=== PATIENT | female | born 1945 | race Caucasian/White ===

== ENCOUNTER 2017-03-07 16:41 | Outpatient (CLI) | payer MEDICARE, BC | END 2017-03-07 16:42 | disposition critical access hospital (66) | LOC: EMS 16:41 | PROVIDERS: ATTEND Surgery | DX: R11.2 Nausea with vomiting, unspecified (principal); R19.7 Diarrhea, unspecified | CPT/HCPCS: A0425; A0427 ==

== ENCOUNTER 2017-03-07 17:25 | Emergency (ER) | payer MEDICARE, BC ==
[~2017-03-07 17:25] MED LIST: SODIUM CHLORIDE 0.9% 1,000 ML IV ONE
[2017-03-07 17:39] LABS: BASOPHILS % (AUTO) 0.3 %; EOSINOPHILS % (AUTO) 0.9 %; HCT - HEMATOCRIT 41.9 % (37.0-47.0); HGB - HEMOGLOBIN 14.5 g/dL (12.0-16.0); LYMPHOCYTES # (AUTO) 0.7 10^3/uL (1.5-3.5); LYMPHOCYTES % (AUTO) 14.7 %; MEAN CORPUSCULAR HEMOGLOBIN 29.7 pg (27.0-31.0); MEAN CORPUSCULAR HGB CONC 34.6 g/dL (32.0-36.0); MEAN PLATELET VOLUME 6.9 fL (7.9-10.8); MONOCYTES # (AUTO) 0.4 10^3/uL (0.0-1.0); MONOCYTES % (AUTO) 7.5 %; NEUTROPHILS # (AUTO) 3.7 10^3/uL (1.5-6.6); NEUTROPHILS % (AUTO) 76.6 %; NUCLEATED RED BLOOD CELLS AUTO 0.1 /100WBC; RED BLOOD COUNT 4.87 10^6/uL (4.20-5.40); RED CELL DISTRIBUTION WIDTH 14.2 % (12.0-15.0); UNCORRECTED WHITE BLOOD COUNT 4.8 x10^3/uL; WHITE BLOOD COUNT 4.8 x10^3/uL (4.8-10.8)
[2017-03-07 17:52] LABS: ALBUMIN/GLOBULIN RATIO 1.2 (1.0-2.2); BILIRUBIN,TOTAL 0.5 mg/dL (0.2-1.0); CALCIUM 7.8 mg/dL (8.5-10.3); CREATININE 0.7 mg/dL (0.4-1.0); TOTAL PROTEIN 6.5 g/dL (6.7-8.2)
--- NOTE | 2017-03-07 17:56 | ED Physician Documentation ---
History of Present Illness - Stated complaint Stated Complaint: N/V/D - Chief complaint Chief Complaint: Abd Pain - History obtained from History obtained from: Patient, Family, EMS - History of Present Illness Timing: Yesterday Pain level max: 3 Pain level now: 3 Improved by: nothing Worsened by: nothing - Additonal information Additional information: Patient is a 71-year-old female presents to the emergency department with nausea , vomiting, diarrhea for the past day. States that she had reconstructive breast surgery several months ago, since that time has been on multiple antibiotics. Concerned that she may have C. difficile. States that she has felt achy, but no fevers. No blood in the diarrhea. 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 HEENT: Tonsil/Adenoidectomy - Present Medications Home Medications: Ambulatory Orders Medication Instructions Recorded Confirmed Atenolol [Tenormin] 1 tab ORAL DAILY 02/11/16 02/11/16 Levothyroxine [Synthroid] 1 tab ORAL DAILY 02/11/16 02/11/16 Lisinopril [Zestril] 1 tab ORAL BID 02/11/16 02/11/16 Montelukast [Singulair] 1 tab ORAL DAILY 02/11/16 02/11/16 Umeclidinium Brm/Vilanterol Tr 1 puffs INH DAILY 02/11/16 02/11/16 [Anoro Ellipta 62.5-25 Mcg INH] Ondansetron Odt [Zofran] 4 mg TL Q6H PRN #10 tablet 03/07/17 - Allergies Allergies/Adverse Reactions: Allergies Allergy/AdvReac Type Severity Reaction Status Date / Time Penicillins Allergy Unknown Verified 02/11/16 15:22 - Social History Does the pt smoke?: No Smoking Status: Never smoker Does the pt drink ETOH?: No Does the pt have substance abuse?: No - Immunizations Immunizations are current?: Yes PD ED PE NORMAL - Vitals Vital signs reviewed: Yes - General General: Alert and oriented X 3, No acute distress, Well developed/nourished - HEENT HEENT: Moist mucous membranes - Neck Neck: Supple, no meningeal sign - Cardiac Cardiac: RRR - Respiratory Respiratory: No respiratory distress, Clear bilaterally - Abdomen Abdomen: Soft, Non distended, Other (mild diffusely TTP without peritoneal signs. ) - Back Back: No spinal TTP - Derm Derm: Warm and dry, No rash - Neuro Neuro: Alert and oriented X 3 - Psych Psych: Normal mood, Normal affect Results - Vitals Vitals: Oxygen O2 Source Room air - EKG (time done) 2013 Rate: Rate (enter#) (89) Rhythm: NSR [place]: Normal Intervals: Normal [place] QRS: Normal Ischemia: Normal ST segments - Labs Labs: Microbiology 03/07/17 20:20 Campylobacter Antigen Assay - Final Stool Stool Culture - Preliminary NO SHIGA TOXIN 1 OR 2 DETECTED 03/07/17 20:20 Clostridium difficile (PCR) - Final Stool Laboratory Tests 03/07/17 03/07/17 03/07/17 17:31 17:31 18:06 WBC 4.8 RBC 4.87 Hgb 14.5 Hct 41.9 MCV 86.0 MCH 29.7 MCHC 34.6 RDW 14.2 Plt Count 210 MPV 6.9 L Neut # 3.7 Lymph # 0.7 L [place] # 0.4 Eos # 0.0 Baso # 0.0 Absolute Nucleated RBC 0.00 Nucleated RBCs 0.1 Sodium 135 Potassium 4.0 Chloride 101 Carbon Dioxide 23 Anion Gap 11.0 BUN 22 H Creatinine 0.7 Estimated GFR (MDRD) 82 L Glucose 145 H Lactic Acid 1.2 Calcium 7.8 L Total Bilirubin 0.5 AST 20 ALT 19 Alkaline Phosphatase 64 Total Protein 6.5 L Albumin 3.6 Globulin 2.9 Albumin/Globulin Ratio 1.2 Lipase 19 L Urine Color Urine Clarity Urine pH Ur Specific [place] Urine Protein Urine Glucose (UA) Urine Ketones Urine Occult Blood Urine Nitrite Urine Bilirubin Urine Urobilinogen Ur Leukocyte Esterase Urine RBC Urine WBC Ur Squamous Epith Cells Urine Bacteria Urine Casts Urine Mucus Ur Microscopic Review Urine Culture Comments 03/07/17 19:11 WBC RBC Hgb Hct MCV MCH MCHC RDW Plt Count MPV Neut # Lymph # [place] # Eos # Baso # Absolute Nucleated RBC Nucleated RBCs Sodium Potassium Chloride Carbon Dioxide Anion Gap BUN Creatinine Estimated GFR (MDRD) Glucose Lactic Acid Calcium Total Bilirubin AST ALT Alkaline Phosphatase Total Protein Albumin Globulin Albumin/Globulin Ratio Lipase Urine Color YELLOW Urine Clarity CLEAR Urine pH 6.0 Ur Specific [place] 1.020 Urine Protein NEGATIVE Urine Glucose (UA) NEGATIVE Urine Ketones 40 H Urine Occult Blood LARGE H Urine Nitrite NEGATIVE Urine Bilirubin NEGATIVE Urine Urobilinogen 0.2 (NORMAL) Ur Leukocyte Esterase NEGATIVE Urine RBC 11-25 H Urine WBC 4-5 Ur Squamous Epith Cells FEW Squamous Urine Bacteria Few Urine Casts 0-2 Hyaline Casts Urine Mucus Few Strands Ur Microscopic Review INDICATED Urine Culture Comments NOT INDICATED PD MEDICAL DECISION MAKING - ED course Complexity details: reviewed results, re-evaluated patient, considered differential, d/w patient, d/w family ED course: Patient is a 71-year-old female who presents to the emergency department with nausea vomiting and diarrhea. C. difficile test is negative. Campylobacter is negative. She feels much better after IV fluids. Abdomen is soft, nontender nondistended on serial examination. Tolerating p.o. without difficulty. Likely viral illness. Will continue supportive care and follow-up with her doctor. Patient and family counseled regarding signs and symptoms for which I believe and urgent re-evaluation would be necessary. Patient with good understanding of and agreement to plan and is comfortable going home at this time This document was made in part using voice recognition software. While efforts are made to proofread this document, sound alike and grammatical errors may occur. Departure - Departure Disposition: 01 Home, Self Care Clinical Impression: Gastroenteritis Condition: Good Instructions: ED Gastroenteritis Viral Follow-Up: Francisca Yun MD [Primary Care Provider] - Within 1 week Prescriptions: Ondansetron Odt [Zofran] 4 mg TL Q6H PRN #10 tablet PRN Reason: Nausea / Vomiting Comments: Drink plenty of fluids and rest. This should improve over the next 2 -3 days. Return if you worsen. Discharge Date/Time: 03/07/17 22:57
[2017-03-07] MEDS ORDERED: SODIUM CHLORIDE 0.9% 1,000 ML IV ONE (17:57)
[2017-03-07 19:31] LABS: BILIRUBIN,URINE NEGATIVE (NEGATIVE)
[2017-03-07 19:34] LABS: UA w/ MICROSCOPIC CHARGE YES
[2017-03-07 19:46] LABS: UR CULTURE IF IND NOT INDICATED
[2017-03-07 22:32] VITALS: BP 130/48
[2017-03-07] MEDS ORDERED: ONDANSETRON ODT 4 MG Prepack 2 TL PRN (22:53)
[2017-03-07] MEDS ORDERED: ONDANSETRON ODT 4 MG Prepack 2 TL ONE (22:59)
== END 2017-03-07 22:57 | disposition home or self-care (01) ==
LOC: ED 17:25
DX: K52.9 Noninfective gastroenteritis and colitis, unspecified (principal); I10 Essential (primary) hypertension; E03.9 Hypothyroidism, unspecified
CPT/HCPCS: 36415; 80053; 81001; 81003; 83605; 83690; 85025; 87045; 87046; 87077; 87086; 87493; 93005; 96360; 99283; 99284

== ENCOUNTER 2017-04-05 14:40 | Outpatient (CLI) | payer MEDICARE, BC | END 2017-04-05 14:41 | disposition critical access hospital (66) | LOC: EMS 14:40 | PROVIDERS: ATTEND Surgery | DX: R11.2 Nausea with vomiting, unspecified (principal); R19.7 Diarrhea, unspecified; R53.1 Weakness; R46.4 Slowness and poor responsiveness | CPT/HCPCS: A0425; A0427 ==

== ENCOUNTER 2017-04-05 15:14 | Inpatient (IN) | payer MEDICARE, BC ==
[2017-04-05] MEDS ORDERED: SODIUM CHLORIDE 0.9% 1,000 ML IV ONE ×3 (15:25→17:52)
[2017-04-05] MEDS ORDERED: SODIUM CHLORIDE FLUSH 0.9% 10 ML SYRINGE IVP ONE (15:31)
--- NOTE | 2017-04-05 15:48 | ED Physician Documentation ---
PD HPI NVD - Stated complaint Stated Complaint: N/V/D - Chief complaint Chief Complaint: Abd Pain - History obtained from History obtained from: Patient, EMS - History of Present Illness Timing - onset: How many hours ago (3), Today Timing - duration: Hours (3) Timing - details: Abrupt onset, Still present Associated symptoms: Abdominal pain (mild cramping intermittent), Near syncope / syncope (general weakness with feeling almost faint. No LOC.), Loss of appetite. No: Fever, Chest pain, Hematemesis, Melena, Hematochezia Contributing factors: No: Sick contact, Bad food, Travel, Recent antibiotics Improved by: No: Vomiting, BM Worsened by: Eating Similar symptoms before: No diagnosis (had similar not as severe episode a month ago or so, which lasted couple days, and was improved with IV fluids and meds in ED and did not need admission. Stool studies then were negative.) Recently seen: Not recently seen Review of Systems Constitutional: reports: Myalgias. denies: Fever, Chills Nose: denies: Rhinorrhea / runny nose, Congestion Throat: denies: Sore throat Respiratory: denies: Cough GI: reports: Nausea, Vomiting, Diarrhea. denies: Hematemesis, Bloody / black stool : denies: Dysuria, Frequency Neurologic: reports: Generalized weakness. 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 HEENT: Tonsil/Adenoidectomy - Present Medications Home Medications: Ambulatory Orders Medication Instructions Recorded Confirmed Atenolol [Tenormin] 1 tab ORAL DAILY 02/11/16 02/11/16 Levothyroxine [Synthroid] 1 tab ORAL DAILY 02/11/16 02/11/16 Lisinopril [Zestril] 1 tab ORAL BID 02/11/16 02/11/16 Montelukast [Singulair] 1 tab ORAL DAILY 02/11/16 02/11/16 Umeclidinium Brm/Vilanterol Tr 1 puffs INH DAILY 02/11/16 02/11/16 [Anoro Ellipta 62.5-25 Mcg INH] Ondansetron Odt [Zofran] 4 mg TL Q6H PRN #10 tablet 03/07/17 - Allergies Allergies/Adverse Reactions: Allergies Allergy/AdvReac Type Severity Reaction Status Date / Time Penicillins Allergy Unknown Verified 04/05/17 15:24 - Social History Does the pt smoke?: No Smoking Status: Never smoker Does the pt drink ETOH?: No Does the pt have substance abuse?: No - Immunizations Immunizations are current?: Yes PD ED PE NORMAL - Vitals Vital signs reviewed: Yes - General General: Alert and oriented X 3, Well developed/nourished, Other (nauseated and holding emesis bag. Pale color. ) - HEENT HEENT: PERRL (nonicteric), Ears normal, Pharynx benign - Neck Neck: Supple, no meningeal sign, No adenopathy - Cardiac Cardiac: RRR, No murmur - Respiratory Respiratory: Clear bilaterally - Abdomen Abdomen: Soft, Non distended, No organomegaly, Other (mild central tenderness without guarding. ). No: Normal bowel sounds (increased general sounds) - Female Female : Deferred - Rectal Rectal: Deferred, Other (she has diarrheal movement into commode which is watery yellow with mealy character and guiac negative. ) - Back Back: No CVA TTP - Derm Derm: Normal color, Warm and dry - Extremities Extremities: No tenderness to palpate, Normal ROM s pain, No edema, No calf tenderness / cord - Neuro Neuro: Alert and oriented X 3, No motor deficit, Normal speech - Psych Psych: Normal mood Results - Vitals Vitals: Vital Signs - 24 hr 04/05/17 15:19 Temperature 36.4 C L Heart Rate 76 Respiratory 16 Rate Blood Pressure 129/44 L O2 Saturation 100 Oxygen O2 Source Room air - Labs Labs: Microbiology 04/05/17 15:45 Campylobacter Antigen Assay - Final Stool Laboratory Tests 04/05/17 04/05/17 16:10 16:10 WBC 17.0 H RBC 5.31 Hgb 14.9 Hct 46.0 MCV 86.7 MCH 28.1 MCHC 32.4 RDW 14.4 Plt Count 331 MPV 7.6 L Neut # 14.0 H Lymph # 2.0 [place] # 0.8 Eos # 0.1 Baso # 0.1 Absolute Nucleated RBC 0.00 Nucleated RBC % 0.0 Manual Slide Review Indicated WBC Morphology 1+ VACUOLATION Platelet Estimate NORMAL (130-450,000) Platelet Morphology NORMAL APPEARANCE RBC Morph Micro Appear NORMAL APPEARANCE Sodium 140 Potassium 3.8 Chloride 104 Carbon Dioxide 23 Anion Gap 13.0 BUN 21 H Creatinine 0.9 Estimated GFR (MDRD) 61 L Glucose 127 H Calcium 9.7 Total Bilirubin 0.4 AST 17 ALT 12 Alkaline Phosphatase 75 Total Protein 7.4 Albumin 4.7 Globulin 2.7 Albumin/Globulin Ratio 1.7 Lipase 29 PD MEDICAL DECISION MAKING - ED course Complexity details: re-evaluated patient, considered differential (consider viral GE vs. food related. Not having abd pain/tenderness focally and abrupt onset, so does not sound like diverticulitis. Not significant pain, so doubt ischemic bowel, and no blood in stool. She is having less nausea and no vomiting after meds. However despite anti-diarrheals she is still having voluminous stools with general weakness. They are watery yellow with some mealy character. ), d/w patient Departure - Departure Disposition: ED Place in Observation Clinical Impression: Nausea vomiting and diarrhea, General weakness, Volume depletion, gastrointestinal loss Condition: Stable Record reviewed to determine appropriate education?: Yes
[2017-04-05] MEDS ORDERED: ONDANSETRON 4 MG/2 ML VIAL IVP STA (16:03)
[2017-04-05] MEDS ORDERED: MORPHINE 10 MG/ML VIAL IVP STA (16:04)
[2017-04-05 16:14] LABS: BASOPHILS # (AUTO) 0.1 10^3/uL (0.0-0.1); BASOPHILS % (AUTO) 0.5 %; EOSINOPHILS # (AUTO) 0.1 10^3/uL (0.0-0.7); EOSINOPHILS % (AUTO) 0.5 %; HGB - HEMOGLOBIN 14.9 g/dL (12.0-16.0); LYMPHOCYTES % (AUTO) 11.9 %; MEAN CORPUSCULAR HEMOGLOBIN 28.1 pg (27.0-31.0); MEAN CORPUSCULAR HGB CONC 32.4 g/dL (32.0-36.0); MEAN CORPUSCULAR VOLUME 86.7 fL (81.0-99.0); MEAN PLATELET VOLUME 7.6 fL (7.9-10.8); MONOCYTES # (AUTO) 0.8 10^3/uL (0.0-1.0); NEUTROPHILS % (AUTO) 82.1 %; RED BLOOD COUNT 5.31 10^6/uL (4.20-5.40); RED CELL DISTRIBUTION WIDTH 14.4 % (12.0-15.0)
[2017-04-05] MEDS ORDERED: ONDANSETRON 4 MG/2 ML VIAL ONE (16:24)
[2017-04-05] MEDS ORDERED: MORPHINE 10 MG/ML VIAL ONE (16:24)
[2017-04-05 16:26] LABS: ALBUMIN/GLOBULIN RATIO 1.7 (1.0-2.2); BILIRUBIN,TOTAL 0.4 mg/dL (0.2-1.0); CALCIUM 9.7 mg/dL (8.5-10.3); CREATININE 0.9 mg/dL (0.4-1.0); POTASSIUM 3.8 mmol/L (3.5-5.0); TOTAL PROTEIN 7.4 g/dL (6.7-8.2)
[2017-04-05 16:43] LABS: PLATELET ESTIMATE, MANUAL NORMAL (130-450,000) (NORMAL); PLATELET MORPHOLOGY NORMAL APPEARANCE (NORMAL); WBC MORPHOLOGY (MULTIPLE) 1+ VACUOLATION (NORMAL)
[2017-04-05] MEDS ORDERED: DIPHENOX/ATROPINE 2.5/0.025 MG TABLET PO STA ×2 (17:00→17:50)
[2017-04-05] MEDS ORDERED: DIPHENOX/ATROPINE 2.5/0.025 MG TABLET PO ONE ×2 (17:09→17:55)
[2017-04-05] MEDS ORDERED: PROMETHAZINE 25 MG/1 ML VIAL IM PRN (18:33)
[2017-04-05] MEDS ORDERED: SODIUM CHLORIDE FLUSH 0.9% 10 ML SYRINGE IVP PRN (18:33)
[2017-04-05] MEDS ORDERED: PROCHLORPERAZINE 10 MG/2 ML VIAL IVP PRN (18:33)
[2017-04-05] MEDS ORDERED: ONDANSETRON ODT 4 MG TABLET TL PRN (18:33)
[2017-04-05] MEDS ORDERED: ACETAMINOPHEN 325 MG TABLET PO PRN (18:33)
[2017-04-05] MEDS ORDERED: MORPHINE 2 MG/ML SYRINGE IVP PRN (18:33)
[2017-04-05] MEDS ORDERED: ALPRAZolam 0.25 MG TABLET PO PRN (19:03)
[2017-04-05 19:16] LABS: THYROID STIMULATING HORMONE 0.7 uIU/mL (0.34-5.60)
[2017-04-05 20:34] LABS: BILIRUBIN,URINE NEGATIVE (NEGATIVE)
[2017-04-05 20:38] LABS: UA w/ MICROSCOPIC CHARGE YES
[2017-04-05 21:06] LABS: UR CULTURE IF IND INDICATED
[2017-04-05] MEDS: SODIUM CHLORIDE FLUSH 0.9% 10 ML SYRINGE IVP SCH (21:48)
[2017-04-05] MEDS: NS W/20 MEQ KCL 1,000 ML IV SCH (21:48)
[2017-04-05] MEDS ORDERED: DIPHENOX/ATROPINE 2.5/0.025 MG TABLET PO PRN (23:59)
--- NOTE | 2017-04-06 02:04 | HISTORY & PHYSICAL EXAMINATION ---
DATE OF ADMISSION: 04/05/2017 CHIEF COMPLAINT: Intractable nausea, vomiting, diarrhea x1 day. HISTORY OF PRESENT ILLNESS: The patient is very pleasant 71-year-old female who presented to the ER today with a complaint of continuous intractable diarrhea. The patient states that she was in her usual state of health yesterday , stopped and picked up dinner, which was [place] that she had eaten at many times before and then proceeded home. When she woke up this morning, she felt nauseous, stomach did not feel normal so she ate some Citizen [place] yogurt, which she has taken in the past several times. She usually eats this yogurt after she had taking antibiotics and when she felt nauseous. Approximately an hour to 1-1/ 2 hour after eating the yogurt, she started having abdominal cramping in the right and left lower quadrant and started having what she calls explosive watery bowel movements. She attempted to go to work today and after being at work for approximately an hour to 1-1/2, she had to lay down on the floor. She broke out in diffuse sweating and started having worsening nausea and abdominal pain and ended up back in the bathroom again up with additional loose watery stool again. At that point in time she decided to come to the ER for further evaluation. She states she has had these similar symptoms before in the past. Specifically, after taking antibiotics for a recent sinusitis and when she has had to take antibiotics in the past for infection or skin problems. Her only underlying significant history was breast cancer diagnosed 30 years prior. While in the ER, she got several doses of , morphine for abdominal pain and Zofran for nausea. Essentially, her blood work was positive for leukocytosis. Otherwise, all electrolytes were within normal limits. The patient was admitted into observation overnight to monitor her electrolytes and for dehydration. ALLERGIES: PENICILLIN. HOME MEDICATIONS: 1. Atenolol 25 mg tablets daily. 2. Synthroid 100 mcg daily. 3. Lisinopril 20 mg daily. 4. Singulair 1 tablet oral p.r.n. 5. Zofran 4 mg tablet sublingual. 6. Inhaler 1 puff for intermittent asthma. PAST MEDICAL HISTORY: 1. History of breast cancer. 2. Sinusitis history. 3. Hypertension. 4. Chronic obstructive pulmonary disease. 5. Hypothyroidism. PAST SURGICAL HISTORY: Includes nephrectomy, tonsil and adenoidectomy, hysterectomy and section. FAMILY HISTORY: Reviewed with the patient, is not pertinent at this time; however, she did state that both parents are . SOCIAL HISTORY: The patient does not smoke. She does not use alcohol nor does she use any illicit substances. She is a [place]. She is . REVIEW OF SYSTEMS A 10 systems have been reviewed and is negative, with exception as discussed in the HPI prior. PHYSICAL EXAMINATION: CONSTITUTIONAL: The patient is alert, in no acute distress. She is sitting on a toilet at the time of assessment. EYES: Pupils are equal, round and reactive to light and accommodation. NECK: Supple. No thyromegaly. CARDIOVASCULAR: S1, S2. Sinus rate and rhythm. RESPIRATORY: Breath sounds are clear and equal bilaterally to auscultation and percussion, no retractions or nasal flaring. GASTROINTESTINAL: Abdomen was soft, bowel sounds are noted. The patient was actively stooling at the time of assessment. GENITOURINARY: No CVA tenderness. Unable to assess bladder at that time. EXTREMITIES: No cyanosis. Pulses are palpable. The patient was able to move upper and lower extremities without difficulty. PSYCHIATRIC: Behavior is appropriate. Pleasant mood. Normal affect. SKIN: Warm, dry and intact. Normal turgor. No evidence of any rashes, lesions, or cellulitis. No edema was noted to bilateral lower extremities. VITAL SIGNS: Temperature 36.4, heart rate 76, respirations 16, blood pressure is 129/44, oxygen saturation 100%. NEUROLOGIC: She was alert, GCS 15. Unable to assess cranial nerves completely at this time, however cranial nerves 2 through 7 were intact. LABORATORY AND DIAGNOSTICS: I personally reviewed laboratory and diagnostic data and the medical record results for the abnormals are as follows: WBC is 1700, BUN is 21, glucose 127, neutrophil percent 14. Diagnostics, none at this time. ASSESSMENT AND PLAN: 1. Intractable nausea with diarrhea secondary to volume depletion with gastrointestinal loss. Plan: Admit the patient into observation. Will give IV fluids, normal saline with aggressive hydration. Continue to monitor electrolytes via daily lab draws. Imodium has been given x2. While in the ER. Will continue to monitor for additional abdominal pain, morphine IV, Zofran IV for nausea and Phenergan for vomiting. Will hold off at this time for CT of abdomen to check for diverticulitis only because the patient has had similar symptoms in the past and it has generally resolve within 1-2 days. She also states that she may have a problem with acidophilous since she states that she cannot take probiotics with that in it and she also has a problem with lactulose. This may be strictly related to the yogurt that she had eaten earlier today. Will give Tylenol as well for fever. 2. Leukocytosis, unspecified. Plan: Will continue to monitor CBC daily labs drawn. I suspect that this is probably related to the gastroenteritis and a spike in the white blood cell count due to possibly viral gastroenteritis since the patient does not have a shift. The patient also does not have any significant history for ischemic bowel, or blood in the stool. Pain seems to have resolved since receiving the IV morphine. 3. Hypothyroidism, unspecified. Plan: We will get a TSH panel since the patient' s thyroid might be off and she might be in a more hyperthyroid state. We will continue on levothyroxine. 4. Essential hypertension. Plan: Will continue atenolol. Will hold lisinopril at this time due to the patient's hydration status. 5. Chronic obstructive pulmonary disease without exacerbation. Plan: We will continue on Singulair and a Anoro Ellipta inhaler as home prescribed. Continue to monitor for changes in respiratory status and respiratory therapy for support. Supplemental oxygen 2 liters nasal cannula to keep sats greater than 90 % has been ordered. 6. Deep venous thromboembolism prophylaxis with foot pumps and Lovenox. 7. STATUS: THE PATIENT IS a FULL CODE. RISK ASSESSMENT/DISPOSITION: The patient is high risk for worsening comorbidities. She will require at least one overnight stay for further evaluation, diagnostics and blood work. Time spent on assessment, panning and evaluation was 45 minutes. JOB #: [id number] EXT JOB #:[id number] FANTASMA
[2017-04-06] MEDS: ZOLPIDEM 5 MG TABLET PO PRN ×2 (03:03→23:54)
[2017-04-06] MEDS: CIPROFLOXACIN 400 MG/200 ML 200 ML IV SCH ×3 (03:03→23:54)
[2017-04-06 05:57] LABS: BASOPHILS % (AUTO) 0.4 %; EOSINOPHILS # (AUTO) 0.2 10^3/uL (0.0-0.7); EOSINOPHILS % (AUTO) 2.9 %; HCT - HEMATOCRIT 36.7 % (37.0-47.0); HGB - HEMOGLOBIN 12.2 g/dL (12.0-16.0); LYMPHOCYTES # (AUTO) 2.2 10^3/uL (1.5-3.5); LYMPHOCYTES % (AUTO) 37.7 %; MEAN CORPUSCULAR HEMOGLOBIN 28.9 pg (27.0-31.0); MEAN CORPUSCULAR HGB CONC 33.1 g/dL (32.0-36.0); MEAN CORPUSCULAR VOLUME 87.2 fL (81.0-99.0); MEAN PLATELET VOLUME 7.6 fL (7.9-10.8); MONOCYTES # (AUTO) 0.4 10^3/uL (0.0-1.0); MONOCYTES % (AUTO) 6.5 %; NEUTROPHILS # (AUTO) 3.1 10^3/uL (1.5-6.6); NEUTROPHILS % (AUTO) 52.5 %; NUCLEATED RED BLOOD CELLS AUTO 0.1 /100WBC; RED BLOOD COUNT 4.21 10^6/uL (4.20-5.40); RED CELL DISTRIBUTION WIDTH 14.1 % (12.0-15.0); UNCORRECTED WHITE BLOOD COUNT 5.8 x10^3/uL; WHITE BLOOD COUNT 5.8 x10^3/uL (4.8-10.8)
[2017-04-06 06:05] LABS: ALBUMIN/GLOBULIN RATIO 1.6 (1.0-2.2); BILIRUBIN,TOTAL 0.3 mg/dL (0.2-1.0); CALCIUM 7.7 mg/dL (8.5-10.3); CREATININE 0.6 mg/dL (0.4-1.0); POTASSIUM 3.8 mmol/L (3.5-5.0); TOTAL PROTEIN 5.5 g/dL (6.7-8.2)
[2017-04-06] MEDS: SODIUM CHLORIDE FLUSH 0.9% 10 ML SYRINGE IVP SCH ×3 (08:13→21:11)
[2017-04-06] MEDS: NS W/20 MEQ KCL 1,000 ML IV SCH ×2 (08:22→18:01)
[2017-04-06] MEDS: ENOXAPARIN 40 MG/0.4 ML SYRINGE SUBQ SCH (08:23)
[2017-04-06] MEDS: LEVOTHYROXINE 100 MCG TABLET PO SCH (08:25)
--- NOTE | 2017-04-06 09:28 | PROVIDER PROGRESS NOTE ---
Assessment/Plan - Problem List (1) Campylobacter gastrointestinal tract infection Assessment/Plan: acute. patient changed to inpatient status. started on Cipro IV and will continue to give IVF NS hydration and monitor electrolytes with daily lab draws. she wants to start eating today. will advance diet as tolerated. WBC has decreased today. will monitor CBC with daily lab draws. zofran IV for nausea and morphine for pain IV. stool cultures are pending for additional bacteria (2) Volume depletion, gastrointestinal loss Assessment/Plan: improving. continue with IVF and monitor for changes in electrolytes. advancing diet today and monitor for additional diarrhea and nausea (3) Hypothyroidism Qualifiers: Hypothyroidism type: unspecified Qualified Code(s): E03.9 - Hypothyroidism , unspecified Assessment/Plan: chronic. continue with synthroid 100mg daily and thyroid panel is normal. 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 patient has hypothyroidism and also takes beta sanjeev for blood pressure control, thyroid normal and will continue on blood pressure medications and hold is systolic <100 - Current Meds Current Meds: Current Medications Generic Name Dose Route Start Last Admin Trade Name Freq PRN Reason Stop Dose Admin Alprazolam 0.5 mg 04/05/17 19:03 04/05/17 22:02 Xanax PO 0.5 mg BID PRN Administration Anxiety Enoxaparin Sodium 40 mg 04/06/17 09:00 04/06/17 08:23 Lovenox SUBQ 40 mg DAILY ENMANUEL Administration Potassium Chloride/Sodium Chloride 1,000 mls @ 100 mls/hr 04/05/17 19:00 08:22 Normal Saline 0.9% W/20 Meq Kcl IV 100 mls/hr .Q10H ENMANUEL Administration Ciprofloxacin 200 mls @ 200 mls/hr 04/06/17 00:00 04/06/17 04:03 Cipro 400 Mg/200 Ml IV Infused Q12H ENMANUEL Infusion Levothyroxine Sodium 100 mcg 04/06/17 09:00 04/06/17 08:25 Synthroid PO 100 mcg DAILY ENMANUEL Administration Sodium Chloride 10 ml 04/05/17 22:00 04/06/17 08:13 Normal Saline Flush 0.9% IVP Not Given Q8HR ENMANUEL Zolpidem Tartrate 5 mg 04/06/17 02:34 04/06/17 03:03 Ambien PO 5 mg QPM PRN Administration Insomnia - Lab Result Lab results reviewed: Yes Fish Bone Diagrams: 04/06/17 05:36 04/06/17 05:36 Other Lab Results: Abnormal Lab Results 04/05/17 04/05/17 04/05/17 16:10 16:10 20:00 WBC 17.0 x10^3/uL H x10^3/uL (4.8-10.8) Hct MPV 7.6 fL L fL (7.9-10.8) Neut # 14.0 10^3/uL H 10^3/uL (1.5-6.6) BUN 21 mg/dL H mg/dL (6-20) Estimated GFR (MDRD) 61 L (>89) Glucose 127 mg/dL H mg/dL (70-100) Calcium Total Protein Urine Occult Blood MODERATE H (NEGATIVE) Ur Leukocyte Esterase SMALL H (NEGATIVE) Urine WBC 11-25 /HPF H /HPF (0-5) 04/06/17 04/06/17 05:36 05:36 WBC Hct 36.7 % L % (37.0-47.0) MPV 7.6 fL L fL (7.9-10.8) Neut # BUN Estimated GFR (MDRD) Glucose Calcium 7.7 mg/dL L mg/dL (8.5-10.3) Total Protein 5.5 g/dL L g/dL (6.7-8.2) Urine Occult Blood Ur Leukocyte Esterase Urine WBC - EKG Results EKG Interpreted Independently: No - Diagnostic Imaging Results Diagnostic Imaging Results: Final report reviewed - Additional Planning Condition/Complexity: Improved My Orders: My Active Orders 04/05/17 15:45 CALPROTECTIN,STOOL [REFLAB] Stat 04/05/17 18:33 Activity Orders [RC] Routine IO [RC] IOSHIFT Initiate Line Care Protocol [RC] .protocol Initiate Personal Care Protoco [RC] .protocol Oxygen Therapy [RC] .PRN Vital Signs [RC] Q4HR Acetaminophen [Tylenol] 650 mg PO Q4HR PRN Morphine Inj [Morphine] 2 mg IVP Q2H PRN Ondansetron Odt [Zofran Odt] 4 mg TL Q6HR PRN Prochlorperazine Inj [Compazine Inj] 10 mg IVP Q6HR PRN Promethazine Inj [Phenergan Inj] 25 mg IM Q6HR PRN Sodium Chloride Flush 0.9% [Normal Saline Flush 0.9%] 10 ml IVP PRN PRN Code Status [OTHERS] Routine Condition of Patient [OTHERS] Routine DVT Prophylaxis [OTHERS] Routine 04/05/17 18:34 NPO except Meds [DIET] 04/05/17 18:35 Foot Pumps [RC] QSHIFT 04/05/17 19:00 Ns W/20 Meq KCl [Normal Saline 0.9% W/20 Meq KCl] 1,000 ml IV 100 mls/hr 04/05/17 19:03 ALPRAZolam [Xanax] 0.5 mg PO BID PRN 04/05/17 20:00 CUL, STOOL [CULTURE, STOOL] [] Stat 04/05/17 22:00 Sodium Chloride Flush 0.9% [Normal Saline Flush 0.9%] 10 ml IVP Q8HR 04/06/17 09:00 Enoxaparin [Lovenox] 40 mg SUBQ DAILY Levothyroxine [Synthroid] 100 mcg PO DAILY Umeclidinium Brm/Vilanterol Tr [Anoro Ellipta 62.5-25 Mcg INH] 1 puffs INH DAILY 04/07/17 05:00 CBC - COMP BLD CT W/AUTO DIFF [HEME] DAILYLAB Plan Discussed with:: Patient Time Spent: 31-60 minutes Subjective - Subjective Patient Reports: Feeling Better, Resting Comfortably, Other (wants to try to eat. states she is hungry) Nursing Reports: No Complaints, Other (hungry and no diarrhea this morning) Objective Vital Signs: Vital Signs - 24 hr 04/05/17 04/06/17 04/06/17 20:20 01:00 05:00 Temperature 37.4 C 36.8 C 36.9 C Heart Rate [ 79 66 68 Brachial] Respiratory 18 18 16 Rate Blood Pressure 143/60 H 115/44 L 134/49 H [Left Brachial artery] O2 Saturation 98 96 95 04/06/17 08:43 Temperature 36.9 C Heart Rate [ 74 Brachial] Respiratory 18 Rate Blood Pressure 122/43 L [Left Brachial artery] O2 Saturation 95 Oxygen O2 Source Room air I&O (Last 24 Hrs): Intake and Output Totals x24h 04/04/17 04/05/17 04/06/17 23:59 23:59 23:59 Intake Total 1120 1200 Balance 1120 1200 General: Alert, Oriented x3, Cooperative, No acute distress HEENT: Atraumatic, PERRLA, EOMI Neck: Supple, No JVD, No thyromegaly, +2 carotid pulse wo bruit Lymphatic: no adenopathy Neuro: Alert, CN 2-12 Grossly Intact, Oriented Times 3 Cardiovascular: Regular rate, Normal S1, Normal S2 Respiratory: Chest non-tender, No respiratory distress, Breath sounds nml Abdomen: Normal bowel sounds, Soft, No tenderness, No hepatospenomegaly, No masses Extremities: No clubbing, No cyanosis, No edema, Normal pulses, No tenderness/ swelling Skin: No rashes, No breakdown, No significant lesion - Results Results: Laboratory Results WBC 5.8 x10^3/uL (4.8-10.8) 04/06/17 05:36 RBC 4.21 10^6/uL (4.20-5.40) 04/06/17 05:36 Hgb 12.2 g/dL (12.0-16.0) 04/06/17 05:36 Hct 36.7 % (37.0-47.0) L 04/06/17 05:36 MCV 87.2 fL (81.0-99.0) 04/06/17 05:36 MCH 28.9 pg (27.0-31.0) 04/06/17 05:36 MCHC 33.1 g/dL (32.0-36.0) 04/06/17 05:36 RDW 14.1 % (12.0-15.0) 04/06/17 05:36 Plt Count 233 10^3/uL (130-450) 04/06/17 05:36 MPV 7.6 fL (7.9-10.8) L 04/06/17 05:36 Neut # 3.1 10^3/uL (1.5-6.6) 04/06/17 05:36 Lymph # 2.2 10^3/uL (1.5-3.5) 04/06/17 05:36 [place] # 0.4 10^3/uL (0.0-1.0) 04/06/17 05:36 Eos # 0.2 10^3/uL (0.0-0.7) 04/06/17 05:36 Baso # 0.0 10^3/uL (0.0-0.1) 04/06/17 05:36 Absolute Nucleated RBC 0.00 x10^3/uL 04/06/17 05:36 Nucleated RBC % 0.1 /100WBC 04/06/17 05:36 Manual Slide Review Indicated 04/05/17 16:10 WBC Morphology 1+ VACUOLATION (NORMAL) 04/05/17 16:10 Platelet Estimate NORMAL (130-450,000) (NORMAL) 04/05/17 16:10 Platelet Morphology NORMAL APPEARANCE (NORMAL) 04/05/17 16:10 RBC Morph Micro Appear NORMAL APPEARANCE (NORMAL) 04/05/17 16:10 Sodium 138 mmol/L (135-145) 04/06/17 05:36 Potassium 3.8 mmol/L (3.5-5.0) 04/06/17 05:36 Chloride 111 mmol/L (101-111) 04/06/17 05:36 Carbon Dioxide 21 mmol/L (21-32) 04/06/17 05:36 Anion Gap 6.0 (6-13) 04/06/17 05:36 BUN 14 mg/dL (6-20) 04/06/17 05:36 Creatinine 0.6 mg/dL (0.4-1.0) 04/06/17 05:36 Estimated GFR (MDRD) 98 (>89) 04/06/17 05:36 Glucose 95 mg/dL (70-100) 04/06/17 05:36 Calcium 7.7 mg/dL (8.5-10.3) L 04/06/17 05:36 Magnesium 2.1 mg/dL (1.7-2.8) 04/05/17 16:10 Total Bilirubin 0.3 mg/dL (0.2-1.0) 04/06/17 05:36 AST 12 IU/L (10-42) 04/06/17 05:36 ALT 10 IU/L (10-60) 04/06/17 05:36 Alkaline Phosphatase 50 IU/L (42-121) 04/06/17 05:36 Total Protein 5.5 g/dL (6.7-8.2) L 04/06/17 05:36 Albumin 3.4 g/dL (3.2-5.5) 04/06/17 05:36 Globulin 2.1 g/dL (2.1-4.2) 04/06/17 05:36 Albumin/Globulin Ratio 1.6 (1.0-2.2) 04/06/17 05:36 Lipase 29 U/L (22-51) 04/05/17 16:10 TSH 0.70 uIU/mL (0.34-5.60) 04/05/17 16:10 Thyroxine (T4) 9.26 ug/dL (6.09-12.23) 04/05/17 16:10 Urine Color YELLOW 04/05/17 20:00 Urine Clarity CLEAR (CLEAR) 04/05/17 20:00 Urine pH 6.0 PH (5.0-7.5) 04/05/17 20:00 Ur Specific [place] 1.025 (1.002-1.030) 04/05/17 20:00 Urine Protein NEGATIVE mg/dL (NEGATIVE) 04/05/17 20:00 Urine Glucose (UA) NEGATIVE mg/dL (NEGATIVE) 04/05/17 20:00 Urine Ketones NEGATIVE mg/dL (NEGATIVE) 04/05/17 20:00 Urine Occult Blood MODERATE (NEGATIVE) H 04/05/17 20:00 Urine Nitrite NEGATIVE (NEGATIVE) 04/05/17 20:00 Urine Bilirubin NEGATIVE (NEGATIVE) 04/05/17 20:00 Urine Urobilinogen 0.2 (NORMAL) E.U./dL (NORMAL) 04/05/17 20:00 Ur Leukocyte Esterase SMALL (NEGATIVE) H 04/05/17 20:00 Urine RBC 0-5 /HPF (0-5) 04/05/17 20:00 Urine WBC 11-25 /HPF (0-5) H 04/05/17 20:00 Urine WBC Clumps PRESENT 04/05/17 20:00 Ur Squamous Epith Cells FEW Squamous (<= Few) 04/05/17 20:00 Urine Bacteria Few /HPF (None Seen) 04/05/17 20:00 Urine Mucus Moderate Strands 04/05/17 20:00 Ur Microscopic Review INDICATED 04/05/17 20:00 Urine Culture Comments INDICATED 04/05/17 20:00 - Procedures Procedures: none
[2017-04-06] MEDS ORDERED: ALBUTEROL NEB 2.5 MG/3 ML INH PRN (17:39)
[2017-04-06] MEDS: SACCHAROMYCES BOULARDII 250 MG CAPSULE PO SCH (17:59)
[2017-04-06] MEDS: LISINOPRIL 20 MG TABLET PO SCH ×2 (17:59→18:06)
[2017-04-06] MEDS ORDERED: LISINOPRIL 20 MG TABLET PO SCH (21:00)
[2017-04-07] MEDS: NS W/20 MEQ KCL 1,000 ML IV SCH (05:24)
[2017-04-07 05:43] LABS: BASOPHILS % (AUTO) 0.7 %; EOSINOPHILS # (AUTO) 0.2 10^3/uL (0.0-0.7); EOSINOPHILS % (AUTO) 4.4 %; HCT - HEMATOCRIT 37.8 % (37.0-47.0); HGB - HEMOGLOBIN 12.5 g/dL (12.0-16.0); LYMPHOCYTES % (AUTO) 53.8 %; MEAN CORPUSCULAR HEMOGLOBIN 28.7 pg (27.0-31.0); MEAN CORPUSCULAR VOLUME 87.1 fL (81.0-99.0); MEAN PLATELET VOLUME 7.6 fL (7.9-10.8); MONOCYTES # (AUTO) 0.3 10^3/uL (0.0-1.0); MONOCYTES % (AUTO) 6.1 %; NEUTROPHILS # (AUTO) 1.9 10^3/uL (1.5-6.6); RED BLOOD COUNT 4.34 10^6/uL (4.20-5.40); RED CELL DISTRIBUTION WIDTH 14.5 % (12.0-15.0); UNCORRECTED WHITE BLOOD COUNT 5.5 x10^3/uL; WHITE BLOOD COUNT 5.5 x10^3/uL (4.8-10.8)
[2017-04-07 05:52] LABS: ALBUMIN/GLOBULIN RATIO 1.5 (1.0-2.2); BILIRUBIN,TOTAL 0.4 mg/dL (0.2-1.0); CALCIUM 8.5 mg/dL (8.5-10.3); CREATININE 0.7 mg/dL (0.4-1.0); POTASSIUM 3.9 mmol/L (3.5-5.0); TOTAL PROTEIN 6.1 g/dL (6.7-8.2)
[2017-04-07] MEDS: SODIUM CHLORIDE FLUSH 0.9% 10 ML SYRINGE IVP SCH (06:17)
--- NOTE | 2017-04-07 07:59 | Discharge Plan ---
Discharge Plan Disposition: Home, Self Care Condition: Stable Prescriptions: Ciprofloxacin HCl [Cipro] 500 mg PO BID #14 tablet Saccharomyces Boulardii [Florastor] 250 mg PO TID #30 capsule Diet: Regular (GLUTEN AND DAIRY FREE) Activity Restrictions: No Restrictions Shower Restrictions: No Driving Restrictions: No Weight Bearing: Full Weight Additional Instructions or Follow Up instructions: PLEASE CONTINUE TO TAKE HOME MEDICATIONS PRESCRIBED. YOU HAVE BEEN GIVEN AN ANTIBIOTIC FOR CAMPYLOBACTER BACTERIA FOUND IN YOUR STOOL. YOU NEED TO TAKE THE CIPRO ANTIBIOTIC PRESCRIBED. YOU ALSO NEED TO CONTINUE TO TAKE THE PROBIOTIC DAILY. AVOID GLUTEN YOU ALREADY HAVE BEEN. ADD NO DAIRY FOR AT LEAST 3 WEEKS AND THEN YOU CAN DO A TRIAL WITH DAIRY TO SEE IF YOU CAN TOLERATE IT. CONTINUE TO SEE YOUR PRIMARY CARE PROVIDER WITHIN 1-2 DAYS OF DISCHARGE CONTINUE TO GET EXERCISE DAILY AND INCREASE YOUR INTAKE OF WATER THIS WEEK TO AVOID DEHYDRATION. No Smoking: If you smoke, Please STOP! Call for help. Follow-up with: Francisca Yun MD [Primary Care Provider] -
[2017-04-07 08:05] VITALS: BP 150/54
[2017-04-07] MEDS: SACCHAROMYCES BOULARDII 250 MG CAPSULE PO SCH (08:06)
[2017-04-07] MEDS: LISINOPRIL 20 MG TABLET PO SCH (08:06)
[2017-04-07] MEDS: ENOXAPARIN 40 MG/0.4 ML SYRINGE SUBQ SCH (08:06)
[2017-04-07] MEDS: LEVOTHYROXINE 100 MCG TABLET PO SCH (08:06)
--- NOTE | 2017-04-07 08:07 | DISCHARGE SUMMARY ---
"Discharge Summary Admit Date: 04/06/17 Discharge Date: 04/07/17 Discharging Provider: RHEA PARIHK APRN Primary Care Provider: FRANCES HACKETT MD Condition at Discharge: Good Discharge Disposition: 01 Home, Self Care Discharge Facility Name: HOME - DIAGNOSES Admission Diagnoses: 1. INTRACTABLE DIARRHEA WITH ELECTROLYTE LOSSES 2. LEUKOCYTOSIS, UNSPECIFIED 3. HYPOTHYROIDISM UNSPECIFIED 4. OBESITY WITH BMI>30 5. ESSENTIAL PRIMARY HYPERTENSION Discharge Diagnoses with Status of Each Condition: 1. INTRACTABLE DIARRHEA WITH ELECTROLYTE LOSSES SECONDARY TO CAMPYLOBACTER INFECTION IN GI TRACT 2. ACUTE LEUKOCYTOSIS WITH GASTROINTESTINAL CAMPYLOBACTER INFECTION OF INTESTINAL TRACT 3. HYPOTHYROIDISM, UNSPECIFIED 4. OBESITY WITH BMI>30 WITH ENDOCRINE DISORDER 5. ESSENTIAL PRIMARY HYPERTENSION - HPI History of Present Illness: History of Present Illness Timing - onset: How many hours ago (3), Today Timing - duration: Hours (3) Timing - details: Abrupt onset, Still present Associated symptoms: Abdominal pain (mild cramping intermittent), Near syncope / syncope (general weakness with feeling almost faint. No LOC.), Loss of appetite. No: Fever, Chest pain, Hematemesis, Melena, Hematochezia Contributing factors: No: Sick contact, Bad food, Travel, Recent antibiotics Improved by: No: Vomiting, BM Worsened by: Eating Similar symptoms before: No diagnosis (had similar not as severe episode a month ago or so, which lasted couple days, and was improved with IV fluids and meds in ED and did not need admission. Stool studies then were negative.) Recently seen: Not recently seen - CONSULTS | PROCEDURES Consultations: NONE Procedures: NONE - HOSPITAL COURSE Hospital Course: Patient was admitted inpatient for intractable diarrhea and campylobacter infection. Her hospital course and treatment is as follows: - Problem List (1) Campylobacter gastrointestinal tract infection Assessment/Plan: acute. Patient was started on Cipro IV and continued to give IVF NS for hydration and monitored electrolytes with daily lab draws. Her diet was advanced as tolerated.She eats a gluten free diet. [place] [id number] [place] improved [place] less than [address]27 at discharge. Monitored CBC and CMP with daily lab draws. zofran IV for nausea and morphine for pain IV was given. stool cultures grew out campylobacter bacteria and were negative for CDiff. she was diarrhea free at discharge. all electrolytes were within normal range (2) Volume depletion, gastrointestinal loss Assessment/Plan: Patient was given IVF NS for hydration and we continued to monitor changes in electrolytes and white cound. stool cultures done. vital signs monitored for dehydration. 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 She was instructed to follow her normal diet pattern and increase fluid intake. She was given prescription for Cipro for the intestinal infection to continue for another 7 days. She verbally understood and discharged to home - ALLERGIES Allergies/Adverse Reactions: Allergies Allergy/AdvReac Type Severity Reaction Status Date / Time Penicillins Allergy Unknown Verified 04/05/17 15:24 - MEDICATIONS Home Medications: Ambulatory Orders Medication Instructions Recorded Confirmed Atenolol [Tenormin] 12.5 mg ORAL DAILY 02/11/16 04/06/17 Levothyroxine [Synthroid] 100 mcg ORAL DAILY 02/11/16 04/06/17 Lisinopril [Zestril] 20 mg ORAL BID 02/11/16 04/06/17 Montelukast [Singulair] 10 mg ORAL DAILY 02/11/16 04/06/17 Umeclidinium Brm/Vilanterol Tr 1 puffs INH DAILY 02/11/16 04/06/17 [Anoro Ellipta 62.5-25 Mcg INH] Ondansetron Odt [Zofran Odt] 4 mg TL Q6H PRN #10 tablet 03/07/17 04/06/17 Albuterol Sulf [Ventolin Hfa 1 puffs INH Q6H PRN 04/06/17 04/06/17 Inhaler] Ciprofloxacin HCl [Cipro] 500 mg PO BID #14 tablet 04/07/17 Saccharomyces Boulardii [Florastor] 250 mg PO TID #30 capsule 04/07/17 - PHYSICAL EXAM AT DISCHARGE General Appearance: positive: No acute distress, Alert Eyes Bilateral: positive: Normal inspection, PERRL, EOMI ENT: positive: ENT inspection nml, Pharynx nml, No signs of dehydration Neck: positive: Nml inspection, Thyroid nml, No JVD, Trachea midline Respiratory: positive: Chest non-tender, No respiratory distress, Breath sounds nml Cardiovascular: positive: Regular rate & rhythm, No murmur, No gallop Peripheral Pulses: positive: 2+ Abdomen: positive: Non-tender, No organomegaly, Nml bowel sounds, No distention. negative: Guarding, Rebound Back: positive: Nml inspection. negative: CVA tenderness (R), CVA tenderness (L ) Skin: positive: Color nml, No rash, Warm, Dry Extremities: positive: Non-tender, Full ROM, Nml appearance, No pedal edema Neurologic/Psychiatric: positive: Oriented x3, CN's nml (2-12), Motor nml, Sensation nml, Mood/affect nml - LABS Result Diagrams: 04/07/17 05:05 04/07/17 05:05 Other Lab Results: Abnormal Lab Results 04/05/17 04/05/17 04/05/17 16:10 16:10 20:00 WBC 17.0 x10^3/uL H x10^3/uL (4.8-10.8) Hct MPV 7.6 fL L fL (7.9-10.8) Neut # 14.0 10^3/uL H 10^3/uL (1.5-6.6) BUN 21 mg/dL H mg/dL (6-20) Estimated GFR (MDRD) 61 L (>89) Glucose 127 mg/dL H mg/dL (70-100) Calcium Total Protein Urine Occult Blood MODERATE H (NEGATIVE) Ur Leukocyte Esterase SMALL H (NEGATIVE) Urine WBC 11-25 /HPF H /HPF (0-5) 04/06/17 04/06/17 04/07/17 05:36 05:36 05:05 WBC Hct 36.7 % L % (37.0-47.0) MPV 7.6 fL L fL 7.6 fL L fL (7.9-10.8) (7.9-10.8) Neut # BUN Estimated GFR (MDRD) Glucose Calcium 7.7 mg/dL L mg/dL (8.5-10.3) Total Protein 5.5 g/dL L g/dL (6.7-8.2) Urine Occult Blood Ur Leukocyte Esterase Urine WBC 04/07/17 05:05 WBC Hct MPV Neut # BUN Estimated GFR (MDRD) 82 L (>89) Glucose 107 mg/dL H mg/dL (70-100) Calcium Total Protein 6.1 g/dL L g/dL (6.7-8.2) Urine Occult Blood Ur Leukocyte Esterase Urine WBC - DIAGNOSTIC IMAGING Diagnostic Imaging Results: Final report reviewed - FOLLOW UP Follow Up: PATIENT TOLD TO SEE PRIMARY CARE PROVIDER IN 1-2 DAYS OF DISCHARGE SHE WAS GIVEN A PRESCRIPTION FOR CIPRO AND PROBIOTIC FOR CAMPYLOBACTER INFECTION - TIME SPENT Time Spent in Discharge (Minutes): 45 (FOR DISCHARGE PLANNING AND ASSESSMENT)"
[2017-04-07] MEDS ORDERED: ATENOLOL 25 MG TABLET PO SCH (09:00)
[2017-04-07] MEDS ORDERED: UMECLIDINIUM BRM PO SCH (09:00)
[2017-04-07] MEDS ORDERED: VILANTEROL TR PO SCH (09:00)
== END 2017-04-07 09:50 | disposition home or self-care (01) | DRG 373 ==
LOC: EDUNIT# → ED 15:14 → OBS 17:57 → OBSVTOIN 04-06 10:54 → MS2 04-06 12:03
PROVIDERS: ADMIT Nurse Practitioner; ATTEND Nurse Practitioner
DX: R11.2 Nausea with vomiting, unspecified (principal); R19.7 Diarrhea, unspecified; R53.1 Weakness; A04.5 Campylobacter enteritis; E86.9 Volume depletion, unspecified; I49.9 Cardiac arrhythmia, unspecified; E03.9 Hypothyroidism, unspecified; E66.9 Obesity, unspecified; Z68.32 Body mass index [BMI] 32.0-32.9, adult; I15.8 Other secondary hypertension; J44.9 Chronic obstructive pulmonary disease, unspecified; Z79.51 Long term (current) use of inhaled steroids; Z79.899 Other long term (current) drug therapy; Z85.3 Personal history of malignant neoplasm of breast
CPT/HCPCS: 36415; 80053; 81001; 81003; 83690; 83735; 83993; 84436; 84443; 85025; 87045; 87046; 87086; 87493; 93005; 96361; 96365; 96372; 96374; 96375; 99284

== ENCOUNTER 2019-03-10 08:43 | Outpatient (CLI) | payer MEDICARE, BC ==
--- NOTE | 2019-03-10 13:07 | Ultrasound Report ---
Reason: RT ARM MASS Procedure Date: 03/10/2019 Accession Number: [id number] / [id number] Procedure: US - Ext Limited Non Vascular CPT Code: FULL RESULT: EXAM: RIGHT UPPER EXTREMITY ULTRASOUND - LIMITED EXAM DATE: 03/10/2019 08:55 AM. CLINICAL HISTORY: Right arm mass. COMPARISON: None. TECHNIQUE: Real-time scanning was performed with static images obtained. FINDINGS: Grayscale and limited color Doppler ultrasound of the right forearm reveals a 1.3 x 0.5 x 0.7 cm subcutaneous homogeneously hyperechoic mass with somewhat irregular borders approximately 0.5 cm deep to the skin surface. Limited color Doppler demonstrates vascularity within the solid-appearing mass. IMPRESSION: Nonspecific vascular mass measuring up to 1.3 cm as described. RADIA
== END 2019-03-10 08:44 | disposition home or self-care (01) ==
LOC: DI 08:43
PROVIDERS: ATTEND Surgery
DX: L98.8 Other specified disorders of the skin and subcutaneous tissue (principal); R22.31 Localized swelling, mass and lump, right upper limb
CPT/HCPCS: 76882

== ENCOUNTER 2019-04-09 17:33 | Emergency (ER) | payer MEDICARE, BC ==
[2019-04-09] MEDS ORDERED: cloNIDine 0.1 MG TABLET PO STA (18:43)
--- NOTE | 2019-04-09 18:46 | ED Physician Documentation ---
History of Present Illness - Stated complaint Stated Complaint: HBP/DIZZY - Chief complaint Chief Complaint: General - History obtained from History obtained from: Patient (73-year-old woman with history of hypertension. Because of a mixup she did not take her lisinopril for the last couple of days and then took her blood pressure today and it was quite high. 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, 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 HEENT: Tonsil/Adenoidectomy - Present Medications Home Medications: Ambulatory Orders Medication Instructions Recorded Confirmed Atenolol [Tenormin] 12.5 mg ORAL DAILY 02/11/16 04/06/17 Levothyroxine [Synthroid] 100 mcg ORAL DAILY 02/11/16 04/06/17 Lisinopril [Zestril] 20 mg ORAL BID 02/11/16 04/06/17 Montelukast [Singulair] 10 mg ORAL DAILY 02/11/16 04/06/17 Umeclidinium Brm/Vilanterol Tr 1 puffs INH DAILY 02/11/16 04/06/17 [Anoro Ellipta 62.5-25 Mcg INH] Ondansetron Odt [Zofran Odt] 4 mg TL Q6H PRN #10 tablet 03/07/17 04/06/17 Albuterol Sulf [Ventolin Hfa 1 puffs INH Q6H PRN 04/06/17 04/06/17 Inhaler] Ciprofloxacin HCl [Cipro] 500 mg PO BID #14 tablet 04/07/17 Saccharomyces Boulardii [Florastor] 250 mg PO TID #30 capsule 04/07/17 Lisinopril 40 mg PO DAILY #30 tablet 04/09/19 - Allergies Allergies/Adverse Reactions: Allergies Allergy/AdvReac Type Severity Reaction Status Date / Time Penicillins Allergy Unknown Verified 04/09/19 17:38 - Social History Does the pt smoke?: No Smoking Status: Never smoker Does the pt drink ETOH?: No Does the pt have substance abuse?: No - Immunizations Immunizations are current?: Yes PD ED PE NORMAL - Vitals Vital signs reviewed: Yes - General General: Alert and oriented X 3, No acute distress - Neck Neck: Supple, no meningeal sign, No bony TTP - Cardiac Cardiac: RRR, No murmur - Respiratory Respiratory: No respiratory distress, Clear bilaterally - Abdomen Abdomen: Non tender - Extremities Extremities: No edema, No calf tenderness / cord - Neuro Neuro: Alert and oriented X 3, Normal speech Results - Vitals Vitals: Vital Signs - 24 hr 04/09/19 17:38 Temperature 37.0 C Heart Rate 63 Respiratory 18 Rate Blood Pressure 217/61 H O2 Saturation 98 Oxygen O2 Source Room air PD MEDICAL DECISION MAKING - ED course ED course: This is a 73-year-old woman who presents with asymptomatic or relatively asymptomatic hypertension because she did not take her meds for several days. She did take it today but needs a refill. She is administered 0.2 mill grams of clonidine Departure - Departure Disposition: 01 Home, Self Care Clinical Impression: Hypertension due to endocrine disorder Condition: Good Record reviewed to determine appropriate education?: Yes Prescriptions: Lisinopril 40 mg PO DAILY #30 tablet Comments: Call your doctor to arrange a follow-up appointment, make the next available appointment. In the interim, return anytime if worse or if new symptoms develop.
[2019-04-09 19:01] VITALS: BP 220/62
== END 2019-04-09 19:01 | disposition home or self-care (01) ==
LOC: ED 17:33
DX: I10 Essential (primary) hypertension (principal); T46.4X6A Underdosing of angiotensin-converting-enzyme inhibitors, initial encounter; Z91.138 Patient's unintentional underdosing of medication regimen for other reason
CPT/HCPCS: 99282; 99283; A9270

== ENCOUNTER 2019-12-24 15:17 | Emergency (ER) | payer MEDICARE, BC ==
[2019-12-24] MEDS ORDERED: IPRATROPIUM/ALBUTEROL 3 ML NEB INH STA (15:37)
--- NOTE | 2019-12-24 15:39 | ED Physician Documentation ---
PD HPI DYSPNEA - Stated complaint Stated Complaint: SOA/ASTHMA - Chief complaint Chief Complaint: Resp - History obtained from History obtained from: Patient - History of Present Illness Timing - onset: Other (74-year-old woman with history of asthma with environmental triggers presents with an exacerbation of same with shortness of breath and nonproductive cough for the last few days. She denies pedal edema or chest pain. 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 HEENT: Tonsil/Adenoidectomy - Present Medications Home Medications: Ambulatory Orders Medication Instructions Recorded Confirmed Levothyroxine [Synthroid] 100 mcg ORAL DAILY 02/11/16 04/06/17 Montelukast [Singulair] 10 mg ORAL DAILY 02/11/16 04/06/17 Umeclidinium Brm/Vilanterol Tr 1 puffs INH DAILY 02/11/16 04/06/17 [Anoro Ellipta 62.5-25 Mcg INH] atenoloL [Tenormin] 12.5 mg ORAL DAILY 02/11/16 04/06/17 lisinopriL [Zestril] 20 mg ORAL BID 02/11/16 04/06/17 Ondansetron Odt [Zofran Odt] 4 mg TL Q6H PRN #10 tablet 03/07/17 04/06/17 Albuterol Sulf [Ventolin Hfa 1 puffs INH Q6H PRN 04/06/17 04/06/17 Inhaler] Ciprofloxacin HCl [Cipro] 500 mg PO BID #14 tablet 04/07/17 Saccharomyces Boulardii [Florastor] 250 mg PO TID #30 capsule 04/07/17 lisinopriL [Lisinopril] 40 mg PO DAILY #30 tablet 04/09/19 Ipratropium/Albuterol [Duoneb] 3 ml INH Q6H PRN #1 % 12/24/19 Nebulizer [Aeroneb Go Nebulizer] 1 each MC ONCE #1 each 12/24/19 predniSONE [Deltasone] 20 mg PO [id number] #21 tab 12/24/19 - Allergies Allergies/Adverse Reactions: Allergies Allergy/AdvReac Type Severity Reaction Status Date / Time Penicillins Allergy Unknown Verified 12/24/19 15:30 - Social History Does the pt smoke?: No Smoking Status: Never smoker Does the pt drink ETOH?: No Does the pt have substance abuse?: No - Immunizations Immunizations are current?: Yes PD ED PE NORMAL - Vitals Vital signs reviewed: Yes - General General: Alert and oriented X 3, No acute distress - HEENT HEENT: PERRL, EOMI - Neck Neck: Supple, no meningeal sign, No bony TTP - Cardiac Cardiac: RRR, No murmur - Respiratory Respiratory: Other (Nonlabored, diminished breath sounds throughout especially the bases with mild expiratory wheezes and increased I:E ratio.) - Abdomen Abdomen: Non tender - Extremities Extremities: No edema, No calf tenderness / cord - Neuro Neuro: Alert and oriented X 3, Normal speech Results - Vitals Vitals: Vital Signs - 24 hr 12/24/19 12/24/19 12/24/19 15:30 15:32 15:50 Temperature 36.5 C Heart Rate 95 125 H 101 H Respiratory 24 16 Rate Blood Pressure 177/123 H 168/110 H O2 Saturation 96 98 Oxygen O2 Source Room air PD MEDICAL DECISION MAKING - ED course Complexity details: re-evaluated patient ED course: 74-year-old woman with apparent asthma exacerbation. Much better after a DuoNeb, clear lungs. No infiltrate on chest x-ray. Requested prescription for nebulizer. Departure - Departure Disposition: 01 Home, Self Care Clinical Impression: Bronchitis Asthma Qualifiers: Asthma severity: moderate Asthma persistence: persistent Asthma complication type: with status asthmaticus Qualified Code(s): J45.42 - Moderate persistent asthma with status asthmaticus Condition: Good Record reviewed to determine appropriate education?: Yes Instructions: Asthma Dc Prescriptions: Nebulizer [Aeroneb Go Nebulizer] 1 each MC ONCE #1 each predniSONE [Deltasone] 20 mg PO [id number] #21 tab Ipratropium/Albuterol [Duoneb] 3 ml INH Q6H PRN #1 % PRN Reason: Wheezing Comments: Call your doctor to arrange a follow-up appointment, make the next available appointment. In the interim, return anytime if worse or if new symptoms develop.
--- NOTE | 2019-12-24 16:06 | XRAY Report ---
PROCEDURE: Chest 1 View X-Ray INDICATIONS: dyspnea TECHNIQUE: One view of the chest was acquired. COMPARISON: None FINDINGS: Surgical changes and devices: None. Lungs and pleura: No pleural effusions or pneumothorax. Mildly increased bronchovascular markings in bilateral hilar region are seen with mild bronchial wall thickening. No focal infiltrate. Mediastinum: Mediastinal contours appear normal. Heart size is enlarged. Bones and chest wall: No suspicious bony lesions. Overlying soft tissues appear unremarkable. IMPRESSION: Suggestion of mild reactive airway disease such as bronchitis or viral pneumonia.. No focal infiltrat e or gross pneumothorax. Reviewed by: Juan A Murphy MD on 12/24/2019 4:04 PM PDT Approved by: Juan A Murphy MD on 12/24/2019 4:04 PM PDT Station ID: [id number]
[2019-12-24] MEDS ORDERED: predniSONE 20 MG TABLET PO STA (16:35)
[2019-12-24 16:53] VITALS: BP 169/92
== END 2019-12-24 17:01 | disposition home or self-care (01) ==
LOC: ED 15:17
DX: J45.42 Moderate persistent asthma with status asthmaticus (principal); J40 Bronchitis, not specified as acute or chronic
CPT/HCPCS: 71045; 94640; 99283; J7512

== ENCOUNTER 2020-11-19 16:11 | Outpatient (CLI) | payer MEDICARE, BC ==
[2020-11-19 20:19] LABS: POTASSIUM 3.9 mmol/L (3.5-5.0)
== END 2020-11-19 16:12 | disposition home or self-care (01) ==
LOC: LAB.S 16:11
PROVIDERS: ATTEND Internal Medicine
DX: I10 Essential (primary) hypertension (principal)
CPT/HCPCS: 36415; 80048

== ENCOUNTER 2021-12-14 09:51 | Emergency (ER) | payer MEDICARE, BC ==
--- NOTE | 2021-12-14 10:03 | ED Physician Documentation ---
PD HPI GI BLEED - Stated complaint Stated Complaint: DARK STOOLS - Chief complaint Chief Complaint: General - History obtained from History obtained from: Patient - History of Present Illness Timing - onset: How many days ago (3) Timing - duration: Days (3) Timing - details: Gradual onset, Still present Associated symptoms: Black/tarry stool. No: Diarrhea, Constipation, Abdominal pain, Fever Contributing factors: Anticoagulated (for couple of months for atrial fib.). No: Sick contact Improved by: No: Eating Worsened by: No: Eating Similar symptoms before: Has not had sx before Recently seen: Not recently seen Review of Systems Constitutional: denies: Fever, Chills Nose: denies: Rhinorrhea / runny nose, Congestion Throat: denies: Sore throat Respiratory: denies: Cough GI: reports: Abdominal Pain (not abd pain per se, but feeling of reflux periodically. No pain with eating.), Bloody / black stool (melena for 3 days). denies: Nausea, Vomiting, Constipation, Diarrhea PD PAST MEDICAL HISTORY - Past Medical History Cardiovascular: Hypertension, Arrhythmia (atrial fib, with Rx of DOAC initially Feb 2021, but off it for few months, and then resumed it 2 months ago. 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 HEENT: Tonsil/Adenoidectomy - Present Medications Home Medications: Ambulatory Orders Medication Instructions Recorded Confirmed Levothyroxine [Synthroid] 100 mcg ORAL DAILY 02/11/16 04/06/17 Montelukast [Singulair] 10 mg ORAL DAILY 02/11/16 04/06/17 Umeclidinium Brm/Vilanterol Tr 1 puffs INH DAILY 02/11/16 04/06/17 [Anoro Ellipta 62.5-25 Mcg INH] atenoloL [Tenormin] 12.5 mg ORAL DAILY 02/11/16 04/06/17 lisinopriL [Zestril] 20 mg ORAL BID 02/11/16 04/06/17 Ondansetron Odt [Zofran Odt] 4 mg TL Q6H PRN #10 tablet 03/07/17 04/06/17 Albuterol Sulf [Ventolin Hfa 1 puffs INH Q6H PRN 04/06/17 04/06/17 Inhaler] Ciprofloxacin HCl [Cipro] 500 mg PO BID #14 tablet 04/07/17 Saccharomyces Boulardii [Florastor] 250 mg PO TID #30 capsule 04/07/17 lisinopriL [Lisinopril] 40 mg PO DAILY #30 tablet 04/09/19 Ipratropium/Albuterol [Duoneb] 3 ml INH Q6H PRN #1 % 12/24/19 Nebulizer [Aeroneb Go Nebulizer] 1 each MC ONCE #1 each 12/24/19 predniSONE [Deltasone] 20 mg PO [id number] #21 tab 12/24/19 Pantoprazole [Protonix] 40 mg PO DAILY 30 Days #30 tablet 12/14/21 Sucralfate [Carafate] 1 gm PO ACHS #20 tablet 12/14/21 - Allergies Allergies/Adverse Reactions: Allergies Allergy/AdvReac Type Severity Reaction Status Date / Time Penicillins Allergy Unknown Verified 12/14/21 09:58 - Social History Does the pt smoke?: No Smoking Status: Never smoker Does the pt drink ETOH?: No Does the pt have substance abuse?: No - Immunizations Immunizations are current?: Yes - POLST Patient has POLST: No PD ED PE NORMAL - Vitals Vital signs reviewed: Yes - General General: Alert and oriented X 3, No acute distress, Well developed/nourished - Neck Neck: Supple, no meningeal sign, No adenopathy - Cardiac Cardiac: RRR, No murmur - Respiratory Respiratory: Clear bilaterally - Abdomen Abdomen: Normal bowel sounds, Soft, Non tender, Non distended, No organomegaly - Female Female : Deferred - Rectal Rectal: Other (normal rectum. melena soft in vault. No masses, no tenderness. ) - Back Back: No CVA TTP - Derm Derm: Normal color, Warm and dry - Extremities Extremities: No tenderness to palpate, Normal ROM s pain, No edema, No calf tenderness / cord - Neuro Neuro: Alert and oriented X 3, No motor deficit, Normal speech Results - Vitals Vitals: Vital Signs - 24 hr 12/14/21 12/14/21 09:56 14:27 Temperature 36.4 C L Heart Rate 88 88 Respiratory 16 18 Rate Blood Pressure 160/64 H 157/78 H O2 Saturation 98 99 Oxygen O2 Source Room air - Labs Labs: Microbiology 12/14/21 10:44 Occult Blood - Final Stool Laboratory Tests 12/14/21 12/14/21 12/14/21 11:03 11:03 11:03 WBC 7.6 RBC 4.80 Hgb 13.6 Hct 40.5 MCV 84.4 MCH 28.3 MCHC 33.6 RDW 13.3 Plt Count 356 MPV 8.7 Neut # (Auto) 4.8 Lymph # (Auto) 2.0 Brantley # (Auto) 0.5 Eos # (Auto) 0.1 Baso # (Auto) 0.1 Absolute Nucleated RBC 0.00 Nucleated RBC % 0.0 PT 33.0 H INR 3.0 H Sodium 133 L Potassium 4.1 Chloride 92 L Carbon Dioxide 30 Anion Gap 11.0 BUN 26 H Creatinine 1.0 Estimated GFR (MDRD) 54 L Glucose 119 H Calcium 9.6 Total Bilirubin 0.4 AST 17 ALT 13 Alkaline Phosphatase 57 Total Protein 7.3 Albumin 4.6 Globulin 2.7 Albumin/Globulin Ratio 1.7 Lipase 30 Blood Type Blood Type Recheck Antibody Screen 12/14/21 12/14/21 11:03 12:25 WBC RBC Hgb Hct MCV MCH MCHC RDW Plt Count MPV Neut # (Auto) Lymph # (Auto) Brantley # (Auto) Eos # (Auto) Baso # (Auto) Absolute Nucleated RBC Nucleated RBC % PT INR Sodium Potassium Chloride Carbon Dioxide Anion Gap BUN Creatinine Estimated GFR (MDRD) Glucose Calcium Total Bilirubin AST ALT Alkaline Phosphatase Total Protein Albumin Globulin Albumin/Globulin Ratio Lipase Blood Type O POSITIVE Blood Type Recheck O POSITIVE Antibody Screen NEGATIVE - Rads (name of study) abd/pelvic CT Radiology: Prelim report reviewed, See rad report (No abnormal CT findings in the abdomen or pelvis. Sigmoid diverticuli without diverticulitis.) PD MEDICAL DECISION MAKING - ED course Complexity details: reviewed results, re-evaluated patient, considered differential (likely upper GI bleeding with melena. No abd pain. history of GERD. Not on PPI. ), d/w foreign law consultant (managed care liaison PA for [facility], agrees with plan and will put in referral for GI, but not likely until next week. They do not have appts for f/u this week. Suggests to get repeat H/H at WalkIn or ER. ) Departure - Departure Disposition: 01 Home, Self Care Clinical Impression: Gastrointestinal hemorrhage with melena Condition: Stable Record reviewed to determine appropriate education?: Yes Instructions: ED Bleed UGI Stable Prescriptions: Sucralfate [Carafate] 1 gm PO ACHS #20 tablet Pantoprazole [Protonix] 40 mg PO DAILY 30 Days #30 tablet Comments: Your provider, Angelica Khan, was not in the office today but I talked with the on-call provider who agreed with starting a acid reducing medicine along with the coating of the stomach. We do want to recheck your blood count in the next 1 to 2 days to ensure its not dropping significantly. Return to the ER sooner if you notice significant increase in the amount of bloody stool out. Also if you are feeling lightheaded dizzy etc. You can follow-up with your primary care office or if its easier to return to the ER or the [facility] walk-in clinic for repeat blood count in 2 days. Parallel to that, your primary care office will initiate a GI consult to get further evaluation and likely upper/lower endoscopies to better evaluate. Stop your anticoagulant. No aspirin or ibuprofen either. Commonly this type of bleeding may stop with the above treatments and likely will. Concern would be for ongoing bleeding if it needs procedure/scoping more acutely if there is a brisk or blood loss. I transmitted your prescriptions to [facility] [place] in [place]. Discharge Date/Time: 12/14/21 14:27
[2021-12-14 11:11] LABS: BASOPHILS # (AUTO) 0.1 10^3/uL (0.0-0.1); BASOPHILS % (AUTO) 0.9 %; EOSINOPHILS # (AUTO) 0.1 10^3/uL (0.0-0.7); EOSINOPHILS % (AUTO) 1.5 %; HCT - HEMATOCRIT 40.5 % (37.0-47.0); HGB - HEMOGLOBIN 13.6 g/dL (12.0-16.0); LYMPHOCYTES % (AUTO) 26.5 %; MEAN CORPUSCULAR HEMOGLOBIN 28.3 pg (27.0-31.0); MEAN CORPUSCULAR HGB CONC 33.6 g/dL (32.0-36.0); MEAN CORPUSCULAR VOLUME 84.4 fL (81.0-99.0); MEAN PLATELET VOLUME 8.7 fL (7.9-10.8); MONOCYTES # (AUTO) 0.5 10^3/uL (0.0-1.0); NEUTROPHILS # (AUTO) 4.8 10^3/uL (1.5-6.6); NEUTROPHILS % (AUTO) 63.8 %; PLT - PLATELET COUNT 356 10^3/uL (130-450); RED CELL DISTRIBUTION WIDTH 13.3 % (12.0-15.0); WHITE BLOOD COUNT 7.6 x10^3/uL (4.8-10.8)
[2021-12-14 11:24] LABS: ALBUMIN 4.6 g/dL (3.2-5.5); ALBUMIN/GLOBULIN RATIO 1.7 (1.0-2.2); BILIRUBIN,TOTAL 0.4 mg/dL (0.2-1.0); CALCIUM 9.6 mg/dL (8.5-10.3); POTASSIUM 4.1 mmol/L (3.5-5.0); TOTAL PROTEIN 7.3 g/dL (6.7-8.2)
--- NOTE | 2021-12-14 12:33 | CT Report ---
PROCEDURE: CT abdomen and pelvis without contrast INDICATIONS: GI bleeding/melena; no abd pain TECHNIQUE: Noncontrast 5 mm thick sections acquired from the diaphragms to the symphysis. 5 mm coronal and sagi ttal reformats were then performed. For radiation dose reduction, the following was used: automated exposure control, adjustment of mA and/or kV according to patient size. COMPARISON: None. FINDINGS: Lower thorax: The lung bases are clear. Heart size normal. No hiatal hernia. Liver: Normal in size and attenuation. No contour deformity present. Biliary system: No calcified cholelithiasis or pericholecystic inflammation. No evidence of bile du ct dilatation. Pancreas: Unremarkable without mass or inflammation evident. Small calcification noted in the head o f the pancreas Spleen: Normal in size and density. Adrenals: Low-density 7 mm nodule in the left adrenal gland measures 3.9 Hounsfield units, consistent with adenoma Reproductive system: Unremarkable as visualized. Urinary system: Normal renal size and attenuation. No renal calculi, hydronephrosis, or solid mass p resent. Urinary bladder unremarkable. Gastrointestinal system: The bowel appears unremarkable with no evidence of bowel obstruction or inf lammation. The stomach appears unremarkable. Small diverticula arise from the sigmoid colon without d iverticulitis Appendix: No findings to suggest acute appendicitis. Peritoneal spaces: No mesenteric or retroperitoneal adenopathy. No free air. No free fluid. Vasculature: Atherosclerotic calcification of the abdominal aorta without evidence of aneurysm. Musculoskeletal: Normal bone mineralization. No acute fractures. Abdominal wall intact without antolin dence of ventral or inguinal hernias. Degenerative disc disease and arthropathy noted in the lower rosie mbar spine IMPRESSION: 1. No acute CT findings in the abdomen and pelvis. 2. Sigmoid diverticulosis without evidence of diverticulitis. 3. Small incidental left adrenal adenoma. Reviewed by: Julio Hopkins MD on 12/14/2021 11:32 AM DIALLO Approved by: Julio Hopkins MD on 12/14/2021 11:32 AM DIALLO Station ID: [id number]
[2021-12-14] MEDS ORDERED: SUCRALFATE 1 GM/10 ML UDC PO STA (13:44)
[2021-12-14] MEDS ORDERED: PANTOPRAZOLE 40 MG VIAL IVP STA (13:44)
[2021-12-14] MEDS ORDERED: FAMOTIDINE 20 MG/2 ML VIAL IVP STA (13:44)
[2021-12-14 14:28] VITALS: BP 157/78
== END 2021-12-14 14:27 | disposition home or self-care (01) ==
LOC: ED 09:51
DX: K92.1 Melena (principal)
CPT/HCPCS: 36415; 74176; 80053; 82272; 83690; 85025; 85610; 86850; 86900; 86901; 96374; 99283; 99284; A9270

== ENCOUNTER 2022-01-15 19:39 | Emergency (ER) | payer MEDICARE, BC ==
[2022-01-15 20:11] LABS: BASOPHILS # (AUTO) 0.1 10^3/uL (0.0-0.1); EOSINOPHILS # (AUTO) 0.2 10^3/uL (0.0-0.7); EOSINOPHILS % (AUTO) 2.1 %; HCT - HEMATOCRIT 40.2 % (37.0-47.0); HGB - HEMOGLOBIN 13.4 g/dL (12.0-16.0); LYMPHOCYTES # (AUTO) 2.4 10^3/uL (1.5-3.5); LYMPHOCYTES % (AUTO) 29.9 %; MEAN CORPUSCULAR HEMOGLOBIN 27.4 pg (27.0-31.0); MEAN CORPUSCULAR HGB CONC 33.3 g/dL (32.0-36.0); MEAN CORPUSCULAR VOLUME 82.2 fL (81.0-99.0); MEAN PLATELET VOLUME 8.3 fL (7.9-10.8); MONOCYTES # (AUTO) 0.6 10^3/uL (0.0-1.0); MONOCYTES % (AUTO) 7.2 %; NEUTROPHILS # (AUTO) 4.7 10^3/uL (1.5-6.6); NEUTROPHILS % (AUTO) 59.5 %; PLT - PLATELET COUNT 380 10^3/uL (130-450); RED BLOOD COUNT 4.89 10^6/uL (4.20-5.40); RED CELL DISTRIBUTION WIDTH 12.6 % (12.0-15.0); WHITE BLOOD COUNT 7.9 x10^3/uL (4.8-10.8)
[2022-01-15 20:24] LABS: ALBUMIN 4.6 g/dL (3.2-5.5); ALBUMIN/GLOBULIN RATIO 1.6 (1.0-2.2); BILIRUBIN,TOTAL 0.6 mg/dL (0.2-1.0); CALCIUM 9.8 mg/dL (8.5-10.3); CREATININE 1.2 mg/dL (0.4-1.0); MAGNESIUM 1.9 mg/dL (1.7-2.8); POTASSIUM 3.4 mmol/L (3.5-5.0); TOTAL PROTEIN 7.5 g/dL (6.7-8.2)
--- NOTE | 2022-01-15 20:27 | XRAY Report ---
PROCEDURE: Chest 1 View X-Ray INDICATIONS: Chest pain TECHNIQUE: One view of the chest was acquired. COMPARISON: FINDINGS: Surgical changes and devices: None. Lungs and pleura: No pleural effusions or pneumothorax. There is hyperinflation of the lungs with fl attening of the hemidiaphragms compatible with COPD. No definite acute consolidation, with evaluation slightly limited by overlying breast implants. Mediastinum: Mediastinal contours appear normal. Heart size is normal. Bones and chest wall: No suspicious bony lesions. There are bilateral breast implants are redemonstr ated. IMPRESSION: 1. No definite acute cardiopulmonary disease. 2. Findings compatible with COPD . Reviewed by: Parker Ribeiro MD on 01/15/2022 8:26 PM PDT Approved by: Parker Ribeiro MD on 01/15/2022 8:26 PM PDT Station ID: [id number]
[2022-01-15] MEDS ORDERED: METOPROLOL 5 MG/5 ML VIAL IVP STA (20:35)
--- NOTE | 2022-01-15 20:37 | ED Physician Documentation ---
History of Present Illness - Stated complaint Stated Complaint: RAPID HR - Chief complaint Chief Complaint: Cardiac - History obtained from History obtained from: Patient - Additonal information Additional information: 76-year-old woman in chronic/persistent A. fib. Recently stopped her DOAC due to upper GI bleed with resolution of that. Presents today because over the last few days she has been unable to get her blood pressure monitor to read at home. She has chronic vertigo which really is not different than normal and otherwise is feeling okay. Review of Systems Constitutional: denies: Fever, Chills Cardiac: denies: Chest pain / pressure, Palpitations PD PAST MEDICAL HISTORY - Past Medical History Cardiovascular: Hypertension, Arrhythmia (atrial fib, with Rx of DOAC initially Feb 2021, but off it for few months, and then resumed it 2 months ago. 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 HEENT: Tonsil/Adenoidectomy - Present Medications Home Medications: Ambulatory Orders Medication Instructions Recorded Confirmed Levothyroxine [Synthroid] 100 mcg ORAL DAILY 02/11/16 01/15/22 Montelukast [Singulair] 10 mg ORAL DAILY 02/11/16 01/15/22 Umeclidinium Brm/Vilanterol Tr 1 puffs INH DAILY 02/11/16 04/06/17 [Anoro Ellipta 62.5-25 Mcg INH] atenoloL [Tenormin] 25 mg ORAL DAILY 02/11/16 04/06/17 lisinopriL [Zestril] 20 mg ORAL BID 02/11/16 04/06/17 Albuterol Sulf [Ventolin Hfa 1 puffs INH Q6H PRN 04/06/17 01/15/22 Inhaler] lisinopriL [Lisinopril] 40 mg PO DAILY #30 tablet 04/09/19 01/15/22 Pantoprazole [Protonix] 40 mg PO DAILY 30 Days #30 tablet 12/14/21 01/15/22 Atenolol [Tenormin] 50 mg PO QPM #30 tablet 01/15/22 Atenolol [Tenormin] 100 mg PO DAILY 01/15/22 01/15/22 Fluticasone/Umeclidin/Vilanter 01/15/22 [Trelegy Ellipta 100-62.5-25] Meclizine [Antivert] 12.5 mg ORAL Q6HR 01/15/22 01/15/22 Nebulizer [Aeroneb Go Nebulizer] 1 each MC ONCE PRN 01/15/22 01/15/22 Rivaroxaban [Xarelto] 20 mg PO 01/15/22 hydroCHLOROthiazide 50 mg PO 01/15/22 [Hydrochlorothiazide] - Allergies Allergies/Adverse Reactions: Allergies Allergy/AdvReac Type Severity Reaction Status Date / Time Penicillins Allergy Unknown Verified 01/15/22 19:56 - Social History Does the pt smoke?: No Smoking Status: Never smoker Does the pt drink ETOH?: No Does the pt have substance abuse?: No - Immunizations Immunizations are current?: Yes - POLST Patient has POLST: No PD ED PE NORMAL - Vitals Vital signs reviewed: Yes - General General: Alert and oriented X 3 - HEENT HEENT: PERRL, EOMI - Neck Neck: Supple, no meningeal sign, No bony TTP - Cardiac Cardiac: No murmur, Other (She is in rapid A. fib) - Respiratory Respiratory: No respiratory distress, Clear bilaterally - Abdomen Abdomen: Normal bowel sounds, Soft, Non tender - Back Back: No CVA TTP, No spinal TTP - Derm Derm: Normal color, Warm and dry - Extremities Extremities: No edema, No calf tenderness / cord - Neuro Neuro: Alert and oriented X 3, Normal speech Results - Vitals Vitals: Vital Signs - 24 hr 01/15/22 01/15/22 01/15/22 19:42 19:58 20:03 Temperature 36.4 C L Heart Rate 124 H 101 H 106 H Respiratory 20 18 97 H Rate Blood Pressure 123/99 H 153/100 H 153/100 H Blood Pressure [Left] O2 Saturation 96 97 17 L 01/15/22 01/15/22 01/15/22 20:24 20:35 21:18 Temperature Heart Rate 98 83 Respiratory 19 19 Rate Blood Pressure 194/96 H 164/95 H Blood Pressure 153/100 H [Left] O2 Saturation 98 98 Oxygen O2 Source Room air - EKG (time done) 1954 Rate: Rate (enter#) (108) Rhythm: Atrial fibrillation Gerber: Normal QRS: Normal Ischemia: Non specific changes. No: ST elevation c/w ischemia, ST depression - Labs Labs: Laboratory Tests 01/15/22 01/15/22 01/15/22 20:06 20:06 20:06 WBC 7.9 RBC 4.89 Hgb 13.4 Hct 40.2 MCV 82.2 MCH 27.4 MCHC 33.3 RDW 12.6 Plt Count 380 MPV 8.3 Neut # (Auto) 4.7 Lymph # (Auto) 2.4 Saunders # (Auto) 0.6 Eos # (Auto) 0.2 Baso # (Auto) 0.1 Absolute Nucleated RBC 0.00 Nucleated RBC % 0.0 Sodium 130 L Potassium 3.4 L Chloride 88 L Carbon Dioxide 29 Anion Gap 13.0 BUN 20 Creatinine 1.2 H Estimated GFR (MDRD) 43 L Glucose 119 H Calcium 9.8 Magnesium 1.9 Total Bilirubin 0.6 AST 15 ALT 12 Alkaline Phosphatase 66 Total Protein 7.5 Albumin 4.6 Globulin 2.9 Albumin/Globulin Ratio 1.6 Lipase 37 TSH 1.33 PD MEDICAL DECISION MAKING - ED course ED course: 76-year-old woman with chronic persistent atrial fibrillation not currently anticoagulated presents with a chief complaint of being unable to figure out what her blood pressure was at home which made her anxious. She presents with mild RVR. But no ischemic symptoms. She is on chronic beta-blockade and we will give her an extra dose here for rate control. After the administration of 5 mg of metoprolol IV she was no longer in rapid ventricular response. We will increase her atenolol at home and she has plans to follow-up with her management trainee. Departure - Departure Disposition: Home, Self Care Clinical Impression: Atrial fibrillation Qualifiers: Atrial fibrillation type: permanent Qualified Code(s): I48.21 - Permanent atrial fibrillation Condition: Good Record reviewed to determine appropriate education?: Yes Instructions: Atrial Fibrillation Dc Prescriptions: Atenolol [Tenormin] 50 mg PO QPM #30 tablet Comments: I am increasing her atenolol, currently you are on 100 mg a day, to this I am adding 50 mg at night. Follow-up with your primary care and management trainee, next available appointments. Return for new or worsening symptoms. Continue other medications.
[2022-01-15 22:03] VITALS: BP 172/75
== END 2022-01-15 21:55 | disposition home or self-care (01) ==
LOC: ED 19:39
DX: I48.21 Permanent atrial fibrillation (principal); I10 Essential (primary) hypertension; Z79.01 Long term (current) use of anticoagulants
CPT/HCPCS: 36415; 80053; 83690; 83735; 84443; 84484; 85025; 93005; 96374; 99283

== ENCOUNTER 2022-04-20 14:23 | Inpatient (IN) | payer MEDICARE, BC ==
[2022-04-20 15:44] LABS: BASOPHILS # (AUTO) 0.1 10^3/uL (0.0-0.1); BASOPHILS % (AUTO) 0.9 %; EOSINOPHILS # (AUTO) 0.1 10^3/uL (0.0-0.7); EOSINOPHILS % (AUTO) 1.4 %; HCT - HEMATOCRIT 28.3 % (37.0-47.0); LYMPHOCYTES # (AUTO) 2.3 10^3/uL (1.5-3.5); MEAN CORPUSCULAR HEMOGLOBIN 25.7 pg (27.0-31.0); MEAN CORPUSCULAR HGB CONC 31.8 g/dL (32.0-36.0); MEAN CORPUSCULAR VOLUME 80.9 fL (81.0-99.0); MEAN PLATELET VOLUME 8.6 fL (7.9-10.8); MONOCYTES # (AUTO) 0.6 10^3/uL (0.0-1.0); MONOCYTES % (AUTO) 7.3 %; NEUTROPHILS # (AUTO) 5.3 10^3/uL (1.5-6.6); NEUTROPHILS % (AUTO) 62.9 %; PLT - PLATELET COUNT 381 10^3/uL (130-450); WHITE BLOOD COUNT 8.5 x10^3/uL (4.8-10.8)
--- NOTE | 2022-04-20 15:50 | XRAY Report ---
PROCEDURE: Chest 1 View X-Ray INDICATIONS: Chest pain TECHNIQUE: One view of the chest was acquired. COMPARISON: CXR 01/15/2022, 12/24/2019. FINDINGS: Surgical changes and devices: None. Lungs and pleura: No pleural effusions or pneumothorax. Lungs are clear. Mediastinum: Mediastinal contours appear normal. Heart size is normal. Bones and chest wall: No suspicious bony lesions. Overlying soft tissues appear unremarkable. IMPRESSION: No acute cardiopulmonary abnormality. Reviewed by: Bonifacio Schuster MD on 04/20/2022 2:48 PM AKDT Approved by: Bonifacio Schuster MD on 04/20/2022 2:48 PM AKDT Station ID: [id number]
--- NOTE | 2022-04-20 15:54 | ED Physician Documentation ---
History of Present Illness - Stated complaint Stated Complaint: SEVERE LEG PX/SOA - Chief complaint Chief Complaint: Cardiac - Additonal information Additional information: 68-year-old female presents emergency department for evaluation of melena which she noted this morning after a bowel movement. She also reports that for about the last week when she walks she has a big heaviness in her legs and she feels very short of breath. She also will have some pain across her shoulders. Patient does have a history of atrial fibrillation. She did have an upper GI bleed in December when she was on Xarelto. The Xarelto was stopped for about a month and she ended up having an EGD and a colonoscopy on February 17 without an obvious source of bleeding therefore the decision was made to resume her Xarelto. She was to be taking Protonix but ran out of that medication a few days ago. She has had no fevers denies any abdominal pain. No vomiting. 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 Review of Systems Constitutional: reports: Reviewed and negative Throat: reports: Reviewed and negative Cardiac: reports: Reviewed and negative Respiratory: reports: Dyspnea. denies: Cough GI: reports: Bloody / black stool. denies: Abdominal Pain : reports: Reviewed and negative Skin: reports: Reviewed and negative Musculoskeletal: reports: Reviewed and negative PD PAST MEDICAL HISTORY - Past Medical History Cardiovascular: Hypertension, Arrhythmia (atrial fib, with Rx of DOAC initially Feb 2021, but off it for few months, and then resumed it 2 months ago. ) Respiratory: Asthma, COPD Neuro: Peripheral neuropathy Endocrine/Autoimmune: HyPOthyroidism GI: C.difficile REFRIGERATION SPECIALIST: None : None HEENT: None Psych: None Musculoskeletal: None - Past Surgical History Past Surgical History: Yes /REFRIGERATION SPECIALIST: section, Oophrectomy HEENT: Tonsil/Adenoidectomy - Present Medications Home Medications: Ambulatory Orders Medication Instructions Recorded Confirmed Levothyroxine [Synthroid] 100 mcg ORAL DAILY 02/11/16 01/15/22 Montelukast [Singulair] 10 mg ORAL DAILY 02/11/16 01/15/22 Umeclidinium Brm/Vilanterol Tr 1 puffs INH DAILY 02/11/16 04/06/17 [Anoro Ellipta 62.5-25 Mcg INH] atenoloL [Tenormin] 25 mg ORAL DAILY 02/11/16 04/06/17 lisinopriL [Zestril] 20 mg ORAL BID 02/11/16 04/06/17 Albuterol Sulf [Ventolin Hfa 1 puffs INH Q6H PRN 04/06/17 01/15/22 Inhaler] lisinopriL [Lisinopril] 40 mg PO DAILY #30 tablet 04/09/19 01/15/22 Pantoprazole [Protonix] 40 mg PO DAILY 30 Days #30 tablet 12/14/21 01/15/22 Atenolol [Tenormin] 50 mg PO QPM #30 tablet 01/15/22 Atenolol [Tenormin] 100 mg PO DAILY 01/15/22 01/15/22 Fluticasone/Umeclidin/Vilanter 01/15/22 [Trelegy Ellipta 100-62.5-25] Meclizine [Antivert] 12.5 mg ORAL Q6HR 01/15/22 01/15/22 Nebulizer [Aeroneb Go Nebulizer] 1 each MC ONCE PRN 01/15/22 01/15/22 Rivaroxaban [Xarelto] 20 mg PO 01/15/22 hydroCHLOROthiazide 50 mg PO 01/15/22 [Hydrochlorothiazide] - Allergies Allergies/Adverse Reactions: Allergies Allergy/AdvReac Type Severity Reaction Status Date / Time Penicillins Allergy Unknown Verified 04/20/22 14:40 - Social History Does the pt smoke?: No Smoking Status: Never smoker Does the pt drink ETOH?: No Does the pt have substance abuse?: No - Immunizations Immunizations are current?: Yes - POLST Patient has POLST: No PD ED PE NORMAL - General General: Alert and oriented X 3, No acute distress, Well developed/nourished - HEENT HEENT: Atraumatic, Moist mucous membranes - Neck Neck: Supple, no meningeal sign, No adenopathy - Cardiac Cardiac: No: RRR (Rate controlled atrial fibrillation irregularly irregular) - Respiratory Respiratory: No respiratory distress, Clear bilaterally - Abdomen Abdomen: Normal bowel sounds, Soft, Non tender - Rectal Rectal: Other (Chaperoned rectal exam reveals teresa melena in the rectal vault) - Derm Derm: Normal color, Warm and dry, No rash - Extremities Extremities: No deformity, No tenderness to palpate, Normal ROM s pain - Neuro Neuro: Alert and oriented X 3, 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 2-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 Eye Opening: Spontaneous Motor: Obeys Commands Verbal: Oriented GCS Score: 15 Results - Vitals Vitals: Vital Signs - 24 hr 04/20/22 04/20/22 04/20/22 14:36 16:40 18:00 Temperature 36.0 C L Heart Rate 88 77 78 Respiratory 16 15 21 Rate Blood Pressure 109/59 L 103/70 126/60 O2 Saturation 100 99 99 Oxygen O2 Source Room air - EKG (time done) 1447 Rate: Rate (enter#) (72) Rhythm: Atrial fibrillation Intervals: No: Prolonged QT QRS: Normal Ischemia: Q waves (V1-V2), Non specific changes Compare to prior EKG: Unchanged from prior EKG - Labs Labs: Laboratory Tests 04/20/22 04/20/22 04/20/22 15:37 15:37 15:37 WBC 8.5 RBC 3.50 L Hgb 9.0 L Hct 28.3 L MCV 80.9 L MCH 25.7 L MCHC 31.8 L RDW 16.0 H Plt Count 381 MPV 8.6 Neut # (Auto) 5.3 Lymph # (Auto) 2.3 Bremer # (Auto) 0.6 Eos # (Auto) 0.1 Baso # (Auto) 0.1 Absolute Nucleated RBC 0.00 Nucleated RBC % 0.0 Sodium 132 L Potassium 3.6 Chloride 92 L Carbon Dioxide 31 Anion Gap 9.0 BUN 30 H Creatinine 1.0 Estimated GFR (MDRD) 54 L Glucose 113 H Calcium 9.2 Total Bilirubin 0.3 AST 13 ALT 10 Alkaline Phosphatase 60 Troponin I High Sens 3.2 B-Natriuretic Peptide Total Protein 6.7 Albumin 4.1 Globulin 2.6 Albumin/Globulin Ratio 1.6 Lipase 27 SARS-CoV-2 (PCR) 04/20/22 04/20/22 04/20/22 15:37 17:38 18:15 WBC RBC Hgb 8.8 L Hct 27.4 L MCV MCH MCHC RDW Plt Count MPV Neut # (Auto) Lymph # (Auto) Bremer # (Auto) Eos # (Auto) Baso # (Auto) Absolute Nucleated RBC Nucleated RBC % Sodium Potassium Chloride Carbon Dioxide Anion Gap BUN Creatinine Estimated GFR (MDRD) Glucose Calcium Total Bilirubin AST ALT Alkaline Phosphatase Troponin I High Sens B-Natriuretic Peptide 193 H Total Protein Albumin Globulin Albumin/Globulin Ratio Lipase SARS-CoV-2 (PCR) NOT DETECTED - Rads (name of study) cxr Radiology: Final report received (No acute cardiopulmonary abnormality) PD MEDICAL DECISION MAKING - ED course Complexity details: reviewed results, re-evaluated patient, considered differential, d/w patient ED course: 76-year-old female presents to the emergency department for evaluation melena which she noted this morning as well as increasing lower extremity pain and fatigue especially with ambulation over the last week. She does have a history of atrial fibrillation as well as suspected upper GI bleed. She is on Xarelto and when she was diagnosed with the upper GI bleed in December the Xarelto was stopped. She subsequently underwent both an EGD and colo noscopy on February 17 where no bleeding source was found. It was then recommended that she could resume the Xarelto. She has done so until today. She was on Protonix but has run out of the prescription for about the last 3 to 4 days. She does not have any dyspnea or chest pain. On presentation she is alert well-appearing. ECG shows rate controlled atrial fibrillation in the 70s. She is normotensive though patient feels that her diastolic is lower than she would expect for herself. A CBC today shows marked anemia with a hemoglobin of 9. This is in brown contrast to her most recent i n December that was 13. I did do a rectal exam and found a large amount of teresa melena in the vault. Given this finding patient was administered Protonix. I have briefly discussed the case with on-call surgeon Dr. Bueno who agrees that the patient would benefit from an EGD. He would like the hospitalist to admit and he will do the EGD in the a.m. 1924: I have spoken with Dr. sandra [facility] hospitalist who graciously agrees to admit the patient to observation overnight. The plan is for a EGD tomorrow. If negative the patient may need a colon prep for a colonoscopy. Ultimately this is the patient's second GI bleed with previous EGD and colonoscopy not finding a source. Assuming no source found here at [facility] the patient will need to be followed closely by GI and cardiology. If she is not a good anticoagulant candidate they may need to consider watchman device versus ablation moving forward. Departure - Departure Disposition: ED Place in Observation Clinical Impression: Melena, Anticoagulated Anemia Qualifiers: Anemia type: other cause Other causes of anemia: other cause, not classified Qualified Code(s): D64.89 - Other specified anemias GI bleed Qualifiers: GI bleed type/associated pathology: melena Qualified Code(s): K92.1 - Melena Atrial fibrillation Qualifiers: Atrial fibrillation type: unspecified chronic Qualified Code(s): I48.20 - Chronic atrial fibrillation, unspecified Condition: Stable Record reviewed to determine appropriate education?: Yes
[2022-04-20 16:01] LABS: ALBUMIN 4.1 g/dL (3.2-5.5); ALBUMIN/GLOBULIN RATIO 1.6 (1.0-2.2); BILIRUBIN,TOTAL 0.3 mg/dL (0.2-1.0); CALCIUM 9.2 mg/dL (8.5-10.3); POTASSIUM 3.6 mmol/L (3.5-5.0); TOTAL PROTEIN 6.7 g/dL (6.7-8.2)
[2022-04-20] MEDS ORDERED: PANTOPRAZOLE 40 MG VIAL IVP STA (16:14)
[2022-04-20 18:20] LABS: HCT - HEMATOCRIT 27.4 % (37.0-47.0); HGB - HEMOGLOBIN 8.8 g/dL (12.0-16.0)
[2022-04-20] MEDS ORDERED: SODIUM CHLORIDE FLUSH 0.9% 10 ML SYRINGE IVP PRN (19:30)
[2022-04-20] MEDS ORDERED: ONDANSETRON 4 MG/2 ML VIAL IVP PRN (19:30)
--- NOTE | 2022-04-20 19:54 | HISTORY & PHYSICAL EXAMINATION ---
Chief Complaint - Chief Complaint Chief Complaint: Generalized weakness and black tarry stool History of Present Illness - Admitted From Admitted From:: Home - History Obtained From Records Reviewed: Yes History obtained from: Patient Exam Limitations: Telemedicine - History of Present Illness HPI Comment/Other: 68-year-old female presents emergency department for evaluation of melena which she noted this morning after a bowel movement. She also reports that for about the last week when she walks she has a big heaviness in her legs and she feels very short of breath. She also will have some pain across her shoulders. Patient does have a history of atrial fibrillation. She did have an upper GI bleed in December when she was on Xarelto. The Xarelto was stopped for about a month and she ended up having an EGD and a colonoscopy on February 17 without an obvious source of bleeding therefore the decision was made to resume her Xarelto. She was to be taking Protonix but ran out of that medication a few days ago. She has had no fevers denies any abdominal pain. No vomiting. She is followed by an outside environmental services project manager as well as a shopper. 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 She denies any chest pain, sob, no other active complaints History - Past Medical History Cardiovascular: reports: Hypertension, Arrhythmia (atrial fib, with Rx of DOAC initially Feb 2021, but off it for few months, and then resumed it 2 months ago. ) Respiratory: reports: Asthma, COPD Neuro: reports: Peripheral neuropathy Endocrine/Autoimmune: reports: HyPOthyroidism GI: reports: C.difficile FACTORY MACHINE COMPUTER OPERATOR: reports: None : reports: None HEENT: reports: None Psych: reports: None Musculoskeletal: reports: None MRSA Hx?: No - Past Surgical History /FACTORY MACHINE COMPUTER OPERATOR: reports: section, Oophrectomy HEENT: reports: Tonsil/Adenoidectomy - POLST Patient has POLST: No Meds/Allgy - Home Medications Home Medications: Ambulatory Orders Medication Instructions Recorded Confirmed Levothyroxine [Synthroid] 100 mcg ORAL DAILY 02/11/16 01/15/22 Montelukast [Singulair] 10 mg ORAL DAILY 02/11/16 01/15/22 Umeclidinium Brm/Vilanterol Tr 1 puffs INH DAILY 08/26/16 10/20/17 [Anoro Ellipta 62.5-25 Mcg INH] atenoloL [Tenormin] 25 mg ORAL DAILY 02/11/16 04/06/17 lisinopriL [Zestril] 20 mg ORAL BID 02/11/16 04/06/17 Albuterol Sulf [Ventolin Hfa 1 puffs INH Q6H PRN 04/06/17 01/15/22 Inhaler] lisinopriL [Lisinopril] 40 mg PO DAILY #30 tablet 04/09/19 01/15/22 Pantoprazole [Protonix] 40 mg PO DAILY 30 Days #30 tablet 12/14/21 01/15/22 Atenolol [Tenormin] 50 mg PO QPM #30 tablet 01/15/22 Atenolol [Tenormin] 100 mg PO DAILY 01/15/22 01/15/22 Fluticasone/Umeclidin/Vilanter 01/15/22 [Trelegy Ellipta 100-62.5-25] Meclizine [Antivert] 12.5 mg ORAL Q6HR 01/15/22 01/15/22 Nebulizer [Aeroneb Go Nebulizer] 1 each MC ONCE PRN 01/15/22 01/15/22 Rivaroxaban [Xarelto] 20 mg PO 01/15/22 hydroCHLOROthiazide 50 mg PO 01/15/22 [Hydrochlorothiazide] - Allergies Allergies/Adverse Reactions: Allergies Allergy/AdvReac Type Severity Reaction Status Date / Time Penicillins Allergy Unknown Verified 04/20/22 14:40 Review of Systems - Constitutional Constitutional: reports: Fatigue, Weakness - Cardiovascular Cariovascular: reports: Irregular heart rate, Exertional dyspnea, Decr. exercise tolerance - Gastrointestinal Gastrointestinal: reports: Black stools Prior Level of Functionality: Good ADL Exam - Vital Signs Vital Signs: Vital Signs x48h Temp Pulse Resp BP Pulse Ox 04/20/22 18:00 78 21 126/60 99 04/20/22 16:40 77 15 103/70 99 04/20/22 14:36 36.0 C L 88 16 109/59 L 100 - Physical Exam General Appearance: positive: No acute distress Eyes Bilateral: positive: Normal inspection, PERRL, Other (Wears Glasses) ENT: positive: No signs of dehydration Neck: positive: Nml inspection, No JVD Respiratory: positive: No respiratory distress, Breath sounds nml Cardiovascular: positive: Irregularly irregular, Systolic murmur Abdomen: positive: Non-tender, Nml bowel sounds Back: positive: Nml inspection Skin: positive: Color nml, No rash Extremities: positive: Non-tender, Full ROM Sepsis Event Note (H) - Evaluation Current Stage of Sepsis: Ruled out Conclusion/Plan - Problem List (1) Anemia Conclusion/Plan: Likely iron deficiency start on iv iron or feso4 check iron panel Qualifiers: Anemia type: other cause Other causes of anemia: other cause, not classified Qualified Code(s): D64.89 - Other specified anemias (2) Atrial fibrillation Conclusion/Plan: Rate controlled continue Tenormin, follow up with primary cardiology, may be a good candidate for Watchman device Rate is well controlled at this time Qualifiers: Atrial fibrillation type: unspecified chronic Qualified Code(s): I48.20 - Chronic atrial fibrillation, unspecified; I48.2 - Chronic atrial fibrillation (3) GI bleed Conclusion/Plan: NPO past midnight, EGD if negative will need bowel prep and colonoscopy, if both negative will need capsule endoscopy, RBC tagged scan may be of help as EGD and Colonoscopy both negative in 2021, r/o Dielufoys lesion Surgeon consulted and plan for EGD in a, Continue iv protonx, check Hb/hct, if Hb < 7 then would give PRBC Qualifiers: GI bleed type/associated pathology: melena Qualified Code(s): K92.1 - Melena (4) Asthma Conclusion/Plan: Currently no wheezine, duonebs prn Qualifiers: Asthma severity: moderate Asthma persistence: persistent Asthma complication type: with status asthmaticus Qualified Code(s): J45.42 - Moderate persistent asthma with status asthmaticus - Lab Results Fish Bones: 04/20/22 18:15 04/20/22 15:37
[2022-04-20] MEDS: SODIUM CHLORIDE 0.9% 1,000 ML IV SCH (20:39)
[2022-04-20] MEDS: lisinopriL 20 MG TABLET PO SCH ×2 (20:39→20:45)
[2022-04-20] MEDS: TEMAZEPAM 15 MG CAPSULE PO PRN (22:28)
[2022-04-21] MEDS: SODIUM CHLORIDE FLUSH 0.9% 10 ML SYRINGE IVP SCH ×3 (02:21→16:18)
[2022-04-21 05:28] LABS: BASOPHILS % (AUTO) 0.6 %; EOSINOPHILS # (AUTO) 0.2 10^3/uL (0.0-0.7); EOSINOPHILS % (AUTO) 2.4 %; HCT - HEMATOCRIT 25.4 % (37.0-47.0); HGB - HEMOGLOBIN 7.9 g/dL (12.0-16.0); LYMPHOCYTES # (AUTO) 2.2 10^3/uL (1.5-3.5); LYMPHOCYTES % (AUTO) 34.8 %; MEAN CORPUSCULAR HEMOGLOBIN 25.1 pg (27.0-31.0); MEAN CORPUSCULAR HGB CONC 31.1 g/dL (32.0-36.0); MEAN CORPUSCULAR VOLUME 80.6 fL (81.0-99.0); MEAN PLATELET VOLUME 9.2 fL (7.9-10.8); MONOCYTES # (AUTO) 0.5 10^3/uL (0.0-1.0); MONOCYTES % (AUTO) 7.6 %; NEUTROPHILS # (AUTO) 3.4 10^3/uL (1.5-6.6); NEUTROPHILS % (AUTO) 54.3 %; PLT - PLATELET COUNT 325 10^3/uL (130-450); RED BLOOD COUNT 3.15 10^6/uL (4.20-5.40); WHITE BLOOD COUNT 6.2 x10^3/uL (4.8-10.8)
[2022-04-21 05:39] LABS: CALCIUM 8.6 mg/dL (8.5-10.3); CREATININE 0.9 mg/dL (0.4-1.0); POTASSIUM 3.3 mmol/L (3.5-5.0)
[2022-04-21] MEDS: ACETAMINOPHEN 325 MG TABLET PO PRN ×3 (06:15→22:06)
[2022-04-21] MEDS: LEVOTHYROXINE 100 MCG TABLET PO SCH (06:15)
[2022-04-21] MEDS: SODIUM CHLORIDE 0.9% 1,000 ML IV SCH ×2 (07:10→16:01)
[2022-04-21] MEDS ORDERED: lisinopriL 20 MG TABLET PO SCH (07:27)
--- NOTE | 2022-04-21 08:25 | CONSULTATION NOTE ---
Surgery Consult - Admit Date Hospital Admission Date: 04/20/22 - Consult Date Consult Date: 04/21/22 Requesting Provider: Dr. Steele - Chief Complaint Chief Complaint: Fatigue, black stools - Home Meds/Allergies Home Medications: Patient History Medication Instructions Recorded Confirmed Levothyroxine [Synthroid] 100 mcg ORAL DAILY 02/11/16 01/15/22 Montelukast [Singulair] 10 mg ORAL DAILY 02/11/16 01/15/22 Umeclidinium Brm/Vilanterol Tr 1 puffs INH DAILY 02/11/16 04/06/17 [Anoro Ellipta 62.5-25 Mcg INH] atenoloL [Tenormin] 25 mg ORAL DAILY 02/11/16 04/06/17 lisinopriL [Zestril] 20 mg ORAL BID 02/11/16 04/06/17 Albuterol Sulf [Ventolin Hfa 1 puffs INH Q6H PRN 04/06/17 01/15/22 Inhaler] Atenolol [Tenormin] 100 mg PO DAILY 01/15/22 01/15/22 Fluticasone/Umeclidin/Vilanter 01/15/22 [Trelegy Ellipta 100-62.5-25] Meclizine [Antivert] 12.5 mg ORAL Q6HR 01/15/22 01/15/22 Nebulizer [Aeroneb Go Nebulizer] 1 each MC ONCE PRN 01/15/22 01/15/22 Rivaroxaban [Xarelto] 20 mg PO 01/15/22 hydroCHLOROthiazide 50 mg PO 01/15/22 [Hydrochlorothiazide] Allergies/Adverse Reactions: Allergies Allergy/AdvReac Type Severity Reaction Status Date / Time Penicillins Allergy Unknown Verified 04/20/22 14:40 - Vital Signs Vital Signs: Last Vital Signs Temp 98.2 F 04/21/22 07:41 Pulse 73 04/21/22 07:41 Resp 16 04/21/22 07:41 BP 104/41 L 04/21/22 07:41 Pulse Ox 97 04/21/22 07:41 O2 Flow Rate Intake & Output: Intake & Output 04/18/22 04/19/22 04/20/22 04/21/22 23:59 23:59 23:59 23:59 Intake Total 200 1000 Balance 200 1000 - Lab Results Result Diagrams: 04/21/22 04:50 04/21/22 04:50 - Consultation Note Consultation Note: S: Judy is a 76 year old female with several weeks of fatigue and loss of energy. She noticed black stools yesterday and came to the ED where she was found to be anemic. She was admitted to the Medical Hospitalist Service and I was asked to offer upper endoscopy to initiate the workup of her suspected UGI bleed. Judy has a history of a similar problem earlier this year and as I understand the history, an EGD and CS were performed at a different facility without finding the source of her bleed. Since then she has been on a DOAC for her atrial fibrillation and was supposed to be taking a PPI but has not. She denies abdominal pain, nausea, vomiting. She has had no loss of appetite. O: VSS, afeb; AAO; HEENT normal; Lungs clear; Heart Irreg ireg; Peripheral pulses palpable; Abdomen is soft , non distended, no tenderness; Extremities unremarkable. Admission H&H 15/03. Today 09/02 A: Melena, suspect UGI source. P: Will start with EGD this morning. If negative will start bowel prep and per form CS tomorrow. If both normal, she should be referred for capsule endoscopy. CONSENT: Judy has been counseled for the procedure (EGD), it's indications, risks, benefits and expected outcome as well as alternative therapies. We specifically discussed risks associated with anesthesia and the examination of the UGI tract organs. We also discussed the possible need for a blood transfusion with its risks and benefits. In my medical opinion, considering (1) the potential harm to the patient's health and well-being, including the risks associated with the patient undergoing a procedure and delaying the procedure during the COVID-19 pandemic, and (2) the health care resources available to the patient in the hospital and the broader community during and after the procedure, I recommend that the patient proceed with the procedure. Judy understands, agrees, and consents to the proposed operative strategy and requests that we proceed with the procedure as outlined in our discussion. David Bueno MD General Surgery Service
[2022-04-21] MEDS: POTASSIUM CHLOR 10 MEQ/100 ML 10 MEQ/100 ML BAG IV SCH ×2 (08:38→11:44)
[2022-04-21] MEDS: MONTELUKAST 10 MG TABLET PO SCH (08:38)
[2022-04-21] MEDS: PANTOPRAZOLE 40 MG VIAL IV SCH ×2 (08:39→20:11)
[2022-04-21] MEDS ORDERED: PANTOPRAZOLE 40 MG VIAL IV SCH (09:00)
[2022-04-21] MEDS ORDERED: atenoloL 25 MG TABLET PO SCH (09:00)
[2022-04-21] MEDS ORDERED: PROPOFOL 200 MG/20 ML VIAL IVP ONE ×2 (09:17)
--- NOTE | 2022-04-21 09:23 | ANESTHESIA ---
Pre-Anesthesia VS, & Labs - Diagnosis upper GI bleed, anemia - Procedure EGD Vital Signs: Temp Pulse Resp BP Pulse Ox O2 Flow Rate 36.8 C 73 16 104/41 L 97 04/21/22 07:41 04/21/22 07:41 04/21/22 07:41 04/21/22 07:41 04/21/22 07:41 Height: 5 ft 4 in Weight (kg): 79 kg Body Mass Index: 29.9 BMI Classification: Overweight - NPO >8 hours - Is Patient ?: No - Lab Results Current Lab Results: Laboratory Tests 04/21/22 04:50: Sodium 133 L, Potassium 3.3 L, Chloride 95 L, Carbon Dioxide 29, Anion Gap 9.0, BUN 24 H, Creatinine 0.9, Estimated GFR (MDRD) 61 L, Glucose 110 H, Calcium 8.6 04/21/22 04:50: WBC 6.2, RBC 3.15 L, Hgb 7.9 L, Hct 25.4 L, MCV 80.6 L, MCH 25.1 L, MCHC 31.1 L, RDW 16.0 H, Plt Count 325, MPV 9.2, Neut # (Auto) 3.4, Lymph # (Auto) 2.2, Daniels # (Auto) 0.5, Eos # (Auto) 0.2, Baso # (Auto) 0.0, Absolute Nucleated RBC 0.00, Nucleated RBC % 0.0 04/20/22 18:15: Hgb 8.8 L, Hct 27.4 L 04/20/22 15:37: B-Natriuretic Peptide 193 H 04/20/22 15:37: Troponin I High Sens 3.2 04/20/22 15:37: Sodium 132 L, Potassium 3.6, Chloride 92 L, Carbon Dioxide 31, Anion Gap 9.0, BUN 30 H, Creatinine 1.0, Estimated GFR (MDRD) 54 L, Glucose 113 H, Calcium 9.2, Total Bilirubin 0.3, AST 13, ALT 10, Alkaline Phosphatase 60, Total Protein 6.7, Albumin 4.1, Globulin 2.6, Albumin/Globulin Ratio 1.6, Lipase 27 04/20/22 15:37: WBC 8.5, RBC 3.50 L, Hgb 9.0 L, Hct 28.3 L, MCV 80.9 L, MCH 25.7 L, MCHC 31.8 L, RDW 16.0 H, Plt Count 381, MPV 8.6, Neut # (Auto) 5.3, Lymph # (Auto) 2.3, Daniels # (Auto) 0.6, Eos # (Auto) 0.1, Baso # (Auto) 0.1, Absolute Nucleated RBC 0.00, Nucleated RBC % 0.0 Lab results reviewed: Yes Fish Bones: 04/21/22 04:50 04/21/22 04:50 Home Medications and Allergies Active Medications Acetaminophen (Acetaminophen 325 Mg Tablet) 650 mg PO Q4HR PRN PRN Reason: Pain 1 to 4, or Fever Last Admin: 04/21/22 06:15 Dose: 650 mg Albuterol (Albuterol Neb 2.5 Mg/3 Ml) 2.5 mg INH Q6H PRN PRN Reason: Shortness of Air/Wheezing Atenolol (Atenolol 25 Mg Tablet) 25 mg PO DAILY [facility] Sodium Chloride (Normal Saline 0.9%) 1,000 mls @ 100 mls/hr IV .Q10H [facility] Last Admin: 04/21/22 07:10 Dose: 100 mls/hr Potassium Chloride (Potassium Chloride) 10 meq in 100 mls @ 100 mls/hr IV Q1H [facility] Stop: 04/21/22 09:59 Last Admin: 04/21/22 08:38 Dose: 100 mls/hr Levothyroxine Sodium (Levothyroxine 100 Mcg Tablet) 100 mcg PO QDAC [facility] Last Admin: 04/21/22 06:15 Dose: 100 mcg Montelukast Sodium (Montelukast 10 Mg Tablet) 10 mg PO DAILY [facility] Last Admin: 04/21/22 08:38 Dose: 10 mg Ondansetron HCl (Ondansetron 4 Mg/2 Ml Vial) 4 mg IVP Q6HR PRN PRN Reason: Nausea / Vomiting Pantoprazole Sodium (Pantoprazole 40 Mg Vial) 40 mg IV BID [facility] Last Admin: 04/21/22 08:39 Dose: 40 mg Sodium Chloride (Sodium Chloride Flush 0.9% 10 Ml Syringe) 10 ml IVP PRN PRN PRN Reason: NEEDED PER PROVIDER ORDERS Last Admin: 04/20/22 20:39 Dose: 10 ml Sodium Chloride (Sodium Chloride Flush 0.9% 10 Ml Syringe) 10 ml IVP 0100,0900,1700 ENMANUEL Last Admin: 04/21/22 02:21 Dose: Not Given Temazepam (Temazepam 15 Mg Capsule) 15 mg PO QPM PRN PRN Reason: Insomnia Last Admin: 04/20/22 22:28 Dose: 15 mg Levothyroxine [Synthroid] 100 mcg ORAL DAILY 02/11/16 Montelukast [Singulair] 10 mg ORAL DAILY 02/11/16 Umeclidinium Brm/Vilanterol Tr [Anoro Ellipta 62.5-25 Mcg INH] 1 puffs INH DAILY 02/11/16 atenoloL [Tenormin] 25 mg ORAL DAILY 02/11/16 lisinopriL [Zestril] 20 mg ORAL BID 02/11/16 Albuterol Sulf [Ventolin Hfa Inhaler] 1 puffs INH Q6H PRN 04/06/17 Atenolol [Tenormin] 100 mg PO DAILY 01/15/22 Fluticasone/Umeclidin/Vilanter [Trelegy Ellipta 100-62.5-25] 01/15/22 Meclizine [Antivert] 12.5 mg ORAL Q6HR 01/15/22 Nebulizer [Aeroneb Go Nebulizer] 1 each MC ONCE PRN 01/15/22 Rivaroxaban [Xarelto] 20 mg PO 01/15/22 hydroCHLOROthiazide [Hydrochlorothiazide] 50 mg PO 01/15/22 Allergies/Adverse Reactions: Allergies Allergy/AdvReac Type Severity Reaction Status Date / Time Penicillins Allergy Unknown Verified 04/20/22 14:40 Anes History & Medical History - Anesthetic History Anesthesia Complications: reports: No previous complications Family history of Anesthesia Complications: Denies Family history of Malignant Hyperthermia: Denies - Medical History Cardiovascular: reports: Hypertension, Arrhythmia Pulmonary: reports: Asthma, COPD Gastrointestinal: reports: C.difficile Urinary: reports: None Neuro: reports: Peripheral neuropathy Musculoskeletal: reports: None Endocrine/Autoimmune: reports: HyPOthyroidism Smoking Status: Former smoker - Surgical History General: reports: Colonoscopy, EGD Eyes Ears Nose Throat (EENT): reports: Tonsil/Adenoidectomy Gynecologic: reports: section, Oophrectomy Exam General: Alert, Oriented x3, Cooperative Respiratory: Normal breath sounds Cardiovascular: Other (irreg, AF) Neurological: Normal speech Mental/Cognitive Status: Alert/Oriented X3, Normal for patient Cognitive Status: Within normal limits Plan Anesthesia Type: Total IV Consent for Procedure(s) Verified and Reviewed: Yes Code Status: Attempt Resuscitation ASA classification: 3-Severe systemic disease Is this case an emergency?: Yes
[2022-04-21] MEDS ORDERED: MIDAZOLAM 2 MG/2 ML VIAL ONE (10:30)
--- NOTE | 2022-04-21 11:00 | OPERATIVE REPORT ---
Operative Report - General Admit Date: 04/20/22 - Other Other Information/Narrative: PROCEDURE DATE: 04/21/2022 SURGEON: Merlin Bueno MD, FACS PREOPERATIVE DIAGNOSIS: Suspect UGI source of bleed in this 76 year old female with melena and anemia POSTOPERATIVE DIAGNOSIS: Normal UGI examination NAME OF PROCEDURE: Esophagogastroduodenoscopy ANESTHESIA: IV sedation DESCRIPTION OF PROCEDURE FOLLOWS: After consent for the procedure was obtained, the patient was brought to the operating room where, in the supine position adequate IV sedation was administered. The patient was placed into the left lateral decubitus position with the head of the bed raised. A Pentax upper endoscope was gently inserted into the esophagus and the examination was begun. The esophageal mucosa was []normal. The Z line was at 38 cm. There was no evidence of esophagitis, neoplasms, tumors, ulcers, erosions, strictures, varices or Jacques's. The stomach was entered and insufflated. The antrum was normal. The pylorus was intubated and the first and second portion of the duodenum were normal. The scope was brought back into the stomach and retroflexed view of the gastroesophageal junction was unremarkable. The scope was reflexed into normal position. The stomach was deflated of air. The scope was removed. The patient tolerated the procedure well. ASSESSMENT: No evidence of an origin for her melena in the UGI tract RECOMMENDATION: Bowel prep followed by colonoscopy later today
--- NOTE | 2022-04-21 11:20 | PROVIDER PROGRESS NOTE ---
Progress Note Procedure Consent Documentation Judy's EGD examination was normal. She will receive a bowel prep today and colonoscopy later this afternoon. CONSENT: Judy has been counseled for the procedure (colonoscopy), it's indications, risks, benefits and expected outcome as well as alternative therapies. We specifically discussed risks associated with anesthesia, bleeding, infection, injury to surrounding structures which may require additional surgery. We also discussed the possible need for a blood transfusion with its risks and benefits. In my medical opinion, considering (1) the potential harm to the patient's health and well-being, including the risks associated with the patient undergoing a procedure and delaying the procedure during the COVID-19 pandemic, and (2) the health care resources available to the patient in the hospital and the broader community during and after the procedure, I recommend that the patient proceed with the procedure. Judy understands, agrees, and consents to the proposed operative strategy and requests that we proceed with the procedure as outlined in our discussion. David Bueno MD General Surgery Service
[2022-04-21] MEDS: atenoloL 25 MG TABLET PO SCH (11:45)
[2022-04-21 12:05] LABS: % IRON SATURATION 4 % (20-50); IRON 17 ug/dL (28-170); TOTAL IRON BINDING CAPACITY 448 ug/dL (250-450); TRANSFERRIN 320 mg/dL (192-382)
--- NOTE | 2022-04-21 12:25 | PHARMACY PROGRESS NOTE ---
- Best Possible Medication History Admit Date and Time: 04/20/221929 Processed by: Pharmacy Medication History completed: Yes Patient Interview: Completed Secondary Source(s): Insurance records (Pt is good historian, wants to switch to [place], has albuterol on hand ) As the person ultimately responsible for medication therapy, providers are able to order a medication from an existing home medication list in [facility] via the "Reconcile Routine" prior to Confirmation of that medication by clerical and office support workers. Such practice is discouraged except when the physician, in their clinical judgment, deems that a medical need exists for a medication without regard to previous use.
--- NOTE | 2022-04-21 12:28 | ANESTHESIA POST OP EVALUATION ---
Anesthesia Post Eval - Post Anesthesia Eval Vitals: Last Vital Signs Temp 36.8 C 04/21/22 07:41 Pulse 67 04/21/22 11:45 Resp 16 04/21/22 11:45 BP 110/47 L 04/21/22 11:45 Pulse Ox 99 04/21/22 11:45 O2 Flow Rate CV Function Including HR & BP: Stable Pain Control: Satisfactory Nausea & Vomiting: Negative Mental Status: Baseline Respiratory Status: Airway Patent Hydration Status: Satisfactory Anesthesia Complications: None
[2022-04-21] MEDS: SODIUM/POTASSIUM/MAG SULFATES 354 ML PREP KIT PO SCH (13:24)
--- NOTE | 2022-04-21 15:23 | PROVIDER PROGRESS NOTE ---
Progress Note The patient was not able to start the bowel prep until just a few hours ago and so she will not complete the prep in time for the procedure to be performed today. Instead, I will have her do a standard split-prep protocol with 1/2 of the prep today and the other 1/2 to start tomorrow morning at 0400. Her colonoscopy has been scheduled for 0900 tomorrow. She may have clear liquids after she finishes the first half of the prep today. David Bueno MD General Surgery Service
--- NOTE | 2022-04-21 17:41 | PROVIDER PROGRESS NOTE ---
Assessment/Plan - Problem List (1) GI bleed Qualifiers: GI bleed type/associated pathology: melena Qualified Code(s): K92.1 - Melena Assessment/Plan: This is her second episode this year with a significant GI bleed. EGD and Colonoscopy both negative in 2021 She had her EGD done this morning which showed no source of bleeding. General surgery, Dr. Bueno, plans to do colon prep and take her for colonoscopy in the morning Continue iv protonix bid empirically, clear liquid diet, follow Hb/hct, if Hb < 7 then would transfuse PRBC Qualifiers: GI bleed type/associated pathology: melena Qualified Code(s): K92.1 - Melena (2) Anemia Conclusion/Plan: Likely iron deficiency start on iv iron or feso4 check iron panel Qualifiers: Anemia type: other cause Other causes of anemia: other cause, not classified Qualified Code(s): D64.89 - Other specified anemias (3) Atrial fibrillation Conclusion/Plan: Rate controlled continue Tenormin, follow up with primary cardiology, may be a good candidate for Watchman device Her anticoagulant is not being ordered Qualifiers: Atrial fibrillation type: unspecified chronic Qualified Code(s): I48.20 - Chronic atrial fibrillation, unspecified; I48.2 - Chronic atrial fibrillation (4) Asthma Conclusion/Plan: Currently no wheezine, duonebs ordered prn Qualifiers: Asthma severity: moderate Asthma persistence: persistent Asthma complication type: with status asthmaticus Qualified Code(s): J45.42 - Moderate persistent asthma with status asthmaticus - Current Meds Current Meds: Current Medications Generic Name Dose Route Start Last Admin Trade Name Marsha PRN Reason Stop Dose Admin Acetaminophen 650 mg 04/20/22 19:30 04/21/22 11:58 Acetaminophen 325 Mg Tablet PO 650 mg Q4HR PRN Administration Pain 1 to 4, or Fever Atenolol 25 mg 04/21/22 09:00 04/21/22 11:45 Atenolol 25 Mg Tablet PO Not Given DAILY ENMANUEL Sodium Chloride 1,000 mls @ 100 mls/hr 04/20/22 20:00 04/21/22 16:01 Normal Saline 0.9% IV 100 mls/hr .Q10H ENMANUEL Administration Levothyroxine Sodium 100 mcg 04/21/22 07:00 04/21/22 06:15 Levothyroxine 100 Mcg Tablet PO 100 mcg QDAC ENMANUEL Administration Montelukast Sodium 10 mg 04/21/22 09:00 04/21/22 08:38 Montelukast 10 Mg Tablet PO 10 mg DAILY ENMANUEL Administration Pantoprazole Sodium 40 mg 04/21/22 09:00 04/21/22 08:39 Pantoprazole 40 Mg Vial IV 40 mg BID ENMANUEL Administration Sodium Chloride 10 ml 04/20/22 19:30 04/20/22 20:39 Sodium Chloride Flush 0.9% 10 Ml Syringe IVP 10 ml PRN PRN Administration NEEDED PER PROVIDER ORDERS Sodium Chloride 10 ml 04/21/22 01:00 04/21/22 16:18 Sodium Chloride Flush 0.9% 10 Ml Syringe IVP Not Given 0100,0900,1700 ENMANUEL Temazepam 15 mg 04/20/22 22:12 04/20/22 22:28 Temazepam 15 Mg Capsule PO 15 mg QPM PRN Administration Insomnia - Lab Result Fish Bone Diagrams: 04/21/22 04:50 04/21/22 04:50 - Additional Planning My Orders: My Active Orders 04/21/22 09:00 Pantoprazole [Protonix] 40 mg IV BID atenoloL [Tenormin] 25 mg PO DAILY Subjective - Subjective Patient Reports: Resting Comfortably, No Complaints Objective Vital Signs: Vital Signs - 24 hr 04/20/22 04/20/22 04/20/22 18:00 20:00 20:41 Temperature 36.7 C Heart Rate 78 77 Heart Rate [ 73 Brachial] Respiratory 21 15 18 Rate Blood Pressure 126/60 110/59 L Blood Pressure 125/71 [Right Brachial artery] O2 Saturation 99 100 97 04/21/22 04/21/22 04/21/22 00:46 05:00 07:41 Temperature 36.7 C 36.8 C 36.8 C Heart Rate Heart Rate [ 75 79 73 Brachial] Respiratory 16 16 16 Rate Blood Pressure Blood Pressure 106/49 L 104/44 L 104/41 L [Right Brachial artery] O2 Saturation 97 98 97 04/21/22 04/21/22 04/21/22 10:56 11:04 11:17 Temperature Heart Rate Heart Rate [ 98 99 87 Brachial] Respiratory 14 16 16 Rate Blood Pressure Blood Pressure 107/69 89/44 L 87/52 L [Right Brachial artery] O2 Saturation 100 98 100 04/21/22 04/21/22 04/21/22 11:30 11:45 12:37 Temperature Heart Rate Heart Rate [ 66 67 69 Brachial] Respiratory 16 16 16 Rate Blood Pressure Blood Pressure 103/54 L 110/47 L 112/55 L [Right Brachial artery] O2 Saturation 100 99 98 04/21/22 04/21/22 04/21/22 12:38 12:49 13:25 Temperature Heart Rate Heart Rate [ 76 78 86 Brachial] Respiratory 16 16 16 Rate Blood Pressure Blood Pressure 106/33 L 115/54 L 102/46 L [Right Brachial artery] O2 Saturation 97 98 99 04/21/22 04/21/22 14:14 15:26 Temperature 36.0 C L 36.9 C Heart Rate Heart Rate [ 78 81 Brachial] Respiratory 16 18 Rate Blood Pressure Blood Pressure 117/50 L 112/54 L [Right Brachial artery] O2 Saturation 100 98 Oxygen O2 Source Room air I&O (Last 24 Hrs): Intake and Output Totals x24h 04/19/22 04/20/22 04/21/22 23:59 23:59 23:59 Intake Total 200 2085 Output Total 0 Balance 200 2085 General: Other (Tired, awakens and communicates) HEENT: Mucous membr. moist/pink Neck: Supple, No JVD Neuro: Alert, Non Focal Cardiovascular: Regular rate Respiratory: No respiratory distress Abdomen: Normal bowel sounds, Soft, No tenderness Extremities: No edema, No tenderness/swelling - Results Results: Laboratory Results WBC 6.2 x10^3/uL (4.8-10.8) 04/21/22 04:50 RBC 3.15 10^6/uL (4.20-5.40) L 04/21/22 04:50 Hgb 7.9 g/dL (12.0-16.0) L 04/21/22 04:50 Hct 25.4 % (37.0-47.0) L 04/21/22 04:50 MCV 80.6 fL (81.0-99.0) L 04/21/22 04:50 MCH 25.1 pg (27.0-31.0) L 04/21/22 04:50 MCHC 31.1 g/dL (32.0-36.0) L 04/21/22 04:50 RDW 16.0 % (12.0-15.0) H 04/21/22 04:50 Plt Count 325 10^3/uL (130-450) 04/21/22 04:50 MPV 9.2 fL (7.9-10.8) 04/21/22 04:50 Neut # (Auto) 3.4 10^3/uL (1.5-6.6) 04/21/22 04:50 Lymph # (Auto) 2.2 10^3/uL (1.5-3.5) 04/21/22 04:50 Dillon # (Auto) 0.5 10^3/uL (0.0-1.0) 04/21/22 04:50 Eos # (Auto) 0.2 10^3/uL (0.0-0.7) 04/21/22 04:50 Baso # (Auto) 0.0 10^3/uL (0.0-0.1) 04/21/22 04:50 Absolute Nucleated RBC 0.00 x10^3/uL 04/21/22 04:50 Nucleated RBC % 0.0 /100WBC 04/21/22 04:50 Sodium 133 mmol/L (135-145) L 04/21/22 04:50 Potassium 3.3 mmol/L (3.5-5.0) L 04/21/22 04:50 Chloride 95 mmol/L (101-111) L 04/21/22 04:50 Carbon Dioxide 29 mmol/L (21-32) 04/21/22 04:50 Anion Gap 9.0 (6-13) 04/21/22 04:50 BUN 24 mg/dL (6-20) H 04/21/22 04:50 Creatinine 0.9 mg/dL (0.4-1.0) 04/21/22 04:50 Estimated GFR (MDRD) 61 (>89) L 04/21/22 04:50 Glucose 110 mg/dL (70-100) H 04/21/22 04:50 Calcium 8.6 mg/dL (8.5-10.3) 04/21/22 04:50 Iron 17 ug/dL (28-170) L 04/21/22 04:50 TIBC 448 ug/dL (250-450) 04/21/22 04:50 % Saturation 4 % (20-50) L 04/21/22 04:50 Transferrin 320 mg/dL (192-382) 04/21/22 04:50 Total Bilirubin 0.3 mg/dL (0.2-1.0) 04/20/22 15:37 AST 13 IU/L (10-42) 04/20/22 15:37 ALT 10 IU/L (10-60) 04/20/22 15:37 Alkaline Phosphatase 60 IU/L (42-121) 04/20/22 15:37 Troponin I High Sens 3.2 ng/L (2.3-14.8) 04/20/22 15:37 B-Natriuretic Peptide 193 pg/mL (5-100) H 04/20/22 15:37 Total Protein 6.7 g/dL (6.7-8.2) 04/20/22 15:37 Albumin 4.1 g/dL (3.2-5.5) 04/20/22 15:37 Globulin 2.6 g/dL (2.1-4.2) 04/20/22 15:37 Albumin/Globulin Ratio 1.6 (1.0-2.2) 04/20/22 15:37 Lipase 27 U/L (22-51) 04/20/22 15:37 SARS-CoV-2 (PCR) NOT DETECTED 04/20/22 17:38 Sepsis Event Note (H) - Evaluation Current Stage of Sepsis: Ruled out
[2022-04-21] MEDS: HYDROCORTISONE 1% CREAM 28 GM TUBE TOP SCH (20:11)
[2022-04-21] MEDS: TEMAZEPAM 15 MG CAPSULE PO PRN (20:11)
[2022-04-22] MEDS: SODIUM CHLORIDE FLUSH 0.9% 10 ML SYRINGE IVP SCH ×3 (01:00→18:09)
[2022-04-22] MEDS: SODIUM CHLORIDE 0.9% 1,000 ML IV SCH ×2 (02:09→21:09)
[2022-04-22] MEDS ORDERED: SODIUM/POTASSIUM/MAG SULFATES 354 ML PREP KIT PO SCH (04:00)
[2022-04-22] MEDS: SODIUM/POTASSIUM/MAG SULFATES 354 ML PREP KIT PO SCH (04:12)
[2022-04-22 05:38] LABS: BASOPHILS # (AUTO) 0.1 10^3/uL (0.0-0.1); BASOPHILS % (AUTO) 1.3 %; EOSINOPHILS # (AUTO) 0.2 10^3/uL (0.0-0.7); EOSINOPHILS % (AUTO) 4.9 %; HCT - HEMATOCRIT 26.8 % (37.0-47.0); HGB - HEMOGLOBIN 8.4 g/dL (12.0-16.0); LYMPHOCYTES % (AUTO) 41.3 %; MEAN CORPUSCULAR HEMOGLOBIN 25.8 pg (27.0-31.0); MEAN CORPUSCULAR HGB CONC 31.3 g/dL (32.0-36.0); MEAN CORPUSCULAR VOLUME 82.5 fL (81.0-99.0); MONOCYTES # (AUTO) 0.4 10^3/uL (0.0-1.0); MONOCYTES % (AUTO) 8.3 %; NEUTROPHILS # (AUTO) 2.1 10^3/uL (1.5-6.6); PLT - PLATELET COUNT 358 10^3/uL (130-450); RED BLOOD COUNT 3.25 10^6/uL (4.20-5.40); RED CELL DISTRIBUTION WIDTH 15.9 % (12.0-15.0); WHITE BLOOD COUNT 4.7 x10^3/uL (4.8-10.8)
[2022-04-22] MEDS: LEVOTHYROXINE 100 MCG TABLET PO SCH (06:45)
[2022-04-22] MEDS ORDERED: PROPOFOL 200 MG/20 ML VIAL IVP ONE (08:56)
[2022-04-22] MEDS ORDERED: PANTOPRAZOLE 40 MG VIAL IVP SCH (09:00)
[2022-04-22] MEDS: MONTELUKAST 10 MG TABLET PO SCH (09:02)
[2022-04-22] MEDS: atenoloL 25 MG TABLET PO SCH (09:02)
[2022-04-22] MEDS: HYDROCORTISONE 1% CREAM 28 GM TUBE TOP SCH ×2 (09:06→21:03)
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
--- NOTE | 2022-04-22 09:33 | ANESTHESIA ---
Pre-Anesthesia VS, & Labs - Diagnosis anemia - Procedure colonoscopy Vital Signs: Temp Pulse Resp BP Pulse Ox O2 Flow Rate 36.8 C 94 16 130/67 98 04/22/22 07:41 04/22/22 07:41 04/22/22 07:41 04/22/22 07:41 04/22/22 07:41 Height: 5 ft 4 in Weight (kg): 79 kg Body Mass Index: 29.9 BMI Classification: Overweight - NPO >8 hours (no solids >8hrs, bwel prep until 0430) - Is Patient ?: No - Lab Results Current Lab Results: Laboratory Tests 04/22/22 04:46: WBC 4.7 L, RBC 3.25 L, Hgb 8.4 L, Hct 26.8 L, MCV 82.5, MCH 25.8 L, MCHC 31.3 L, RDW 15.9 H, Plt Count 358, MPV 9.0, Neut # (Auto) 2.1, Lymph # (Auto) 2.0, Potter # (Auto) 0.4, Eos # (Auto) 0.2, Baso # (Auto) 0.1, Absolute Nucleated RBC 0.00, Nucleated RBC % 0.0 04/21/22 04:50: Iron 17 L, TIBC 448, % Saturation 4 L, Transferrin 320 04/21/22 04:50: Sodium 133 L, Potassium 3.3 L, Chloride 95 L, Carbon Dioxide 29, Anion Gap 9.0, BUN 24 H, Creatinine 0.9, Estimated GFR (MDRD) 61 L, Glucose 110 H, Calcium 8.6 04/21/22 04:50: WBC 6.2, RBC 3.15 L, Hgb 7.9 L, Hct 25.4 L, MCV 80.6 L, MCH 25.1 L, MCHC 31.1 L, RDW 16.0 H, Plt Count 325, MPV 9.2, Neut # (Auto) 3.4, Lymph # (Auto) 2.2, Potter # (Auto) 0.5, Eos # (Auto) 0.2, Baso # (Auto) 0.0, Absolute Nucleated RBC 0.00, Nucleated RBC % 0.0 04/20/22 18:15: Hgb 8.8 L, Hct 27.4 L 04/20/22 15:37: B-Natriuretic Peptide 193 H 04/20/22 15:37: Troponin I High Sens 3.2 04/20/22 15:37: Sodium 132 L, Potassium 3.6, Chloride 92 L, Carbon Dioxide 31, Anion Gap 9.0, BUN 30 H, Creatinine 1.0, Estimated GFR (MDRD) 54 L, Glucose 113 H, Calcium 9.2, Total Bilirubin 0.3, AST 13, ALT 10, Alkaline Phosphatase 60, Total Protein 6.7, Albumin 4.1, Globulin 2.6, Albumin/Globulin Ratio 1.6, Lipase 27 04/20/22 15:37: WBC 8.5, RBC 3.50 L, Hgb 9.0 L, Hct 28.3 L, MCV 80.9 L, MCH 25.7 L, MCHC 31.8 L, RDW 16.0 H, Plt Count 381, MPV 8.6, Neut # (Auto) 5.3, Lymph # (Auto) 2.3, Potter # (Auto) 0.6, Eos # (Auto) 0.1, Baso # (Auto) 0.1, Absolute Nucleated RBC 0.00, Nucleated RBC % 0.0 Fish Bones: 04/22/22 04:46 04/21/22 04:50 Home Medications and Allergies Home Medications: Ambulatory Orders Cholecalciferol [Vitamin D3] 5,000 unit PO DAILY 04/21/22 Magnesium Glycinate, Mag Oxide [Magnesium Glycinate] 3 cap PO DAILY 04/21/22 Semaglutide [Ozempic] 0.5 mg SQ Q7D 04/21/22 Active Medications Acetaminophen (Acetaminophen 325 Mg Tablet) 650 mg PO Q4HR PRN PRN Reason: Pain 1 to 4, or Fever Last Admin: 04/21/22 22:06 Dose: 650 mg Albuterol (Albuterol Neb 2.5 Mg/3 Ml) 2.5 mg INH Q6H PRN PRN Reason: Shortness of Air/Wheezing Atenolol (Atenolol 25 Mg Tablet) 25 mg PO DAILY COUNT INCLUDES THE [facility] Last Admin: 04/22/22 09:02 Dose: 25 mg Ferrous Gluconate (Ferrous Gluconate 324 Mg Tablet) 324 mg PO DAILYWM ENMANUEL Hydrocortisone (Hydrocortisone 1% Cream 28 Gm Tube) 1 applic TOP BID COUNT INCLUDES THE [facility] Last Admin: 04/22/22 09:06 Dose: 1 applic Sodium Chloride (Normal Saline 0.9%) 1,000 mls @ 100 mls/hr IV .Q10H COUNT INCLUDES THE [facility] Last Admin: 04/22/22 02:09 Dose: 100 mls/hr Levothyroxine Sodium (Levothyroxine 100 Mcg Tablet) 100 mcg PO QDAC COUNT INCLUDES THE [facility] Last Admin: 04/22/22 06:45 Dose: 100 mcg Montelukast Sodium (Montelukast 10 Mg Tablet) 10 mg PO DAILY COUNT INCLUDES THE [facility] Last Admin: 04/22/22 09:02 Dose: 10 mg Ondansetron HCl (Ondansetron 4 Mg/2 Ml Vial) 4 mg IVP Q6HR PRN PRN Reason: Nausea / Vomiting Pantoprazole Sodium (Pantoprazole 40 Mg Vial) 40 mg IVP BID COUNT INCLUDES THE [facility] Last Admin: 04/22/22 09:02 Dose: 40 mg Sodium Chloride (Sodium Chloride Flush 0.9% 10 Ml Syringe) 10 ml IVP PRN PRN PRN Reason: NEEDED PER PROVIDER ORDERS Last Admin: 04/20/22 20:39 Dose: 10 ml Sodium Chloride (Sodium Chloride Flush 0.9% 10 Ml Syringe) 10 ml IVP 0100,0900,1700 COUNT INCLUDES THE [facility] Last Admin: 04/22/22 09:03 Dose: 10 ml Temazepam (Temazepam 15 Mg Capsule) 15 mg PO QPM PRN PRN Reason: Insomnia Last Admin: 04/21/22 20:11 Dose: 15 mg Levothyroxine [Synthroid] 100 mcg ORAL DAILY 02/11/16 Montelukast [Singulair] 10 mg ORAL DAILY 02/11/16 Albuterol Sulf [Ventolin Hfa Inhaler] 1 puffs INH Q6H PRN 04/06/17 Atenolol [Tenormin] 100 mg PO DAILY 01/15/22 Fluticasone/Umeclidin/Vilanter [Trelegy Ellipta 100-62.5-25] 1 puffs PO BID 01/15/22 Nebulizer [Aeroneb Go Nebulizer] 1 each MC ONCE PRN 01/15/22 Rivaroxaban [Xarelto] 20 mg PO DAILY 01/15/22 hydroCHLOROthiazide [Hydrochlorothiazide] 50 mg PO DAILY 01/15/22 Cholecalciferol [Vitamin D3] 5,000 unit PO DAILY 04/21/22 Magnesium Glycinate, Mag Oxide [Magnesium Glycinate] 3 cap PO DAILY 04/21/22 Semaglutide [Ozempic] 0.5 mg SQ Q7D 04/21/22 Allergies/Adverse Reactions: Allergies Allergy/AdvReac Type Severity Reaction Status Date / Time Penicillins Allergy Unknown Verified 04/20/22 14:40 Anes History & Medical History - Anesthetic History Anesthesia Complications: reports: No previous complications Family history of Anesthesia Complications: Denies Family history of Malignant Hyperthermia: Denies - Medical History Cardiovascular: reports: Hypertension, Arrhythmia Pulmonary: reports: Asthma, COPD Gastrointestinal: reports: C.difficile Urinary: reports: None Neuro: reports: Peripheral neuropathy Musculoskeletal: reports: None Endocrine/Autoimmune: reports: HyPOthyroidism Smoking Status: Former smoker - Surgical History General: reports: Colonoscopy, EGD Eyes Ears Nose Throat (EENT): reports: Tonsil/Adenoidectomy Gynecologic: reports: section, Oophrectomy Exam General: Alert, Oriented x3, Cooperative Dental: WNL Mouth Openin Fingerbreadth Neck Mobility: Normal Mallampati classification: I Thyromental Distance: 4-6 cm Respiratory: Lungs clear Cardiovascular: Other (irreg/AF) Plan Anesthesia Type: Total IV Consent for Procedure(s) Verified and Reviewed: Yes Code Status: Attempt Resuscitation ASA classification: 3-Severe systemic disease Is this case an emergency?: Yes
--- NOTE | 2022-04-22 09:57 | OPERATIVE REPORT ---
Operative Report - General Admit Date: 04/20/22 - Other Other Information/Narrative: PROCEDURE DATE: 04/22/2022 SURGEON: Merlin Bueno MD, FACS PREOPERATIVE DIAGNOSIS: Judy is a 76 year old femal with chronic lower GI blood loss. Her EGD yesterday was normal. She underwent a split bowel prep and is to undergo diagnostic, possible therapeutic colonoscopy this morning POSTOPERATIVE DIAGNOSIS: Angiodysplasia cecum, otherwise normal colonoscopy examination NAME OF PROCEDURE: Colonoscopy with bi-polar cautery of the cecal angiodysplastic lesion} ANESTHESIA: Monitored sedation (see anesthesia record) DESCRIPTION OF PROCEDURE: After consent for the procedure was obtained, the patient was brought to the endoscopy suite where, in the supine position, monitored sedation was administered by the anesthesia team. The patient was placed into the left lateral decubitus position. Digital rectal examination was performed and was normal. A Pentax flexible colonoscope was gently inserted into the anus and advanced to the cecum. The bowel preparation was excellent. Withdrawal time from cecum to anus over 10 minutes. The cecum and ileocecal valve, the right colon and hepatic flexure, the transverse colon and splenic flexure, the descending and sigmoid colons and the proximal, middle and distal third of the rectum were inspected. Retroflex view of the anus was performed. The cecum was identified by visualization of the ileocecal valve, the appendiceal orifice, and the red reflex in the RLQ. Photos: Yes - see endopro program document Findings: Angiodysplastic lesion in cecum, not actively bleeding, treated with bi-polar cautery, otherwise normal colon exam ASSESSMENT: Single angiodysplastic lesion in the cecum which was ablated with cautery. No other colonic source of blood loss. It is possible that this is the reason for her chronic slow bleed but angiodysplastic lesions may also exist in the small bowel. RECOMMENDATION: Continue to use fiber in the diet. May start her DOAC tomorrow. Iron supplementation. She should arrange to see her machine set up technician to determine if she is a candidate for capsule endoscopy of the small bowel. David Bueno MD General Surgery Service
--- NOTE | 2022-04-22 10:51 | ANESTHESIA POST OP EVALUATION ---
Anesthesia Post Eval - Post Anesthesia Eval Vitals: Last Vital Signs Temp 36.8 C 04/22/22 07:41 Pulse 94 04/22/22 10:31 Resp 18 04/22/22 10:31 BP 133/80 H 04/22/22 10:31 Pulse Ox 100 04/22/22 10:31 O2 Flow Rate CV Function Including HR & BP: Stable Pain Control: Satisfactory Nausea & Vomiting: Negative Mental Status: Baseline Respiratory Status: Airway Patent Hydration Status: Satisfactory Anesthesia Complications: None
--- NOTE | 2022-04-22 12:43 | PROVIDER PROGRESS NOTE ---
Assessment/Plan - Problem List (1) GI bleed Qualifiers: Qualified Code(s): K92.1 - Melena Assessment/Plan: This is her second episode this year with a significant GI bleed. EGD and Colonoscopy were both negative in Feb 2022 She had an EGD done yesterday which showed no source of bleeding. General surgery, Dr. Bueno, took her for colonoscopy this morning, afterv a prep. The colonoscopy showed angiodysplasia in the cecum, which was not bleeding at the time, but he cauterized it. Will stop the empiric iv protonix bid Will advance her diet, since she has been on cklear liquids and NPO since admission Will follow Hb/hct q12h, if Hb < 7 then would transfuse PRBC . Will resume DOAC tomorrow am, per Gen Surg., since no active bleeding was seen on EGD or colonoscopy. If no rebleeding on a diet, plan discharge to home tomorrow. She needs to contact her Vacuum Tester Cans for further W/U; she likely needs a pill cam. She knows to contact him. Qualifiers: GI bleed type/associated pathology: melena Qualified Code(s): K92.1 - Melena (2) Anemia Conclusion/Plan: We checked her Iron stores and they are deficiency Will order oral Iron replacement. Will follow Hb/hct q12h, if Hb < 7 then would transfuse PRBC Qualifiers: Anemia type: other cause Other causes of anemia: other cause, not classified Qualified Code(s): D64.89 - Other specified anemias (3) DM type 2 Conclusion/Plan: She told me today: "Now that I can eat I will tell you I am a diabetic". I told her that the admitting doctor and I were not aware of her being a Diabetic. DM is not even listed as one of her diagnoses on her Problem List in this EMR. She said she is only on Ozempic for this and it helped her lose weight. She said with a diabetic diet and Ozempic, she has been able to keep A1c 6.9. We will change her diet order to carb controlled and order hypoglycemia prot ocol, fingerstick checks, sliding scale coverage and check A1c with morning labs. Hold Ozempic while an Inpt (4) Atrial fibrillation Conclusion/Plan: Rate controlled and continuing Tenormin. If she is followed by Cardiology, may be a good candidate for Watchman device Her anticoagulant has been on hold. Will resume DOAC tomorrow am, per Gen Surg., since no active bleeding was seen on EGD or colonoscopy. Qualifiers: Atrial fibrillation type: unspecified chronic Qualified Code(s): I48.20 - Chronic atrial fibrillation, unspecified; I48.2 - Chronic atrial fibrillation (5) Asthma Conclusion/Plan: Stable. Currently no wheezing, duonebs ordered prn Qualifiers: Qualified Code(s): J45.909 - Current Meds Current Meds: Current Medications Generic Name Dose Route Start Last Admin Trade Name Freq PRN Reason Stop Dose Admin Acetaminophen 650 mg 04/20/22 19:30 04/21/22 22:06 Acetaminophen 325 Mg Tablet PO 650 mg Q4HR PRN Administration Pain 1 to 4, or Fever Atenolol 25 mg 04/21/22 09:00 04/22/22 09:02 Atenolol 25 Mg Tablet PO 25 mg DAILY ENMANUEL Administration Hydrocortisone 1 applic 04/21/22 21:00 04/22/22 09:06 Hydrocortisone 1% Cream 28 Gm Tube TOP 1 applic BID ENMANUEL Administration Sodium Chloride 1,000 mls @ 100 mls/hr 04/20/22 20:00 04/22/22 02:09 Normal Saline 0.9% IV 100 mls/hr .Q10H ENMANUEL Administration Levothyroxine Sodium 100 mcg 04/21/22 07:00 04/22/22 06:45 Levothyroxine 100 Mcg Tablet PO 100 mcg QDAC ENMANUEL Administration Montelukast Sodium 10 mg 04/21/22 09:00 04/22/22 09:02 Montelukast 10 Mg Tablet PO 10 mg DAILY ENMANUEL Administration Sodium Chloride 10 ml 04/20/22 19:30 04/20/22 20:39 Sodium Chloride Flush 0.9% 10 Ml Syringe IVP 10 ml PRN PRN Administration NEEDED PER PROVIDER ORDERS Sodium Chloride 10 ml 04/21/22 01:00 04/22/22 09:03 Sodium Chloride Flush 0.9% 10 Ml Syringe IVP 10 ml 0100,0900,1700 ENMANUEL Administration Temazepam 15 mg 04/20/22 22:12 04/21/22 20:11 Temazepam 15 Mg Capsule PO 15 mg QPM PRN Administration Insomnia - Lab Result Fish Bone Diagrams: 04/22/22 04:46 04/21/22 04:50 - Additional Planning My Orders: My Active Orders 04/22/22 Lunch DIET [Soft Mechanical Diet] [DIET] 04/22/22 12:34 Blood Glucose Checks - Eating [RC] 0800,1200,1700,2100 Initiate Hypoglycemia Protocol [RC] .protocol 04/22/22 Dinner Carb-controlled Diet [DIET] 04/22/22 17:00 Insulin Lispro [Humalog Kwikpen U-100] 1 - 5 unit SUBQ 0800,1200,1700,2100 04/23/22 05:00 HEMOGLOBIN A1c% [CHEM] DAILYLAB 04/23/22 08:00 Ferrous Gluconate [Fergon] 324 mg PO DAILYWM Subjective - Subjective Patient Reports: Feeling Better, Resting Comfortably, No Complaints Objective Vital Signs: Vital Signs - 24 hr 04/21/22 04/21/22 04/21/22 12:37 12:38 12:49 Temperature Heart Rate [ 69 76 78 Brachial] Respiratory 16 16 16 Rate Blood Pressure 112/55 L 106/33 L 115/54 L [Right Brachial artery] O2 Saturation 98 97 98 04/21/22 04/21/22 04/21/22 13:25 14:14 15:26 Temperature 36.0 C L 36.9 C Heart Rate [ 86 78 81 Brachial] Respiratory 16 16 18 Rate Blood Pressure 102/46 L 117/50 L 112/54 L [Right Brachial artery] O2 Saturation 99 100 98 04/21/22 04/22/22 04/22/22 20:07 00:00 00:13 Temperature 36.5 C 36.5 C Heart Rate [ 116 H 88 Brachial] Respiratory 18 16 Rate Blood Pressure 130/82 H 111/35 L 108/43 L [Right Brachial artery] O2 Saturation 99 98 04/22/22 04/22/22 04/22/22 04:33 07:41 10:18 Temperature 36.7 C 36.8 C Heart Rate [ 91 94 89 Brachial] Respiratory 17 16 16 Rate Blood Pressure 133/66 H 130/67 115/71 [Right Brachial artery] O2 Saturation 96 98 100 04/22/22 04/22/22 04/22/22 10:31 10:45 11:15 Temperature Heart Rate [ 94 104 H 105 H Brachial] Respiratory 18 18 16 Rate Blood Pressure 133/80 H 151/96 H 131/63 H [Right Brachial artery] O2 Saturation 100 100 98 04/22/22 11:45 Temperature Heart Rate [ 98 Brachial] Respiratory 16 Rate Blood Pressure 129/65 [Right Brachial artery] O2 Saturation 96 Oxygen O2 Source Room air I&O (Last 24 Hrs): Intake and Output Totals x24h 04/20/22 04/21/22 04/22/22 23:59 23:59 23:59 Intake Total 200 2685 1550 Output Total 0 Balance 200 2685 1550 General: Alert, Oriented x3 HEENT: Mucous membr. moist/pink Neck: Supple Neuro: Alert, Non Focal, Other (Poor memory) Cardiovascular: Regular rate, No murmurs Respiratory: No respiratory distress Abdomen: Soft, No tenderness Extremities: No clubbing, No edema, No tenderness/swelling - Results Results: Laboratory Results WBC 4.7 x10^3/uL (4.8-10.8) L 04/22/22 04:46 RBC 3.25 10^6/uL (4.20-5.40) L 04/22/22 04:46 Hgb 8.4 g/dL (12.0-16.0) L 04/22/22 04:46 Hct 26.8 % (37.0-47.0) L 04/22/22 04:46 MCV 82.5 fL (81.0-99.0) 04/22/22 04:46 MCH 25.8 pg (27.0-31.0) L 04/22/22 04:46 MCHC 31.3 g/dL (32.0-36.0) L 04/22/22 04:46 RDW 15.9 % (12.0-15.0) H 04/22/22 04:46 Plt Count 358 10^3/uL (130-450) 04/22/22 04:46 MPV 9.0 fL (7.9-10.8) 04/22/22 04:46 Neut # (Auto) 2.1 10^3/uL (1.5-6.6) 04/22/22 04:46 Lymph # (Auto) 2.0 10^3/uL (1.5-3.5) 04/22/22 04:46 [place] # (Auto) 0.4 10^3/uL (0.0-1.0) 04/22/22 04:46 Eos # (Auto) 0.2 10^3/uL (0.0-0.7) 04/22/22 04:46 Baso # (Auto) 0.1 10^3/uL (0.0-0.1) 04/22/22 04:46 Absolute Nucleated RBC 0.00 x10^3/uL 04/22/22 04:46 Nucleated RBC % 0.0 /100WBC 04/22/22 04:46 Sodium 133 mmol/L (135-145) L 04/21/22 04:50 Potassium 3.3 mmol/L (3.5-5.0) L 04/21/22 04:50 Chloride 95 mmol/L (101-111) L 04/21/22 04:50 Carbon Dioxide 29 mmol/L (21-32) 04/21/22 04:50 Anion Gap 9.0 (6-13) 04/21/22 04:50 BUN 24 mg/dL (6-20) H 04/21/22 04:50 Creatinine 0.9 mg/dL (0.4-1.0) 04/21/22 04:50 Estimated GFR (MDRD) 61 (>89) L 04/21/22 04:50 Glucose 110 mg/dL (70-100) H 04/21/22 04:50 Calcium 8.6 mg/dL (8.5-10.3) 04/21/22 04:50 Iron 17 ug/dL (28-170) L 04/21/22 04:50 TIBC 448 ug/dL (250-450) 04/21/22 04:50 % Saturation 4 % (20-50) L 04/21/22 04:50 Transferrin 320 mg/dL (192-382) 04/21/22 04:50 Total Bilirubin 0.3 mg/dL (0.2-1.0) 04/20/22 15:37 AST 13 IU/L (10-42) 04/20/22 15:37 ALT 10 IU/L (10-60) 04/20/22 15:37 Alkaline Phosphatase 60 IU/L (42-121) 04/20/22 15:37 Troponin I High Sens 3.2 ng/L (2.3-14.8) 04/20/22 15:37 B-Natriuretic Peptide 193 pg/mL (5-100) H 04/20/22 15:37 Total Protein 6.7 g/dL (6.7-8.2) 04/20/22 15:37 Albumin 4.1 g/dL (3.2-5.5) 04/20/22 15:37 Globulin 2.6 g/dL (2.1-4.2) 04/20/22 15:37 Albumin/Globulin Ratio 1.6 (1.0-2.2) 04/20/22 15:37 Lipase 27 U/L (22-51) 04/20/22 15:37 SARS-CoV-2 (PCR) NOT DETECTED 04/20/22 17:38 Sepsis Event Note (H) - Evaluation Current Stage of Sepsis: Ruled out
[2022-04-22] MEDS: INSULIN LISPRO 300 UNIT/3 ML PEN SUBQ SCH ×2 (18:08→21:04)
[2022-04-22 18:43] LABS: HCT - HEMATOCRIT 25.7 % (37.0-47.0); HGB - HEMOGLOBIN 8.1 g/dL (12.0-16.0)
[2022-04-22] MEDS: ALBUTEROL NEB 2.5 MG/3 ML INH PRN (20:03)
[2022-04-22] MEDS: TEMAZEPAM 15 MG CAPSULE PO PRN (21:03)
[2022-04-23] MEDS: SODIUM CHLORIDE FLUSH 0.9% 10 ML SYRINGE IVP SCH ×3 (00:15→18:13)
[2022-04-23] MEDS: ALBUTEROL NEB 2.5 MG/3 ML INH PRN ×2 (02:41→07:21)
[2022-04-23] MEDS: LEVOTHYROXINE 100 MCG TABLET PO SCH (05:41)
[2022-04-23] MEDS: SODIUM CHLORIDE 0.9% 1,000 ML IV SCH ×2 (05:41→15:39)
[2022-04-23 06:21] LABS: HCT - HEMATOCRIT 26.3 % (37.0-47.0); HGB - HEMOGLOBIN 8.2 g/dL (12.0-16.0); MEAN CORPUSCULAR HEMOGLOBIN 25.9 pg (27.0-31.0); MEAN CORPUSCULAR HGB CONC 31.2 g/dL (32.0-36.0); RED BLOOD COUNT 3.17 10^6/uL (4.20-5.40); RED CELL DISTRIBUTION WIDTH 16.3 % (12.0-15.0); WHITE BLOOD COUNT 5.3 x10^3/uL (4.8-10.8)
--- NOTE | 2022-04-23 08:40 | PROVIDER PROGRESS NOTE ---
Progress Note Judy has had no recurrence of her melena. She is tolerating a diet. Her H&H is stable; She is concerned that her afib is worse and indeed she has mild tachycardia. Her pre-procedure medications to include her Lisinopril, Atenolol, and Xarelto will be started this morning. Upon discharge she will be on iron supplementation and will make arrangements to see her armored truck driver as an out-patient. I have discussed this case with Dr. Steele and the General Surgery Service will sign off her case today. David Bueno MD General Surgery Service
[2022-04-23] MEDS: MONTELUKAST 10 MG TABLET PO SCH (09:24)
[2022-04-23] MEDS: atenoloL 25 MG TABLET PO SCH (09:25)
[2022-04-23] MEDS: INSULIN LISPRO 300 UNIT/3 ML PEN SUBQ SCH ×4 (09:25→21:56)
[2022-04-23] MEDS: FERROUS GLUCONATE 324 MG TABLET PO SCH (09:25)
--- NOTE | 2022-04-23 09:27 | Discharge Plan ---
Discharge Plan Problem Reviewed?: Yes Disposition: Home, Self Care Condition: Fair Prescriptions: Ferrous Gluconate [Fergon] 324 mg PO DAILYWM #30 tab Diet: Diabetic Activity Restrictions: Activity as Tolerated Shower Restrictions: No Driving Restrictions: No Weight Bearing: Full Weight Instruction Topics: Diabetes Senior Care Complications Health Concerns: You were hospitalized because you had bleeding in your bowels and you were anemic. You underwent endoscopies of the stomach and the next day of your colon. The doctor found an area in the colon that he treated but there could be other places in your intestines that may have bled. You need to contact your Automobile Locator for further recommendations. An iron tablet, to take once a day, has been prescribed for you, and the prescription was electronically sent to your [facility] pharmacy in [place] You may restart your blood-thinner Xarelto. Usually Xarelto should be taken with dinner. Stay off your blood pressure medicine called Hydrochlorothiazide at least until you see your PCP, because it causes dehydration, and right now you actually needed iv fluids for hydration. You may resume your other usual medications and management that you were on before this hospitalization. When you were admitted, you did not tell us you had Diabetes. Please ALWAYS tell your medical care providers that you have Diabetes, because that affects the kind of medications and type of care we order for you. Your hospital stay was prolonged by 1 day, because of your asthma, with active wheezing and shortness of breath. If you need to use your nebulizer and have no electric power in yoyr home, go to a location that has power (which you said you have access to) for a nebulizer treatment. Plan of Treatment: As above. Care Goals: Improvement in symptoms and stabilization are the goals. Assessment: The patient understands and is agreeable with the plan. Additional Instructions or Follow Up instructions: If you have new or worsening symptoms, call your Primary Care Provider or Automobile Locator for advice, or come to the ER. No Smoking: If you smoke, Please STOP! Call for help. Follow-up with: DARSHAN NGUYEN MD [Primary Care Provider] -
[2022-04-23] MEDS ORDERED: atenoloL 25 MG TABLET PO STA (09:31)
[2022-04-23] MEDS: HYDROCORTISONE 1% CREAM 28 GM TUBE TOP SCH ×2 (10:33→21:55)
--- NOTE | 2022-04-23 12:31 | PROVIDER PROGRESS NOTE ---
Assessment/Plan - Problem List (1) GI bleed Qualifiers: Qualified Code(s): K92.1 - Melena Assessment/Plan: This is her second episode this year with a significant GI bleed. EGD and Colonoscopy were both negative in Feb 2022 She had an EGD done again here which showed no source of bleeding. General surgery, Dr. Bueno, took her for colonoscopy yesterday morning. The colon oscopy showed angiodysplasia in the cecum, which was not bleeding at the time, but he cauterized it. We have stopped the empiric iv protonix bid We have followed Hb/hct q12h, if Hb < 7 then would transfuse PRBC . Will resume DOAC today, per Gen Surg., since no active bleeding was seen on EGD or colonoscopy. Watch for bleeding going forward and she needs to contact her Application Coordinator for further W/U; she likely needs a pill cam. She knows to contact him. Qualifiers: GI bleed type/associated pathology: melena Qualified Code(s): K92.1 - Melena (2) Anemia Conclusion/Plan: Hgb dropped and plateaued at about 8, and she has not needed a transfusion this admission We checked her Iron stores and they are deficient. We have started her on oral Iron replacement and she will need this at discharg e. Will follow Hb/hct daily now, and if Hb < 7 then would transfuse PRBC Qualifiers: Anemia type: other cause Other causes of anemia: other cause, not classified Qualified Code(s): D64.89 - Other specified anemias (3) Asthma Conclusion/Plan: Today she is wheezing, has very poor air movement and is orthopneic. She has not been on her home meds of albuterol or Trelogy, since the med list was not reconciled. Duonebs were ordered prn only. This patient was to be discharged home today after GI bleed W/U, and she has a home nebulizer already. But SHE HAS NO ELECTRICAL POWER AT HER HOUSE to plug in her nebulizer machine (since [facility] has had power outages for the last 2 days and today). Therefore, it would be an unsafe discharge today. Will order Xopenex qid scheduled. Will order Trelogy, pt's own med. She is not yet ready to go home today. This was explained to the pt and son at bedside today. (4) Atrial fibrillation Conclusion/Plan: Her HR is not controlled today. She is tachycardic at 110-120. She was put on Atenolol 25 mg daily here, and her usual dose is 100 mg daily. Her anticoagulant has been on hold. Will resume DOAC today per Gen Surg., since no active bleeding was seen on EGD or colonoscopy. We need to substitute Eliquis for her Xarelto, since Xarelto is not on formulary here. This was explained to the pt. If she is followed by Cardiology, she would be a good candidate for getting a Watchman device. Will increase the Atenolol dose to 75 mg today and 100 mg can be resumed tomorrow. Qualifiers: Atrial fibrillation type: unspecified chronic Qualified Code(s): I48.20 - Chronic atrial fibrillation, unspecified; I48.2 - Chronic atrial fibrillation (5) DM type 2 Conclusion/Plan: She told me yesterday: "Now that I can eat I will tell you I am a diabetic". I told her that the admitting doctor and I were not aware of her being a Diabetic. DM is not even listed as one of her diagnoses on her Problem List in this EMR. She told me she was diet-controlled for the past 2 years and did not want to be on meds like Metformin and Glipizide. She is only on Ozempic for her DM and "it helped her lose weight". She has been able to keep A1c 6.4- 6.9. When she was OKd to advance diet from clears, we changed her solid food diet order from Reg to carb controlled yesterday, and ordered hypoglycemia protocol, fingerstick checks, sliding scale Reg Insulin coverage, and we are awaiting her A1c results. Hold Ozempic while an Inpt (6) HTN Conclusion/Plan: At home she was on atenolol, HCTZ and lisinopril for blood pressure treatment. The HCTZ has been on hold since she required IV fluids. Her atenolol dose was lower and the lisinopril was not given, because she had "soft" blood pressures caused by her GI bleed. This was explained to the pt and son at bedside today. Today her blood pressure has reached 170 systolic. Will resume her lisinopril and increase her atenolol to 75 mg today. (7) Hypothyroidism Conclusion/Plan: He is on levothyroxine which has been continued here. Because she is tachycardic today, will check TSH with a.m. labs to assure she is not getting excess dose of thyroid replacement. - Current Meds Current Meds: Current Medications Generic Name Dose Route Start Last Admin Trade Name Marsha PRN Reason Stop Dose Admin Acetaminophen 650 mg 04/20/22 19:30 04/21/22 22:06 Acetaminophen 325 Mg Tablet PO 650 mg Q4HR PRN Administration Pain 1 to 4, or Fever Albuterol 2.5 mg 04/20/22 20:13 04/23/22 07:21 Albuterol Neb 2.5 Mg/3 Ml INH 2.5 mg Q6H PRN Administration Shortness of Air/Wheezing Atenolol 25 mg 04/21/22 09:00 04/23/22 09:25 Atenolol 25 Mg Tablet PO 25 mg DAILY ENMANUEL Administration Ferrous Gluconate 324 mg 04/23/22 08:00 04/23/22 09:25 Ferrous Gluconate 324 Mg Tablet PO 324 mg DAILYWM ENMANUEL Administration Hydrocortisone 1 applic 04/21/22 21:00 04/23/22 10:33 Hydrocortisone 1% Cream 28 Gm Tube TOP Not Given BID ENMANUEL Insulin Human Lispro 1 - 5 unit 04/22/22 17:00 04/23/22 11:42 Insulin Lispro 300 Unit/3 Ml Pen SUBQ Not Given 0800,1200,1700,2100 [facility] Protocol Levothyroxine Sodium 100 mcg 04/21/22 07:00 04/23/22 05:41 Levothyroxine 100 Mcg Tablet PO 100 mcg QDAC ENMANUEL Administration Montelukast Sodium 10 mg 04/21/22 09:00 04/23/22 09:24 Montelukast 10 Mg Tablet PO 10 mg DAILY ENMANUEL Administration Sodium Chloride 10 ml 04/20/22 19:30 04/20/22 20:39 Sodium Chloride Flush 0.9% 10 Ml Syringe IVP 10 ml PRN PRN Administration NEEDED PER PROVIDER ORDERS Sodium Chloride 10 ml 04/21/22 01:00 04/23/22 09:25 Sodium Chloride Flush 0.9% 10 Ml Syringe IVP 10 ml 0100,0900,1700 ENMANUEL Administration Temazepam 15 mg 04/20/22 22:12 04/22/22 21:03 Temazepam 15 Mg Capsule PO 15 mg QPM PRN Administration Insomnia - Lab Result Fish Bone Diagrams: 04/23/22 05:33 04/21/22 04:50 - Additional Planning My Orders: My Active Orders 04/22/22 12:34 Blood Glucose Checks - Eating [RC] 0800,1200,1700,2100 Initiate Hypoglycemia Protocol [RC] .protocol 04/22/22 Dinner Carb-controlled Diet [DIET] 04/22/22 17:00 Insulin Lispro [Humalog Kwikpen U-100] 1 - 5 unit SUBQ 0800,1200,1700,2100 04/22/22 20:19 RT [Nebulizer/MDI Tx.] [RC] .PRN 04/23/22 05:33 HEMOGLOBIN A1c% [CHEM] DAILYLAB 04/23/22 08:00 Ferrous Gluconate [Fergon] 324 mg PO DAILYWM 04/23/22 12:29 Nebulizer/MDI Tx. [RC] QID Resp Teach Nebulizer/MDI [RC] .ONCE 04/23/22 12:30 Fluticasone/Umeclidin/Vilanter [Trelegy Ellipta 100-62.5-25] 1 puffs PO BID 04/23/22 13:00 Levalbuterol [Xopenex] 1.25 mg INH QID 04/24/22 05:00 BMP - BASIC METABOLIC PANEL [CHEM] DAILYLAB CBC W/O DIFF (HEMOGRAM) [HEME] DAILYLAB 04/24/22 09:00 Cholecalciferol [Vitamin D3] 5,000 unit PO DAILY Pantoprazole [Protonix] 40 mg PO DAILY lisinopriL [Lisinopril] 40 mg PO DAILY Subjective - Subjective Patient Reports: Shortness of Breath (Patient complains of air hunger and she is visibly orthopneic) Objective Vital Signs: Vital Signs - 24 hr 04/22/22 04/22/22 04/22/22 13:50 16:29 20:00 Temperature 36.7 C Heart Rate 95 Heart Rate [ 95 106 H Brachial] Respiratory 17 18 18 Rate Blood Pressure 114/43 L 126/53 L [Right Brachial artery] O2 Saturation 98 98 04/22/22 04/23/22 04/23/22 20:57 00:21 02:40 Temperature 37.2 C 36.8 C Heart Rate 85 Heart Rate [ 99 85 Brachial] Respiratory 18 18 18 Rate Blood Pressure 135/69 H 134/53 H [Right Brachial artery] O2 Saturation 97 94 04/23/22 04/23/22 04/23/22 05:39 07:43 11:25 Temperature 36.8 C 36.3 C L 36.9 C Heart Rate Heart Rate [ 115 H 109 H 94 Brachial] Respiratory 20 18 16 Rate Blood Pressure 145/83 H 152/86 H 132/72 H [Right Brachial artery] O2 Saturation 95 100 96 Oxygen O2 Source Room air I&O (Last 24 Hrs): Intake and Output Totals x24h 04/21/22 04/22/22 04/23/22 23:59 23:59 22:59 Intake Total 2685 2823.333 1050 Output Total 0 Balance 2685 2823.333 1050 General: Alert, Oriented x3 HEENT: Mucous membr. moist/pink Neck: Supple, No JVD Neuro: Alert, Non Focal Cardiovascular: No murmurs, Other (Irreg irreg and tachy) Respiratory: Wheezes (Poor air mvm in all lung [place]) Abdomen: Normal bowel sounds, Soft Extremities: No clubbing, No edema, No tenderness/swelling - Results Results: Laboratory Results WBC 5.3 x10^3/uL (4.8-10.8) 04/23/22 05:33 RBC 3.17 10^6/uL (4.20-5.40) L 04/23/22 05:33 Hgb 8.2 g/dL (12.0-16.0) L 04/23/22 05:33 Hct 26.3 % (37.0-47.0) L 04/23/22 05:33 MCV 83.0 fL (81.0-99.0) 04/23/22 05:33 MCH 25.9 pg (27.0-31.0) L 04/23/22 05:33 MCHC 31.2 g/dL (32.0-36.0) L 04/23/22 05:33 RDW 16.3 % (12.0-15.0) H 04/23/22 05:33 Plt Count 347 10^3/uL (130-450) 04/23/22 05:33 MPV 9.0 fL (7.9-10.8) 04/23/22 05:33 Neut # (Auto) 2.1 10^3/uL (1.5-6.6) 04/22/22 04:46 Lymph # (Auto) 2.0 10^3/uL (1.5-3.5) 04/22/22 04:46 [place] # (Auto) 0.4 10^3/uL (0.0-1.0) 04/22/22 04:46 Eos # (Auto) 0.2 10^3/uL (0.0-0.7) 04/22/22 04:46 Baso # (Auto) 0.1 10^3/uL (0.0-0.1) 04/22/22 04:46 Absolute Nucleated RBC 0.00 x10^3/uL 04/22/22 04:46 Nucleated RBC % 0.0 /100WBC 04/22/22 04:46 Sodium 133 mmol/L (135-145) L 04/21/22 04:50 Potassium 3.3 mmol/L (3.5-5.0) L 04/21/22 04:50 Chloride 95 mmol/L (101-111) L 04/21/22 04:50 Carbon Dioxide 29 mmol/L (21-32) 04/21/22 04:50 Anion Gap 9.0 (6-13) 04/21/22 04:50 BUN 24 mg/dL (6-20) H 04/21/22 04:50 Creatinine 0.9 mg/dL (0.4-1.0) 04/21/22 04:50 Estimated GFR (MDRD) 61 (>89) L 04/21/22 04:50 Glucose 110 mg/dL (70-100) H 04/21/22 04:50 POC Whole Bld Glucose 85 mg/dL (70 - 100) 04/23/22 11:24 Calcium 8.6 mg/dL (8.5-10.3) 04/21/22 04:50 Iron 17 ug/dL (28-170) L 04/21/22 04:50 TIBC 448 ug/dL (250-450) 04/21/22 04:50 % Saturation 4 % (20-50) L 04/21/22 04:50 Transferrin 320 mg/dL (192-382) 04/21/22 04:50 Total Bilirubin 0.3 mg/dL (0.2-1.0) 04/20/22 15:37 AST 13 IU/L (10-42) 04/20/22 15:37 ALT 10 IU/L (10-60) 04/20/22 15:37 Alkaline Phosphatase 60 IU/L (42-121) 04/20/22 15:37 Troponin I High Sens 3.2 ng/L (2.3-14.8) 04/20/22 15:37 B-Natriuretic Peptide 193 pg/mL (5-100) H 04/20/22 15:37 Total Protein 6.7 g/dL (6.7-8.2) 04/20/22 15:37 Albumin 4.1 g/dL (3.2-5.5) 04/20/22 15:37 Globulin 2.6 g/dL (2.1-4.2) 04/20/22 15:37 Albumin/Globulin Ratio 1.6 (1.0-2.2) 04/20/22 15:37 Lipase 27 U/L (22-51) 04/20/22 15:37 SARS-CoV-2 (PCR) NOT DETECTED 04/20/22 17:38 Sepsis Event Note (H) - Evaluation Current Stage of Sepsis: Ruled out
[2022-04-23] MEDS: IPRATROPIUM 0.2 MG/ML NEB INH SCH ×2 (13:15→20:21)
[2022-04-23] MEDS: LEVALBUTEROL 1.25 MG/3 ML NEB INH SCH ×3 (13:16→20:21)
[2022-04-23] MEDS ORDERED: lisinopriL 5 MG TABLET PO ONE (18:00)
[2022-04-23] MEDS: BUDESONIDE 0.5 MG/2 ML NEB INH SCH (20:21)
[2022-04-23] MEDS: FORMOTEROL FUMARATE NEB 20 MCG/2 ML INH SCH (20:22)
[2022-04-23] MEDS ORDERED: CHLORHEXIDINE GLUCONATE 15 ML UDC PO SCH (21:00)
[2022-04-23] MEDS: APIXABAN 5 MG TABLET PO SCH (21:54)
[2022-04-23] MEDS: TEMAZEPAM 15 MG CAPSULE PO PRN (22:23)
[2022-04-24] MEDS: SODIUM CHLORIDE FLUSH 0.9% 10 ML SYRINGE IVP SCH ×2 (00:20→08:28)
[2022-04-24] MEDS: LEVOTHYROXINE 100 MCG TABLET PO SCH (05:51)
[2022-04-24 06:33] LABS: HCT - HEMATOCRIT 24.6 % (37.0-47.0); HGB - HEMOGLOBIN 7.7 g/dL (12.0-16.0); MEAN CORPUSCULAR HEMOGLOBIN 25.5 pg (27.0-31.0); MEAN CORPUSCULAR HGB CONC 31.3 g/dL (32.0-36.0); MEAN CORPUSCULAR VOLUME 81.5 fL (81.0-99.0); RED BLOOD COUNT 3.02 10^6/uL (4.20-5.40); WHITE BLOOD COUNT 5.4 x10^3/uL (4.8-10.8)
[2022-04-24] MEDS: IPRATROPIUM 0.2 MG/ML NEB INH SCH ×4 (06:33→14:29)
[2022-04-24 06:43] LABS: CALCIUM 8.7 mg/dL (8.5-10.3); POTASSIUM 3.6 mmol/L (3.5-5.0)
[2022-04-24] MEDS: FORMOTEROL FUMARATE NEB 20 MCG/2 ML INH SCH (07:41)
[2022-04-24] MEDS: LEVALBUTEROL 1.25 MG/3 ML NEB INH SCH ×3 (07:41→14:28)
[2022-04-24] MEDS: BUDESONIDE 0.5 MG/2 ML NEB INH SCH (07:41)
[2022-04-24] MEDS: INSULIN LISPRO 300 UNIT/3 ML PEN SUBQ SCH ×2 (08:25→11:28)
[2022-04-24] MEDS: FERROUS GLUCONATE 324 MG TABLET PO SCH (08:26)
[2022-04-24] MEDS: APIXABAN 5 MG TABLET PO SCH (08:26)
[2022-04-24] MEDS: MONTELUKAST 10 MG TABLET PO SCH (08:27)
[2022-04-24] MEDS: HYDROCORTISONE 1% CREAM 28 GM TUBE TOP SCH (08:28)
[2022-04-24] MEDS ORDERED: atenoloL 25 MG TABLET PO SCH (09:00)
[2022-04-24] MEDS ORDERED: CHOLECALCIFEROL 5,000 UNIT CAPSULE PO SCH (09:00)
[2022-04-24] MEDS ORDERED: PANTOPRAZOLE 40 MG TABLET PO SCH (09:00)
[2022-04-24] MEDS ORDERED: lisinopriL 20 MG TABLET PO SCH (09:00)
[2022-04-24 11:13] LABS: ESTIMATED AVERAGE GLUCOSE 140 mg/dL (70-100); HEMOGLOBIN A1c% 6.5 % (4.27-6.07)
[2022-04-24 12:58] LABS: HGB - HEMOGLOBIN 8.2 g/dL (12.0-16.0)
--- NOTE | 2022-04-24 13:36 | DISCHARGE SUMMARY ---
Discharge Summary Admit Date: 04/20/22 Discharge Date: 04/24/22 Discharging Provider: Dr Zaira Long Primary Care Provider: Dr Angelica Khan, Dr Sanchez, Dr Hyde, Dr Francis Condition at Discharge: Fair Discharge Disposition: 01 Home, Self Care - HPI History of Present Illness: 68-year-old female presents emergency department for evaluation of black tarry stools which she noted this morning. She also reports that for about the last week when she walks she has a big heaviness in her legs and she feels very short of breath. She also will have some pain across her shoulders. Patient does have a history of atrial fibrillation. She did have an upper GI b leed in December when she was on Xarelto. The Xarelto was stopped for about a month and she ended up having an EGD and a colonoscopy on February 17, 2022 without an obvious source of bleeding, therefore the decision was made to resume her Xarelto. She was to be taking Protonix but ran out of that medication a few days ago. She has had no fevers denies any abdominal pain. No vomiting. She is followed by an outside tour driver, foam rubber mixer as well as a fly raiser lockstitch. 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 She denies any chest pain, sob, no other active complaints. She is being admitted to manage GI bleeding. - HOSPITAL COURSE Hospital Course: (1) GI bleed (K92.1 - Melena) This is her second episode this year with a significant GI bleed. EGD and colonoscopy were both negative in Feb 2022. She underwent an EGD here which showed no source of bleeding. We stopped empiric iv protonix b.i.d. Then she had colonoscopy which showed angiodysplasia in the cecum, which was not bleeding at the time, but was cauterized. She was advised she needs GI for further W/U; she likely needs a pill cam. She knows to contact her Supervisor Steffen House. (2) Anemia (D64.89 - Other specified anemias) Hgb dropped from 9 and plateaued around 8 (7.9-8.2), and she did not needed a transfusion this admission. Her Iron stores are deficient and we started her on oral Iron replacement. (3) Asthma On the day of anticipated discharge, she was tachypneic, orthopneic, had wheezing and very poor air movement. She had not been on her home meds of albuterol or Trelogy. Duonebs had been ordered prn only. Her discharge was cancelled, she had Xopenex scheduled qid ordered and her Trelogy (as pt's own med). She was stable for discharge the following day. She does have a home nebulizer but only uses it during exacerbations. And on the day of discharge there was no power in her house, in case she needed her nebulizer [place] but she said she can get access to power. (4) Atrial fibrillation (I48.2 - Chronic atrial fibrillation) Her HR was poorly controlled. She was tachycardic at 110-120. She was put on Atenolol 25 mg daily here, and her usual dose is 100 mg daily (noted when med list was reconciled). HR improved when meds were corrected. Her anticoagulant was put on hold, but the Gen Surgeon who did the endoscopies, OKd resumption of her DOAC, since no active bleeding was seen on EGD or colonoscopy. We needed to substitute Eliquis for her Xarelto, since Xarelto is not on formulary here. This was explained to the pt. If she is followed by Cardiology, she would be a good candidate for getting a Watchman device. (5) DM type 2 She told me after her colonoscopy: "Now that I can eat I will tell you I am a d iabetic". I told her that the admitting doctor and I were not aware of her being a Diabetic. DM was not even listed as one of her diagnoses on her Problem List in this EMR. She told me she was diet-controlled for the past 2 years and did not want to be on meds like Metformin and Glipizide. She is only on Ozempic for her DM and "it helped her lose weight". She has been able to keep A1c 6.4- 6.9, by her report. When she was OKd to advance diet from clear liquids, we changed her solid food diet order from Reg to carb controlled yesterday, and ordered hypoglycemia protocol, fingerstick checks, sliding scale Reg Insulin coverage. Her A1c result was 6.5 here. (6) HTN At home she was on atenolol, HCTZ and lisinopril for blood pressure treatment. The HCTZ was on hold since she required IV fluids. Her atenolol dose was lowered and the lisinopril was not given, because she initially had "soft" blood pressures caused by her GI bleed. This was explained to the pt and son at bedside. (7) Hypothyroidism She was kept on levothyroxine. Her TSH was good at 1.4. - ALLERGIES Allergies/Adverse Reactions: Allergies Allergy/AdvReac Type Severity Reaction Status Date / Time Penicillins Allergy Unknown Verified 04/20/22 14:40 - MEDICATIONS Home Medications: Ambulatory Orders Medication Instructions Recorded Confirmed Levothyroxine [Synthroid] 100 mcg ORAL DAILY 02/11/16 04/21/22 Montelukast [Singulair] 10 mg ORAL DAILY 02/11/16 04/21/22 Albuterol Sulf [Ventolin Hfa 1 puffs INH Q6H PRN 04/06/17 04/21/22 Inhaler] lisinopriL [Lisinopril] 40 mg PO DAILY #30 tablet 04/09/19 04/21/22 Pantoprazole [Protonix] 40 mg PO DAILY 30 Days #30 tablet 12/14/21 04/21/22 Atenolol [Tenormin] 100 mg PO DAILY 01/15/22 04/21/22 Fluticasone/Umeclidin/Vilanter 1 puffs PO BID 01/15/22 04/21/22 [Trelegy Ellipta 100-62.5-25] Nebulizer [Aeroneb Go Nebulizer] 1 each MC ONCE PRN 01/15/22 04/21/22 Cholecalciferol [Vitamin D3] 5,000 unit PO DAILY 04/21/22 04/21/22 Magnesium Glycinate, Mag Oxide 3 cap PO DAILY 04/21/22 04/21/22 [Magnesium Glycinate] Semaglutide [Ozempic] 0.5 mg SQ Q7D 04/21/22 04/21/22 Ferrous Gluconate [Fergon] 324 mg PO DAILYWM #30 tab 04/23/22 Rivaroxaban [Xarelto] 20 mg PO 1800 #0 04/23/22 04/21/22 - PHYSICAL EXAM AT DISCHARGE General Appearance: positive: No acute distress, Alert, Other (Voice is hoarse) Eyes Bilateral: positive: Normal inspection, EOMI ENT: positive: ENT inspection nml, No signs of dehydration Neck: positive: Nml inspection, No JVD Respiratory: positive: No respiratory distress, Other (No wheezing, but sounds "tight" with poor air mvm) Cardiovascular: positive: No murmur, Irregularly irregular Abdomen: positive: Non-tender, Nml bowel sounds, No distention Skin: positive: Warm, Dry Extremities: positive: Non-tender, Other (Trace pedal edema) Neurologic/Psychiatric: positive: Oriented x3, Motor nml - LABS Result Diagrams: 04/24/22 12:55 04/24/22 06:01 - DIAGNOSTIC IMAGING Diagnostic Imaging Results: Final report reviewed - SEPSIS Current Stage of Sepsis: Ruled out - FOLLOW UP Follow Up: See Supervisor Steffen House in next 1-2 weeks, and other providers as previously scheduled. - TIME SPENT Time Spent in Discharge (Minutes): 55
[2022-04-24 14:19] VITALS: BP 131/85
== END 2022-04-24 15:07 | disposition home or self-care (01) | DRG 378 ==
LOC: ED 14:23 → MS2 19:30
PROVIDERS: ADMIT Internal Medicine; ATTEND Internal Medicine
PROC: 0D5H8ZZ Destruction of Cecum, Via Natural or Artificial Opening Endoscopic (ICD-10-PCS; 2022-04-21)
PROC: 0DJ08ZZ Inspection of Upper Intestinal Tract, Via Natural or Artificial Opening Endoscopic (ICD-10-PCS; principal; 2022-04-21 09:15)
DX: K92.1 Melena (principal); K55.21 Angiodysplasia of colon with hemorrhage; I48.20 Chronic atrial fibrillation, unspecified; M79.606 Pain in leg, unspecified; D64.89 Other specified anemias; I10 Essential (primary) hypertension; Z20.822 Contact with and (suspected) exposure to COVID-19; E03.9 Hypothyroidism, unspecified; J44.9 Chronic obstructive pulmonary disease, unspecified; E11.42 Type 2 diabetes mellitus with diabetic polyneuropathy; Z79.01 Long term (current) use of anticoagulants; Z79.890 Hormone replacement therapy; Z79.899 Other long term (current) drug therapy; Z88.0 Allergy status to penicillin
CPT/HCPCS: 36415; 71045; 80048; 80053; 83036; 83540; 83690; 83735; 83880; 84443; 84466; 84484; 85014; 85018; 85025; 85027; 87635; 93005; 94640; 96374; 99284; 99285; A9270; J7626

== ENCOUNTER 2022-04-26 07:12 | Outpatient (CLI) | payer MEDICARE, BC | END 2022-04-26 23:59 | disposition critical access hospital (66) | LOC: EMS 07:12 | DX: R06.09 Other forms of dyspnea (principal) | CPT/HCPCS: A0425; A0429 ==

== ENCOUNTER 2022-04-26 07:50 | Emergency (ER) | payer MEDICARE, BC ==
[2022-04-26 08:30] LABS: BASOPHILS # (AUTO) 0.1 10^3/uL (0.0-0.1); BASOPHILS % (AUTO) 0.9 %; EOSINOPHILS # (AUTO) 0.1 10^3/uL (0.0-0.7); EOSINOPHILS % (AUTO) 1.3 %; HCT - HEMATOCRIT 26.4 % (37.0-47.0); HGB - HEMOGLOBIN 8.4 g/dL (12.0-16.0); LYMPHOCYTES # (AUTO) 1.4 10^3/uL (1.5-3.5); LYMPHOCYTES % (AUTO) 16.8 %; MEAN CORPUSCULAR HEMOGLOBIN 26.1 pg (27.0-31.0); MEAN CORPUSCULAR HGB CONC 31.8 g/dL (32.0-36.0); MEAN PLATELET VOLUME 8.6 fL (7.9-10.8); MONOCYTES # (AUTO) 0.5 10^3/uL (0.0-1.0); NEUTROPHILS # (AUTO) 6.4 10^3/uL (1.5-6.6); NEUTROPHILS % (AUTO) 74.5 %; PLT - PLATELET COUNT 399 10^3/uL (130-450); RED BLOOD COUNT 3.22 10^6/uL (4.20-5.40); RED CELL DISTRIBUTION WIDTH 16.4 % (12.0-15.0); WHITE BLOOD COUNT 8.6 x10^3/uL (4.8-10.8)
--- NOTE | 2022-04-26 08:49 | ED Physician Documentation ---
PD HPI DYSPNEA - Stated complaint Stated Complaint: SOA - Chief complaint Chief Complaint: Resp - History obtained from History obtained from: Patient - Additional information Additional information: Patient is a 76-year-old female with a history of GI bleed, A. fib on Xarelto presenting for Evaluation of worsening shortness of breath for 2 days.She was just discharged home on April 24 after a recent admission for a GI bleed. Patient was okayed to resume her Xarelto. She is noted having labored breathing with exertion since being at home. She has nebulizers at home with albuterol but is concerned about using the albuterol as it makes her heart rate jump up. She does again have a history of A. fib and has been compliant with her medications. She was taken off of her hydrochlorothiazide during this recent admission. She denies a productive cough, chest, Abdominal pain, back pain. She reports that her stools have been brown. Review of Systems Constitutional: denies: Fever Cardiac: denies: Chest pain / pressure Respiratory: reports: Dyspnea GI: denies: Abdominal Pain : denies: Dysuria Musculoskeletal: denies: Back pain Neurologic: denies: Headache PD PAST MEDICAL HISTORY - Past Medical History Cardiovascular: Hypertension, Arrhythmia Respiratory: Asthma, COPD Neuro: Peripheral neuropathy Endocrine/Autoimmune: HyPOthyroidism GI: C.difficile AEROSOL SUPERVISOR: None : None HEENT: None Psych: None Musculoskeletal: None - Past Surgical History Past Surgical History: Yes General: Colonoscopy, EGD /AEROSOL SUPERVISOR: section, Oophrectomy HEENT: Tonsil/Adenoidectomy - Present Medications Home Medications: Ambulatory Orders Medication Instructions Recorded Confirmed Levothyroxine [Synthroid] 100 mcg ORAL DAILY 02/11/16 04/26/22 Montelukast [Singulair] 10 mg ORAL DAILY 02/11/16 04/26/22 Albuterol Sulf [Ventolin Hfa 1 puffs INH Q6H PRN 04/06/17 04/26/22 Inhaler] lisinopriL [Lisinopril] 40 mg PO DAILY #30 tablet 04/09/19 04/26/22 Pantoprazole [Protonix] 40 mg PO DAILY 30 Days #30 tablet 12/14/21 04/26/22 Atenolol [Tenormin] 100 mg PO DAILY 01/15/22 04/26/22 Fluticasone/Umeclidin/Vilanter 1 puffs PO BID 01/15/22 04/26/22 [Trelegy Ellipta 100-62.5-25] Nebulizer [Aeroneb Go Nebulizer] 1 each MC ONCE PRN 01/15/22 04/26/22 Cholecalciferol [Vitamin D3] 5,000 unit PO DAILY 04/21/22 04/26/22 Magnesium Glycinate, Mag Oxide 3 cap PO DAILY 04/21/22 04/26/22 [Magnesium Glycinate] Semaglutide [Ozempic] 0.5 mg SQ Q7D 04/21/22 04/26/22 Ferrous Gluconate [Fergon] 324 mg PO DAILYWM #30 tab 04/23/22 04/26/22 Rivaroxaban [Xarelto] 20 mg PO 1800 #0 04/23/22 04/26/22 Levalbuterol [Xopenex] 1.25 mg INH Q6H PRN #30 ea 04/26/22 predniSONE [Deltasone] 40 mg PO DAILY 4 Days #8 tablet 04/26/22 - Allergies Allergies/Adverse Reactions: Allergies Allergy/AdvReac Type Severity Reaction Status Date / Time Penicillins Allergy Unknown Verified 04/20/22 14:40 - Social History Does the pt smoke?: No Smoking Status: Former smoker Does the pt drink ETOH?: No Does the pt have substance abuse?: No - Immunizations Immunizations are current?: Yes - POLST Patient has POLST: No PD ED PE NORMAL - General General: Alert and oriented X 3, No acute distress, Well developed/nourished - HEENT HEENT: Atraumatic, Moist mucous membranes - Cardiac Cardiac: Strong equal pulses, Other (Irregularly irregular) - Respiratory Respiratory: No respiratory distress, Other (Mild expiratory wheezing) - Abdomen Abdomen: Soft, Non tender - Derm Derm: Warm and dry - Extremities Extremities: No deformity - Neuro Neuro: Normal speech Results - Vitals Vitals: Vital Signs - 24 hr 04/26/22 04/26/22 04/26/22 11:00 11:30 12:14 Heart Rate 106 H 113 H 100 Respiratory 18 19 21 Rate Blood Pressure 147/90 H 161/112 H O2 Saturation 100 100 04/26/22 12:30 Heart Rate 117 H Respiratory 21 Rate Blood Pressure 157/94 H O2 Saturation 99 Oxygen O2 Source Room air - EKG (time done) 0829 Rate: Rate (enter#) (100) Rhythm: Atrial fibrillation [place]: Normal - Labs Labs: Laboratory Tests 04/26/22 04/26/22 04/26/22 08:20 08:20 08:20 WBC 8.6 RBC 3.22 L Hgb 8.4 L Hct 26.4 L MCV 82.0 MCH 26.1 L MCHC 31.8 L RDW 16.4 H Plt Count 399 MPV 8.6 Neut # (Auto) 6.4 Lymph # (Auto) 1.4 L [place] # (Auto) 0.5 Eos # (Auto) 0.1 Baso # (Auto) 0.1 Absolute Nucleated RBC 0.00 Nucleated RBC % 0.0 Sodium 139 Potassium 4.0 Chloride 99 L Carbon Dioxide 26 Anion Gap 14.0 H BUN 25 H Creatinine 1.0 Estimated GFR (MDRD) 54 L Glucose 121 H Calcium 9.3 Magnesium 2.1 Total Bilirubin 0.9 AST 16 ALT 14 Alkaline Phosphatase 62 Troponin I High Sens 5.6 B-Natriuretic Peptide Total Protein 7.0 Albumin 4.1 Globulin 2.9 Albumin/Globulin Ratio 1.4 Lipase 23 04/26/22 08:20 WBC RBC Hgb Hct MCV MCH MCHC RDW Plt Count MPV Neut # (Auto) Lymph # (Auto) [place] # (Auto) Eos # (Auto) Baso # (Auto) Absolute Nucleated RBC Nucleated RBC % Sodium Potassium Chloride Carbon Dioxide Anion Gap BUN Creatinine Estimated GFR (MDRD) Glucose Calcium Magnesium Total Bilirubin AST ALT Alkaline Phosphatase Troponin I High Sens B-Natriuretic Peptide 755 H Total Protein Albumin Globulin Albumin/Globulin Ratio Lipase PD MEDICAL DECISION MAKING - ED course Complexity details: reviewed results, re-evaluated patient, d/w patient ED course: Patient is a 76-year-old female presenting for evaluation of shortness of breath that is been ongoing since recent hospitalization. Recent discharge note indicates that she had shortness of breath on day prior to discharge that appeared to be related to not having her medications For her COPD. Her medications were resumed. Patient continues to report feeling short of breath and is concerned about using albuterol at home as this makes her heart rate jumped up with her atrial fibrillation. She reports feeling better when she was taking Xopenex while in the hospital and is requesting that. Patient did have some wheezing on exam. She denies any chest pain or symptoms that would suggest ACS.No signs of pneumonia. Her hemoglobin is actually improved and she denies symptoms that would suggest ongoing bleeding.Do not think she requires an emergent blood transfusion.She does have some evidence of increased fluid retention as her HCTZ was recently stopped. I will have her resume this as her blood pressures here have been stable And actually on the higher side. The patient is comfortable with plan for discharge and aware of need for close follow-up with her primary care doctor. I did agree to prescribe Xopenex but I did explain that her insurance may not cover this which she understands. Departure - Departure Disposition: Home, Self Care Clinical Impression: COPD exacerbation Condition: Stable Instructions: ED COPD Flare Prescriptions: predniSONE [Deltasone] 40 mg PO DAILY 4 Days #8 tablet Levalbuterol [Xopenex] 1.25 mg INH Q6H PRN #30 ea PRN Reason: Wheezing Comments: I believe your shortness of breath is related to a few factors. I have started you on prednisone and also ordered Xopenex (as you prefer this over albuterol) As it seems that your COPD has flared up from not recently having had some of your medications. I also recommend starting your hydrochlorothiazide as your body seems to be holding onto a little bit more fluid from your recent hospitalization. I am hoping that this will continue to help with your breathing. If you have any worsening symptoms please return to the ER but I would recommend close follow-up with your primary care doctor. I have sent prescriptions to [facility] in [place]. Discharge Date/Time: 04/26/22 13:15
[2022-04-26 08:53] LABS: ALBUMIN 4.1 g/dL (3.2-5.5); ALBUMIN/GLOBULIN RATIO 1.4 (1.0-2.2); BILIRUBIN,TOTAL 0.9 mg/dL (0.2-1.0); CALCIUM 9.3 mg/dL (8.5-10.3); MAGNESIUM 2.1 mg/dL (1.7-2.8)
--- NOTE | 2022-04-26 09:00 | XRAY Report ---
PROCEDURE: Chest 1 View X-Ray INDICATIONS: SOA TECHNIQUE: One view of the chest was acquired. COMPARISON: None. FINDINGS: Surgical changes and devices: None. Lungs and pleura: No pleural effusions or pneumothorax. There is mild pulmonary vascular congestion. No definite focal infiltrate. Mediastinum: Mediastinal contours appear normal. Heart size is enlarged. Bones and chest wall: No suspicious bony lesions. Overlying soft tissues appear unremarkable. IMPRESSION: Cardiomegaly and mild congestion. No definite focal infiltrate. No significant joint effusion or tuan s pneumothorax. Reviewed by: Juan A Murphy MD on 04/26/2022 8:59 AM [facility] Approved by: Juan A Murphy MD on 04/26/2022 8:59 AM [facility] Station ID: [id number]
[2022-04-26] MEDS ORDERED: LEVALBUTEROL 1.25 MG/3 ML NEB INH STA ×2 (09:15→11:29)
[2022-04-26] MEDS ORDERED: predniSONE 20 MG TABLET PO STA (10:42)
[2022-04-26] MEDS ORDERED: hydroCHLOROthiazide 25 MG TABLET PO STA (11:30)
[2022-04-26 12:31] VITALS: BP 157/94
== END 2022-04-26 13:15 | disposition home or self-care (01) ==
LOC: EDUNIT# → ED 07:50
DX: J44.1 Chronic obstructive pulmonary disease with (acute) exacerbation (principal); I48.91 Unspecified atrial fibrillation; Z79.01 Long term (current) use of anticoagulants; I10 Essential (primary) hypertension; Z87.891 Personal history of nicotine dependence
CPT/HCPCS: 36415; 71045; 80053; 83690; 83735; 83880; 84484; 85025; 93005; 94640; 99283; 99284; A9270; J7512

== ENCOUNTER 2022-05-10 13:45 | Emergency (ER) | payer MEDICARE, BC ==
[2022-05-10 14:31] LABS: BASOPHILS # (AUTO) 0.1 10^3/uL (0.0-0.1); BASOPHILS % (AUTO) 0.6 %; EOSINOPHILS # (AUTO) 0.1 10^3/uL (0.0-0.7); EOSINOPHILS % (AUTO) 1.2 %; HCT - HEMATOCRIT 31.3 % (37.0-47.0); HGB - HEMOGLOBIN 9.6 g/dL (12.0-16.0); LYMPHOCYTES # (AUTO) 2.2 10^3/uL (1.5-3.5); LYMPHOCYTES % (AUTO) 20.5 %; MEAN CORPUSCULAR HEMOGLOBIN 26.7 pg (27.0-31.0); MEAN CORPUSCULAR HGB CONC 30.7 g/dL (32.0-36.0); MEAN CORPUSCULAR VOLUME 87.2 fL (81.0-99.0); MEAN PLATELET VOLUME 8.7 fL (7.9-10.8); MONOCYTES # (AUTO) 0.8 10^3/uL (0.0-1.0); MONOCYTES % (AUTO) 7.1 %; NEUTROPHILS # (AUTO) 7.4 10^3/uL (1.5-6.6); NEUTROPHILS % (AUTO) 69.9 %; PLT - PLATELET COUNT 354 10^3/uL (130-450); RED BLOOD COUNT 3.59 10^6/uL (4.20-5.40); RED CELL DISTRIBUTION WIDTH 20.5 % (12.0-15.0); WHITE BLOOD COUNT 10.5 x10^3/uL (4.8-10.8)
[2022-05-10 14:35] LABS: SLIDE REVIEW? Indicated
[2022-05-10 14:37] LABS: INR 2.8 (0.8-1.2); PT - PROTHROMBIN TIME 29.9 secs (9.9-12.6)
[2022-05-10 14:43] LABS: ALBUMIN 4.2 g/dL (3.2-5.5); ALBUMIN/GLOBULIN RATIO 1.4 (1.0-2.2); BILIRUBIN,TOTAL 0.4 mg/dL (0.2-1.0); CALCIUM 8.9 mg/dL (8.5-10.3); POTASSIUM 3.7 mmol/L (3.5-5.0); TOTAL PROTEIN 7.3 g/dL (6.7-8.2)
[2022-05-10 14:48] LABS: PLATELET ESTIMATE, MANUAL NORMAL (130-450,000) (NORMAL); PLATELET MORPHOLOGY NORMAL APPEARANCE (NORMAL)
--- NOTE | 2022-05-10 16:42 | ED Physician Documentation ---
PD HPI ABD PAIN - Stated complaint Stated Complaint: FATIGUE/HIGH BP - Chief complaint Chief Complaint: Abd Pain - History obtained from History obtained from: Patient - Additional information Additional information: 76-year-old woman with history of COPD, A. fib on anticoagulant recently had a GI bleed due to a spider angioma which was cauterized. Today she developed dyspnea on exertion and fatigue and heavy legs similar to prior episodes of symptomatic anemia related to same. She says she does not have a cough, that said her son says she does. Denies pedal edema. No chest pain. Review of Systems Ten Systems: 10 systems reviewed and negative Constitutional: reports: Fatigue. denies: Fever, Chills Cardiac: denies: Chest pain / pressure Respiratory: reports: Dyspnea, Cough PD PAST MEDICAL HISTORY - Past Medical History Cardiovascular: Hypertension, Arrhythmia Respiratory: Asthma, COPD Neuro: Peripheral neuropathy Endocrine/Autoimmune: HyPOthyroidism GI: C.difficile AIRCRAFT PAINTER: None : None HEENT: None Psych: None Musculoskeletal: None - Past Surgical History Past Surgical History: Yes General: Colonoscopy, EGD /AIRCRAFT PAINTER: section, Oophrectomy HEENT: Tonsil/Adenoidectomy - Present Medications Home Medications: Ambulatory Orders Medication Instructions Recorded Confirmed Levothyroxine [Synthroid] 100 mcg ORAL DAILY 02/11/16 04/26/22 Montelukast [Singulair] 10 mg ORAL DAILY 02/11/16 04/26/22 Albuterol Sulf [Ventolin Hfa 1 puffs INH Q6H PRN 04/06/17 04/26/22 Inhaler] lisinopriL [Lisinopril] 40 mg PO DAILY #30 tablet 04/09/19 04/26/22 Pantoprazole [Protonix] 40 mg PO DAILY 30 Days #30 tablet 12/14/21 04/26/22 Atenolol [Tenormin] 100 mg PO DAILY 01/15/22 04/26/22 Fluticasone/Umeclidin/Vilanter 1 puffs PO BID 01/15/22 04/26/22 [Trelegy Ellipta 100-62.5-25] Nebulizer [Aeroneb Go Nebulizer] 1 each MC ONCE PRN 01/15/22 04/26/22 Cholecalciferol [Vitamin D3] 5,000 unit PO DAILY 04/21/22 04/26/22 Magnesium Glycinate, Mag Oxide 3 cap PO DAILY 04/21/22 04/26/22 [Magnesium Glycinate] Semaglutide [Ozempic] 0.5 mg SQ Q7D 04/21/22 04/26/22 Ferrous Gluconate [Fergon] 324 mg PO DAILYWM #30 tab 04/23/22 04/26/22 Rivaroxaban [Xarelto] 20 mg PO 1800 #0 04/23/22 04/26/22 Levalbuterol [Xopenex] 1.25 mg INH Q6H PRN #30 ea 04/26/22 predniSONE [Deltasone] 40 mg PO DAILY 4 Days #8 tablet 04/26/22 Levalbuterol [Xopenex] 1.25 mg INH Q6H PRN #30 ea 05/10/22 predniSONE [Deltasone] 20 mg PO [id number] #21 tab 05/10/22 - Allergies Allergies/Adverse Reactions: Allergies Allergy/AdvReac Type Severity Reaction Status Date / Time Penicillins Allergy Unknown Verified 04/20/22 14:40 - Social History Does the pt smoke?: No Smoking Status: Former smoker Does the pt drink ETOH?: No Does the pt have substance abuse?: No - Immunizations Immunizations are current?: Yes - POLST Patient has POLST: No PD ED PE NORMAL - Vitals Vital signs reviewed: Yes - General General: Alert and oriented X 3, No acute distress - HEENT HEENT: PERRL, EOMI - Neck Neck: Supple, no meningeal sign, No bony TTP - Cardiac Cardiac: Other (Irregularly irregular with 3 out of 6 systolic murmur which the patient was aware of.) - Respiratory Respiratory: Other (Some focal rhonchi at the left base) - Abdomen Abdomen: Normal bowel sounds, Soft, Non tender - Extremities Extremities: No edema, No calf tenderness / cord - Neuro Neuro: Alert and oriented X 3, Normal speech Results - Vitals Vitals: Vital Signs - 24 hr 05/10/22 05/10/22 05/10/22 14:02 16:14 17:14 Temperature 36.4 C L Heart Rate 85 108 H 78 Respiratory 18 18 12 Rate Blood Pressure 150/73 H 154/90 H 158/95 H O2 Saturation 98 100 100 05/10/22 17:47 Temperature Heart Rate 90 Respiratory 18 Rate Blood Pressure 156/85 H O2 Saturation 100 Oxygen O2 Source Room air - EKG (time done) 1411 Rate: Rate (enter#) (85) Rhythm: Atrial fibrillation [place]: Normal QRS: Normal Ischemia: Q waves (v1/v2). No: ST elevation c/w ischemia, ST depression - Labs Labs: Laboratory Tests 05/10/22 05/10/22 05/10/22 14:22 14:22 14:22 WBC 10.5 RBC 3.59 L Hgb 9.6 L Hct 31.3 L MCV 87.2 MCH 26.7 L MCHC 30.7 L RDW 20.5 H Plt Count 354 MPV 8.7 Neut # (Auto) 7.4 H Lymph # (Auto) 2.2 [place] # (Auto) 0.8 Eos # (Auto) 0.1 Baso # (Auto) 0.1 Absolute Nucleated RBC 0.00 Nucleated RBC % 0.0 Manual Slide Review Indicated Platelet Estimate NORMAL (130-450,000) Platelet Morphology NORMAL APPEARANCE RBC Morph Micro Appear 1+ HYPOCHROMASIA PT 29.9 H INR 2.8 H Sodium Potassium Chloride Carbon Dioxide Anion Gap BUN Creatinine Estimated GFR (MDRD) Glucose Calcium Total Bilirubin AST ALT Alkaline Phosphatase B-Natriuretic Peptide Total Protein Albumin Globulin Albumin/Globulin Ratio Blood Type O POSITIVE Antibody Screen NEGATIVE 05/10/22 05/10/22 14:22 14:22 WBC RBC Hgb Hct MCV MCH MCHC RDW Plt Count MPV Neut # (Auto) Lymph # (Auto) [place] # (Auto) Eos # (Auto) Baso # (Auto) Absolute Nucleated RBC Nucleated RBC % Manual Slide Review Platelet Estimate Platelet Morphology RBC Morph Micro Appear PT INR Sodium 136 Potassium 3.7 Chloride 98 L Carbon Dioxide 27 Anion Gap 11.0 BUN 25 H Creatinine 1.0 Estimated GFR (MDRD) 54 L Glucose 143 H Calcium 8.9 Total Bilirubin 0.4 AST 15 ALT 15 Alkaline Phosphatase 72 B-Natriuretic Peptide 625 H Total Protein 7.3 Albumin 4.2 Globulin 3.1 Albumin/Globulin Ratio 1.4 Blood Type Antibody Screen - Rads (name of study) Single view chest x-ray demonstrates cardiomegaly and a shadow in the right lower lobe that could be mass versus artifact. Radiology: EMP read contemporaneously PD MEDICAL DECISION MAKING - ED course ED course: This is a [place] 76-year-old woman who presents for fatigue and shortness of breath. She has a history of COPD and more recently had a GI bleed related to a spider angioma that was cauterized. The initial presumption was that the current symptoms were related to an acute recurrent anemia related to GI bleed. Her H&H is better than its been, so differential also includes other common causes of dyspnea. Chest x-ray showing a abnormality in the right lower lobe and a bedside ultrasound was done and demonstrates no pericardial effusion. She is sent for a CT to better evaluate. She is quite dyspneic with any exertion here. The CT showed that probably the chest x-ray read was artifactual related to breast implants, we discussed the other findings on there including the pulmonary nodule. She was already aware of this is an and is getting yearly CTs for screening. I think her current symptoms are combination of mild CHF and COPD exacerbation and she is treated with steroids and a dose of Lasix here. She would prefer to take her hydrochlorothiazide at home which she has not been taking recently. She requested a refill of her lev albuterol. Departure - Departure Disposition: Home, Self Care Clinical Impression: COPD exacerbation Atrial fibrillation Qualifiers: Atrial fibrillation type: longstanding persistent Qualified Code(s): I48.11 - Longstanding persistent atrial fibrillation Condition: Good Record reviewed to determine appropriate education?: Yes Instructions: COPD Dc Prescriptions: predniSONE [Deltasone] 20 mg PO [id number] #21 tab Levalbuterol [Xopenex] 1.25 mg INH Q6H PRN #30 ea PRN Reason: Wheezing Comments: You were seen today for shortness of breath, your hemoglobin is better than it has been and this suggest against active GI bleeding. We did find he had mild evidence of CHF based on a BNP of 625, and you are hemoglobin was 9.6. He had an abnormal chest x-ray and this was followed by a CT to better evaluate but it looks like postsurgical changes are causing the findings on the chest x-ray as opposed to a mass or something more serious. You should follow-up with your senior technical analyst next week after the holiday weekend, return for new or worsening symptoms. Start your hydrochlorothiazide again.
--- NOTE | 2022-05-10 17:09 | XRAY Report ---
PROCEDURE: Chest 1 View X-Ray INDICATIONS: dyspnea TECHNIQUE: One view of the chest was acquired. COMPARISON: CT abdomen and pelvis dated 12/14/2021, chest film dated 04/26/2022. FINDINGS: Surgical changes and devices: None. Lungs and pleura: There is a vague semicircular shaped density projecting to the medial right lung b ase. Question large right basilar lung mass versus mediastinal mass. Of note, there was no such lesio n seen on the previous CT. Mediastinum: Mediastinal contours appear normal. Cardiomegaly. Bones and chest wall: No suspicious bony lesions. Overlying soft tissues appear unremarkable. IMPRESSION: 1. Cardiomegaly. 2. Question large chronically developing right lower lung mass versus mediastinal mass versus artifac t. Comment: Recommend CT chest. Reviewed by: Néstor Singleton MD on 05/10/2022 5:08 PM PST Approved by: Néstor Singleton MD on 05/10/2022 5:08 PM PST Station ID: [id number]
[2022-05-10] MEDS ORDERED: FUROSEMIDE 40 MG/4 ML VIAL IVP STA (17:32)
[2022-05-10] MEDS ORDERED: iohexoL-300 100 ML VIAL ONE (17:43)
[2022-05-10] MEDS ORDERED: iohexoL-300 100 ML VIAL IVP ONE (18:10)
--- NOTE | 2022-05-10 18:42 | CT Report ---
PROCEDURE: CHEST W INDICATIONS: abn cxr, dyspnea CONTRAST:100ml Omnipaque 300 TECHNIQUE: After the administration of intravenous contrast, 1 mm axial images were acquired from the pulmonary apices through the posterior costophrenic angles. Axial 5 mm soft tissue kernel reconstructions were performed as well as 8 mm axial MIP and coronal and sagittal 5 mm reformations. For radiation dose reduction, the following was used: automated exposure control, adjustment of mA and/or kV according to patient size. COMPARISON: Correlation made to chest x-ray performed the same day and CT abdomen pelvis 12/14/2021 FINDINGS: Image quality: Excellent. Lungs and pleura: Central airways are patent. Mild distal bronchial wall thickening in the lower lobe s. Mild lower lobe peripheral reticulation. No acute consolidation. There is a posterior lateral righ t lower lobe 4 mm nodule (4/260). There are mild centrilobular emphysematous changes in the upper lob es. No suspicious mass or pleural effusion. Mediastinum: The heart is mildly enlarged, particularly the atria. Mild aortic valvular calcification . No pericardial effusion. The aortic arch is normal caliber with moderate calcification. There is ca lcification at the great artery origins, particularly the left carotid. Pulmonary arteries are normal caliber. No suspicious mediastinal adenopathy. The esophagus is normal. No hiatal hernia. Bones and chest wall: Intact osseous structures with mild midthoracic degenerative endplate changes. There are intact prepectoral breast implants. Normal thyroid gland. No supraclavicular or axillary ad enopathy. Abdomen: Upper abdomen demonstrates mild hepatomegaly and hepatic steatosis. There is thickening of t he left adrenal gland consistent with an adenoma. Other upper abdominal organs are normal. IMPRESSION: 1. No suspicious consolidation or mass. The shadow on chest x-ray may have been external to the patie nt or correspond with the breast implant. 2. Mild cardiomegaly. 3. 4 mm right lower lobe lung nodule, likely infectious or inflammatory, not previously present. Cons ider follow-up in 12 months. 4. Mild emphysematous changes and mild lower lobe bronchial wall thickening suggests COPD. Reviewed by: Georgina Mendoza MD on 05/10/2022 6:41 PM PST Approved by: Georgina Mendoza MD on 05/10/2022 6:41 PM PST Station ID: [id number]
[2022-05-10] MEDS ORDERED: predniSONE 20 MG TABLET PO STA (18:57)
[2022-05-10 19:10] VITALS: BP 138/91
== END 2022-05-10 19:10 | disposition home or self-care (01) ==
LOC: ED 13:45
DX: J44.1 Chronic obstructive pulmonary disease with (acute) exacerbation (principal); I48.11 Longstanding persistent atrial fibrillation; Z79.01 Long term (current) use of anticoagulants; Z87.891 Personal history of nicotine dependence; R91.1 Solitary pulmonary nodule
CPT/HCPCS: 36415; 71045; 71260; 80053; 83880; 85025; 85610; 86850; 86900; 86901; 93005; 96374; 99284; J7512; Q9967

== ENCOUNTER 2022-07-04 13:34 | Emergency (ER) | payer MEDICARE, BC ==
--- NOTE | 2022-07-04 14:21 | ED Physician Documentation ---
History of Present Illness - Stated complaint Stated Complaint: WEAKNESS/FATIGUE - Chief complaint Chief Complaint: Abd Pain - Additonal information Additional information: 76-year-old female presents to the emergency department for evaluation of 1 week near syncope and fatigue. She is concerned that she is having a recurrent GI bleed. She does have a history of atrial fibrillation for which she takes Xarelto. She was admitted to this hospital in early April for GI bleeding and at that time during a colonoscopy there was findings of an angiodysplastic lesion in the cecum that was treated with cautery. There was no other colonic source of blood loss found. The patient following that hospitalization of procedure was allowed to resume her Xarelto. And is currently on this. She states that she is on iron and at baseline has black stools but described them as tar-like this morning. She is denying any chest pain or orthopnea though she has been dyspneic with ambulation. Denies abdominal pain nausea or vomiting. Patient called EMS due to worsening fatigue and EMS noted that she was hypotensive with a systolic blood pressure in the 80s. They established IV access and administered 1300 mL of crystalloid in route and on presentation here she is normotensive alert and otherwise well-appearing. Patient is followed by [facility] has both a salesperson driver as well as a oxidation engineer. History per patient who is a good historian as well as chart review of [facility] records Review of Systems Constitutional: denies: Fever, Chills Throat: reports: Reviewed and negative Cardiac: reports: Chest pain / pressure Respiratory: reports: Dyspnea. denies: Cough GI: reports: Bloody / black stool : reports: Reviewed and negative Skin: reports: Reviewed and negative Musculoskeletal: denies: Neck pain, Back pain Neurologic: reports: Near syncope PD PAST MEDICAL HISTORY - Past Medical History Cardiovascular: Hypertension, Arrhythmia Respiratory: Asthma, COPD Neuro: Peripheral neuropathy Endocrine/Autoimmune: HyPOthyroidism GI: C.difficile CHILD CARE PROVIDER: None : None HEENT: None Psych: None Musculoskeletal: None - Past Surgical History Past Surgical History: Yes General: Colonoscopy, EGD /CHILD CARE PROVIDER: section, Oophrectomy HEENT: Tonsil/Adenoidectomy - Present Medications Home Medications: Ambulatory Orders Medication Instructions Recorded Confirmed Levothyroxine [Synthroid] 100 mcg ORAL DAILY 02/11/16 04/26/22 Montelukast [Singulair] 10 mg ORAL DAILY 02/11/16 04/26/22 Albuterol Sulf [Ventolin Hfa 1 puffs INH Q6H PRN 04/06/17 04/26/22 Inhaler] lisinopriL [Lisinopril] 40 mg PO DAILY #30 tablet 04/09/19 04/26/22 Pantoprazole [Protonix] 40 mg PO DAILY 30 Days #30 tablet 12/14/21 04/26/22 Atenolol [Tenormin] 100 mg PO DAILY 01/15/22 04/26/22 Fluticasone/Umeclidin/Vilanter 1 puffs PO BID 01/15/22 04/26/22 [Trelegy Ellipta 100-62.5-25] Nebulizer [Aeroneb Go Nebulizer] 1 each MC ONCE PRN 01/15/22 04/26/22 Cholecalciferol [Vitamin D3] 5,000 unit PO DAILY 04/21/22 04/26/22 Magnesium Glycinate, Mag Oxide 3 cap PO DAILY 04/21/22 04/26/22 [Magnesium Glycinate] Semaglutide [Ozempic] 0.5 mg SQ Q7D 04/21/22 04/26/22 Ferrous Gluconate [Fergon] 324 mg PO DAILYWM #30 tab 04/23/22 04/26/22 Rivaroxaban [Xarelto] 20 mg PO 1800 #0 04/23/22 04/26/22 Levalbuterol [Xopenex] 1.25 mg INH Q6H PRN #30 ea 04/26/22 predniSONE [Deltasone] 40 mg PO DAILY 4 Days #8 tablet 04/26/22 Levalbuterol [Xopenex] 1.25 mg INH Q6H PRN #30 ea 05/10/22 predniSONE [Deltasone] 20 mg PO [id number] #21 tab 05/10/22 - Allergies Allergies/Adverse Reactions: Allergies Allergy/AdvReac Type Severity Reaction Status Date / Time Penicillins Allergy Unknown Verified 04/20/22 14:40 - Social History Does the pt smoke?: No Smoking Status: Former smoker Does the pt drink ETOH?: No Does the pt have substance abuse?: No - Immunizations Immunizations are current?: Yes - POLST Patient has POLST: No PD ED PE NORMAL - General General: Alert and oriented X 3, No acute distress - HEENT HEENT: Atraumatic, Moist mucous membranes - Neck Neck: Supple, no meningeal sign, No adenopathy - Cardiac Cardiac: No murmur, No gallop, Strong equal pulses. No: RRR (Irregularly irregular atrial fibrillation on the monitor) - Respiratory Respiratory: No respiratory distress, Clear bilaterally - Abdomen Abdomen: Normal bowel sounds, Soft - Back Back: No CVA TTP - Derm Derm: Normal color, Warm and dry, No rash - Extremities Extremities: No deformity, No tenderness to palpate, Normal ROM s pain - Neuro Neuro: Alert and oriented X 3, fisher qu[place]og 2-12 intact Eye Opening: Spontaneous Motor: Obeys Commands Results - Vitals Vitals: Vital Signs - 24 hr 07/04/22 07/04/22 07/04/22 13:56 13:59 15:53 Temperature 36.5 C 36.5 C Heart Rate 85 85 Heart Rate [ 113 H Sitting] Heart Rate [ 110 H Standing] Heart Rate [ 98 Supine] Respiratory 18 18 Rate Blood Pressure 150/67 H 150/67 H Blood Pressure 110/59 L [Sitting] Blood Pressure 122/87 H [Standing] Blood Pressure 143/85 H [Supine] O2 Saturation 98 98 Oxygen O2 Source Room air - EKG (time done) 1522 Rate: Rate (enter#) (89) Rhythm: NSR Banquete: Normal Intervals: Normal NM Ischemia: Q waves (anterior leads) Compare to prior EKG: Unchanged from prior EKG Computer interpretation: Agree with computer - Labs Labs: Microbiology 07/04/22 14:15 Occult Blood - Final Stool Laboratory Tests 07/04/22 07/04/22 07/04/22 14:16 14:16 14:16 WBC 9.6 RBC 2.82 L Hgb 8.2 L Hct 26.4 L MCV 93.6 MCH 29.1 MCHC 31.1 L RDW 16.0 H Plt Count 378 MPV 8.9 Neut # (Auto) 7.6 H Lymph # (Auto) 1.5 [place] # (Auto) 0.5 Eos # (Auto) 0.1 Baso # (Auto) 0.1 Absolute Nucleated RBC 0.00 Nucleated RBC % 0.0 PT 33.9 H INR 3.2 H Sodium Potassium Chloride Carbon Dioxide Anion Gap BUN Creatinine Estimated GFR (MDRD) Glucose Calcium Total Bilirubin AST ALT Alkaline Phosphatase Total Protein Albumin Globulin Albumin/Globulin Ratio Lipase Blood Type O POSITIVE Antibody Screen NEGATIVE 07/04/22 14:16 WBC RBC Hgb Hct MCV MCH MCHC RDW Plt Count MPV Neut # (Auto) Lymph # (Auto) [place] # (Auto) Eos # (Auto) Baso # (Auto) Absolute Nucleated RBC Nucleated RBC % PT INR Sodium 137 Potassium 3.6 Chloride 101 Carbon Dioxide 26 Anion Gap 10.0 BUN 27 H Creatinine 0.8 Estimated GFR (MDRD) 69 L Glucose 144 H Calcium 8.6 Total Bilirubin 0.3 AST 12 ALT < 10 L Alkaline Phosphatase 54 Total Protein 6.3 L Albumin 3.7 Globulin 2.6 Albumin/Globulin Ratio 1.4 Lipase 45 Blood Type Antibody Screen - Rads (name of study) CT abd Radiology: Final report received (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 Otherwise vessels appear patent. Diverticulosis. Aorta demonstrates atherosclerotic changes) PD Medical Decision Making - ED course Complexity details: reviewed results, re-evaluated patient, d/w patient, d/w industrial methods consultant (Chrissy) ED course: 76-year-old lady who has a history of A. fib anticoagulated on Xarelto presents emergency department with 1 week of fatigue and near syncope. She does have a history of GI bleed in the past. Early April admitted for similar underwent a colonoscopy in which there was a bleeding source found within the cecum which was cauterized. She was subsequently put back on Xarelto. Here in the emergency department today we do note a hemoglobin of 8.2. Her most recent hemoglobin here in late April was 9.6. However I do have access to [facility] records in which I see that on June 21 she had a hemoglobin of nearly 10.5. Her stool guaiac was positive for blood. Initially for EMS she was hypotensive and she did receive a liter of fluid. While here in the emergency department she has been without tachycardia or hypotension. She was not orthostatic. The rest of her labs were unremarkable. I did obtain a CT angio looking for a bleeding source which was negative. 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 I briefly discussed this case with on-call surgeon Dr. Car She reported that she would not want to emergently or urgently do a colonoscopy on this patient as she had one very recently in April. She does make the recommendation to stop the Xarelto. If her bleeding persisted at that point then a colonoscopy would be indicated. I discussed this plan and findings with the patient and she does desire to be discharged home. She is told to stop the Xarelto. I have also advised her to stop the lisinopril Given the near syncope. She will follow closely with both her salesperson driver as well as her GI doctor. She should attempt to get a colonoscopy done within the next few weeks. She indicates that her salesperson driver will likely place the watchman device since she can no longer tolerate anticoagulation. Patient is discharged home in stable condition Departure - Departure Disposition: Home, Self Care Clinical Impression: Anticoagulated, Superior mesenteric artery stenosis GI bleed Qualifiers: GI bleed type/associated pathology: unspecified gastrointestinal hemorrhage type Qualified Code(s): K92.2 - Gastrointestinal hemorrhage, unspecified Anemia Qualifiers: Anemia type: unspecified type Qualified Code(s): D64.9 - Anemia, unspecified Condition: Stable Record reviewed to determine appropriate education?: Yes Comments: Judy weiner came to the emergency department today because for 1 week you have been feeling weak, fatigued, and have sensation that you are going to faint. Today her hemoglobin is 8.2. Your stool guaiac was positive. It is important that you obtain a colonoscopy as an outpatient. This should be arranged in the next 1 to 2 weeks. I would like your hemoglobin to be rechecked in 1 week. You do need to stop the Xarelto as its likely you have some GI bleeding as a cause for your anemia and weakness. Also make the recommendation that you stop your lisinopril as your blood pressure has been normal and lower blood pressures may cause fainting symptoms. Because you are no longer going to be on the Xarelto you are at higher risk for strokes with your atrial fibrillation. It is critical you discuss this with your salesperson driver as now would be a good time to consider the watchman device. There was an incidental finding today of superior artery mesenteric stenosis on the CT scan. You lack any symptoms for this. This is something to be discussed with your primary care doctor as well as your oxidation engineer. If you ever develop sudden severe generalized abdominal pain, have uncontrolled vomiting you should return immediately to the ER. If you find that you are having worsening symptoms, any fainting episodes, develop chest pain or severe shortness of air you should return immediately to the ER. Return immediately to the ER if you have any sudden slurred speech, facial droop arm or leg weakness.
[2022-07-04 14:32] LABS: BASOPHILS # (AUTO) 0.1 10^3/uL (0.0-0.1); BASOPHILS % (AUTO) 0.5 %; EOSINOPHILS # (AUTO) 0.1 10^3/uL (0.0-0.7); EOSINOPHILS % (AUTO) 0.5 %; HCT - HEMATOCRIT 26.4 % (37.0-47.0); HGB - HEMOGLOBIN 8.2 g/dL (12.0-16.0); INR 3.2 (0.8-1.2); LYMPHOCYTES # (AUTO) 1.5 10^3/uL (1.5-3.5); LYMPHOCYTES % (AUTO) 15.2 %; MEAN CORPUSCULAR HEMOGLOBIN 29.1 pg (27.0-31.0); MEAN CORPUSCULAR HGB CONC 31.1 g/dL (32.0-36.0); MEAN CORPUSCULAR VOLUME 93.6 fL (81.0-99.0); MEAN PLATELET VOLUME 8.9 fL (7.9-10.8); MONOCYTES # (AUTO) 0.5 10^3/uL (0.0-1.0); MONOCYTES % (AUTO) 4.7 %; NEUTROPHILS # (AUTO) 7.6 10^3/uL (1.5-6.6); NEUTROPHILS % (AUTO) 78.6 %; PLT - PLATELET COUNT 378 10^3/uL (130-450); PT - PROTHROMBIN TIME 33.9 secs (9.9-12.6); RED BLOOD COUNT 2.82 10^6/uL (4.20-5.40); WHITE BLOOD COUNT 9.6 x10^3/uL (4.8-10.8)
[2022-07-04 14:39] LABS: ALBUMIN 3.7 g/dL (3.2-5.5); ALBUMIN/GLOBULIN RATIO 1.4 (1.0-2.2); ALKALINE PHOSPHATASE 54 IU/L (42-121); ALT ALANINE AMINOTRANSFERASE < 10 IU/L (10-60); AST ASPARTATE AMINOTRANSFERASE 12 IU/L (10-42); BILIRUBIN,TOTAL 0.3 mg/dL (0.2-1.0); BUN - BLOOD UREA NITROGEN 27 mg/dL (6-20); CALCIUM 8.6 mg/dL (8.5-10.3); CARBON DIOXIDE - CO2 26 mmol/L (21-32); CHLORIDE 101 mmol/L (101-111); CREATININE 0.8 mg/dL (0.4-1.0); GFR - MDRD 69 (>89); GLUCOSE 144 mg/dL (70-100); LIPASE 45 U/L (22-51); POTASSIUM 3.6 mmol/L (3.5-5.0); SODIUM 137 mmol/L (135-145); TOTAL PROTEIN 6.3 g/dL (6.7-8.2)
[2022-07-04] MEDS ORDERED: iohexoL-300 100 ML VIAL ONE (15:23)
[2022-07-04] MEDS: iohexoL-300 100 ML VIAL IVP ONE (15:42)
--- NOTE | 2022-07-04 16:27 | CT Report ---
PROCEDURE: ANGIO ABDOMEN/PELVIS W INDICATIONS: GI bleed CONTRAST: 100ml Omnipaque TECHNIQUE: After the administration of intravenous contrast, 2.5 mm thick sections acquired from the diaphragm t o the symphysis. 10 mm maximum-intensity projection (MIP) reformats were then acquired. For radiati on dose reduction, the following was used: automated exposure control, adjustment of mA and/or kV ac cording to patient size. COMPARISON: CT chest 05/07/2022 FINDINGS: Image quality: Excellent. Aorta: Atherosclerotic calcification is present. No aneurysmal dilation. No dissection. Mesenteric arteries: Celiac trunk, superior and inferior mesenteric arteries appear patent. There i s high-grade stenosis at the origin of the superior mesenteric artery Right pelvic arteries: Patent Left pelvic arteries: Patent Extravascular soft tissues: Lung bases are clear. Heart size is normal. Liver and spleen are mabel l in size and enhancement. 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 Gallbladder is unr emarkable. Biliary system is non dilated. Pancreas enhances normally. No adrenal nodules. Kidneys are normal in size and enhancement, without hydronephrosis. Non opacified bowel loops are normal in wall thickness and caliber. Diverticular present. No inflammatory change No free fluid or air. No retroperitoneal or mesenteric adenopathy. No ventral hernias. No suspicious bony lesions. No verte bral body compression fractures. IMPRESSION: Aorta demonstrates atherosclerotic changes. High-grade stenosis at the origin of the superior mesenteric artery. Otherwise, vessels appear patent . Diverticulosis. Reviewed by: Zoe Thornton MD on 07/04/2022 4:26 PM PST Approved by: Zoe Thornton MD on 07/04/2022 4:26 PM PST Station ID: [id number]
[2022-07-04 18:24] VITALS: BP 140/80
== END 2022-07-04 18:22 | disposition home or self-care (01) ==
LOC: EDUNIT# → ED 13:34
DX: K55.059 Acute (reversible) ischemia of intestine, part and extent unspecified (principal); K92.2 Gastrointestinal hemorrhage, unspecified; D64.9 Anemia, unspecified; I48.91 Unspecified atrial fibrillation; Z79.01 Long term (current) use of anticoagulants; I10 Essential (primary) hypertension; Z87.891 Personal history of nicotine dependence
CPT/HCPCS: 36415; 74174; 80053; 82272; 83690; 85025; 85610; 86850; 86900; 86901; 93005; 99284; Q9967

== ENCOUNTER 2022-07-21 14:50 | Outpatient (CLI) | payer MEDICARE, BC ==
[2022-07-21 20:14] LABS: BASOPHILS # (AUTO) 0.1 10^3/uL (0.0-0.1); BASOPHILS % (AUTO) 0.9 %; EOSINOPHILS # (AUTO) 0.1 10^3/uL (0.0-0.7); EOSINOPHILS % (AUTO) 1.8 %; HCT - HEMATOCRIT 34.4 % (37.0-47.0); HGB - HEMOGLOBIN 10.1 g/dL (12.0-16.0); LYMPHOCYTES # (AUTO) 1.2 10^3/uL (1.5-3.5); LYMPHOCYTES % (AUTO) 15.1 %; MEAN CORPUSCULAR HEMOGLOBIN 28.5 pg (27.0-31.0); MEAN CORPUSCULAR HGB CONC 29.4 g/dL (32.0-36.0); MEAN CORPUSCULAR VOLUME 96.9 fL (81.0-99.0); MEAN PLATELET VOLUME 9.2 fL (7.9-10.8); MONOCYTES # (AUTO) 0.6 10^3/uL (0.0-1.0); MONOCYTES % (AUTO) 7.7 %; NEUTROPHILS # (AUTO) 5.8 10^3/uL (1.5-6.6); NEUTROPHILS % (AUTO) 74.2 %; PLT - PLATELET COUNT 490 10^3/uL (130-450); RED BLOOD COUNT 3.55 10^6/uL (4.20-5.40); RED CELL DISTRIBUTION WIDTH 14.2 % (12.0-15.0); WHITE BLOOD COUNT 7.8 x10^3/uL (4.8-10.8)
[2022-07-21 21:26] LABS: % IRON SATURATION 5 % (20-50); IRON 23 ug/dL (28-170); TOTAL IRON BINDING CAPACITY 479 ug/dL (250-450); TRANSFERRIN 342 mg/dL (192-382)
[2022-07-21 21:31] LABS: ESTIMATED AVERAGE GLUCOSE 97 mg/dL (70-100)
== END 2022-07-21 14:51 | disposition home or self-care (01) ==
LOC: LAB.S 14:50
PROVIDERS: ATTEND Internal Medicine
DX: K92.2 Gastrointestinal hemorrhage, unspecified (principal); D50.9 Iron deficiency anemia, unspecified
CPT/HCPCS: 36415; 82728; 83036; 83540; 84466; 85025

== ENCOUNTER 2022-12-22 17:44 | Outpatient (CLI) | payer MEDICARE, BC ==
--- NOTE | 2022-12-22 23:00 | XRAY Report ---
PROCEDURE: Cervical Spine 2 View INDICATIONS: OSTEOARTHRITIS CERVICAL SPINE TECHNIQUE: 3 view(s) of the cervical spine were acquired. COMPARISON: None. FINDINGS: Bones: No fractures or dislocations to the T1 level. The lateral masses of C1 appear intact on the odontoid view. No suspicious bony lesions. Multilevel cervical spondylosis with degenerative endpla te changes and small endplate osteophytes. Moderate multilevel facet arthropathy most pronounced in t he mid cervical spine. Straightening of cervical lordosis likely related to positioning and/or concur rent muscle spasms. Soft tissues: No prevertebral soft tissue swelling. IMPRESSION: Cervical spine without acute fracture. Moderate multilevel cervical spondylosis. Straigh tening of cervical lordosis likely related to positioning and/or concurrent muscle spasms. Reviewed by: Willam Harvey MD on 12/22/2022 10:59 PM PDT Approved by: Willam Harvey MD on 12/22/2022 10:59 PM PDT Station ID: [id number]
== END 2022-12-22 23:59 | disposition home or self-care (01) ==
LOC: DI.S 17:44
PROVIDERS: ATTEND Emergency Medicine
DX: M47.892 Other spondylosis, cervical region (principal)

== ENCOUNTER 2022-12-25 14:48 | Outpatient (CLI) | payer MEDICARE, BC ==
[2022-12-25 20:58] LABS: ALBUMIN 4.3 g/dL (3.2-5.5); ALBUMIN/GLOBULIN RATIO 1.8 (1.0-2.2); ALKALINE PHOSPHATASE 75 IU/L (42-121); ALT ALANINE AMINOTRANSFERASE 15 IU/L (10-60); AST ASPARTATE AMINOTRANSFERASE 15 IU/L (10-42); BILIRUBIN,TOTAL 0.5 mg/dL (0.2-1.0); BUN - BLOOD UREA NITROGEN 21 mg/dL (6-20); CARBON DIOXIDE - CO2 30 mmol/L (21-32); CHLORIDE 89 mmol/L (101-111); CHOLESTEROL 143 mg/dL; GFR - MDRD 53 (>89); GLUCOSE 139 mg/dL (70-100); HDL CHOLESTEROL 36 mg/dL; LDL CHOLESTEROL,CALCULATED 71 mg/dL; POTASSIUM 3.6 mmol/L (3.5-5.0); SODIUM 127 mmol/L (135-145); TOTAL PROTEIN 6.7 g/dL (6.7-8.2); TRIGLYCERIDES 182 mg/dL; VLDL CHOLESTEROL 36 mg/dL
[2022-12-25 21:01] LABS: CREATININE,URINE 77.1 mg/dL; MICROALBUM/CREATININE RATIO,UR 11.7 ug/mg (<30.0); MICROALBUMIN,URINE 0.9 mg/dL (0-300.0)
[2022-12-25 21:04] LABS: ESTIMATED AVERAGE GLUCOSE 148 mg/dL (70-100); HEMOGLOBIN A1c% 6.8 % (4.27-6.07)
== END 2022-12-25 14:49 | disposition home or self-care (01) ==
LOC: LAB.S 14:48
PROVIDERS: ATTEND Nurse Practitioner
DX: E11.22 Type 2 diabetes mellitus with diabetic chronic kidney disease (principal); N18.31 Chronic kidney disease, stage 3a; E11.69 Type 2 diabetes mellitus with other specified complication; E78.5 Hyperlipidemia, unspecified; E11.59 Type 2 diabetes mellitus with other circulatory complications; I15.2 Hypertension secondary to endocrine disorders; E11.65 Type 2 diabetes mellitus with hyperglycemia
CPT/HCPCS: 36415; 80053; 80061; 82043; 82306; 82570; 83036; 83721

== ENCOUNTER 2023-01-21 17:23 | Outpatient (CLI) | payer MEDICARE, BC | END 2023-01-21 23:59 | disposition EMS.NT | LOC: EMS 17:23 | DX: Z03.89 Encounter for observation for other suspected diseases and conditions ruled out (principal) ==

== ENCOUNTER 2023-03-27 08:00 | Outpatient (CLI) | payer MEDICARE, BC | END 2023-03-27 23:59 | disposition home or self-care (01) | LOC: LAB.S 08:00 | PROVIDERS: ATTEND Physician Assistant | DX: N39.0 Urinary tract infection, site not specified (principal) | CPT/HCPCS: 87086 ==

== ENCOUNTER 2023-05-14 15:14 | Outpatient (CLI) | payer MEDICARE, BC ==
--- NOTE | 2023-05-14 16:25 | XRAY Report ---
PROCEDURE: Knee 2 View LT INDICATIONS: PAIN IN LEFT KNEE TECHNIQUE: 2 views of the knee(s) were acquired. COMPARISON: None. FINDINGS: Bones: No fractures or dislocations. No suspicious bony lesions. Tricompartmental joint space terry rowing with associated osteophytosis. Soft tissues: Small knee joint effusion. No suspicious soft tissue calcifications or masses. IMPRESSION: No acute bony abnormality. If there remains a high clinical concern for fracture, including inability to bear weight, consider cross-sectional imaging to exclude an occult fracture. Mild to moderate tricompartmental osteoarthritis. Kellgren-Oscar scale of osteoarthritis: 2. Reviewed by: Naeem Keys on 05/14/2023 4:24 PM PST Approved by: Naeem Keys on 05/14/2023 4:24 PM PST Station ID: [id number]
== END 2023-05-14 23:59 | disposition home or self-care (01) ==
LOC: DI.S 15:14
PROVIDERS: ATTEND Nurse Practitioner
DX: M17.12 Unilateral primary osteoarthritis, left knee (principal)

== ENCOUNTER 2023-05-31 14:13 | Outpatient (CLI) | payer MEDICARE, BC ==
[2023-05-31 20:50] LABS: ALBUMIN 4.6 g/dL (3.2-5.5); ALBUMIN/GLOBULIN RATIO 1.8 (1.0-2.2); BILIRUBIN,TOTAL 0.7 mg/dL (0.2-1.0); CALCIUM 10.1 mg/dL (8.5-10.3); CREATININE 1.2 mg/dL (0.6-1.3); POTASSIUM 3.8 mmol/L (3.5-4.5); TOTAL PROTEIN 7.1 g/dL (6.4-8.9)
[2023-05-31 21:02] LABS: THYROID STIMULATING HORMONE 1.56 uIU/mL (0.34-5.60)
[2023-05-31 22:29] LABS: ESTIMATED AVERAGE GLUCOSE 157 mg/dL (70-100); HEMOGLOBIN A1c% 7.1 % (4.27-6.07)
== END 2023-05-31 14:14 | disposition home or self-care (01) ==
LOC: LAB.S 14:13
PROVIDERS: ATTEND Nurse Practitioner
DX: E11.65 Type 2 diabetes mellitus with hyperglycemia (principal); E03.9 Hypothyroidism, unspecified; E11.59 Type 2 diabetes mellitus with other circulatory complications; I15.2 Hypertension secondary to endocrine disorders
CPT/HCPCS: 36415; 80053; 83036; 84439; 84443

== ENCOUNTER 2023-08-05 04:50 | Outpatient (CLI) | payer MEDICARE, BC | END 2023-08-05 04:51 | disposition critical access hospital (66) | LOC: EMS 04:50 | DX: R06.02 Shortness of breath (principal); J44.9 Chronic obstructive pulmonary disease, unspecified; I48.91 Unspecified atrial fibrillation | CPT/HCPCS: A0425; A0427 ==

== ENCOUNTER 2023-08-05 05:24 | Emergency (ER) | payer MEDICARE, BC ==
--- NOTE | 2023-08-05 05:55 | ED Physician Documentation ---
PD HPI DYSPNEA - Stated complaint Stated Complaint: SOA, COPD EXACERBATION - Chief complaint Chief Complaint: Resp - History obtained from History obtained from: Patient - Additional information Additional information: BIBA. Patient complains of gradually worsening dyspnea over the last couple of days. Patient says she has also had wheezing. She feels that her symptoms are strongly consistent with previous asthma exacerbations although she also notes that is happening quite infrequently.She does not use oxygen at home. EMS reports they found patient that 89% pulse ox on room air on their arrival. The patient tells me she has been using her levalbuterol MDI with decreasing improvement for the last several hours, and has also been using levalbuterol neb treatments since earlier today but notes that the nebulized levalbuterol is outdated/. Patient refused IV en route. She denies fever, chest pain. She says that she typically requires steroids when her asthma exacerbations are to this extent. Review of Systems Constitutional: denies: Fever Cardiac: denies: Chest pain / pressure, Palpitations Respiratory: reports: Dyspnea, Wheezing. denies: Cough PD PAST MEDICAL HISTORY - Past Medical History Past Medical History: Yes Cardiovascular: Hypertension, Atrial fibrillation, Arrhythmia Respiratory: Asthma, COPD, Emphysema Neuro: Peripheral neuropathy Endocrine/Autoimmune: HyPOthyroidism GI: C.difficile MANAGER OF IT: None : None HEENT: None Psych: None Musculoskeletal: None - Past Surgical History Past Surgical History: Yes General: Colonoscopy, EGD /MANAGER OF IT: section, Oophrectomy HEENT: Tonsil/Adenoidectomy - Present Medications Home Medications: Ambulatory Orders Medication Instructions Recorded Confirmed Levothyroxine [Synthroid] 100 mcg ORAL DAILY 02/11/16 07/18/23 Montelukast [Singulair] 10 mg ORAL DAILY 02/11/16 07/18/23 lisinopriL [Lisinopril] 40 mg PO DAILY #30 tablet 04/09/19 07/18/23 Pantoprazole [Protonix] 40 mg PO DAILY 30 Days #30 tablet 12/14/21 07/18/23 Atenolol [Tenormin] 100 mg PO DAILY 01/15/22 07/18/23 Nebulizer [Aeroneb Go Nebulizer] 1 each MC ONCE PRN 01/15/22 07/18/23 Cholecalciferol [Vitamin D3] 5,000 unit PO DAILY 04/21/22 07/18/23 Magnesium Glycinate, Mag Oxide 3 cap PO DAILY 04/21/22 07/18/23 [Magnesium Glycinate] Semaglutide [Ozempic] 0.75 mg SQ Q7D 04/21/22 07/18/23 Levalbuterol [Xopenex] 1.25 mg INH Q6H PRN #30 ea 04/26/22 07/18/23 Levalbuterol [Xopenex] 1.25 mg INH Q6H PRN #30 ea 05/10/22 07/18/23 Acetaminophen/Cod 300/30 [Tylenol 1 tab PO Q8HR PRN 01/26/23 07/18/23 #3] Atorvastatin [Lipitor] 20 mg PO QPM 07/18/23 07/18/23 hydroCHLOROthiazide [Hydrodiuril] 25 mg PO DAILY 07/18/23 07/18/23 Ipratropium [Atrovent] 0.5 mg INH QID 10 Days #100 ml 08/05/23 Levalbuterol Tartrate 2 puffs IH QID #15 gm 08/05/23 [Levalbuterol Tartrate Hfa] Levalbuterol [Xopenex] 1.25 mg IH QID PRN #30 each 08/05/23 dexAMETHasone [Decadron] 4 mg PO DAILY #7 tablet 08/05/23 - Allergies Allergies/Adverse Reactions: Allergies Allergy/AdvReac Type Severity Reaction Status Date / Time Penicillins Allergy Unknown Verified 08/05/23 06:12 - Social History Does the pt smoke?: No Smoking Status: Never smoker Does the pt drink ETOH?: No Does the pt have substance abuse?: No - Immunizations Immunizations are current?: Yes - POLST Patient has POLST: No PD ED PE NORMAL - Vitals Vital signs reviewed: Yes - General General: Alert and oriented X 3, No acute distress, Well developed/nourished - Neck Neck: Supple, no meningeal sign - Respiratory Respiratory: No respiratory distress, Clear bilaterally - Abdomen Abdomen: Soft, Non tender - Extremities Extremities: Other (subtle LLE edema) PD ED PE EXPANDED - Cardiac Cardiac: Tachy, Irregularly irregular Results - Vitals Vitals: Vital Signs - 24 hr 02/18/24 02/18/24 02/18/24 05:41 06:54 09:00 Temperature 36.8 C Heart Rate 132 H 120 H 125 H Respiratory 35 H 19 19 Rate Blood Pressure 125/98 H 159/107 H O2 Saturation 92 97 96 If not protocol 2 : Oxygen Flow, liters/minute 08/05/23 08/05/23 08/05/23 09:23 09:57 11:00 Temperature 36.6 C Heart Rate 116 H 119 H 129 H Respiratory 19 18 16 Rate Blood Pressure 159/107 H 165/79 H O2 Saturation 97 95 If not protocol : Oxygen Flow, liters/minute 08/05/23 11:32 Temperature Heart Rate 128 H Respiratory 23 Rate Blood Pressure 165/79 H O2 Saturation 95 If not protocol : Oxygen Flow, liters/minute Oxygen O2 Source Room air - Labs Labs: Laboratory Tests 08/05/23 06:50 Nasal Adenovirus (PCR) NOT DETECTED Nasal B. parapertussis DNA (PCR) NOT DETECTED Nasal Coronavir 229E PCR NOT DETECTED Nasal Coronavir HKU1 PCR NOT DETECTED Nasal Coronavir NL63 PCR NOT DETECTED Nasal Coronavir OC43 PCR NOT DETECTED Nasal Enterovir/Rhinovir PCR NOT DETECTED Nasal Influenza B PCR NOT DETECTED Nasal Influenza A PCR NOT DETECTED Nasal Parainfluen 1 PCR NOT DETECTED Nasal Parainfluen 2 PCR NOT DETECTED Nasal Parainfluen 3 PCR NOT DETECTED Nasal Parainfluen 4 PCR NOT DETECTED Nasal RSV (PCR) NOT DETECTED Nasal B.pertussis DNA PCR NOT DETECTED Nasal C.pneumoniae (PCR) NOT DETECTED Wilfredo Human Metapneumo PCR NOT DETECTED Nasal M.pneumoniae (PCR) NOT DETECTED Nasal SARS-CoV-2 (PCR) NOT DETECTED PD Medical Decision Making - ED course Complexity details: considered differential, d/w patient ED course: On my evaluation, the patient is on 2 L nasal cannula O2 but has no abnormal/adventitious breath sounds, and pulse ox is 98 to 99%. She is able to speak in full sentences. EMS said that they heard wheezing on their exam and the ED RN says that on initial presentation, the patient was speaking in parsed (2-3 word) sentences. She is given 10 mg p.o. Decadron and I have ordered a chest x-ray and a respiratory PCR panel. The results of the chest x-ray and PCR panel are pending at the end of my shift and thus care of patient is turned over to the oncoming ED physician (Dr. Arits) at the end of my shift. Departure - Departure Disposition: 01 Home, Self Care Clinical Impression: Acute exacerbation of COPD with asthma, Dyspnea, Upper respiratory infection Condition: Stable Prescriptions: Ipratropium [Atrovent] 0.5 mg INH QID 10 Days #100 ml dexAMETHasone [Decadron] 4 mg PO DAILY #7 tablet Levalbuterol Tartrate [Levalbuterol Tartrate Hfa] 2 puffs IH QID #15 gm Levalbuterol [Xopenex] 1.25 mg IH QID PRN #30 each PRN Reason: Dyspnea Comments: You are having a flareup of your COPD/asthma. Continue with your leave albut irish 4 times daily for the next several days to week. I wrote refills for your nebulizer medication as well as inhaler. In the short-term I would add to that ipratropium/Atrovent to help with your b reathing as well. You are given a dose here without any apparent problems. This can be added as a dose to your nebulizer along with the ipratropium and given together 4 times a day. I would suggest adding dexamethasone steroid daily for a week as well. If it is given in a short burst dose like this, no tapering is needed. Follow-up with your primary care and/or soft iron inspector if not improving well over the next few days. Return if worse. You seem to be doing adequately well with O2 saturations approximately 94% on room air now after the initial treatments. Return if consistently low or worse trouble breathing again. I [facility] your [facility] in [place]. Forms: PCP List Discharge Date/Time: 08/05/23 11:42
[2023-08-05] MEDS: CHERRY SYRUP 10 ML UDC PO ONE (06:38)
[2023-08-05] MEDS: DEXAMETHASONE 10 MG/ML VIAL PO STA (06:38)
[2023-08-05 07:56] LABS: B. PARAPERTUSSIS- RESP PCR PAN NOT DETECTED; B. PERTUSSIS- RESP PCR PANEL NOT DETECTED; C. PNEUMONIAE- RESP PCR PANEL NOT DETECTED; CORONAVIRUS 229E-RESP PCR NOT DETECTED; CORONAVIRUS HKU1-RESP PCR NOT DETECTED; CORONAVIRUS NL63-RESP PCR NOT DETECTED; CORONAVIRUS OC43-RESP PCR NOT DETECTED; HUMAN METAPNEUMOVIRUS NOT DETECTED; INFLUENZA A- RESP PCR PANEL NOT DETECTED; INFLUENZA B - RESP PCR PANEL NOT DETECTED; M. PNEUMONIAE- RESP PCR PANEL NOT DETECTED; PARAINFLUENZA VIRUS 1 NOT DETECTED; PARAINFLUENZA VIRUS 2 NOT DETECTED; PARAINFLUENZA VIRUS 3 NOT DETECTED; PARAINFLUENZA VIRUS 4 NOT DETECTED; RHINOVIRUS/ENTEROVIRUS NOT DETECTED; RSV- RESP PCR PANEL NOT DETECTED; SARS-CoV-2 -RESP PCR PANEL NOT DETECTED
[2023-08-05] MEDS: IPRATROPIUM 0.2 MG/ML NEB INH STA (09:54)
[2023-08-05] MEDS: LEVALBUTEROL 1.25 MG/3 ML NEB INH STA (09:54)
--- NOTE | 2023-08-05 10:56 | XRAY Report ---
PROCEDURE: Chest 2V INDICATIONS: dyspnea TECHNIQUE: 2 views of the chest were acquired. COMPARISON: Chest radiograph 05/10/2022. FINDINGS: Surgical changes and devices: None. Lungs and pleura: No pleural effusions or pneumothorax. Lungs are clear. Mediastinum: Mediastinal contours appear normal. Heart size is normal. Aortic arch is calcified ind icating atherosclerosis. Bones and chest wall: No suspicious bony lesions. Overlying soft tissues appear unremarkable. Kris ateral breast implants. IMPRESSION: No acute cardiopulmonary process. Findings are concordant with preliminary interpretation provided by [facility]. Reviewed by: Jayna Miguel MD on 08/05/2023 10:55 AM PST Approved by: Jayna Miguel MD on 08/05/2023 10:55 AM PST Station ID: [id number]
[2023-08-05 11:08] VITALS: BP 165/79; O2SAT 95
--- NOTE | 2023-08-05 11:20 | ED Physician Documentation ---
ED Addendum - Addendum Addendum: 08/05/23 11:18 The patient was given a DuoNeb with better improvement than just the leave albuterol. Heart rate still remains approximately 1 10-1 25. She is not feeling uncomfortable with that. She does have a history of A-fib and it will go fast when she gets albuterol etc. At this point I think it is appropriately fast given her illness and recent medicine. She is comfortable going home at this point." O2 sats are 94 to 96% on room air and she did ambulate to the bathroom and back without dropping below 92. Respirations are unlabored. We will provide prescription for her leave albuterol as she is about out or on medicines. I would add ipratropium short-term which is similar to her long-acting medication she takes. She did not experience any side effects from it here. Will give steroids for 5 to 7 days. The patient has had problems with antibiotics in the past and does not have an obvious bacterial infection so defer any empiric antibiotics at this point. Disposition: Patient discharged home in stable condition. Diagnoses 1. Acute exacerbation of COPD with asthma 2. Upper respiratory infection 3. Chronic atrial fibrillation
== END 2023-08-05 11:42 | disposition home or self-care (01) ==
LOC: EDUNIT# → ED 05:24
DX: J44.1 Chronic obstructive pulmonary disease with (acute) exacerbation (principal); J43.9 Emphysema, unspecified; J06.9 Acute upper respiratory infection, unspecified; I48.20 Chronic atrial fibrillation, unspecified; Z79.899 Other long term (current) drug therapy
CPT/HCPCS: 71046; 87633; 94640; 99284; A9270

== ENCOUNTER 2023-09-06 12:12 | Outpatient (CLI) | payer MEDICARE, BC ==
[2023-09-06 16:02] LABS: ALBUMIN 4.3 g/dL (3.2-5.5); BILIRUBIN,TOTAL 0.6 mg/dL (0.2-1.0); CALCIUM 9.6 mg/dL (8.5-10.3); POTASSIUM 3.8 mmol/L (3.5-4.5); TOTAL PROTEIN 6.5 g/dL (6.4-8.9)
[2023-09-06 16:17] LABS: THYROID STIMULATING HORMONE 1.72 uIU/mL (0.34-5.60)
[2023-09-06 16:24] LABS: CREATININE,URINE 88.5 mg/dL; MICROALBUM/CREATININE RATIO,UR 18.1 ug/mg (<30.0); MICROALBUMIN,URINE 1.6 mg/dL
[2023-09-06 20:42] LABS: ESTIMATED AVERAGE GLUCOSE 223 mg/dL (70-100); HEMOGLOBIN A1c% 9.4 % (4.27-6.07)
== END 2023-09-06 12:13 | disposition home or self-care (01) ==
LOC: LAB.S 12:12
PROVIDERS: ATTEND Internal Medicine Endocrinology, Diabetes & Metabolism
DX: E11.9 Type 2 diabetes mellitus without complications (principal)
CPT/HCPCS: 36415; 80053; 82043; 82570; 83036; 84439; 84443

== ENCOUNTER 2023-12-06 13:37 | Outpatient (CLI) | payer MEDICARE, BC ==
[2023-12-06 20:54] LABS: ALBUMIN 4.3 g/dL (3.2-5.5); ALBUMIN/GLOBULIN RATIO 1.8 (1.0-2.2); BILIRUBIN,TOTAL 0.6 mg/dL (0.2-1.0); CALCIUM 9.9 mg/dL (8.5-10.3); CREATININE 1.1 mg/dL (0.6-1.3); POTASSIUM 3.8 mmol/L (3.5-4.5); TOTAL PROTEIN 6.7 g/dL (6.4-8.9)
[2023-12-06 21:07] LABS: ESTIMATED AVERAGE GLUCOSE 183 mg/dL (70-100)
[2023-12-06 21:08] LABS: THYROID STIMULATING HORMONE 1.48 uIU/mL (0.34-5.60)
[2023-12-06 21:12] LABS: CREATININE,URINE 151.7 mg/dL; MICROALBUM/CREATININE RATIO,UR 11.2 ug/mg (<30.0); MICROALBUMIN,URINE 1.7 mg/dL
== END 2023-12-06 13:38 | disposition home or self-care (01) ==
LOC: LAB.S 13:37
PROVIDERS: ATTEND Nurse Practitioner
DX: E11.9 Type 2 diabetes mellitus without complications (principal)
CPT/HCPCS: 36415; 80053; 82043; 82570; 83036; 84439; 84443

== ENCOUNTER 2023-12-23 16:40 | Emergency (ER) | payer MEDICARE, BC ==
--- NOTE | 2023-12-23 18:07 | XRAY Report ---
PROCEDURE: Chest 2V INDICATIONS: Cough TECHNIQUE: 2 views of the chest were acquired. COMPARISON: 08/05/2023. FINDINGS: Surgical changes and devices: None. Lungs and pleura: No pleural effusions or pneumothorax. Lungs are clear. Mediastinum: Mediastinal contours appear normal. Heart size is normal. Bones and chest wall: No suspicious bony lesions. Overlying soft tissues appear unremarkable. IMPRESSION: No acute cardiopulmonary process. Reviewed by: Delvis Charles MD on 12/23/2023 5:05 PM DIALLO Approved by: Delvis Charles MD on 12/23/2023 5:05 PM DIALLO Station ID: [id number]
[2023-12-23 19:08] LABS: B. PARAPERTUSSIS- RESP PCR PAN NOT DETECTED; B. PERTUSSIS- RESP PCR PANEL NOT DETECTED; C. PNEUMONIAE- RESP PCR PANEL NOT DETECTED; CORONAVIRUS 229E-RESP PCR NOT DETECTED; CORONAVIRUS HKU1-RESP PCR NOT DETECTED; CORONAVIRUS NL63-RESP PCR NOT DETECTED; CORONAVIRUS OC43-RESP PCR NOT DETECTED; HUMAN METAPNEUMOVIRUS NOT DETECTED; INFLUENZA A- RESP PCR PANEL NOT DETECTED; INFLUENZA B - RESP PCR PANEL NOT DETECTED; M. PNEUMONIAE- RESP PCR PANEL NOT DETECTED; PARAINFLUENZA VIRUS 1 NOT DETECTED; PARAINFLUENZA VIRUS 2 NOT DETECTED; PARAINFLUENZA VIRUS 3 NOT DETECTED; PARAINFLUENZA VIRUS 4 NOT DETECTED; RHINOVIRUS/ENTEROVIRUS NOT DETECTED; RSV- RESP PCR PANEL NOT DETECTED; SARS-CoV-2 -RESP PCR PANEL NOT DETECTED
--- NOTE | 2023-12-23 19:14 | ED Physician Documentation ---
PD HPI URI - Stated complaint Stated Complaint: CP/SOA - Chief complaint Chief Complaint: Resp - History obtained from History obtained from: Patient - History of Present Illness Timing - onset: How many weeks ago (4-6) Pain level max: 0 Pain level now: 0 Associated symptoms: Dry cough, Dyspnea. No: Fever, Chills, Sweats, Ear pain, Nasal congestion Improves by: Rest Worsened by: Activity, Breathing - Additional information Additional information: 78-year-old female presents to the emergency department stating that she has a history of asthma. She states that she has felt like she has had an increasingly difficult time breathing over the past 4 to 5 weeks. 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 She states that usually when she has a hard time breathing she called her inkjet operator who tells her to go to the ER to get steroids. She states that she usually is on a short burst of prednisone, approximately 5 days. She states she uses her Xopenex at home 3 times daily. Feels like she is not getting relief with this. No fevers. No chills. Has a mild, dry cough. Had COVID about a month ago. Took Paxlovid. States had a recurrence of COVID about 2 weeks after that. Patient states that this feels like her usual asthma exacerbation for which she takes prednisone. 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 : None HEENT: None Psych: None Musculoskeletal: None - Past Surgical History Past Surgical History: Yes General: Colonoscopy, EGD /PAINTING DEPARTMENT SUPERVISOR: section, Oophrectomy HEENT: Tonsil/Adenoidectomy - Present Medications Home Medications: Ambulatory Orders Medication Instructions Recorded Confirmed Levothyroxine [Synthroid] 100 mcg ORAL DAILY 02/11/16 12/23/23 Montelukast [Singulair] 10 mg ORAL DAILY 02/11/16 12/23/23 lisinopriL [Lisinopril] 40 mg PO DAILY #30 tablet 04/09/19 12/23/23 Pantoprazole [Protonix] 40 mg PO DAILY 30 Days #30 tablet 12/14/21 12/23/23 Atenolol [Tenormin] 100 mg PO DAILY 01/15/22 12/23/23 Nebulizer [Aeroneb Go Nebulizer] 1 each MC ONCE PRN 01/15/22 12/23/23 Cholecalciferol [Vitamin D3] 5,000 unit PO DAILY 04/21/22 12/23/23 Magnesium Glycinate, Mag Oxide 3 cap PO DAILY 04/21/22 12/23/23 [Magnesium Glycinate] Semaglutide [Ozempic] 0.75 mg SQ Q7D 04/21/22 12/23/23 Levalbuterol [Xopenex] 1.25 mg INH Q6H PRN #30 ea 04/26/22 12/23/23 Levalbuterol [Xopenex] 1.25 mg INH Q6H PRN #30 ea 05/10/22 12/23/23 Acetaminophen/Cod 300/30 [Tylenol 1 tab PO Q8HR PRN 01/26/23 12/23/23 #3] Atorvastatin [Lipitor] 20 mg PO QPM 07/18/23 12/23/23 hydroCHLOROthiazide [Hydrodiuril] 25 mg PO DAILY 07/18/23 12/23/23 Ipratropium [Atrovent] 0.5 mg INH QID 10 Days #100 ml 08/05/23 12/23/23 Levalbuterol Tartrate 2 puffs IH QID #15 gm 08/05/23 12/23/23 [Levalbuterol Tartrate Hfa] Levalbuterol [Xopenex] 1.25 mg IH QID PRN #30 each 08/05/23 12/23/23 predniSONE [Deltasone] 40 mg PO DAILY #10 tablet 12/23/23 - Allergies Allergies/Adverse Reactions: Allergies Allergy/AdvReac Type Severity Reaction Status Date / Time Penicillins Allergy Unknown Verified 12/23/23 16:53 - Social History Does the pt smoke?: No Smoking Status: Never smoker Does the pt drink ETOH?: No Does the pt have substance abuse?: No - Immunizations Immunizations are current?: Yes - POLST Patient has POLST: No PD ED PE NORMAL - Vitals Vital signs reviewed: Yes - General General: Alert and oriented X 3, No acute distress - HEENT HEENT: PERRL, Moist mucous membranes - Neck Neck: Supple, no meningeal sign - Cardiac Cardiac: RRR, Strong equal pulses - Respiratory Respiratory: No respiratory distress, Other (Very diminished breath sounds bilaterally with mild wheezing) - Abdomen Abdomen: Soft, Non tender, Non distended - Derm Derm: Warm and dry - Extremities Extremities: No edema - Neuro Neuro: Alert and oriented X 3 - Psych Psych: Normal mood, Normal affect Results - Vitals Vitals: Vital Signs - 24 hr 12/23/23 12/23/23 12/23/23 16:53 18:13 19:30 Temperature 36.6 C Heart Rate 93 90 84 Respiratory 20 20 20 Rate Blood Pressure 151/96 H 165/107 H 165/82 H O2 Saturation 97 96 94 Oxygen O2 Source Room air - Labs Labs: Laboratory Tests 12/23/23 18:06 Nasal Adenovirus (PCR) NOT DETECTED Nasal B. parapertussis DNA (PCR) NOT DETECTED Nasal Coronavir 229E PCR NOT DETECTED Nasal Coronavir HKU1 PCR NOT DETECTED Nasal Coronavir NL63 PCR NOT DETECTED Nasal Coronavir OC43 PCR NOT DETECTED Nasal Enterovir/Rhinovir PCR NOT DETECTED Nasal Influenza B PCR NOT DETECTED Nasal Influenza A PCR NOT DETECTED Nasal Parainfluen 1 PCR NOT DETECTED Nasal Parainfluen 2 PCR NOT DETECTED Nasal Parainfluen 3 PCR NOT DETECTED Nasal Parainfluen 4 PCR NOT DETECTED Nasal RSV (PCR) NOT DETECTED Nasal B.pertussis DNA PCR NOT DETECTED Nasal C.pneumoniae (PCR) NOT DETECTED Wilfredo Human Metapneumo PCR NOT DETECTED Nasal M.pneumoniae (PCR) NOT DETECTED Nasal SARS-CoV-2 (PCR) NOT DETECTED - Rads (name of study) cxr Relevant Findings:: Final report received, See rad report PD Medical Decision Making - ED course Complexity details: reviewed results, re-evaluated patient, considered differential, d/w patient ED course: No acute findings on chest x-ray. Was given a Xopenex treatment here along with prednisone. Lungs have improved aeration. She states she is breathing much easier. No hypoxia or respiratory distress. We will place her on steroids for home. We will give her her usual 5-day course. No indication for antibiotics at this time. No evidence of pneumonia. No indication of PE. No indication for further workup. Patient counseled regarding signs and symptoms for which I believe and urgent re-evaluation would be necessary. Patient with good understanding of and agreement to plan and is comfortable going home at this time This document was made in part using voice recognition software. While efforts are made to proofread this document, sound alike and grammatical errors may occur. Departure - Departure Disposition: 01 Home, Self Care Clinical Impression: Asthma with acute exacerbation in adult Qualifiers: Asthma severity: unspecified severity Asthma persistence: unspecified Qualified Code(s): J45.901 - Unspecified asthma with (acute) exacerbation Condition: Good Instructions: ED Reactive Airway Disease Follow-Up: DARSHAN NGUYEN MD [Primary Care Provider] - Within 1 week Prescriptions: predniSONE [Deltasone] 40 mg PO DAILY #10 tablet Comments: Your prescription was sent to [facility] in [place]. Please use the steroids as prescribed. Continue your inhalers at home. Please follow-up with your doctor for further care. Please return if you worsen. Forms: PCP List Discharge Date/Time: 12/23/23 20:05
[2023-12-23] MEDS: predniSONE 20 MG TABLET PO STA (19:30)
[2023-12-23] MEDS: LEVALBUTEROL 1.25 MG/3 ML NEB INH STA (19:36)
[2023-12-23 19:39] VITALS: BP 165/82; O2SAT 94
== END 2023-12-23 20:05 | disposition home or self-care (01) ==
LOC: ED 16:40
DX: J44.9 Chronic obstructive pulmonary disease, unspecified (principal); J43.9 Emphysema, unspecified; J45.901 Unspecified asthma with (acute) exacerbation; I10 Essential (primary) hypertension; I48.91 Unspecified atrial fibrillation; E03.9 Hypothyroidism, unspecified; G62.9 Polyneuropathy, unspecified; Z79.899 Other long term (current) drug therapy; Z79.84 Long term (current) use of oral hypoglycemic drugs
CPT/HCPCS: 71046; 87633; 94640; 99284; J7512

== ENCOUNTER 2023-12-31 09:23 | Outpatient (CLI) | payer MEDICARE, BC ==
[2023-12-31 14:27] LABS: BASOPHILS # (AUTO) 0.1 10^3/uL (0.0-0.1); BASOPHILS % (AUTO) 0.7 %; EOSINOPHILS # (AUTO) 0.2 10^3/uL (0.0-0.7); EOSINOPHILS % (AUTO) 1.4 %; HCT - HEMATOCRIT 43.6 % (37.0-47.0); HGB - HEMOGLOBIN 14.3 g/dL (12.0-16.0); LYMPHOCYTES # (AUTO) 3.2 10^3/uL (1.5-3.5); LYMPHOCYTES % (AUTO) 22.3 %; MEAN CORPUSCULAR HEMOGLOBIN 27.7 pg (27.0-31.0); MEAN CORPUSCULAR HGB CONC 32.8 g/dL (32.0-36.0); MEAN CORPUSCULAR VOLUME 84.3 fL (81.0-99.0); MEAN PLATELET VOLUME 9.5 fL (7.9-10.8); MONOCYTES # (AUTO) 0.8 10^3/uL (0.0-1.0); MONOCYTES % (AUTO) 5.8 %; NEUTROPHILS # (AUTO) 9.8 10^3/uL (1.5-6.6); NEUTROPHILS % (AUTO) 68.7 %; PLT - PLATELET COUNT 414 10^3/uL (130-450); RED BLOOD COUNT 5.17 10^6/uL (4.20-5.40); RED CELL DISTRIBUTION WIDTH 14.5 % (12.0-15.0); WHITE BLOOD COUNT 14.2 x10^3/uL (4.8-10.8)
== END 2023-12-31 09:24 | disposition home or self-care (01) ==
LOC: LAB.S 09:23
PROVIDERS: ATTEND Internal Medicine Pulmonary Disease
DX: J45.50 Severe persistent asthma, uncomplicated (principal)
CPT/HCPCS: 36415; 82784; 82785; 85025

== ENCOUNTER 2024-08-08 08:06 | Inpatient (IN) ==
--- NOTE | 2024-08-08 08:22 | ED Physician Documentation ---
PD HPI DYSPNEA Stated complaint Stated Complaint: SOA/ASTHMA EXAC Chief complaint Chief Complaint: Resp History obtained from History obtained from: Patient Additional information Additional information: The patient is brought to the emergency department by EMS for chief complaint of dyspnea that started overnight. The patient has had upper respiratory type symptoms for the last few days and has been coughing quite a bit. She also states that she feels as though her asthma has been acting up. However, it got really bad overnight. The patient also has COPD and she states she tried taking her Albuterol at home and it did not help. The patient finally called EMS. They state when they got to her, she was tripoding and appeared in significant distress. The patient has been given a nebulizer treatment and route without much improvement. She has been very anxious. The patient denies any fevers or chills. No other complaints at this time. Meds/Allgy Home Medications Ambulatory Orders Medication Instructions Recorded Confirmed levothyroxine 100 mcg tablet 100 mcg ORAL DAILY 02/11/16 08/08/24 montelukast 10 mg tablet 10 mg ORAL DAILY 02/11/16 08/08/24 lisinopril 40 mg tablet 40 mg PO DAILY #30 tabs 04/09/19 08/08/24 pantoprazole 40 mg tablet,delayed 40 mg PO DAILY 30 days #30 tabs 12/14/21 08/08/24 release nebulizers (Aeroneb Go Nebulizer) 01/15/22 08/08/24 cholecalciferol (vitamin D3) 125 5,000 unit PO DAILY 04/21/22 08/08/24 mcg (5,000 unit) capsule magnesium glycinate-mag oxide 3 cap PO DAILY 04/21/22 08/08/24 acetaminophen 300 mg-codeine 30 mg 1 tab PO Q8HR PRN Pain 1-4 01/26/23 08/08/24 tablet atorvastatin 20 mg tablet 20 mg PO QPM 07/18/23 08/08/24 hydrochlorothiazide 25 mg tablet 25 mg PO DAILY 07/18/23 08/08/24 ipratropium bromide 0.02 % 0.5 mg (2.5 mL) inhalation QID 10 08/05/23 08/08/24 solution for inhalation days #100 mL levalbuterol tartrate 45 2 puff IH QID #15 grams 08/05/23 08/08/24 mcg/actuation aerosol inhaler prednisone 20 mg tablet 40 mg (2 x 20 mg) PO DAILY #10 tabs 12/23/23 08/08/24 semaglutide 0.25 mg or 0.5 mg (2 2 mg subcut Q7D 07/15/24 08/08/24 mg/1.5 mL) subcutaneous pen injector (Ozempic) atenolol 50 mg tablet 50 mg PO BID 08/08/24 08/08/24 fluoxetine 20 mg capsule 20 mg PO DAILY 08/08/24 08/08/24 hydrochlorothiazide 50 mg tablet 50 mg PO DAILY 08/08/24 08/08/24 insulin lispro 100 unit/mL 1 - 8 unit subcut .TIDAC 08/08/24 08/08/24 subcutaneous pen (Humalog KwikPen (U-100) Insulin) semaglutide 2 mg/dose (8 mg/3 mL) 2 mg subcut .WEEKLY 08/08/24 08/08/24 subcutaneous pen injector (Ozempic) umeclidinium 62.5 mcg-vilanterol 1 inh inhalation BID 08/08/24 08/08/24 25 mcg/actuation powdr for inhalation (Anoro Ellipta) Allergies Allergies Allergy/AdvReac Type Severity Reaction Status Date / Time Penicillins Allergy Unknown Verified 08/08/24 08:17 [facility] Active Problems All Active Problems (Updated 08/08/24 @ 18:05 by Carine Saini MD) Acute hyponatremia (Acute) Atrial fibrillation with rapid ventricular response (Acute) CHF (congestive heart failure) (Acute) Acute exacerbation of chronic obstructive pulmonary disease (Acute) RSV (acute bronchiolitis due to respiratory syncytial virus) (Acute) HTN (hypertension) (Acute) HLD (hyperlipidemia) (Acute) GERD (gastroesophageal reflux disease) (Acute) Hypoxia (Acute) History of breast cancer (Acute) Healthcare maintenance (Acute) Left lower lobe pulmonary nodule (Acute) 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 (Date/Year): 2001 Number of Years Smoked: 20 How many cigarettes a day do you smoke? (20 cigarettes=1 Pk): 20 Second hand tobacco smoke exposure: No Do you dip or chew tobacco?: No Do you vape?: No Patient requests smoking cessation consult: No Initiate information on smoking cessation: No Marital Status: Support Person: No Relationship: Level: Independent Do you feel safe in your home environment?: Yes Suffered physical, verbal, emotional, or financial abuse?: No History of Abuse: No ETOH Use: Wine Substance Use: cannabis (any form) POLST Patient has POLST: No Exam Constitutional Moderate respiratory distress, anxious, tripoding intermittently HENMT normocephalic, head/scalp atraumatic, external nose normal and oral mucous membranes normal Eyes EOMs intact bilaterally Neck/C-Spine visual inspection normal and supple Respiratory Tight breath sounds bilaterally with moderately diminished air movement throughout bilateral lung everett. Tight wheezes throughout. Prolonged expiratory phase. Tachypneic Cardiovascular regular rhythm noted and no edema Mild tachycardia Gastrointestinal abdomen normal to inspection, abdomen soft to palpation, nontender to palpation and nondistended Genitourinary no CVA tenderness Extremities normal to inspection Neurology Alert, grossly intact Psychiatry mental status grossly normal Anxious Skin skin color normal Results Vitals Vitals: Vital Signs - 24 hr 08/08/24 08:13 08/08/24 08:16 08/08/24 08:28 Temperature 35.6 C L Temperature Source Temporal Artery Scan Pulse Rate 94 Respiratory Rate 27 H 22 Blood Pressure 193/78 H O2 Saturation 99 Oxygen Delivery Method Nasal Cannula O2 Source Simple Mask Room air If not protocol: Oxygen Flow, liters/minute 10 2 Pain Intensity 0 08/08/24 09:16 08/08/24 09:30 08/08/24 10:00 Temperature Temperature Source Pulse Rate 136 H 129 H 99 Respiratory Rate 25 H 24 16 Blood Pressure 113/78 130/84 123/57 L O2 Saturation 93 93 96 Oxygen Delivery Method O2 Source Nasal cannula Nasal cannula Room air If not protocol: Oxygen Flow, liters/minute 2 2 Pain Intensity 0 0 08/08/24 10:30 08/08/24 11:00 08/08/24 12:00 Temperature Temperature Source Pulse Rate 112 H 117 H 122 H Respiratory Rate 23 21 22 Blood Pressure 125/95 H 129/70 146/99 H O2 Saturation 98 87 L 94 Oxygen Delivery Method O2 Source Room air Room air Nasal cannula If not protocol: Oxygen Flow, liters/minute 2 2 Pain Intensity Oxygen O2 Source Nasal cannula Labs Labs: Laboratory Tests 08/08/24 08/08/24 08/08/24 08:17 08:35 09:10 WBC 10.8 RBC 5.00 Hgb 13.7 Hct 39.8 MCV 79.6 L MCH 27.4 MCHC 34.4 RDW 13.2 Plt Count 386 MPV 8.9 Neut # (Auto) 8.6 H Lymph # (Auto) 1.3 L [place] # (Auto) 0.8 Eos # (Auto) 0.0 Baso # (Auto) 0.0 Absolute Nucleated RBC 0.00 Nucleated RBC % 0.0 Sodium 123 L Potassium 3.4 L Chloride 84 L Carbon Dioxide 26 Anion Gap 13.0 BUN 24 H Creatinine 0.9 Estimated GFR (MDRD) 60 L Glucose 189 H Calcium 9.7 Total Bilirubin 0.9 AST 22 ALT 16 Alkaline Phosphatase 85 B-Natriuretic Peptide 508 H Total Protein 6.9 Albumin 4.8 Globulin 2.1 Albumin/Globulin Ratio 2.3 H Lipase 10 L Nasal Adenovirus (PCR) NOT DETECTED Nasal B. parapertussis DNA (PCR) NOT DETECTED Nasal Coronavir 229E PCR NOT DETECTED Nasal Coronavir HKU1 PCR NOT DETECTED Nasal Coronavir NL63 PCR NOT DETECTED Nasal Coronavir OC43 PCR NOT DETECTED Nasal Enterovir/Rhinovir PCR NOT DETECTED Nasal Influenza B PCR NOT DETECTED Nasal Influenza A PCR NOT DETECTED Nasal Parainfluen 1 PCR NOT DETECTED Nasal Parainfluen 2 PCR NOT DETECTED Nasal Parainfluen 3 PCR NOT DETECTED Nasal Parainfluen 4 PCR NOT DETECTED Nasal RSV (PCR) DETECTED A Nasal B.pertussis DNA PCR NOT DETECTED Nasal C.pneumoniae (PCR) NOT DETECTED Wilfredo Human Metapneumo PCR NOT DETECTED Nasal M.pneumoniae (PCR) NOT DETECTED Nasal SARS-CoV-2 (PCR) NOT DETECTED PD Medical Decision Making ED course Complexity details: reviewed old records, reviewed results, re-evaluated patient, considered differential and d/w patient ED course: The patient was evaluated by myself immediately upon arrival in the emergency department. She was found to be in moderate respiratory distress and quite anxious, but was able to speak in nearly full sentences despite her respiratory status. She was also in a. fib, which is chronic for her, with a HR of 120's to 130's, which I held off treating directly, as I felt it was most likely due to her treatment with multiple bronchodilators. She was moving some air although definitely decreased from normal expectation and was tightly wheezy. The respiratory therapist was also immediately on hand and I did order a DuoNeb followed by continuous albuterol nebulized treatments. I will also give her a small dose of anxiolytic. I have also ordered a workup with labs, x-ray, and respiratory PCR panel. Her CXR was unremarkable. Labs showed elevated BNP of 500, hypnatremia at 123. Resp PCR panel was positive for RSV. Pt was improved on re-evaluation, with clear lungs and nearly normalized HR, but still hypoxic on RA at 88%. She did begin to wheeze and be dyspneic again, so was treated with another Duoneb. In consideration of all of the above, I felt the pt should be admitted to the hospital. I have discussed the case with Dr. Rosales, and he has agreed to admit the pt to his service. Critical Care Critical Care Provided: Yes Time(min): 45 Comments: Critical care time was necessary, due to high probability of imminent and life- threatening decline, secondary to COPD exacerbation, respiratory distress, and hypoxia, contributed to by CHF, RSV and atrial fibrillation with RVR. Time Includes: Direct patient care, Review records, Reassess patient, Document care, Coordinate care, Medical consult and See progress note Data interpretation: Labs, Pulse ox, CXR, Prior EKG, Cardiac output and See progress note Discharge Plan Discharge Patient Disposition: 66 [facility] DC/Xfer Condition: Serious Clinical Impression: Acute exacerbation of chronic obstructive pulmonary disease, RSV (acute bronchiolitis due to respiratory syncytial virus), Hypoxia, CHF (congestive heart failure), Atrial fibrillation with rapid ventricular response, Acute hyponatremia Interventions: ED Admission Assessment Last Done: 08/08/24 12:50
[2024-08-08] MEDS: CONCENTRATED ALBUTEROL NEB 2.5 MG/0.5 ML INH STA (08:25)
[2024-08-08] MEDS: IPRATROPIUM/ALBUTEROL 3 ML NEB INH STA ×2 (08:25→13:16)
[2024-08-08] MEDS: LORazepam 2 MG/ML VIAL IVP STA (08:27)
[2024-08-08] MEDS: DEXAMETHASONE 10 MG/ML VIAL IVP STA (08:28)
[2024-08-08 08:36] LABS: ALBUMIN 4.8 g/dL (3.2-5.5); BILIRUBIN,TOTAL 0.9 mg/dL (0.2-1.0); CALCIUM 9.7 mg/dL (8.5-10.3); POTASSIUM 3.4 mmol/L (3.5-4.5)
--- NOTE | 2024-08-08 08:37 | XRAY Report ---
PROCEDURE: XR Chest 1V INDICATIONS: dyspnea TECHNIQUE: One view of the chest was acquired. COMPARISON: None. FINDINGS: Surgical changes and devices: None. Lungs and pleura: No pleural effusions or pneumothorax. Vague densities, bilateral hemithoraces, rig ht greater than left, secondary to breast implants. No consolidation. Mediastinum: Mediastinal contours appear normal. Heart size is mildly enlarged. Bones and chest wall: No suspicious bony lesions. Overlying soft tissues appear unremarkable. IMPRESSION: Mild cardiomegaly. No gross infiltrates. Reviewed by: Néstor Singleton MD on 08/08/2024 8:36 AM PST Approved by: Néstor Singleton MD on 08/08/2024 8:36 AM PST Station ID: [id number]
[2024-08-08 08:38] LABS: BASOPHILS % (AUTO) 0.3 %; EOSINOPHILS % (AUTO) 0.2 %; HCT - HEMATOCRIT 39.8 % (37.0-47.0); HGB - HEMOGLOBIN 13.7 g/dL (12.0-16.0); LYMPHOCYTES # (AUTO) 1.3 10^3/uL (1.5-3.5); MEAN CORPUSCULAR HEMOGLOBIN 27.4 pg (27.0-31.0); MEAN CORPUSCULAR HGB CONC 34.4 g/dL (32.0-36.0); MEAN CORPUSCULAR VOLUME 79.6 fL (81.0-99.0); MEAN PLATELET VOLUME 8.9 fL (7.9-10.8); MONOCYTES # (AUTO) 0.8 10^3/uL (0.0-1.0); MONOCYTES % (AUTO) 7.3 %; NEUTROPHILS # (AUTO) 8.6 10^3/uL (1.5-6.6); NEUTROPHILS % (AUTO) 79.8 %; PLT - PLATELET COUNT 386 10^3/uL (130-450); RED CELL DISTRIBUTION WIDTH 13.2 % (12.0-15.0); WHITE BLOOD COUNT 10.8 x10^3/uL (4.8-10.8)
[2024-08-08 08:39] LABS: ALBUMIN/GLOBULIN RATIO 2.3 (1.0-2.2); CREATININE 0.9 mg/dL (0.6-1.3); TOTAL PROTEIN 6.9 g/dL (6.4-8.9)
[2024-08-08] MEDS: METOPROLOL TARTRATE 50 MG TABLET PO STA (09:05)
[2024-08-08 10:50] LABS: B. PARAPERTUSSIS- RESP PCR PAN NOT DETECTED; B. PERTUSSIS- RESP PCR PANEL NOT DETECTED; C. PNEUMONIAE- RESP PCR PANEL NOT DETECTED; CORONAVIRUS 229E-RESP PCR NOT DETECTED; CORONAVIRUS HKU1-RESP PCR NOT DETECTED; CORONAVIRUS NL63-RESP PCR NOT DETECTED; CORONAVIRUS OC43-RESP PCR NOT DETECTED; HUMAN METAPNEUMOVIRUS NOT DETECTED; INFLUENZA A- RESP PCR PANEL NOT DETECTED; INFLUENZA B - RESP PCR PANEL NOT DETECTED; M. PNEUMONIAE- RESP PCR PANEL NOT DETECTED; PARAINFLUENZA VIRUS 1 NOT DETECTED; PARAINFLUENZA VIRUS 2 NOT DETECTED; PARAINFLUENZA VIRUS 4 NOT DETECTED; RHINOVIRUS/ENTEROVIRUS NOT DETECTED; RSV- RESP PCR PANEL DETECTED; SARS-CoV-2 -RESP PCR PANEL NOT DETECTED
[2024-08-08] MEDS ORDERED: HYDROcod/ACETAM 5/325 MG TABLET PO PRN (15:45)
[2024-08-08] MEDS ORDERED: ACETAMINOPHEN 325 MG TABLET PO PRN (15:45)
[2024-08-08] MEDS ORDERED: ONDANSETRON ODT 4 MG TABLET TL PRN (15:45)
[2024-08-08] MEDS: SODIUM CHLORIDE FLUSH 0.9% 10 ML SYRINGE IVP SCH (17:13)
[2024-08-08] MEDS: INSULIN LISPRO 300 UNIT/3 ML PEN SUBQ SCH ×2 (17:14→21:50)
--- NOTE | 2024-08-08 17:50 | HISTORY & PHYSICAL EXAMINATION ---
Chief Complaint Chief Complaint Chief Complaint: Shortness of breath History of Present Illness History of Present Illness HPI Comment/Other: Patient is an 78-year-old female with a PMH of asthma/COPD, HTN, HLD, GERD, remote history of breast cancer status post bilateral mastectomy presenting to the ED with a chief complaint of 3 to 4 days of worsening shortness of breath, wheeze, and cough.Patient became significantly distressed to the extent that she called paramedics who brought her to the ED and provided a nebulizer and route. She continued to have shortness of breath to the extent that she had tripoding, and in the ED was given multiple other rounds of nebulizer treatments. At baseline she is not oxygen dependent but here in the EDShe required 2 L nasal cannula to maintain oxygen saturation was above 90%.Vital signs were also remarkable for sinus tachycardia with heart rates up to the 120s. Blood pressure was intermittently elevated but generally within normal limits.Labs were fairly noncontributoryHowever RSV was positive on the viral respiratory panel. Chest x-ray showed no evidence of infiltrates or pneumonia. Given the patient's continued acute respiratory failure with hypoxia after methylprednisolone and multiple nebulizer treatments, admission was requested for further management. Meds/Allgy Home Medications Ambulatory Orders Medication Instructions Recorded Confirmed levothyroxine 100 mcg tablet 100 mcg ORAL DAILY 02/11/16 08/08/24 montelukast 10 mg tablet 10 mg ORAL DAILY 02/11/16 08/08/24 lisinopril 40 mg tablet 40 mg PO DAILY #30 tabs 04/09/19 08/08/24 pantoprazole 40 mg tablet,delayed 40 mg PO DAILY 30 days #30 tabs 12/14/21 08/08/24 release nebulizers (Aeroneb Go Nebulizer) 01/15/22 08/08/24 cholecalciferol (vitamin D3) 125 5,000 unit PO DAILY 04/21/22 08/08/24 mcg (5,000 unit) capsule magnesium glycinate-mag oxide 3 cap PO DAILY 04/21/22 08/08/24 acetaminophen 300 mg-codeine 30 mg 1 tab PO Q8HR PRN Pain 1-4 01/26/23 08/08/24 tablet atorvastatin 20 mg tablet 20 mg PO QPM 07/18/23 08/08/24 hydrochlorothiazide 25 mg tablet 25 mg PO DAILY 07/18/23 08/08/24 ipratropium bromide 0.02 % 0.5 mg (2.5 mL) inhalation QID 10 08/05/23 08/08/24 solution for inhalation days #100 mL levalbuterol tartrate 45 2 puff IH QID #15 grams 08/05/23 08/08/24 mcg/actuation aerosol inhaler prednisone 20 mg tablet 40 mg (2 x 20 mg) PO DAILY #10 tabs 12/23/23 08/08/24 semaglutide 0.25 mg or 0.5 mg (2 2 mg subcut Q7D 07/15/24 08/08/24 mg/1.5 mL) subcutaneous pen injector (Ozempic) atenolol 50 mg tablet 50 mg PO BID 08/08/24 08/08/24 fluoxetine 20 mg capsule 20 mg PO DAILY 08/08/24 08/08/24 hydrochlorothiazide 50 mg tablet 50 mg PO DAILY 08/08/24 08/08/24 insulin lispro 100 unit/mL 1 - 8 unit subcut .TIDAC 08/08/24 08/08/24 subcutaneous pen (Humalog KwikPen (U-100) Insulin) semaglutide 2 mg/dose (8 mg/3 mL) 2 mg subcut .WEEKLY 08/08/24 08/08/24 subcutaneous pen injector (Ozempic) umeclidinium 62.5 mcg-vilanterol 1 inh inhalation BID 08/08/24 08/08/24 25 mcg/actuation powdr for inhalation (Anoro Ellipta) Allergies Allergies Allergy/AdvReac Type Severity Reaction Status Date / Time Penicillins Allergy Unknown Verified 08/08/24 08:17 [facility] Active Problems All Active Problems (Updated 08/08/24 @ 17:52 by Julien Rosales MD) Acute exacerbation of chronic obstructive pulmonary disease (Acute) RSV (acute bronchiolitis due to respiratory syncytial virus) (Acute) HTN (hypertension) (Acute) HLD (hyperlipidemia) (Acute) GERD (gastroesophageal reflux disease) (Acute) Hypoxia (Acute) History of breast cancer (Acute) Healthcare maintenance (Acute) Left lower lobe pulmonary nodule (Acute) 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 (Date/Year): 2001 Number of Years Smoked: 20 How many cigarettes a day do you smoke? (20 cigarettes=1 Pk): 20 Second hand tobacco smoke exposure: No Do you dip or chew tobacco?: No Do you vape?: No Patient requests smoking cessation consult: No Initiate information on smoking cessation: No Marital Status: Support Person: No Relationship: Level: Independent Do you feel safe in your home environment?: Yes Suffered physical, verbal, emotional, or financial abuse?: No History of Abuse: No ETOH Use: Wine Substance Use: cannabis (any form) POLST Patient has POLST: No Review of Systems Status of ROS: 10 or more systems reviewed and unremarkable except as noted in history and below Exam Constitutional Moderate respiratory distress, anxious, tripoding intermittently HENMT normocephalic, head/scalp atraumatic, external nose normal and oral mucous membranes normal Eyes EOMs intact bilaterally Neck/C-Spine visual inspection normal and supple Respiratory Tight breath sounds bilaterally with moderately diminished air movement throughout bilateral lung everett. Tight wheezes throughout. Prolonged expiratory phase. Tachypneic Cardiovascular normal heart rate noted, regular rhythm noted and no edema Mild tachycardia Gastrointestinal abdomen normal to inspection, abdomen soft to palpation, nontender to palpation and nondistended Extremities normal to inspection Neurology Alert, grossly intact Psychiatry mental status grossly normal Anxious Skin skin color normal Conclusion/Plan Problem List (1) Acute exacerbation of chronic obstructive pulmonary disease: Plan: * Pt in mild respiratory distress, 2/2 to RSV in setting of COPD * Continues to be hypoxic despite multiple rounds of breathing treatments with maximal fate provided in the ED [facility] * Continue supportive care with DuoNeb * Oxygen support as needed, wean as able to maintain oxygen saturation greater than 92% * Solu-Medrol 125 mg 3 times daily (2) RSV (acute bronchiolitis due to respiratory syncytial virus): Plan: * As above, continue supportive care (3) HTN (hypertension): Plan: * BP intermittently elevated in the ED however given the patient's current asthma/COPD exacerbation, we will attempt to minimize beta-blockers * Hold home atenolol * Consider as needed hydralazine for blood pressure greater than 170 systolic Qualifiers: Hypertension type: primary hypertension Qualified Code(s): I10 - Essential (primary) hypertension (4) GERD (gastroesophageal reflux disease): Plan: * Stable * Cont PPI Qualifiers: Esophagitis presence: without esophagitis Qualified Code(s): K21.9 - Gastro-esophageal reflux disease without esophagitis (5) HLD (hyperlipidemia): Plan: * Stable * Cont statin Qualifiers: Hyperlipidemia type: mixed hyperlipidemia Qualified Code(s): E78.2 - Mixed hyperlipidemia Lab Results Lab results reviewed: Yes 08/08/24 08:35 08/08/24 08:17 Diagnostic Imaging Results Diagnostic Imaging Results: positive Final report reviewed EKG Results EKG Interpreted Independently: Yes
[2024-08-08] MEDS: IPRATROPIUM/ALBUTEROL 3 ML NEB INH PRN (21:45)
[2024-08-08] MEDS: hydrOXYzine PAMOATE 25 MG CAPSULE PO PRN (21:48)
[2024-08-08] MEDS: ATORVASTATIN 10 MG TABLET PO SCH (21:48)
[2024-08-08] MEDS: methylPREDNISolone SUCCINATE 125 MG/2 ML VIAL IVP SCH (21:50)
[2024-08-08] MEDS: INSULIN GLARGINE-YFGN 300 UNIT/3 ML PEN SUBQ SCH (21:51)
[2024-08-08] MEDS: hydrALAZINE INJ 20 MG/ML VIAL IVP PRN (23:55)
[2024-08-09] MEDS: LORazepam 2 MG/ML VIAL IVP ONE (00:49)
[2024-08-09] MEDS: SODIUM CHLORIDE FLUSH 0.9% 10 ML SYRINGE IVP PRN (04:24)
[2024-08-09] MEDS: FUROSEMIDE 40 MG/4 ML VIAL IVP SCH ×2 (05:00→14:48)
[2024-08-09] MEDS: guaiFENesin 600 MG TABLET PO PRN (05:04)
[2024-08-09] MEDS: INSULIN LISPRO 300 UNIT/3 ML PEN SUBQ STA (05:05)
[2024-08-09] MEDS: LABETALOL 20 MG/4 ML SYRINGE IVP STA (07:11)
[2024-08-09] MEDS ORDERED: INSULIN LISPRO 300 UNIT/3 ML PEN SUBQ SCH (08:00)
[2024-08-09] MEDS: INSULIN LISPRO 300 UNIT/3 ML PEN SUBQ SCH (08:11)
[2024-08-09] MEDS: CHOLECALCIFEROL 5,000 UNIT CAPSULE PO SCH (08:13)
[2024-08-09 08:14] LABS: BASOPHILS % (AUTO) 0.3 %; EOSINOPHILS % (AUTO) 0.3 %; HCT - HEMATOCRIT 41.7 % (37.0-47.0); HGB - HEMOGLOBIN 14.5 g/dL (12.0-16.0); LYMPHOCYTES # (AUTO) 0.7 10^3/uL (1.5-3.5); LYMPHOCYTES % (AUTO) 6.1 %; MEAN CORPUSCULAR HEMOGLOBIN 27.5 pg (27.0-31.0); MEAN CORPUSCULAR HGB CONC 34.8 g/dL (32.0-36.0); MEAN PLATELET VOLUME 9.2 fL (7.9-10.8); MONOCYTES # (AUTO) 1.4 10^3/uL (0.0-1.0); MONOCYTES % (AUTO) 11.6 %; NEUTROPHILS # (AUTO) 9.6 10^3/uL (1.5-6.6); NEUTROPHILS % (AUTO) 80.4 %; PLT - PLATELET COUNT 446 10^3/uL (130-450); RED BLOOD COUNT 5.28 10^6/uL (4.20-5.40); RED CELL DISTRIBUTION WIDTH 13.1 % (12.0-15.0)
[2024-08-09] MEDS: MONTELUKAST 10 MG TABLET PO SCH (08:14)
[2024-08-09] MEDS: hydroCHLOROthiazide 25 MG TABLET PO SCH (08:14)
[2024-08-09] MEDS: lisinopriL 20 MG TABLET PO SCH (08:14)
[2024-08-09] MEDS: LEVOTHYROXINE 100 MCG TABLET PO SCH (08:14)
[2024-08-09] MEDS: PANTOPRAZOLE 40 MG TABLET PO SCH (08:14)
[2024-08-09 08:50] LABS: CALCIUM 9.2 mg/dL (8.5-10.3); CREATININE 0.9 mg/dL (0.6-1.3); POTASSIUM 3.3 mmol/L (3.5-4.5)
--- NOTE | 2024-08-09 09:27 | PHARMACY PROGRESS NOTE ---
Best Possible Medication History Admit Date and Time: 08/08/24 [id number] Home Medications Medication Instructions Recorded Confirmed Type levothyroxine 100 mcg tablet 100 mcg ORAL DAILY 02/11/16 08/08/24 History montelukast 10 mg tablet 10 mg ORAL DAILY 02/11/16 08/08/24 History lisinopril 40 mg tablet 40 mg PO DAILY #30 tabs 04/09/19 08/08/24 Rx pantoprazole 40 mg tablet,delayed 40 mg PO DAILY 30 days #30 tabs 12/14/21 08/08/24 Rx release nebulizers (Aeroneb Go Nebulizer) 01/15/22 08/08/24 History cholecalciferol (vitamin D3) 125 5,000 unit PO DAILY 04/21/22 08/08/24 History mcg (5,000 unit) capsule magnesium glycinate-mag oxide 3 cap PO DAILY 04/21/22 08/08/24 History acetaminophen 300 mg-codeine 30 mg 1 tab PO Q8HR PRN Pain 1-4 01/26/23 08/08/24 History tablet atorvastatin 20 mg tablet 20 mg PO QPM 07/18/23 08/08/24 History ipratropium bromide 0.02 % 0.5 mg (2.5 mL) inhalation QID 10 08/05/23 08/08/24 Rx solution for inhalation days #100 mL levalbuterol tartrate 45 2 puff IH QID #15 grams 08/05/23 08/08/24 Rx mcg/actuation aerosol inhaler prednisone 20 mg tablet 40 mg (2 x 20 mg) PO DAILY #10 tabs 12/23/23 08/08/24 Rx atenolol 50 mg tablet 50 mg PO BID 08/08/24 08/08/24 History fluoxetine 20 mg capsule 20 mg PO DAILY 08/08/24 08/08/24 History hydrochlorothiazide 50 mg tablet 50 mg PO DAILY 08/08/24 08/08/24 History insulin lispro 100 unit/mL 1 - 8 unit subcut .TIDAC 08/08/24 08/08/24 History subcutaneous pen (Humalog KwikPen (U-100) Insulin) semaglutide 2 mg/dose (8 mg/3 mL) 2 mg subcut .WEEKLY 08/08/24 08/08/24 History subcutaneous pen injector (Ozempic) umeclidinium 62.5 mcg-vilanterol 1 inh inhalation BID 08/08/24 08/08/24 History 25 mcg/actuation powdr for inhalation (Anoro Ellipta) Processed by: Pharmacy Medications reviewed in ED?: No Medication History completed: Yes Patient Interview: Pt unable to participate Secondary Source(s): Pharmacy records and Insurance records [facility] Statement: Per [employer] insurance records and PhT fax to [facility] [place], [place]. As the person ultimately responsible for medication therapy, providers are able to order a medication from an existing home medication list in [facility] via the "Reconcile Routine" prior to Confirmation of that medication by technical support agent. Such practice is discouraged except when the physician, in their clinical judgment, deems that a medical need exists for a medication without regard to previous use.
--- NOTE | 2024-08-09 09:33 | PROVIDER PROGRESS NOTE ---
Assessment/Plan Problem List (1) Acute exacerbation of chronic obstructive pulmonary disease: Assessment/Plan: * Patient with history of COPD/asthma presenting with acute exacerbation in the setting of positive RSV * Patient admitted hypoxic on 3 L, tachypneic, worsening overnight * Has developed pulmonary edema, despite Lasix given earlier (40 mg IV x 1) patient has continued to demonstrate decline * Will transfer patient to ICU * Start BiPAP * Check ABG * Continue Lasix * Continue DuoNebs (2) RSV (acute bronchiolitis due to respiratory syncytial virus): Assessment/Plan: * As above, continue supportive care (3) HTN (hypertension): Qualifiers: Hypertension type: primary hypertension Qualified Code(s): I10 - Essential (primary) hypertension Assessment/Plan: * BP elevated in the setting of respiratory distress * Continue home medications, reevaluate blood pressure status post administration of IV Lasix (4) GERD (gastroesophageal reflux disease): Qualifiers: Esophagitis presence: without esophagitis Qualified Code(s): K21.9 - Gastro-esophageal reflux disease without esophagitis Assessment/Plan: * Stable * Cont PPI (5) HLD (hyperlipidemia): Qualifiers: Hyperlipidemia type: mixed hyperlipidemia Qualified Code(s): E78.2 - Mixed hyperlipidemia Assessment/Plan: * Stable * Cont statin Current Meds Current Meds: Current Medications Generic Name Dose Route Start Last Admin Trade Name Freq PRN Reason Stop Dose Admin Acetaminophen 650 mg 08/08/24 15:45 Acetaminophen 325 Mg Tablet PO Q4HR PRN Pain 1 to 4, or Fever Hydrocodone Bitart/Acetaminophen 1 tab 08/08/24 15:45 Hydrocod/Acetam 5/325 Mg Tablet PO Q4HR PRN Pain 5 to 7 Albuterol/Ipratropium 3 ml 08/08/24 21:14 08/09/24 08:45 Ipratropium/Albuterol 3 Ml Neb INH 3 ml Q4HR PRN Administration Wheezing Atorvastatin Calcium 20 mg 08/08/24 21:00 08/08/24 21:48 Atorvastatin 10 Mg Tablet PO 20 mg QPM ENMANUEL Administration Cholecalciferol 5,000 unit 08/09/24 09:00 08/09/24 08:13 Cholecalciferol 5,000 Unit Capsule PO 5,000 unit DAILY ENMANUEL Administration Furosemide 40 mg 08/09/24 14:00 Furosemide 40 Mg/4 Ml Vial IVP BIDDIURETIC ENMANUEL Guaifenesin 600 mg 08/09/24 04:47 08/09/24 05:04 Guaifenesin 600 Mg Tablet PO 600 mg BID PRN Administration Cough Hydralazine HCl 10 mg 08/09/24 04:30 Hydralazine Inj 20 Mg/Ml Vial IVP Q6H PRN Hypertensive Emergency Hydrochlorothiazide 25 mg 08/09/24 09:00 08/09/24 08:14 Hydrochlorothiazide 25 Mg Tablet PO 25 mg DAILY ENMANUEL Administration Hydroxyzine Pamoate 50 mg 08/08/24 21:13 08/08/24 21:48 Hydroxyzine Pamoate 25 Mg Capsule PO 50 mg QPM PRN Administration Insomnia Insulin Glargine-yfgn 10 unit 08/08/24 21:00 08/08/24 21:51 Insulin Glargine-Yfgn 300 Unit/3 Ml Pen SUBQ 10 unit QPM ENMANUEL Administration Insulin Human Lispro 2 - 10 unit 08/09/24 08:00 08/09/24 08:11 Insulin Lispro 300 Unit/3 Ml Pen SUBQ 8 unit 0800,1200,1700,2100 ENMANUEL Administration Protocol Levothyroxine Sodium 100 mcg 08/09/24 09:00 08/09/24 08:14 Levothyroxine 100 Mcg Tablet PO 100 mcg DAILY ENMANUEL Administration Lisinopril 40 mg 08/09/24 09:00 08/09/24 08:14 Lisinopril 20 Mg Tablet PO 40 mg DAILY ENMANUEL Administration Methylprednisolone Sodium Succinate 125 mg 08/08/24 22:00 08/09/24 05:24 Methylprednisolone Succinate 125 Mg/2 Ml Vial IVP Not Given TID ENMANUEL Montelukast Sodium 10 mg 08/09/24 09:00 08/09/24 08:14 Montelukast 10 Mg Tablet PO 10 mg DAILY ENMANUEL Administration Ondansetron HCl 4 mg 08/08/24 15:45 Ondansetron Odt 4 Mg Tablet TL Q6HR PRN Nausea / Vomiting Pantoprazole Sodium 40 mg 08/09/24 09:00 08/09/24 08:14 Pantoprazole 40 Mg Tablet PO 40 mg DAILY ENMANUEL Administration Potassium Chloride 20 meq 08/09/24 17:00 Potassium Chloride 20 Meq Tablet PO BIDWM ENMANUEL Sodium Chloride 10 ml 08/08/24 15:45 08/09/24 04:24 Sodium Chloride Flush 0.9% 10 Ml Syringe IVP 10 ml PRN PRN Administration NEEDED PER PROVIDER ORDERS Sodium Chloride 10 ml 08/08/24 17:00 08/09/24 08:14 Sodium Chloride Flush 0.9% 10 Ml Syringe IVP 10 ml 0100,0900,1700 ENMANUEL Administration Lab Result Lab results reviewed: Yes 08/09/24 07:54 08/09/24 07:54 Diagnostic Imaging Results Diagnostic Imaging Results Comments: Chest x-ray pending Additional Planning Condition/Complexity: Guarded My Orders: My Active Orders 08/08/24 15:45 Activity Orders [RC] Q2HR IO [RC] IOSHIFT Initiate Bowel Care Protocol [RC] .protocol Initiate Bronchodialator Gurwinder [RC] .PROTOCOL Initiate Line Care Protocol [RC] QSHIFT Initiate Personal Care Protoco [RC] .protocol Oxygen Therapy [RC] .PRN Telemetry (24 Hour) [RC] Q4HR Code Status Routine Acetaminophen [Tylenol] 650 mg PO Q4HR PRN HYDROcod/ACETAM 5/325 [[place] 5/325] 1 tab PO Q4HR PRN Ondansetron Odt [Zofran Odt] 4 mg TL Q6HR PRN Sodium Chloride Flush 0.9% [Normal Saline Flush 0.9%] 10 ml IVP PRN PRN Condition of Patient [OTHERS] Routine DVT Prophylaxis [OTHERS] Routine 08/08/24 15:46 SCDs [RC] QSHIFT 08/08/24 15:48 Blood Glucose Checks - Eating [RC] 0800,1200,1700,2100 Initiate Hypoglycemia Protocol [RC] .protocol 08/08/24 Dinner Carb-controlled Diet [DIET] 08/08/24 17:00 Sodium Chloride Flush 0.9% [Normal Saline Flush 0.9%] 10 ml IVP 0100,0900,1700 08/08/24 21:00 Atorvastatin [Lipitor] 20 mg PO QPM Insulin Glargine-Yfgn [Semglee] 10 unit SUBQ QPM 08/08/24 22:00 methylPREDNISolone SUCCINATE [SOLU-Medrol (125MG VIAL)] 125 mg IVP TID 08/09/24 ABG - ARTERIAL BLOOD GAS [BG] Stat 08/09/24 08:00 Insulin Lispro [Humalog Kwikpen U-100] 2 - 10 unit SUBQ 0800,1200,1700,2100 08/09/24 08:58 BIPAP [BIPAP/CPAP - RT] [RC] Q2H 08/09/24 09:00 Cholecalciferol [Vitamin D3] 5,000 unit PO DAILY Levothyroxine [Synthroid] 100 mcg PO DAILY Montelukast [Singulair] 10 mg PO DAILY Pantoprazole [Protonix] 40 mg PO DAILY hydroCHLOROthiazide [Hydrodiuril] 25 mg PO DAILY lisinopriL [Zestril] 40 mg PO DAILY 08/09/24 09:32 RT - Obtain Arterial Specimen [RC] .ONCE 08/09/24 14:00 FUROSEMIDE INJ 40mg VIAL [LASIX INJ 40 mg VIAL] 40 mg IVP BIDDIURETIC 08/09/24 17:00 Potassium Chloride [K-Dur] 20 meq PO BIDWM 08/10/24 05:00 BMP - BASIC METABOLIC PANEL [CHEM] DAILYLAB CBC W/O DIFF (HEMOGRAM) [HEME] DAILYLAB 08/11/24 05:00 BMP - BASIC METABOLIC PANEL [CHEM] DAILYLAB CBC W/O DIFF (HEMOGRAM) [HEME] DAILYLAB 08/12/24 05:00 BMP - BASIC METABOLIC PANEL [CHEM] DAILYLAB CBC W/O DIFF (HEMOGRAM) [HEME] DAILYLAB Time Spent: 31-60 minutes Subjective Subjective Patient Reports: Shortness of Breath Objective Vital Signs: Vital Signs - 24 hr 08/08/24 10:00 08/08/24 10:30 08/08/24 11:00 Temperature Temperature Source Pulse Rate 99 112 H 117 H Pulse Rate [Brachial] Respiratory Rate 16 23 21 Blood Pressure 123/57 L 125/95 H 129/70 Blood Pressure [Right Brachial artery] O2 Saturation 96 98 87 L O2 Source Room air Room air Room air If not protocol: Oxygen Flow, liters/minute 2 FiO2 (%) Sedation scale Pain Intensity Pain Intensity [Generalized] 08/08/24 12:00 08/08/24 13:17 08/08/24 14:00 Temperature 36.7 C Temperature Source Temporal Artery Scan Pulse Rate 122 H 100 Pulse Rate [Brachial] 109 H Respiratory Rate 22 22 20 Blood Pressure 146/99 H Blood Pressure [Right Brachial artery] 169/88 H O2 Saturation 94 97 O2 Source Nasal cannula Nasal cannula If not protocol: Oxygen Flow, liters/minute 2 FiO2 (%) 2 Sedation scale 0-Fully awake Pain Intensity Pain Intensity [Generalized] 08/08/24 15:26 08/08/24 20:46 08/08/24 21:45 Temperature 36.6 C 36.8 C Temperature Source Temporal Artery Scan Temporal Artery Scan Pulse Rate 89 Pulse Rate [Brachial] 91 96 Respiratory Rate 20 20 18 Blood Pressure Blood Pressure [Right Brachial artery] 157/77 H 156/87 H O2 Saturation 97 97 O2 Source Nasal cannula Nasal cannula Nasal cannula If not protocol: Oxygen Flow, liters/minute 2 2 2 FiO2 (%) Sedation scale 0-Fully awake 0-Fully awake Pain Intensity 0 0 Pain Intensity [Generalized] 08/08/24 21:45 08/08/24 23:28 08/08/24 23:40 Temperature 36.7 C Temperature Source Skin Pulse Rate Pulse Rate [Brachial] 113 H Respiratory Rate 22 Blood Pressure Blood Pressure [Right Brachial artery] 209/106 H O2 Saturation 98 O2 Source Nasal cannula If not protocol: Oxygen Flow, liters/minute 2 2 FiO2 (%) Sedation scale 0-Fully awake Pain Intensity Pain Intensity [Generalized] 0 08/09/24 00:50 08/09/24 01:00 08/09/24 04:00 Temperature Temperature Source Pulse Rate Pulse Rate [Brachial] 105 H Respiratory Rate 24 Blood Pressure 168/58 H Blood Pressure [Right Brachial artery] 162/88 H O2 Saturation O2 Source Nasal cannula If not protocol: Oxygen Flow, liters/minute FiO2 (%) Sedation scale 0-Fully awake Pain Intensity 0 Pain Intensity [Generalized] 0 08/09/24 04:11 08/09/24 04:23 08/09/24 04:40 Temperature 36.7 C Temperature Source Temporal Artery Scan Pulse Rate Pulse Rate [Brachial] 119 H Respiratory Rate 28 H 24 Blood Pressure 172/118 H Blood Pressure [Right Brachial artery] 172/118 H O2 Saturation 94 97 O2 Source Nasal cannula Oxymask If not protocol: Oxygen Flow, liters/minute 2 6 FiO2 (%) Sedation scale 1-Arouses easily Pain Intensity 0 Pain Intensity [Generalized] 08/09/24 05:11 08/09/24 05:11 08/09/24 05:58 Temperature Temperature Source Pulse Rate Pulse Rate [Brachial] 120 H 136 H Respiratory Rate 24 Blood Pressure 172/83 H Blood Pressure [Right Brachial artery] 172/83 H 174/101 H O2 Saturation 98 O2 Source Oxymask If not protocol: Oxygen Flow, liters/minute 6 FiO2 (%) Sedation scale 0-Fully awake Pain Intensity Pain Intensity [Generalized] 08/09/24 06:50 08/09/24 07:21 08/09/24 07:22 Temperature 36.2 C L Temperature Source Temporal Artery Scan Pulse Rate Pulse Rate [Brachial] 127 H 126 H 114 H Respiratory Rate 24 24 Blood Pressure Blood Pressure [Right Brachial artery] 192/124 H 194/102 H 137/70 H O2 Saturation O2 Source Oxymask Oxymask If not protocol: Oxygen Flow, liters/minute FiO2 (%) Sedation scale 0-Fully awake 1-Arouses easily 2-Arouses with tactile Pain Intensity 0 0 Pain Intensity [Generalized] 08/09/24 08:14 08/09/24 08:46 Temperature 36.3 C L Temperature Source Temporal Artery Scan Pulse Rate 94 Pulse Rate [Brachial] 103 H Respiratory Rate 22 24 Blood Pressure Blood Pressure [Right Brachial artery] 162/85 H O2 Saturation O2 Source Oxymask Oxymask If not protocol: Oxygen Flow, liters/minute 7 FiO2 (%) Sedation scale 1-Arouses easily Pain Intensity Pain Intensity [Generalized] Oxygen O2 Source Oxymask I&O (Last 24 Hrs): Intake and Output Totals x24h 08/07/24 08/08/24 08/09/24 23:59 23:59 23:59 Intake Total 400 / 400 Output Total 600 / 600 1050 / 1050 Balance -200 / -200 -1050 / -1050 General: Alert and Other (Lethargic) HEENT: Atraumatic and EOMI Neuro: Alert, Non Focal and CN 2-12 Grossly Intact Cardiovascular: Normal S1, Normal S2, No murmurs and Other (Tachycardia) Respiratory: Wheezes, Rales, Rhonchi and Other (Tachypnea) Abdomen: Normal bowel sounds, Soft, No tenderness and No masses Extremities: No clubbing, No cyanosis and No edema Results Results: Laboratory Results WBC 12.0 x10^3/uL (4.8-10.8) H 08/09/24 07:54 RBC 5.28 10^6/uL (4.20-5.40) 08/09/24 07:54 Hgb 14.5 g/dL (12.0-16.0) 08/09/24 07:54 Hct 41.7 % (37.0-47.0) 08/09/24 07:54 MCV 79.0 fL (81.0-99.0) L 08/09/24 07:54 MCH 27.5 pg (27.0-31.0) 08/09/24 07:54 MCHC 34.8 g/dL (32.0-36.0) 08/09/24 07:54 RDW 13.1 % (12.0-15.0) 08/09/24 07:54 Plt Count 446 10^3/uL (130-450) 08/09/24 07:54 MPV 9.2 fL (7.9-10.8) 08/09/24 07:54 Neut # (Auto) 9.6 10^3/uL (1.5-6.6) H 08/09/24 07:54 Lymph # (Auto) 0.7 10^3/uL (1.5-3.5) L 08/09/24 07:54 [place] # (Auto) 1.4 10^3/uL (0.0-1.0) H 08/09/24 07:54 Eos # (Auto) 0.0 10^3/uL (0.0-0.7) 08/09/24 07:54 Baso # (Auto) 0.0 10^3/uL (0.0-0.1) 08/09/24 07:54 Absolute Nucleated RBC 0.00 x10^3/uL 08/09/24 07:54 Nucleated RBC % 0.0 /100WBC 08/09/24 07:54 Sodium 123 mmol/L (135-145) L 08/09/24 07:54 Potassium 3.3 mmol/L (3.5-4.5) L 08/09/24 07:54 Chloride 79 mmol/L (101-111) L* 08/09/24 07:54 Carbon Dioxide 32 mmol/L (21-32) 08/09/24 07:54 Anion Gap 12.0 (6-13) 08/09/24 07:54 BUN 26 mg/dL (6-20) H 08/09/24 07:54 Creatinine 0.9 mg/dL (0.6-1.3) 08/09/24 07:54 Estimated GFR (MDRD) 60 (>89) L 08/09/24 07:54 Glucose 298 mg/dL (74-104) H 08/09/24 07:54 POC Whole Bld Glucose 300 mg/dL (70-100) 08/09/24 07:58 Calcium 9.2 mg/dL (8.5-10.3) 08/09/24 07:54 Total Bilirubin 0.9 mg/dL (0.2-1.0) 08/08/24 08:17 AST 22 IU/L (10-42) 08/08/24 08:17 ALT 16 IU/L (10-60) 08/08/24 08:17 Alkaline Phosphatase 85 IU/L (42-121) 08/08/24 08:17 B-Natriuretic Peptide 508 pg/mL (5-100) H 08/08/24 08:35 Total Protein 6.9 g/dL (6.4-8.9) 08/08/24 08:17 Albumin 4.8 g/dL (3.2-5.5) 08/08/24 08:17 Globulin 2.1 g/dL (2.1-4.2) 08/08/24 08:17 Albumin/Globulin Ratio 2.3 (1.0-2.2) H 08/08/24 08:17 Lipase 10 U/L (11-82) L 08/08/24 08:17 Nasal Adenovirus (PCR) NOT DETECTED 08/08/24 09:10 Nasal B. parapertussis DNA (PCR) NOT DETECTED 08/08/24 09:10 Nasal Coronavir 229E PCR NOT DETECTED 08/08/24 09:10 Nasal Coronavir HKU1 PCR NOT DETECTED 08/08/24 09:10 Nasal Coronavir NL63 PCR NOT DETECTED 08/08/24 09:10 Nasal Coronavir OC43 PCR NOT DETECTED 08/08/24 09:10 Nasal Enterovir/Rhinovir PCR NOT DETECTED 08/08/24 09:10 Nasal Influenza B PCR NOT DETECTED 08/08/24 09:10 Nasal Influenza A PCR NOT DETECTED 08/08/24 09:10 Nasal Parainfluen 1 PCR NOT DETECTED 08/08/24 09:10 Nasal Parainfluen 2 PCR NOT DETECTED 08/08/24 09:10 Nasal Parainfluen 3 PCR NOT DETECTED 08/08/24 09:10 Nasal Parainfluen 4 PCR NOT DETECTED 08/08/24 09:10 Nasal RSV (PCR) DETECTED A 08/08/24 09:10 Nasal B.pertussis DNA PCR NOT DETECTED 08/08/24 09:10 Nasal C.pneumoniae (PCR) NOT DETECTED 08/08/24 09:10 Wilfredo Human Metapneumo PCR NOT DETECTED 08/08/24 09:10 Nasal M.pneumoniae (PCR) NOT DETECTED 08/08/24 09:10 Nasal SARS-CoV-2 (PCR) NOT DETECTED 08/08/24 09:10 Procedures Procedures: Procedures Destruction of Cecum, Via Natural or Artificial Opening Endoscopic (04/20/22) Inspection of Upper Intestinal Tract, Via Natural or Artificial Opening Endoscopic (04/20/22) ABX Reporting Has patient been on IV antibiotics over the past 48 hours?: No Current Medications Current Medications Current Medications: Current Medications Generic Name Dose Route Start Last Admin Trade Name Freq PRN Reason Stop Dose Admin Acetaminophen 650 mg 08/08/24 15:45 Acetaminophen 325 Mg Tablet PO Q4HR PRN Pain 1 to 4, or Fever Hydrocodone Bitart/Acetaminophen 1 tab 08/08/24 15:45 Hydrocod/Acetam 5/325 Mg Tablet PO Q4HR PRN Pain 5 to 7 Albuterol/Ipratropium 3 ml 08/08/24 21:14 08/09/24 08:45 Ipratropium/Albuterol 3 Ml Neb INH 3 ml Q4HR PRN Administration Wheezing Atorvastatin Calcium 20 mg 08/08/24 21:00 08/08/24 21:48 Atorvastatin 10 Mg Tablet PO 20 mg QPM ENMANUEL Administration Cholecalciferol 5,000 unit 08/09/24 09:00 08/09/24 08:13 Cholecalciferol 5,000 Unit Capsule PO 5,000 unit DAILY ENMANUEL Administration Furosemide 40 mg 08/09/24 14:00 Furosemide 40 Mg/4 Ml Vial IVP BIDDIURETIC ENMANUEL Guaifenesin 600 mg 08/09/24 04:47 08/09/24 05:04 Guaifenesin 600 Mg Tablet PO 600 mg BID PRN Administration Cough Hydralazine HCl 10 mg 08/09/24 04:30 Hydralazine Inj 20 Mg/Ml Vial IVP Q6H PRN Hypertensive Emergency Hydrochlorothiazide 25 mg 08/09/24 09:00 08/09/24 08:14 Hydrochlorothiazide 25 Mg Tablet PO 25 mg DAILY ENMANUEL Administration Hydroxyzine Pamoate 50 mg 08/08/24 21:13 08/08/24 21:48 Hydroxyzine Pamoate 25 Mg Capsule PO 50 mg QPM PRN Administration Insomnia Insulin Glargine-yfgn 10 unit 08/08/24 21:00 08/08/24 21:51 Insulin Glargine-Yfgn 300 Unit/3 Ml Pen SUBQ 10 unit QPM ENMANUEL Administration Insulin Human Lispro 2 - 10 unit 08/09/24 08:00 08/09/24 08:11 Insulin Lispro 300 Unit/3 Ml Pen SUBQ 8 unit 0800,1200,1700,2100 ENMANUEL Administration Protocol Levothyroxine Sodium 100 mcg 08/09/24 09:00 08/09/24 08:14 Levothyroxine 100 Mcg Tablet PO 100 mcg DAILY ENMANUEL Administration Lisinopril 40 mg 08/09/24 09:00 08/09/24 08:14 Lisinopril 20 Mg Tablet PO 40 mg DAILY ENMANUEL Administration Methylprednisolone Sodium Succinate 125 mg 08/08/24 22:00 08/09/24 05:24 Methylprednisolone Succinate 125 Mg/2 Ml Vial IVP Not Given TID ENMANUEL Montelukast Sodium 10 mg 08/09/24 09:00 08/09/24 08:14 Montelukast 10 Mg Tablet PO 10 mg DAILY ENMANUEL Administration Ondansetron HCl 4 mg 08/08/24 15:45 Ondansetron Odt 4 Mg Tablet TL Q6HR PRN Nausea / Vomiting Pantoprazole Sodium 40 mg 08/09/24 09:00 08/09/24 08:14 Pantoprazole 40 Mg Tablet PO 40 mg DAILY ENMANUEL Administration Potassium Chloride 20 meq 08/09/24 17:00 Potassium Chloride 20 Meq Tablet PO BIDWM ENMANUEL Sodium Chloride 10 ml 08/08/24 15:45 08/09/24 04:24 Sodium Chloride Flush 0.9% 10 Ml Syringe IVP 10 ml PRN PRN Administration NEEDED PER PROVIDER ORDERS Sodium Chloride 10 ml 08/08/24 17:00 08/09/24 08:14 Sodium Chloride Flush 0.9% 10 Ml Syringe IVP 10 ml 0100,0900,1700 ENMANUEL Administration
[2024-08-09] MEDS: hydrALAZINE INJ 20 MG/ML VIAL IVP PRN (09:48)
[2024-08-09 10:13] LABS: ABG BASE EXCESS 9.7 mmol/L (-2.0-3.0); ABG OXYGEN SATURATION 100 % (95-98); ABG PCO2 57 mmHg (34-45); ABG PH 7.39 (7.35-7.45); ABG PO2 224 mmHg (83-108); ABG TCO2 36.6 mmol/L (21.0-29.0); ALLEN TEST POSITIVE
[2024-08-09 10:14] LABS: ABG MODE OF VENTILATION SYNCHRONOUS/TIMES; ABG RESPIRATORY RATE 12 b/min
[2024-08-09] MEDS: DEXAMETHASONE 10 MG/ML VIAL IVP SCH (14:57)
[2024-08-09] MEDS: DEXAMETHASONE 20 MG/5 ML VIAL IVP SCH (15:51)
[2024-08-09] MEDS: POTASSIUM CHLORIDE 20 MEQ TABLET PO SCH (17:52)
[2024-08-09] MEDS: KETOROLAC 15 MG/ML VIAL IVP PRN (17:53)
[2024-08-09] MEDS: POTASSIUM CHLOR 10 MEQ/100 ML 10 MEQ/100 ML BAG IV SCH (18:39)
[2024-08-09] MEDS: LORazepam 2 MG/ML VIAL IVP PRN (19:29)
[2024-08-09] MEDS: LABETALOL 20 MG/4 ML SYRINGE IVP PRN (22:32)
[2024-08-10 04:59] LABS: HCT - HEMATOCRIT 43.3 % (37.0-47.0); HGB - HEMOGLOBIN 14.8 g/dL (12.0-16.0); MEAN CORPUSCULAR HEMOGLOBIN 27.6 pg (27.0-31.0); MEAN CORPUSCULAR HGB CONC 34.2 g/dL (32.0-36.0); MEAN CORPUSCULAR VOLUME 80.8 fL (81.0-99.0); MEAN PLATELET VOLUME 8.9 fL (7.9-10.8); RED BLOOD COUNT 5.36 10^6/uL (4.20-5.40); RED CELL DISTRIBUTION WIDTH 13.2 % (12.0-15.0); WHITE BLOOD COUNT 12.9 x10^3/uL (4.8-10.8)
[2024-08-10 05:10] LABS: CALCIUM, IONIZED 1.12 mmol/L (1.09-1.30)
[2024-08-10 05:11] LABS: MAGNESIUM 2.1 mg/dL (1.7-2.3)
[2024-08-10 05:16] LABS: CALCIUM 9.3 mg/dL (8.5-10.3); POTASSIUM 3.7 mmol/L (3.5-4.5)
[2024-08-10 05:58] LABS: ABG PH 7.37 (7.35-7.45)
[2024-08-10 05:59] LABS: ABG OXYGEN SATURATION 99 % (95-98); ABG PO2 122 mmHg (83-108); ABG TCO2 37.5 mmol/L (21.0-29.0)
[2024-08-10 06:00] LABS: ABG RESPIRATORY RATE 12 b/min; ALLEN TEST POSITIVE
[2024-08-10] MEDS: POTASSIUM CHLOR 10 MEQ/100 ML 10 MEQ/100 ML BAG IV SCH ×2 (06:15→19:05)
[2024-08-10] MEDS ORDERED: MORPHINE 10 MG/ML VIAL IVP PRN (07:45)
[2024-08-10] MEDS: DEXMEDETOMIDINE 400 MCG/100 ML 100 ML IV PRN (08:28)
[2024-08-10] MEDS: clonazePAM 0.5 MG TABLET PO STA (09:12)
--- NOTE | 2024-08-10 09:47 | PROVIDER PROGRESS NOTE ---
Subjective Prog Note Date Prog Note Date: 08/10/24 Prog Note Time: 09:42 Subjective Pt reports feeling: Improved Current Medications Current Medications Current Medications: Current Medications Generic Name Dose Route Start Last Admin Trade Name Marsha PRN Reason Stop Dose Admin Acetaminophen 650 mg 08/08/24 15:45 Acetaminophen 325 Mg Tablet PO Q4HR PRN Pain 1 to 4, or Fever Hydrocodone Bitart/Acetaminophen 1 tab 08/08/24 15:45 Hydrocod/Acetam 5/325 Mg Tablet PO Q4HR PRN Pain 5 to 7 Albuterol/Ipratropium 3 ml 08/08/24 21:14 08/09/24 08:45 Ipratropium/Albuterol 3 Ml Neb INH 3 ml Q4HR PRN Administration Wheezing Atorvastatin Calcium 20 mg 08/08/24 21:00 08/09/24 21:21 Atorvastatin 10 Mg Tablet PO Not Given QPM ENMANUEL Cholecalciferol 5,000 unit 08/09/24 09:00 08/10/24 08:27 Cholecalciferol 5,000 Unit Capsule PO 5,000 unit DAILY ENMANUEL Administration Dexamethasone Sodium Phosphate 10 mg 08/09/24 14:50 08/10/24 08:43 Dexamethasone 10 Mg/Ml Vial IVP 10 mg DAILY ENMANUEL Administration Furosemide 40 mg 08/09/24 14:00 08/10/24 05:23 Furosemide 40 Mg/4 Ml Vial IVP 40 mg BIDDIURETIC ENMANUEL Administration Guaifenesin 600 mg 08/09/24 04:47 08/09/24 05:04 Guaifenesin 600 Mg Tablet PO 600 mg BID PRN Administration Cough Hydralazine HCl 10 mg 08/09/24 04:30 08/09/24 09:48 Hydralazine Inj 20 Mg/Ml Vial IVP 10 mg Q6H PRN Administration Hypertensive Emergency Hydrochlorothiazide 25 mg 08/09/24 09:00 08/10/24 08:28 Hydrochlorothiazide 25 Mg Tablet PO 25 mg DAILY ENMANUEL Administration Hydroxyzine Pamoate 50 mg 08/08/24 21:13 08/08/24 21:48 Hydroxyzine Pamoate 25 Mg Capsule PO 50 mg QPM PRN Administration Insomnia Dexmedetomidine/Sodium Chloride 100 mls @ 3.75 mls/hr 08/10/24 08:18 08/10/24 08:39 Precedex Premix IV 0.4 mcg/kg/hr .[id number] PRN 7.5 mls/hr Agitation Titration Protocol 0.2 MCG/KG/HR Insulin Glargine-yfgn 10 unit 08/08/24 21:00 08/09/24 21:21 Insulin Glargine-Yfgn 300 Unit/3 Ml Pen SUBQ 10 unit QPM ENMANUEL Administration Insulin Human Lispro 2 - 10 unit 08/09/24 08:00 08/10/24 08:47 Insulin Lispro 300 Unit/3 Ml Pen SUBQ 4 unit 0800,1200,1700,2100 ENMANUEL Administration Protocol Labetalol HCl 10 mg 08/09/24 14:36 08/10/24 06:48 Labetalol 20 Mg/4 Ml Syringe IVP 10 mg Q4H PRN Administration Tachycardia Levothyroxine Sodium 100 mcg 08/09/24 09:00 08/10/24 08:28 Levothyroxine 100 Mcg Tablet PO 100 mcg DAILY ENMANUEL Administration Lisinopril 40 mg 08/09/24 09:00 08/10/24 08:28 Lisinopril 20 Mg Tablet PO 40 mg DAILY ENMANUEL Administration Lorazepam 0.5 mg 08/09/24 19:05 08/10/24 09:22 Lorazepam 2 Mg/Ml Vial IVP 0.5 mg Q2H PRN Administration Anxiety Montelukast Sodium 10 mg 08/09/24 09:00 08/10/24 08:27 Montelukast 10 Mg Tablet PO 10 mg DAILY ENMANUEL Administration Morphine Sulfate 2 mg 08/10/24 07:45 Morphine 10 Mg/Ml Vial IVP Q3HR PRN Shortness of Air/Wheezing Ondansetron HCl 4 mg 08/08/24 15:45 Ondansetron Odt 4 Mg Tablet TL Q6HR PRN Nausea / Vomiting Pantoprazole Sodium 40 mg 08/09/24 09:00 08/10/24 08:28 Pantoprazole 40 Mg Tablet PO 40 mg DAILY ENMANUEL Administration Potassium Chloride 20 meq 08/09/24 17:00 08/10/24 07:39 Potassium Chloride 20 Meq Tablet PO 20 meq BIDWM ENMANUEL Administration Sodium Chloride 10 ml 08/08/24 15:45 08/09/24 04:24 Sodium Chloride Flush 0.9% 10 Ml Syringe IVP 10 ml PRN PRN Administration NEEDED PER PROVIDER ORDERS Sodium Chloride 10 ml 08/08/24 17:00 08/10/24 08:33 Sodium Chloride Flush 0.9% 10 Ml Syringe IVP 10 ml 0100,0900,1700 ENMANUEL Administration Objective Vital Signs/Intake & Output Reviewed Vital Signs: Yes Vital Signs: Vital Signs x48h Temp Pulse Pulse Resp BP BP Pulse Ox 08/10/24 09:00 116 H 30 H 115/93 H 94 08/10/24 08:00 115 H 32 H 152/118 H 94 08/10/24 07:51 120 H 08/10/24 07:00 121 H 28 H 114/63 94 08/10/24 06:48 130 H 125/94 H 08/10/24 06:02 11 L 08/10/24 06:00 36.6 C 114 H 30 H 148/88 H 97 08/10/24 05:00 109 H 33 H 150/115 H 97 08/10/24 04:00 108 H 29 H 132/87 H 97 08/10/24 03:40 102 H 08/10/24 03:00 115 H 26 H 167/131 H 95 08/10/24 02:59 127 H 167/131 H 08/10/24 02:00 115 H 30 H 176/119 H 95 Intake & Output: Intake & Output 08/07/24 08/08/24 08/09/24 08/10/24 23:59 23:59 23:59 23:59 Intake Total 400 / 400 485 / 485 351 / 351 Output Total 600 / 600 1900 / 1900 400 / 400 Balance -200 / -200 -1415 / -1415 -49 / -49 Weight (kg) 75 kg Objective General Appearance: positive Anxious and Lethargic Respiratory: positive Other (Presenting with mild respiratory distress, abdominal breathing, on BiPAP, tachypneic with respiratory rates in the mid 20s to high 30s, Breath sounds with coarse crackles) Cardiovascular: positive Irregularly irregular and Tachycardia Abdomen: positive Non-tender, No organomegaly and No distention Skin: positive Color nml Extremities: positive No pedal edema Lab Results 08/10/24 04:51 08/10/24 04:51 Other Labs: Lab Results x24hrs 08/10/24 08/10/24 08/10/24 Range/Units 08:46 05:50 04:51 WBC 12.9 H (4.8-10.8) x10^3/uL RBC 5.36 (4.20-5.40) 10^6/uL Hgb 14.8 (12.0-16.0) g/dL Hct 43.3 (37.0-47.0) % MCV 80.8 L (81.0-99.0) fL MCH 27.6 (27.0-31.0) pg MCHC 34.2 (32.0-36.0) g/dL RDW 13.2 (12.0-15.0) % Plt Count 357 (130-450) 10^3/uL MPV 8.9 (7.9-10.8) fL Bld Gas Analysis Time 0553 Sample Site RIGHT RADIAL ABG pH 7.37 (7.35-7.45) ABG pCO2 62 H* (34-45) mmHg ABG pO2 122 H (83-108) mmHg ABG HCO3 35.6 H (22.0-26.0) mmol/L ABG Total CO2 37.5 H (21.0-29.0) mmol/L ABG O2 Saturation 99 H (95-98) % ABG Base Excess 10.0 H (-2.0-3.0) mmol/L Domenic Test POSITIVE VBG pH 7.384 (7.31-7.41) Ionized Calcium 1.12 (1.09-1.30) mmol/L Respiration Rate 12 b/min O2 Delivery Device BiPAP Vent Mode FiO2 30.00 EPAP 8 cmH2O IPAP 16 cmH2O Sodium 125 L (135-145) mmol/L Potassium 3.7 (3.5-4.5) mmol/L Chloride 81 L (101-111) mmol/L Carbon Dioxide 32 (21-32) mmol/L Anion Gap 12.0 (6-13) BUN 41 H (6-20) mg/dL Creatinine 1.0 (0.6-1.3) mg/dL Estimated GFR (MDRD) 53 L (>89) Glucose 210 H (74-104) mg/dL POC Whole Bld Glucose 217 (70-100) mg/dL Calcium 9.3 (8.5-10.3) mg/dL Phosphorus 5.0 (2.5-5.0) mg/dL Magnesium 2.1 (1.7-2.3) mg/dL Nasal Screen MRSA (PCR) (NEGATIVE) 08/09/24 08/09/24 08/09/24 Range/Units 21:01 18:03 16:30 WBC (4.8-10.8) x10^3/uL RBC (4.20-5.40) 10^6/uL Hgb (12.0-16.0) g/dL Hct (37.0-47.0) % MCV (81.0-99.0) fL MCH (27.0-31.0) pg MCHC (32.0-36.0) g/dL RDW (12.0-15.0) % Plt Count (130-450) 10^3/uL MPV (7.9-10.8) fL Bld Gas Analysis Time Sample Site ABG pH (7.35-7.45) ABG pCO2 (34-45) mmHg ABG pO2 (83-108) mmHg ABG HCO3 (22.0-26.0) mmol/L ABG Total CO2 (21.0-29.0) mmol/L ABG O2 Saturation (95-98) % ABG Base Excess (-2.0-3.0) mmol/L Domenic Test VBG pH (7.31-7.41) Ionized Calcium (1.09-1.30) mmol/L Respiration Rate b/min O2 Delivery Device Vent Mode FiO2 EPAP cmH2O IPAP cmH2O Sodium (135-145) mmol/L Potassium 2.7 L (3.5-4.5) mmol/L Chloride (101-111) mmol/L Carbon Dioxide (21-32) mmol/L Anion Gap (6-13) BUN (6-20) mg/dL Creatinine (0.6-1.3) mg/dL Estimated GFR (MDRD) (>89) Glucose (74-104) mg/dL POC Whole Bld Glucose 166 145 (70-100) mg/dL Calcium (8.5-10.3) mg/dL Phosphorus (2.5-5.0) mg/dL Magnesium (1.7-2.3) mg/dL Nasal Screen MRSA (PCR) (NEGATIVE) 08/09/24 08/09/24 08/09/24 Range/Units 11:20 10:01 09:30 WBC (4.8-10.8) x10^3/uL RBC (4.20-5.40) 10^6/uL Hgb (12.0-16.0) g/dL Hct (37.0-47.0) % MCV (81.0-99.0) fL MCH (27.0-31.0) pg MCHC (32.0-36.0) g/dL RDW (12.0-15.0) % Plt Count (130-450) 10^3/uL MPV (7.9-10.8) fL Bld Gas Analysis Time 1010 Sample Site LEFT RADIAL ABG pH 7.39 (7.35-7.45) ABG pCO2 57 H (34-45) mmHg ABG pO2 224 H (83-108) mmHg ABG HCO3 34.9 H (22.0-26.0) mmol/L ABG Total CO2 36.6 H (21.0-29.0) mmol/L ABG O2 Saturation 100 H (95-98) % ABG Base Excess 9.7 H (-2.0-3.0) mmol/L Domenic Test POSITIVE VBG pH (7.31-7.41) Ionized Calcium (1.09-1.30) mmol/L Respiration Rate 12 b/min O2 Delivery Device BiPAP Vent Mode SYNCHRONOUS/TIMES FiO2 50.00 EPAP 7 cmH2O IPAP 14 cmH2O Sodium (135-145) mmol/L Potassium (3.5-4.5) mmol/L Chloride (101-111) mmol/L Carbon Dioxide (21-32) mmol/L Anion Gap (6-13) BUN (6-20) mg/dL Creatinine (0.6-1.3) mg/dL Estimated GFR (MDRD) (>89) Glucose (74-104) mg/dL POC Whole Bld Glucose 201 (70-100) mg/dL Calcium (8.5-10.3) mg/dL Phosphorus (2.5-5.0) mg/dL Magnesium (1.7-2.3) mg/dL Nasal Screen MRSA (PCR) NEGATIVE (NEGATIVE) Diagnostic Imaging Diagnostic Imaging Results: positive Final report reviewed and Read independently Assessment/Plan Problem List (1) Acute exacerbation of chronic obstructive pulmonary disease: Impression: * Patient with history of COPD/asthma presenting with acute exacerbation in the setting of positive RSV * On BiPAP for approximately 24 hours * Lungs suggest pulmonary edema on exam, xray ordered and report pending * Will cont IV Lasix * Continue DuoNebs * Added Precedex to help with anxiety related to breathin (2) RSV (acute bronchiolitis due to respiratory syncytial virus): Impression: * As above, continue supportive care (3) HTN (hypertension): Impression: * BP elevated in the setting of respiratory distress * Continue home medications, reevaluate blood pressure status post administration of IV Lasix Qualifiers: Hypertension type: primary hypertension Qualified Code(s): I10 - Essential (primary) hypertension (4) GERD (gastroesophageal reflux disease): Impression: * Stable * Cont PPI Qualifiers: Esophagitis presence: without esophagitis Qualified Code(s): K21.9 - Gastro-esophageal reflux disease without esophagitis (5) HLD (hyperlipidemia): Impression: * Stable * Cont statin Qualifiers: Hyperlipidemia type: mixed hyperlipidemia Qualified Code(s): E78.2 - Mixed hyperlipidemia
--- NOTE | 2024-08-10 11:36 | XRAY Report ---
PROCEDURE: XR Chest 1V INDICATIONS: hypoxia, tachypnea, f/u RSV TECHNIQUE: One view of the chest was acquired. COMPARISON: 06/07/2025. FINDINGS: Surgical changes and devices: Bilateral mammoplasties. Lungs and pleura: No pleural effusions or pneumothorax. No consolidation. Mediastinum: Mediastinal contours appear normal. Heart size is mildly enlarged. Bones and chest wall: No suspicious bony lesions. Overlying soft tissues appear unremarkable. IMPRESSION: Mild cardiomegaly. No acute pulmonary process. Reviewed by: Néstor Singleton MD on 08/10/2024 11:35 AM PST Approved by: Néstor Singleton MD on 08/10/2024 11:35 AM PST Station ID: [id number]
[2024-08-10] MEDS ORDERED: FUROSEMIDE 40 MG/4 ML VIAL IVP SCH (17:00)
[2024-08-10 18:28] LABS: CALCIUM 9.2 mg/dL (8.5-10.3); CREATININE 1.4 mg/dL (0.6-1.3); POTASSIUM 3.5 mmol/L (3.5-4.5)
[2024-08-11 04:30] LABS: HCT - HEMATOCRIT 42.8 % (37.0-47.0); HGB - HEMOGLOBIN 14.5 g/dL (12.0-16.0); MEAN CORPUSCULAR HEMOGLOBIN 27.5 pg (27.0-31.0); MEAN CORPUSCULAR HGB CONC 33.9 g/dL (32.0-36.0); MEAN CORPUSCULAR VOLUME 81.2 fL (81.0-99.0); MEAN PLATELET VOLUME 9.1 fL (7.9-10.8); RED BLOOD COUNT 5.27 10^6/uL (4.20-5.40); RED CELL DISTRIBUTION WIDTH 13.5 % (12.0-15.0); WHITE BLOOD COUNT 10.7 x10^3/uL (4.8-10.8)
[2024-08-11 04:36] LABS: CALCIUM, IONIZED 1.12 mmol/L (1.09-1.30)
[2024-08-11 04:50] LABS: CALCIUM 9.3 mg/dL (8.5-10.3); MAGNESIUM 2.3 mg/dL (1.7-2.3); PHOSPHORUS 3.2 mg/dL (2.5-5.0); POTASSIUM 3.9 mmol/L (3.5-4.5)
[2024-08-11 05:50] LABS: ABG PCO2 45 mmHg (34-45); ABG PH 7.51 (7.35-7.45)
[2024-08-11 05:51] LABS: ABG BASE EXCESS 13.2 mmol/L (-2.0-3.0); ABG OXYGEN SATURATION 98 % (95-98); ABG PO2 93 mmHg (83-108); ABG RESPIRATORY RATE 12 b/min; ABG TCO2 37.8 mmol/L (21.0-29.0); ALLEN TEST POSITIVE
[2024-08-11] MEDS: POTASSIUM CHLOR 10 MEQ/100 ML 10 MEQ/100 ML BAG IV SCH (06:41)
--- NOTE | 2024-08-11 08:55 | XRAY Report ---
PROCEDURE: XR Chest 1V INDICATIONS: Respiratory failure, hypoxia, on BiPAP TECHNIQUE: One view of the chest was acquired. COMPARISON: CXR 08/09/2024, 12/23/2023. CT chest 05/10/2022. FINDINGS: Surgical changes and devices: Breast implants. Lungs and pleura: No pleural effusions or pneumothorax. No consolidation. Mediastinum: Mediastinal contours appear unchanged. Heart size is prominent. Bones and chest wall: No suspicious bony lesions. Overlying soft tissues appear unremarkable. IMPRESSION: No acute cardiopulmonary process identified. Reviewed by: Bonifacio Schuster MD on 08/11/2024 8:53 AM [facility] Approved by: Bonifacio Schuster MD on 08/11/2024 8:53 AM PST Station ID: [id number]
[2024-08-11 10:07] LABS: ABG PCO2 62 mmHg (34-45)
[2024-08-11] MEDS ORDERED: iohexoL-300 100 ML VIAL ONE (12:11)
--- NOTE | 2024-08-11 13:57 | PROVIDER PROGRESS NOTE ---
Subjective Prog Note Date Prog Note Date: 08/11/24 Prog Note Time: 13:53 Subjective Pt reports feeling: No change Subjective: Continues to have difficulty breathing. She feels tired. Current Medications Current Medications Current Medications: Current Medications Generic Name Dose Route Start Last Admin Trade Name Freq PRN Reason Stop Dose Admin Acetaminophen 650 mg 08/08/24 15:45 Acetaminophen 325 Mg Tablet PO Q4HR PRN Pain 1 to 4, or Fever Hydrocodone Bitart/Acetaminophen 1 tab 08/08/24 15:45 Hydrocod/Acetam 5/325 Mg Tablet PO Q4HR PRN Pain 5 to 7 Albuterol/Ipratropium 3 ml 08/08/24 21:14 08/11/24 08:20 Ipratropium/Albuterol 3 Ml Neb INH 3 ml Q4HR PRN Administration Wheezing Atorvastatin Calcium 20 mg 08/08/24 21:00 08/10/24 20:13 Atorvastatin 10 Mg Tablet PO Not Given QPM ENMANUEL Cholecalciferol 5,000 unit 08/09/24 09:00 08/11/24 09:38 Cholecalciferol 5,000 Unit Capsule PO 5,000 unit DAILY ENMANUEL Administration Dexamethasone Sodium Phosphate 10 mg 08/09/24 14:50 08/11/24 09:37 Dexamethasone 10 Mg/Ml Vial IVP 10 mg DAILY ENMANUEL Administration Furosemide 40 mg 08/09/24 14:00 08/11/24 05:15 Furosemide 40 Mg/4 Ml Vial IVP 40 mg BIDDIURETIC ENMANUEL Administration Guaifenesin 600 mg 08/09/24 04:47 08/09/24 05:04 Guaifenesin 600 Mg Tablet PO 600 mg BID PRN Administration Cough Guaifenesin 200 mg 08/11/24 08:44 Guaifenesin 100 Mg/5 Ml Udc PO Q4H PRN Congestion Hydralazine HCl 10 mg 08/09/24 04:30 08/09/24 09:48 Hydralazine Inj 20 Mg/Ml Vial IVP 10 mg Q6H PRN Administration Hypertensive Emergency Hydrochlorothiazide 25 mg 08/09/24 09:00 08/11/24 09:38 Hydrochlorothiazide 25 Mg Tablet PO 25 mg DAILY ENMANUEL Administration Hydroxyzine Pamoate 50 mg 08/08/24 21:13 08/08/24 21:48 Hydroxyzine Pamoate 25 Mg Capsule PO 50 mg QPM PRN Administration Insomnia Dexmedetomidine/Sodium Chloride 100 mls @ 3.75 mls/hr 08/10/24 08:18 08/11/24 13:10 Precedex Premix IV 0.1 mcg/kg/hr .[id number] PRN 1.88 mls/hr Agitation Administration Protocol 0.2 MCG/KG/HR Insulin Glargine-yfgn 10 unit 08/08/24 21:00 08/10/24 21:03 Insulin Glargine-Yfgn 300 Unit/3 Ml Pen SUBQ 10 unit QPM ENMANUEL Administration Insulin Human Lispro 2 - 10 unit 08/09/24 08:00 08/11/24 12:21 Insulin Lispro 300 Unit/3 Ml Pen SUBQ 4 unit 0800,1200,1700,2100 ENMANUEL Administration Protocol Labetalol HCl 10 mg 08/09/24 14:36 08/11/24 13:15 Labetalol 20 Mg/4 Ml Syringe IVP 10 mg Q4H PRN Administration Tachycardia Levothyroxine Sodium 100 mcg 08/09/24 09:00 08/11/24 09:38 Levothyroxine 100 Mcg Tablet PO 100 mcg DAILY ENMANUEL Administration Lisinopril 40 mg 08/09/24 09:00 08/11/24 09:37 Lisinopril 20 Mg Tablet PO 40 mg DAILY ENMANUEL Administration Lorazepam 0.5 mg 08/09/24 19:05 08/11/24 13:39 Lorazepam 2 Mg/Ml Vial IVP 0.5 mg Q2H PRN Administration Anxiety Montelukast Sodium 10 mg 08/09/24 09:00 08/11/24 09:38 Montelukast 10 Mg Tablet PO 10 mg DAILY ENMANUEL Administration Morphine Sulfate 2 mg 08/10/24 07:45 Morphine 10 Mg/Ml Vial IVP Q3HR PRN Shortness of Air/Wheezing Ondansetron HCl 4 mg 08/08/24 15:45 Ondansetron Odt 4 Mg Tablet TL Q6HR PRN Nausea / Vomiting Pantoprazole Sodium 40 mg 08/09/24 09:00 08/11/24 09:38 Pantoprazole 40 Mg Tablet PO 40 mg DAILY ENMANUEL Administration Potassium Chloride 20 meq 08/09/24 17:00 08/11/24 09:37 Potassium Chloride 20 Meq Tablet PO 20 meq BIDWM ENMANUEL Administration Sodium Chloride 10 ml 08/08/24 15:45 08/09/24 04:24 Sodium Chloride Flush 0.9% 10 Ml Syringe IVP 10 ml PRN PRN Administration NEEDED PER PROVIDER ORDERS Sodium Chloride 10 ml 08/08/24 17:00 08/11/24 09:38 Sodium Chloride Flush 0.9% 10 Ml Syringe IVP 10 ml 0100,0900,1700 ENMANUEL Administration Objective Vital Signs/Intake & Output Reviewed Vital Signs: Yes Vital Signs: Vital Signs x48h Temp Pulse Pulse Resp BP BP Pulse Ox 08/11/24 13:15 165 H 171/147 H 08/11/24 13:00 120 H 21 171/147 H 96 08/11/24 12:00 36.5 C 122 H 31 H 183/119 H 97 08/11/24 11:00 128 H 21 144/99 H 98 08/11/24 10:00 133 H 19 109/46 L 96 08/11/24 09:00 123 H 40 H 131/90 H 93 08/11/24 08:21 08/11/24 08:21 123 H 22 08/11/24 08:15 128 H 08/11/24 08:00 113 H 08/11/24 08:00 36.6 C 126 H 22 123/74 97 08/11/24 07:04 105 H 25 H 114/62 96 08/11/24 06:02 102 H 24 90/56 L 95 O2 Flow Rate 08/11/24 13:15 08/11/24 13:00 5 08/11/24 12:00 5 08/11/24 11:00 08/11/24 10:00 08/11/24 09:00 08/11/24 08:21 4 08/11/24 08:21 08/11/24 08:15 4 08/11/24 08:00 08/11/24 08:00 08/11/24 07:04 08/11/24 06:02 Intake & Output: Intake & Output 08/08/24 08/09/24 08/10/24 08/11/24 23:59 23:59 23:59 23:59 Intake Total 400 / 400 485 / 485 758 / 758 381 / 381 Output Total 600 / 600 1900 / 1900 1450 / 1450 820 / 820 Balance -200 / -200 -1415 / -1415 -692 / -692 -439 / -439 Weight (kg) 75 kg Objective General Appearance: positive Alert and Mild distress Eyes Bilateral: positive Normal inspection Respiratory: positive Wheezes, Rales, Rhonchi and Other (Presenting with mild respiratory distress, abdominal breathing, on BiPAP, tachypneic with respiratory rates in the mid 20s to high 30s, Breath sounds with coarse crackles) Cardiovascular: positive Irregularly irregular and Tachycardia Abdomen: positive Non-tender, No organomegaly and No distention Skin: positive Color nml Extremities: positive No pedal edema Neurologic/Psychiatric: positive Oriented x3 and CN's nml (2-12); negative Disoriented to person, Disoriented to place, Disoriented to time or Slurred/abnml speech Lab Results 08/11/24 04:20 08/11/24 04:20 Other Labs: Lab Results x24hrs 08/11/24 08/11/24 08/11/24 Range/Units 11:59 08:23 05:30 WBC (4.8-10.8) x10^3/uL RBC (4.20-5.40) 10^6/uL Hgb (12.0-16.0) g/dL Hct (37.0-47.0) % MCV (81.0-99.0) fL MCH (27.0-31.0) pg MCHC (32.0-36.0) g/dL RDW (12.0-15.0) % Plt Count (130-450) 10^3/uL MPV (7.9-10.8) fL Bld Gas Analysis Time 0536 Sample Site RIGHT RADIAL ABG pH 7.51 H (7.35-7.45) ABG pCO2 45 (34-45) mmHg ABG pO2 93 (83-108) mmHg ABG HCO3 36.4 H (22.0-26.0) mmol/L ABG Total CO2 37.8 H (21.0-29.0) mmol/L ABG O2 Saturation 98 (95-98) % ABG Base Excess 13.2 H (-2.0-3.0) mmol/L Domenic Test POSITIVE VBG pH (7.31-7.41) Ionized Calcium (1.09-1.30) mmol/L Respiration Rate 12 b/min O2 Delivery Device BiPAP FiO2 25.00 EPAP 8 cmH2O IPAP 16 cmH2O Sodium (135-145) mmol/L Potassium (3.5-4.5) mmol/L Chloride (101-111) mmol/L Carbon Dioxide (21-32) mmol/L Anion Gap (6-13) BUN (6-20) mg/dL Creatinine (0.6-1.3) mg/dL Estimated GFR (MDRD) (>89) Glucose (74-104) mg/dL POC Whole Bld Glucose 215 241 (70-100) mg/dL Calcium (8.5-10.3) mg/dL Phosphorus (2.5-5.0) mg/dL Magnesium (1.7-2.3) mg/dL 08/11/24 08/10/24 08/10/24 Range/Units 04:20 20:55 18:03 WBC 10.7 (4.8-10.8) x10^3/uL RBC 5.27 (4.20-5.40) 10^6/uL Hgb 14.5 (12.0-16.0) g/dL Hct 42.8 (37.0-47.0) % MCV 81.2 (81.0-99.0) fL MCH 27.5 (27.0-31.0) pg MCHC 33.9 (32.0-36.0) g/dL RDW 13.5 (12.0-15.0) % Plt Count 340 (130-450) 10^3/uL MPV 9.1 (7.9-10.8) fL Bld Gas Analysis Time Sample Site ABG pH (7.35-7.45) ABG pCO2 (34-45) mmHg ABG pO2 (83-108) mmHg ABG HCO3 (22.0-26.0) mmol/L ABG Total CO2 (21.0-29.0) mmol/L ABG O2 Saturation (95-98) % ABG Base Excess (-2.0-3.0) mmol/L Domenic Test VBG pH 7.503 H (7.31-7.41) Ionized Calcium 1.12 (1.09-1.30) mmol/L Respiration Rate b/min O2 Delivery Device FiO2 EPAP cmH2O IPAP cmH2O Sodium 128 L 128 L (135-145) mmol/L Potassium 3.9 3.5 (3.5-4.5) mmol/L Chloride 84 L 81 L (101-111) mmol/L Carbon Dioxide 31 35 H (21-32) mmol/L Anion Gap 13.0 12.0 (6-13) BUN 54 H 52 H (6-20) mg/dL Creatinine 1.0 1.4 H (0.6-1.3) mg/dL Estimated GFR (MDRD) 53 L 36 L (>89) Glucose 199 H 190 H (74-104) mg/dL POC Whole Bld Glucose 180 (70-100) mg/dL Calcium 9.3 9.2 (8.5-10.3) mg/dL Phosphorus 3.2 (2.5-5.0) mg/dL Magnesium 2.3 (1.7-2.3) mg/dL 08/10/24 08/10/24 Range/Units 17:31 05:50 WBC (4.8-10.8) x10^3/uL RBC (4.20-5.40) 10^6/uL Hgb (12.0-16.0) g/dL Hct (37.0-47.0) % MCV (81.0-99.0) fL MCH (27.0-31.0) pg MCHC (32.0-36.0) g/dL RDW (12.0-15.0) % Plt Count (130-450) 10^3/uL MPV (7.9-10.8) fL Bld Gas Analysis Time Sample Site ABG pH (7.35-7.45) ABG pCO2 62 H* (34-45) mmHg ABG pO2 (83-108) mmHg ABG HCO3 (22.0-26.0) mmol/L ABG Total CO2 (21.0-29.0) mmol/L ABG O2 Saturation (95-98) % ABG Base Excess (-2.0-3.0) mmol/L Domenic Test VBG pH (7.31-7.41) Ionized Calcium (1.09-1.30) mmol/L Respiration Rate b/min O2 Delivery Device FiO2 EPAP cmH2O IPAP cmH2O Sodium (135-145) mmol/L Potassium (3.5-4.5) mmol/L Chloride (101-111) mmol/L Carbon Dioxide (21-32) mmol/L Anion Gap (6-13) BUN (6-20) mg/dL Creatinine (0.6-1.3) mg/dL Estimated GFR (MDRD) (>89) Glucose (74-104) mg/dL POC Whole Bld Glucose 191 (70-100) mg/dL Calcium (8.5-10.3) mg/dL Phosphorus (2.5-5.0) mg/dL Magnesium (1.7-2.3) mg/dL Diagnostic Imaging Diagnostic Imaging Results: positive Final report reviewed and Read independently Assessment/Plan Problem List (1) Acute exacerbation of chronic obstructive pulmonary disease: Impression: * Patient with history of COPD/asthma presenting with acute exacerbation in the setting of positive RSV * On BiPAP for approximately over 48 hrs, she does tolerat short breaks and is able to eat * Lungs suggest pulmonary edema on exam * Xray no other significant findings * Will check CT to r/o mass, or pulmonary mucous plug given lack of progress * Will cont IV Lasix * Continue DuoNebs * Cont Decadron * Added Guaifenesin to help with mucous exretion, as pt is coarse with suggestion of chest congestion * Have discussed with RT, chest PT ordered (2) RSV (acute bronchiolitis due to respiratory syncytial virus): Impression: * As above, continue supportive care (3) HTN (hypertension): Impression: * BP elevated in the setting of respiratory distress * Continue home medications, reevaluate blood pressure status post administration of IV Lasix Qualifiers: Hypertension type: primary hypertension Qualified Code(s): I10 - Essential (primary) hypertension (4) GERD (gastroesophageal reflux disease): Impression: * Stable * Cont PPI Qualifiers: Esophagitis presence: without esophagitis Qualified Code(s): K21.9 - Gastro-esophageal reflux disease without esophagitis (5) HLD (hyperlipidemia): Impression: * Stable * Cont statin Qualifiers: Hyperlipidemia type: mixed hyperlipidemia Qualified Code(s): E78.2 - Mixed hyperlipidemia
[2024-08-11] MEDS: iohexoL-300 100 ML VIAL IVP ONE (15:02)
--- NOTE | 2024-08-11 17:05 | CT Report ---
PROCEDURE: CT Chest W INDICATIONS: hypoxia, tachypnea, hx of breast CA, r/o mass, plug CONTRAST: 100ML OMNI 300 TECHNIQUE: After the administration of intravenous contrast, a CT scan of the chest was performed. Images were recorded and evaluated at appropriate window settings. Reformats: axial MIP of the chest, coronal and sagittal. For radiation dose reduction, the following was used: automated exposure control, adjustme nt of mA and/or kV according to patient size. COMPARISON: CXR 08/11/2024. CT chest 05/10/2022. FINDINGS: Image quality: Poor. Respiratory motion. End expiratory acquisition. Chest wall and lower neck: No thyroid nodule which requires sonographic follow up. Thyroid appears at rophic. No breast mass. No axillary or supraclavicular adenopathy by size. Breast implants. Lungs and pleura: No obvious consolidation. A few areas of distal mucous plugging at the left lower l obe, (10/170). Mild tree-in-bud nodular opacity at the lung bases. No pleural effusions. No pneumotho rax. No suspicious pulmonary nodules which require follow up. Right lower lobe pulmonary nodule measu ring 0.4 cm, (/197), unchanged. Mediastinum: Heart size is normal. Left atrial appendage occluder device. Three-vessel coronary arter y calcifications. No pericardial effusion. No large vessel abnormality. No central pulmonary embolism . No aortic dissection. No mediastinal adenopathy by size criteria. Bones: No aggressive osseous abnormality. Upper Abdomen: Calcification near the pancreatic head no adrenal nodule. IMPRESSION: Image quality is poor due to respiratory motion. 1. A few areas of distal mucous plugging at the left lower lobe are seen. Mild tree-in-bud nodular op acity at the lung bases. Findings could be due to a bronchitis. 2. No consolidation is identified. No pleural effusion. 3. No adenopathy. Reviewed by: Bonifacio Schuster MD on 08/11/2024 5:03 PM [facility] Approved by: Bonifacio Schuster MD on 08/11/2024 5:03 PM PST Station ID: [id number]
[2024-08-11] MEDS: SCOPOLAMINE PATCH TOP SCH (19:34)
[2024-08-12 04:59] LABS: HCT - HEMATOCRIT 46.7 % (37.0-47.0); HGB - HEMOGLOBIN 15.7 g/dL (12.0-16.0); MEAN CORPUSCULAR HEMOGLOBIN 27.4 pg (27.0-31.0); MEAN CORPUSCULAR HGB CONC 33.6 g/dL (32.0-36.0); MEAN CORPUSCULAR VOLUME 81.5 fL (81.0-99.0); MEAN PLATELET VOLUME 8.9 fL (7.9-10.8); RED BLOOD COUNT 5.73 10^6/uL (4.20-5.40); RED CELL DISTRIBUTION WIDTH 13.6 % (12.0-15.0); WHITE BLOOD COUNT 14.7 x10^3/uL (4.8-10.8)
[2024-08-12 05:11] LABS: CALCIUM 9.7 mg/dL (8.5-10.3); MAGNESIUM 2.4 mg/dL (1.7-2.3); POTASSIUM 3.5 mmol/L (3.5-4.5)
[2024-08-12 05:29] LABS: CALCIUM, IONIZED 1.16 mmol/L (1.09-1.30)
[2024-08-12] MEDS: polyethylene glycoL 3350 17 GM PACKET PO SCH (09:12)
[2024-08-12] MEDS: POTASSIUM CHLORIDE 20 MEQ TABLET PO SCH (09:14)
[2024-08-12] MEDS: guaiFENesin 100 MG/5 ML UDC PO PRN (09:39)
--- NOTE | 2024-08-12 11:33 | PROVIDER PROGRESS NOTE ---
Subjective Subjective Subjective: Patient is feeling a little bit better today. She still indicates that she has some shortness of breath. She was on BiPAP overnight, and we are currently trialing her on 5 L of oxygen. She does feel anxious. She sees a certified pathology assistant in the outpatient setting, Dr. Ornelas. I will try contact them today. We reviewed her CT scan lloyd has some small mucous plugging in her lower lobes. She has no consolidation or effusions at this time. If she continues to be tachypneic, will place her back on BIPAP. Current Medications Current Medications Current Medications: Current Medications Generic Name Dose Route Start Last Admin Trade Name Freq PRN Reason Stop Dose Admin Acetaminophen 650 mg 08/08/24 15:45 Acetaminophen 325 Mg Tablet PO Q4HR PRN Pain 1 to 4, or Fever Hydrocodone Bitart/Acetaminophen 1 tab 08/08/24 15:45 Hydrocod/Acetam 5/325 Mg Tablet PO Q4HR PRN Pain 5 to 7 Albuterol/Ipratropium 3 ml 08/08/24 21:14 08/11/24 16:08 Ipratropium/Albuterol 3 Ml Neb INH 3 ml Q4HR PRN Administration Wheezing Atorvastatin Calcium 20 mg 08/08/24 21:00 08/11/24 20:48 Atorvastatin 10 Mg Tablet PO 20 mg QPM ENMANUEL Administration Cholecalciferol 5,000 unit 08/09/24 09:00 08/12/24 09:13 Cholecalciferol 5,000 Unit Capsule PO 5,000 unit DAILY ENMANUEL Administration Furosemide 40 mg 08/09/24 14:00 08/12/24 06:11 Furosemide 40 Mg/4 Ml Vial IVP 40 mg BIDDIURETIC ENMANUEL Administration Guaifenesin 600 mg 08/09/24 04:47 08/09/24 05:04 Guaifenesin 600 Mg Tablet PO 600 mg BID PRN Administration Cough Guaifenesin 200 mg 08/11/24 08:44 08/12/24 09:39 Guaifenesin 100 Mg/5 Ml Udc PO 200 mg Q4H PRN Administration Congestion Hydralazine HCl 10 mg 08/09/24 04:30 08/09/24 09:48 Hydralazine Inj 20 Mg/Ml Vial IVP 10 mg Q6H PRN Administration Hypertensive Emergency Hydrochlorothiazide 25 mg 08/09/24 09:00 08/12/24 09:13 Hydrochlorothiazide 25 Mg Tablet PO 25 mg DAILY ENMANUEL Administration Hydroxyzine Pamoate 50 mg 08/08/24 21:13 08/08/24 21:48 Hydroxyzine Pamoate 25 Mg Capsule PO 50 mg QPM PRN Administration Insomnia Dexmedetomidine/Sodium Chloride 100 mls @ 3.75 mls/hr 08/10/24 08:18 08/12/24 09:15 Precedex Premix IV 0.2 mcg/kg/hr .[id number] PRN 3.75 mls/hr Agitation Titration Protocol 0.2 MCG/KG/HR Insulin Glargine-yfgn 10 unit 08/08/24 21:00 08/11/24 20:49 Insulin Glargine-Yfgn 300 Unit/3 Ml Pen SUBQ 10 unit QPM ENMANUEL Administration Insulin Human Lispro 2 - 10 unit 08/09/24 08:00 08/12/24 09:08 Insulin Lispro 300 Unit/3 Ml Pen SUBQ 4 unit 0800,1200,1700,2100 ENMANUEL Administration Protocol Labetalol HCl 10 mg 08/09/24 14:36 08/12/24 09:31 Labetalol 20 Mg/4 Ml Syringe IVP 10 mg Q4H PRN Administration Tachycardia Levothyroxine Sodium 100 mcg 08/09/24 09:00 08/12/24 09:13 Levothyroxine 100 Mcg Tablet PO 100 mcg DAILY ENMANUEL Administration Lisinopril 40 mg 08/09/24 09:00 08/12/24 09:13 Lisinopril 20 Mg Tablet PO 40 mg DAILY ENMANUEL Administration Lorazepam 0.5 mg 08/09/24 19:05 08/12/24 04:59 Lorazepam 2 Mg/Ml Vial IVP 0.5 mg Q2H PRN Administration Anxiety Montelukast Sodium 10 mg 08/09/24 09:00 08/12/24 09:13 Montelukast 10 Mg Tablet PO 10 mg DAILY ENMANUEL Administration Morphine Sulfate 2 mg 08/10/24 07:45 Morphine 10 Mg/Ml Vial IVP Q3HR PRN Shortness of Air/Wheezing Ondansetron HCl 4 mg 08/08/24 15:45 Ondansetron Odt 4 Mg Tablet TL Q6HR PRN Nausea / Vomiting Pantoprazole Sodium 40 mg 08/09/24 09:00 08/12/24 09:13 Pantoprazole 40 Mg Tablet PO 40 mg DAILY ENMANUEL Administration Polyethylene Glycol 17 gm 08/12/24 09:00 08/12/24 09:12 Polyethylene Glycol 3350 17 Gm Packet PO 17 gm DAILY ENMANUEL Administration Potassium Chloride 20 meq 08/09/24 17:00 08/12/24 09:12 Potassium Chloride 20 Meq Tablet PO 20 meq BIDWM ENMANUEL Administration Scopolamine HBr 1 patch 08/11/24 19:00 08/11/24 19:34 Scopolamine Patch TOP 1 patch Q3D ENMANUEL Administration Sodium Chloride 10 ml 08/08/24 15:45 08/09/24 04:24 Sodium Chloride Flush 0.9% 10 Ml Syringe IVP 10 ml PRN PRN Administration NEEDED PER PROVIDER ORDERS Sodium Chloride 10 ml 08/08/24 17:00 08/12/24 09:12 Sodium Chloride Flush 0.9% 10 Ml Syringe IVP 10 ml 0100,0900,1700 ENMANUEL Administration Objective Vital Signs/Intake & Output Reviewed Vital Signs: Yes Vital Signs: Vital Signs x48h Temp Pulse Pulse Resp BP BP Pulse Ox 08/12/24 11:00 119 H 30 H 114/51 L 99 08/12/24 10:00 101 H 29 H 107/60 100 08/12/24 09:31 136 H 154/107 H 08/12/24 09:00 08/12/24 08:00 116 H 25 H 135/78 H 96 08/12/24 07:19 116 H 08/12/24 07:00 117 H 23 147/90 H 95 08/12/24 06:16 138 H 144/84 H 08/12/24 06:00 124 H 23 144/84 H 94 08/12/24 05:35 123 H 142/99 H 08/12/24 05:00 98.2 F 115 H 30 H 147/111 H 96 08/12/24 04:45 110 H 08/12/24 04:00 122 H 19 145/107 H 94 O2 Flow Rate 08/12/24 11:00 08/12/24 10:00 08/12/24 09:31 08/12/24 09:00 5 08/12/24 08:00 08/12/24 07:19 08/12/24 07:00 08/12/24 06:16 08/12/24 06:00 08/12/24 05:35 08/12/24 05:00 08/12/24 04:45 08/12/24 04:00 Intake & Output: Intake & Output 08/09/24 08/10/24 08/11/24 08/12/24 23:59 23:59 23:59 23:59 Intake Total 485 / 485 758 / 758 383 / 383 220 / 220 Output Total 1900 / 1900 1450 / 1450 2420 / 2420 0 / 0 Balance -1415 / -1415 -692 / -692 -2037 / -203 220 / 220 Objective General Appearance: positive Alert and Mild distress; negative Lethargic Eyes Bilateral: positive Normal inspection, PERRL and EOMI Respiratory: positive Wheezes, Rales, Rhonchi and Other (on BiPAP, tachypneic with respiratory rates in the mid 20s to high 30s, Breath sounds with coarse crackles) Cardiovascular: positive Irregularly irregular and Tachycardia; negative Systolic murmur or Diastolic murmur Abdomen: positive Non-tender, No organomegaly and No distention; negative Hepatomegaly or Splenomegaly Back: positive Nml inspection; negative CVA tenderness (R) or CVA tenderness (L) Skin: positive Color nml, No rash, Warm and Dry Extremities: positive No pedal edema Neurologic/Psychiatric: positive Oriented x3 and CN's nml (2-12); negative Disoriented to person, Disoriented to place, Disoriented to time or Slurred/abnml speech Lab Results 08/12/24 04:40 08/12/24 04:40 Other Labs: Lab Results x24hrs 08/12/24 08/12/24 08/11/24 Range/Units 08:23 04:40 20:46 WBC 14.7 H (4.8-10.8) x10^3/uL RBC 5.73 H (4.20-5.40) 10^6/uL Hgb 15.7 (12.0-16.0) g/dL Hct 46.7 (37.0-47.0) % MCV 81.5 (81.0-99.0) fL MCH 27.4 (27.0-31.0) pg MCHC 33.6 (32.0-36.0) g/dL RDW 13.6 (12.0-15.0) % Plt Count 453 H (130-450) 10^3/uL MPV 8.9 (7.9-10.8) fL VBG pH 7.538 H (7.31-7.41) Ionized Calcium 1.16 (1.09-1.30) mmol/L Sodium 132 L (135-145) mmol/L Potassium 3.5 (3.5-4.5) mmol/L Chloride 85 L (101-111) mmol/L Carbon Dioxide 34 H (21-32) mmol/L Anion Gap 13.0 (6-13) BUN 56 H (6-20) mg/dL Creatinine 1.0 (0.6-1.3) mg/dL Estimated GFR (MDRD) 53 L (>89) Glucose 185 H (74-104) mg/dL POC Whole Bld Glucose 224 218 (70-100) mg/dL Calcium 9.7 (8.5-10.3) mg/dL Phosphorus 3.0 (2.5-5.0) mg/dL Magnesium 2.4 H (1.7-2.3) mg/dL 08/11/24 08/11/24 Range/Units 16:48 11:59 WBC (4.8-10.8) x10^3/uL RBC (4.20-5.40) 10^6/uL Hgb (12.0-16.0) g/dL Hct (37.0-47.0) % MCV (81.0-99.0) fL MCH (27.0-31.0) pg MCHC (32.0-36.0) g/dL RDW (12.0-15.0) % Plt Count (130-450) 10^3/uL MPV (7.9-10.8) fL VBG pH (7.31-7.41) Ionized Calcium (1.09-1.30) mmol/L Sodium (135-145) mmol/L Potassium (3.5-4.5) mmol/L Chloride (101-111) mmol/L Carbon Dioxide (21-32) mmol/L Anion Gap (6-13) BUN (6-20) mg/dL Creatinine (0.6-1.3) mg/dL Estimated GFR (MDRD) (>89) Glucose (74-104) mg/dL POC Whole Bld Glucose 191 215 (70-100) mg/dL Calcium (8.5-10.3) mg/dL Phosphorus (2.5-5.0) mg/dL Magnesium (1.7-2.3) mg/dL Diagnostic Imaging Diagnostic Imaging Results: positive Final report reviewed and Read independently Assessment/Plan Problem List (1) Acute exacerbation of chronic obstructive pulmonary disease: Impression: Continue alternating BiPAP with nasal cannula. Patient has increased work of breathing. CT done, and it does show some distal mucous plugging at the left lower lobe. No consolidations, no pleural effusions were seen. Continue IV Lasix to maintain euvolemic status. Continue DuoNebs, IV Decadron. Chest physiotherapy ordered, continue other supportive management including guaifenesin. (2) RSV (acute bronchiolitis due to respiratory syncytial virus): Impression: Management as above. (3) Atrial fibrillation with rapid ventricular response: Impression: Patient with atrial fibrillation, currently in rapid ventricular response. Receiving labetalol as needed. She does take atenolol 50 mg twice daily at home. Will continue now. (4) HTN (hypertension): Impression: Blood pressure currently on lower side. Hold hydrocholorothizide at this time. Qualifiers: Hypertension type: primary hypertension Qualified Code(s): I10 - Essential (primary) hypertension (5) GERD (gastroesophageal reflux disease): Impression: Continue Protonix. Qualifiers: Esophagitis presence: without esophagitis Qualified Code(s): K21.9 - Gastro-esophageal reflux disease without esophagitis (6) HLD (hyperlipidemia): Impression: Continue statin. Qualifiers: Hyperlipidemia type: mixed hyperlipidemia Qualified Code(s): E78.2 - Mixed hyperlipidemia
[2024-08-12] MEDS: atenoloL 25 MG TABLET PO SCH (14:32)
[2024-08-13 05:10] LABS: HGB - HEMOGLOBIN 16.4 g/dL (12.0-16.0); MEAN CORPUSCULAR HEMOGLOBIN 27.7 pg (27.0-31.0); MEAN CORPUSCULAR HGB CONC 33.5 g/dL (32.0-36.0); MEAN CORPUSCULAR VOLUME 82.8 fL (81.0-99.0); MEAN PLATELET VOLUME 8.9 fL (7.9-10.8); RED BLOOD COUNT 5.92 10^6/uL (4.20-5.40); RED CELL DISTRIBUTION WIDTH 13.6 % (12.0-15.0)
[2024-08-13 05:15] LABS: CALCIUM, IONIZED 1.17 mmol/L (1.09-1.30)
[2024-08-13 05:25] LABS: CALCIUM 10.2 mg/dL (8.5-10.3); CREATININE 1.4 mg/dL (0.6-1.3); MAGNESIUM 2.5 mg/dL (1.7-2.3); PHOSPHORUS 3.9 mg/dL (2.5-5.0); POTASSIUM 3.8 mmol/L (3.5-4.5)
[2024-08-13] MEDS: FLUoxetine 10 MG CAPSULE PO SCH (08:58)
[2024-08-13 10:21] LABS: ABG OXYGEN SATURATION 100 % (95-98); ABG PCO2 55 mmHg (34-45); ABG PH 7.53 (7.35-7.45); ABG PO2 112 mmHg (83-108)
[2024-08-13 10:22] LABS: ABG BASE EXCESS 24.2 mmol/L (-2.0-3.0); ALLEN TEST POSITIVE
[2024-08-13 10:23] LABS: ABG TCO2 48.7 mmol/L (21.0-29.0)
--- NOTE | 2024-08-13 11:41 | PROVIDER PROGRESS NOTE ---
Subjective Prog Note Date Prog Note Date: 08/13/24 Subjective Pt reports feeling: No change Subjective: The patient is an 78-year-old woman admitted to the ICU for Acute Hypoxic Respiratory Failure due to RSV. She has a PMH of asthma/COPD, HTN, HLD, GERD, and a remote history of breast cancer status post bilateral mastectomy, presenting to the ED with a chief complaint of 3 to 4 days of worsening shortness of breath, wheezing, and cough. The patient became significantly distressed to the extent that she called paramedics, who brought her to the ED and provided a nebulizer and route. She continued to have shortness of breath to the extent that she had tripoding, and in the ED, she was given multiple nebulizer treatments. She sees an outpatient powerhouse oiler - Dr. Ornelas, who was contacted regarding her treatment. She continues to be on BiPAP w/ intermittent breaks being placed on NC. CT chest 08/11 shows LLL mucus plugging. [id number] nodular opacity in the bases. No apparent effusion or consolidation. he was placed on NC this AM and ABG taken 2 hrs post BiPAP showing metabolic alkalosis pH 7.53/ pCO2 55/ pO2 112/ HCO3 47/ BE 24.2. Recommend transfer to a higher level of care for bronchoscopy procedure due to excessive mucus plugging. Evi Luna accepting. Current Medications Current Medications Current Medications: Current Medications Generic Name Dose Route Start Last Admin Trade Name Freq PRN Reason Stop Dose Admin Acetaminophen 650 mg 08/08/24 15:45 Acetaminophen 325 Mg Tablet PO Q4HR PRN Pain 1 to 4, or Fever Hydrocodone Bitart/Acetaminophen 1 tab 08/08/24 15:45 Hydrocod/Acetam 5/325 Mg Tablet PO Q4HR PRN Pain 5 to 7 Albuterol/Ipratropium 3 ml 08/08/24 21:14 08/13/24 08:30 Ipratropium/Albuterol 3 Ml Neb INH 3 ml Q4HR PRN Administration Wheezing Atenolol 50 mg 08/12/24 14:00 08/13/24 08:52 Atenolol 25 Mg Tablet PO 50 mg BID ENMANUEL Administration Atorvastatin Calcium 20 mg 08/08/24 21:00 08/12/24 21:01 Atorvastatin 10 Mg Tablet PO 20 mg QPM ENMANUEL Administration Cholecalciferol 5,000 unit 08/09/24 09:00 08/13/24 08:52 Cholecalciferol 5,000 Unit Capsule PO 5,000 unit DAILY ENMANUEL Administration Fluoxetine HCl 20 mg 08/13/24 09:00 08/13/24 08:58 Fluoxetine 10 Mg Capsule PO 20 mg DAILY ENMANUEL Administration Guaifenesin 200 mg 08/11/24 08:44 08/13/24 08:52 Guaifenesin 100 Mg/5 Ml Udc PO 200 mg Q4H PRN Administration Congestion Guaifenesin 600 mg 08/13/24 12:00 Guaifenesin 600 Mg Tablet PO BID ENMANUEL Hydralazine HCl 10 mg 08/09/24 04:30 08/09/24 09:48 Hydralazine Inj 20 Mg/Ml Vial IVP 10 mg Q6H PRN Administration Hypertensive Emergency Hydrochlorothiazide 25 mg 08/09/24 09:00 08/13/24 08:52 Hydrochlorothiazide 25 Mg Tablet PO 25 mg DAILY ENMANUEL Administration Hydroxyzine Pamoate 50 mg 08/08/24 21:13 08/08/24 21:48 Hydroxyzine Pamoate 25 Mg Capsule PO 50 mg QPM PRN Administration Insomnia Dexmedetomidine/Sodium Chloride 100 mls @ 3.75 mls/hr 08/10/24 08:18 08/12/24 10:01 Precedex Premix IV 0 mcg/kg/hr .[id number] PRN 0 mls/hr Agitation Titration Protocol 0.2 MCG/KG/HR Insulin Glargine-yfgn 10 unit 08/08/24 21:00 08/12/24 21:03 Insulin Glargine-Yfgn 300 Unit/3 Ml Pen SUBQ 10 unit QPM ENMANUEL Administration Insulin Human Lispro 2 - 10 unit 08/09/24 08:00 08/13/24 08:52 Insulin Lispro 300 Unit/3 Ml Pen SUBQ 4 unit 0800,1200,1700,2100 ENMANUEL Administration Protocol Levothyroxine Sodium 100 mcg 08/09/24 09:00 08/13/24 08:52 Levothyroxine 100 Mcg Tablet PO 100 mcg DAILY ENMANUEL Administration Lisinopril 40 mg 08/09/24 09:00 08/13/24 08:52 Lisinopril 20 Mg Tablet PO 40 mg DAILY ENMANUEL Administration Lorazepam 0.5 mg 08/09/24 19:05 08/13/24 02:40 Lorazepam 2 Mg/Ml Vial IVP 0.5 mg Q2H PRN Administration Anxiety Montelukast Sodium 10 mg 08/09/24 09:00 08/13/24 08:52 Montelukast 10 Mg Tablet PO 10 mg DAILY ENMANUEL Administration Morphine Sulfate 2 mg 08/10/24 07:45 Morphine 10 Mg/Ml Vial IVP Q3HR PRN Shortness of Air/Wheezing Ondansetron HCl 4 mg 08/08/24 15:45 Ondansetron Odt 4 Mg Tablet TL Q6HR PRN Nausea / Vomiting Pantoprazole Sodium 40 mg 08/14/24 07:00 Pantoprazole 40 Mg Tablet PO QDAC ENMANUEL Polyethylene Glycol 17 gm 08/12/24 09:00 08/13/24 09:10 Polyethylene Glycol 3350 17 Gm Packet PO 17 gm DAILY ENMANUEL Administration Potassium Chloride 20 meq 08/09/24 17:00 08/13/24 08:52 Potassium Chloride 20 Meq Tablet PO 20 meq BIDWM ENMANUEL Administration Sodium Chloride 10 ml 08/08/24 15:45 08/12/24 21:04 Sodium Chloride Flush 0.9% 10 Ml Syringe IVP 10 ml PRN PRN Administration NEEDED PER PROVIDER ORDERS Sodium Chloride 10 ml 08/08/24 17:00 08/13/24 09:10 Sodium Chloride Flush 0.9% 10 Ml Syringe IVP 10 ml 0100,0900,1700 ENMANUEL Administration Objective Vital Signs/Intake & Output Vital Signs: Vital Signs Temp Pulse Pulse Resp BP Pulse Ox O2 Flow Rate 08/13/24 11:00 86 25 H 125/74 95 08/13/24 10:18 96 08/13/24 10:00 100 22 126/100 H 98 6 08/13/24 09:45 100 22 187/86 H 97 6 08/13/24 09:00 106 H 26 H 176/110 H 87 L 6 08/13/24 08:20 6 08/13/24 08:20 102 H 22 08/13/24 08:19 6 08/13/24 08:00 36.9 C 106 H 22 176/95 H 97 Intake & Output: Intake & Output 08/10/24 08/11/24 08/12/24 08/13/24 23:59 23:59 23:59 23:59 Intake Total 758 / 758 383 / 383 223 / 223 200 / 200 Output Total 1450 / 1450 2420 / 2420 750 / 750 350 / 350 Balance -692 / -692 -2037 / -2037 -527 / -527 -150 / -150 Lab Results 08/13/24 04:48 08/13/24 04:48 Other Labs: Lab Results x24hrs 08/13/24 08/13/24 08/13/24 Range/Units 10:10 07:40 04:48 WBC 13.0 H (4.8-10.8) x10^3/uL RBC 5.92 H (4.20-5.40) 10^6/uL Hgb 16.4 H (12.0-16.0) g/dL Hct 49.0 H (37.0-47.0) % MCV 82.8 (81.0-99.0) fL MCH 27.7 (27.0-31.0) pg MCHC 33.5 (32.0-36.0) g/dL RDW 13.6 (12.0-15.0) % Plt Count 459 H (130-450) 10^3/uL MPV 8.9 (7.9-10.8) fL Bld Gas Analysis Time 1010 Sample Site RIGHT RADIAL ABG pH 7.53 H (7.35-7.45) ABG pCO2 55 H (34-45) mmHg ABG pO2 112 H (83-108) mmHg ABG HCO3 47.0 H (22.0-26.0) mmol/L ABG Total CO2 48.7 H* (21.0-29.0) mmol/L ABG O2 Saturation 100 H (95-98) % ABG Base Excess 24.2 H (-2.0-3.0) mmol/L Domenic Test POSITIVE VBG pH 7.564 H (7.31-7.41) Ionized Calcium 1.17 (1.09-1.30) mmol/L O2 Delivery Device NASAL CANNULA O2 Liters/Min 6.00 LPM Sodium 136 (135-145) mmol/L Potassium 3.8 (3.5-4.5) mmol/L Chloride 87 L (101-111) mmol/L Carbon Dioxide 38 H (21-32) mmol/L Anion Gap 11.0 (6-13) BUN 71 H (6-20) mg/dL Creatinine 1.4 H (0.6-1.3) mg/dL Estimated GFR (MDRD) 36 L (>89) Glucose 197 H (74-104) mg/dL POC Whole Bld Glucose 218 (70-100) mg/dL Calcium 10.2 (8.5-10.3) mg/dL Phosphorus 3.9 (2.5-5.0) mg/dL Magnesium 2.5 H (1.7-2.3) mg/dL 08/12/24 08/12/24 08/12/24 Range/Units 20:39 17:31 16:50 WBC (4.8-10.8) x10^3/uL RBC (4.20-5.40) 10^6/uL Hgb (12.0-16.0) g/dL Hct (37.0-47.0) % MCV (81.0-99.0) fL MCH (27.0-31.0) pg MCHC (32.0-36.0) g/dL RDW (12.0-15.0) % Plt Count (130-450) 10^3/uL MPV (7.9-10.8) fL Bld Gas Analysis Time Sample Site ABG pH (7.35-7.45) ABG pCO2 (34-45) mmHg ABG pO2 (83-108) mmHg ABG HCO3 (22.0-26.0) mmol/L ABG Total CO2 (21.0-29.0) mmol/L ABG O2 Saturation (95-98) % ABG Base Excess (-2.0-3.0) mmol/L Domenic Test VBG pH (7.31-7.41) Ionized Calcium (1.09-1.30) mmol/L O2 Delivery Device O2 Liters/Min LPM Sodium (135-145) mmol/L Potassium 4.2 (3.5-4.5) mmol/L Chloride (101-111) mmol/L Carbon Dioxide (21-32) mmol/L Anion Gap (6-13) BUN (6-20) mg/dL Creatinine (0.6-1.3) mg/dL Estimated GFR (MDRD) (>89) Glucose (74-104) mg/dL POC Whole Bld Glucose 220 187 (70-100) mg/dL Calcium (8.5-10.3) mg/dL Phosphorus (2.5-5.0) mg/dL Magnesium (1.7-2.3) mg/dL 08/12/24 Range/Units 11:41 WBC (4.8-10.8) x10^3/uL RBC (4.20-5.40) 10^6/uL Hgb (12.0-16.0) g/dL Hct (37.0-47.0) % MCV (81.0-99.0) fL MCH (27.0-31.0) pg MCHC (32.0-36.0) g/dL RDW (12.0-15.0) % Plt Count (130-450) 10^3/uL MPV (7.9-10.8) fL Bld Gas Analysis Time Sample Site ABG pH (7.35-7.45) ABG pCO2 (34-45) mmHg ABG pO2 (83-108) mmHg ABG HCO3 (22.0-26.0) mmol/L ABG Total CO2 (21.0-29.0) mmol/L ABG O2 Saturation (95-98) % ABG Base Excess (-2.0-3.0) mmol/L Domenic Test VBG pH (7.31-7.41) Ionized Calcium (1.09-1.30) mmol/L O2 Delivery Device O2 Liters/Min LPM Sodium (135-145) mmol/L Potassium (3.5-4.5) mmol/L Chloride (101-111) mmol/L Carbon Dioxide (21-32) mmol/L Anion Gap (6-13) BUN (6-20) mg/dL Creatinine (0.6-1.3) mg/dL Estimated GFR (MDRD) (>89) Glucose (74-104) mg/dL POC Whole Bld Glucose 341 (70-100) mg/dL Calcium (8.5-10.3) mg/dL Phosphorus (2.5-5.0) mg/dL Magnesium (1.7-2.3) mg/dL Assessment/Plan Problem List (1) Acute exacerbation of chronic obstructive pulmonary disease: Impression: * Continue alternating BiPAP with nasal cannula. Patient has increased work of breathing. * CT done, and it does show some distal mucous plugging at the left lower lobe. No consolidations, no pleural effusions were seen. * Continue IV Lasix to maintain euvolemic status. * Continue DuoNebs, IV Decadron. Chest physiotherapy ordered, continue other supportive management including guaifenesin. (2) RSV (acute bronchiolitis due to respiratory syncytial virus): Impression: Mgnt as above (3) Atrial fibrillation with rapid ventricular response: Impression: * Patient with atrial fibrillation, currently in rapid ventricular response. * Home Atenolol 50 mg twice daily at home. * (4) HTN (hypertension): Impression: * Blood pressure currently on lower side. Hold hydrocholorothizide at this time. Qualifiers: Hypertension type: primary hypertension Qualified Code(s): I10 - Essential (primary) hypertension (5) GERD (gastroesophageal reflux disease): Impression: * Continue Protonix. Qualifiers: Esophagitis presence: without esophagitis Qualified Code(s): K21.9 - Gastro-esophageal reflux disease without esophagitis (6) HLD (hyperlipidemia): Impression: * Continue home statin. Qualifiers: Hyperlipidemia type: mixed hyperlipidemia Qualified Code(s): E78.2 - Mixed hyperlipidemia
[2024-08-13] MEDS: guaiFENesin 600 MG TABLET PO SCH (12:24)
[2024-08-13] MEDS: DEXAMETHASONE 10 MG/ML VIAL IVP ONE (12:24)
--- NOTE | 2024-08-13 12:45 | Discharge Summary ---
"Discharge Summary Admit Date: 08/08/24 Discharge Date: 08/13/24 Discharging Provider: Dr. Kamilla Rodriguez Code Status: Attempt Resuscitation Discharge Facility Name: Transfer - [facility] DIAGNOSES Admission Diagnoses: Acute exacerbation of COPD RSV Hypertension GERD Hyperlipidemia Discharge Diagnoses with Status of Each Condition: Acute exacerbation of COPDpatient is still requiring almost continuous BiPAP. Without it, becomes lethargic or has increased work of breathing. We have continued IV Decadron daily. CT thorax was done, did show some left lower lobe mucous plugging. Chest physiotherapy was ordered, as well as scheduled Mucinex. She also received DuoNebs [id number]. RSVmanagement as above. Atrial fibrillation with rapid ventricular responsepatient was receiving albuterol as needed. Continued home atenolol. Holding anticoagulation; heme- onc notes reviewed, did have a history of GI bleeds, will discuss with patient. Atrial fibrillation with rapid ventricular responseresolved with atenolol dosage. Hypertensionhydrochlorothiazide held. GERDcontinue Protonix. Hyperlipidemiacontinue statin. HPI History of Present Illness: Per Dr. Rosales: Patient is an 78-year-old female with a PMH of asthma/COPD, HTN, HLD, GERD, remote history of breast cancer status post bilateral mastectomy presenting to the ED with a chief complaint of 3 to 4 days of worsening shortness of breath, wheeze, and cough.Patient became significantly distressed to the extent that she called paramedics who brought her to the ED and provided a nebulizer and route. She continued to have shortness of breath to the extent that she had tripoding, and in the ED was given multiple other rounds of nebulizer treatments. At baseline she is not oxygen dependent but here in the EDShe required 2 L nasal cannula to maintain oxygen saturation was above 90%.Vital signs were also remarkable for sinus tachycardia with heart rates up to the 120s. Blood pressure was intermittently elevated but generally within normal limits.Labs were fairly noncontributoryHowever RSV was positive on the viral respiratory panel. Chest x-ray showed no evidence of infiltrates or pneumonia. Given the patient's continued acute respiratory failure with hypoxia after methylprednisolone and multiple nebulizer treatments, admission was requested for further management. CONSULTS | PROCEDURES Consultations: Respiratory therapy Procedures: Chest x-ray, chest CT HOSPITAL COURSE Hospital Course: Patient is an 78-year-old female with history of COPD, remote history of breast cancer s/p bilateral mastectomy who presented with 3 to 4 days of worsening shortness of breath, wheezing, coughing. She is placed on BiPAP when she first got here. Despite steroids, DuoNebs [id number], percussive therapy, patient was unable to be removed from the BiPAP. CT chest showed some mucous plugging in the left lower lobe. I spoke with the insulation blower at [facility], and accepted transfer. Patient may need bronchoscopy, advance care from a insulation blower. Patient and patient's son were spoken with at bedsideagreeable to transfer. Patient was transferred to [facility]. ALLERGIES Allergies Allergy/AdvReac Type Severity Reaction Status Date / Time Penicillins Allergy Unknown Verified 08/08/24 08:17 MEDICATIONS Ambulatory Orders Medication Instructions Recorded Confirmed levothyroxine 100 mcg tablet 100 mcg ORAL DAILY 02/11/16 08/08/24 montelukast 10 mg tablet 10 mg ORAL DAILY 02/11/16 08/08/24 lisinopril 40 mg tablet 40 mg PO DAILY #30 tabs 04/09/19 08/08/24 pantoprazole 40 mg tablet,delayed 40 mg PO DAILY 30 days #30 tabs 12/14/21 08/08/24 release nebulizers (Aeroneb Go Nebulizer) 01/15/22 08/08/24 cholecalciferol (vitamin D3) 125 5,000 unit PO DAILY 04/21/22 08/08/24 mcg (5,000 unit) capsule magnesium glycinate-mag oxide 3 cap PO DAILY 04/21/22 08/08/24 acetaminophen 300 mg-codeine 30 mg 1 tab PO Q8HR PRN Pain 1-4 01/26/23 08/08/24 tablet atorvastatin 20 mg tablet 20 mg PO QPM 07/18/23 08/08/24 ipratropium bromide 0.02 % 0.5 mg (2.5 mL) inhalation QID 10 08/05/23 08/08/24 solution for inhalation days #100 mL levalbuterol tartrate 45 2 puff IH QID #15 grams 08/05/23 08/08/24 mcg/actuation aerosol inhaler atenolol 50 mg tablet 50 mg PO BID 08/08/24 08/08/24 fluoxetine 20 mg capsule 20 mg PO DAILY 08/08/24 08/08/24 hydrochlorothiazide 50 mg tablet 50 mg PO DAILY 08/08/24 08/08/24 insulin lispro 100 unit/mL 1 - 8 unit subcut .TIDAC 08/08/24 08/08/24 subcutaneous pen (Humalog KwikPen (U-100) Insulin) semaglutide 2 mg/dose (8 mg/3 mL) 2 mg subcut .WEEKLY 08/08/24 08/08/24 subcutaneous pen injector (Ozempic) umeclidinium 62.5 mcg-vilanterol 1 inh inhalation BID 08/08/24 08/08/24 25 mcg/actuation powdr for inhalation (Anoro Ellipta) PHYSICAL EXAM AT DISCHARGE General Appearance: positive Mild distress and Lethargic Eyes Bilateral: positive Normal inspection, PERRL and EOMI ENT: positive ENT inspection nml, Pharynx nml and No signs of dehydration Neck: positive Nml inspection, Thyroid nml and No JVD Respiratory: positive Chest non-tender, No respiratory distress, Wheezes and Rales Cardiovascular: positive Irregularly irregular and Tachycardia Peripheral Pulses: positive 2+ Abdomen: positive Non-tender; negative Nml bowel sounds, Guarding, Rebound, Hepatomegaly, Splenomegaly or Mass Rectal: positive Non-tender Back: positive Nml inspection; negative CVA tenderness (R) or CVA tenderness (L) Skin: positive Color nml, No rash, Warm and Dry Extremities: positive Non-tender, Full ROM, Nml appearance and No pedal edema Neurologic/Psychiatric: positive Oriented x3 and Mood/affect nml LABS 08/13/24 04:48 08/13/24 04:48 DIAGNOSTIC IMAGING Diagnostic Imaging Results: Final report reviewed FOLLOW UP Follow Up: Transfer to [facility]. TIME SPENT Time Spent in Discharge (Minutes): 35 Discharge Plan Discharge Patient Disposition: Transfer Acute Care Hosp Condition: Serious Prescriptions: Continued levothyroxine 100 MCG tablet 100 mcg ORAL DAILY montelukast 10 MG tablet 10 mg ORAL DAILY lisinopril 40 MG tablet 40 mg PO DAILY Qty: 30 0RF pantoprazole 40 MG tablet,delayed release (DR/EC) 40 mg PO DAILY 30 Days Qty: 30 1RF (DME) nebulizers [Aeroneb Go Nebulizer] 1 EACH misc 1 ea miscellaneous ONCE cholecalciferol (vitamin D3) 5,000 UNIT capsule 5,000 unit PO DAILY magnesium glycinate-mag oxide 120 MG capsule 3 cap PO DAILY acetaminophen-codeine 1 TAB tablet 1 tab PO Q8HR PRN (Reason: Pain 1-4) atorvastatin 20 MG tablet 20 mg PO QPM levalbuterol tartrate 15 GM HFA aerosol inhaler 2 puff IH QID Qty: 15 2RF ipratropium bromide 0.2 MG/ML solution 0.5 mg inhalation QID 10 Days Qty: 100 0RF hydrochlorothiazide 50 mg tablet 50 mg PO DAILY fluoxetine 20 mg capsule 20 mg PO DAILY atenolol 50 mg tablet 50 mg PO BID insulin lispro [Humalog KwikPen Insulin] 100 unit/mL insulin pen 1 - 8 unit SUBCUT .TIDAC Patient Comments: INJECT 0-8 UNITS UNDER THE SKIN THREE TIMES DAILY BEFORE MEALS. I... (REFER TO PRESCRIPTION NOTES). Anoro Ellipta 62.5-25 mcg/actuation blister with device 1 inh INHALATION BID Ozempic 2 mg/dose (8 mg/3 mL) pen injector 2 mg SUBCUT .WEEKLY Discontinued prednisone 20 MG tablet 40 mg PO DAILY Qty: 10 0RF Activity Restrictions: Activity as Tolerated Diet: Regular Print Language: Albanian Stand Alone Forms: PCP List"
[2024-08-13 14:17] VITALS: TEMP 97.9
[2024-08-13 15:05] VITALS: BP 122/88
[2024-08-13 16:56] VITALS: O2SAT 97
[2024-08-14] MEDS ORDERED: PANTOPRAZOLE 40 MG TABLET PO SCH (07:00)
== END 2024-08-13 17:05 | disposition short-term general hospital (02) | DRG 189 ==
LOC: MS2 08:06 → ED 08:06 → MS2 12:50 → ICU 08-09 09:04
PROVIDERS: ADMIT Family Medicine Sports Medicine; ATTEND Physician Assistant Medical
DX: Z90.13 Acquired absence of bilateral breasts and nipples; J81.1 Chronic pulmonary edema; Z79.01 Long term (current) use of anticoagulants; J21.0 Acute bronchiolitis due to respiratory syncytial virus; I48.91 Unspecified atrial fibrillation; E78.2 Mixed hyperlipidemia; J44.1 Chronic obstructive pulmonary disease with (acute) exacerbation; Z85.3 Personal history of malignant neoplasm of breast; K21.9 Gastro-esophageal reflux disease without esophagitis; F41.9 Anxiety disorder, unspecified; J96.01 Acute respiratory failure with hypoxia; I11.0 Hypertensive heart disease with heart failure; Z87.891 Personal history of nicotine dependence; J44.0 Chronic obstructive pulmonary disease with (acute) lower respiratory infection; I50.9 Heart failure, unspecified; R00.0 Tachycardia, unspecified; E87.1 Hypo-osmolality and hyponatremia; I10 Essential (primary) hypertension

== ENCOUNTER 2024-09-27 03:03 | Observation (INO) ==
--- OUTSIDE RECORDS SUMMARY | 2024-09-27 03:21 | EXTERNAL MEDICAL SUMMARY RPT | Continuity of Care Document ---
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 2024-04-17 08:[address] omach and duodenum [facility] 2024-04-17 08:49 Solitary pulmonary nodule idb [facility] 2024-04-17 08:49 Encounter for genera l adult medical examination without abnormal findings [facility] 2024-04-17 08:49 Personal history of malignant n eoplasm of breast [address] 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 2024-07-15 09:40 Iron deficiency anemia, unspeci fied [facility] 2024-07-15 09:40 Anemia, unspecified [facility] 2024-07-15 09:[address] omach and duodenum without bleeding [facility] 2024-07-15 09:40 Solitary pulmonary nodule idb [facility] 2024-07-15 09:40 Encounter for genera l adult medical examination without abnormal findings [facility]24-07-15 09:40 Personal history of malignant n eoplasm of breast [address] 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 2024-07-15 09:[address] omach and duodenum without bleeding [facility] 2024-07-15 09:52 Solitary pulmonary nodule idb [facility] 2024-07-15 09:52 Encounter for genera l adult medical examination without abnormal findings [facility] 2024-07-15 09:52 Personal history of malignant n eoplasm of breast 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 2024-07-15 11:[address] omach and duodenum without bleeding [facility] 2024-07-15 11:19 [facility]ule [facility] 2024-07-15 11:19 Encounter for genera l adult medical examination without abnormal findings [facility] 2024-07-15 11:19 Personal history of malignant n eoplasm of breast 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 2024-07-15 11:43 Iron deficiency anemia, unspeci fied [facility] 2024-07-15 11:43 Anemia, unspecified [facility] 2024-07-15 11:[address] omach and duodenum without bleeding [facility] 2024-07-15 11:43 Solitary pulmonary nodule idb [facility] 2024-07-15 11:43 Encounter for genera l adult medical examination without abnormal findings [facility] 2024-07-15 11:43 Personal history of malignant n eoplasm of breast 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 2024-07-15 11:[address] omach and duodenum without bleeding 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) [facility] 2024-07-15 13:[address] omach and duodenum without bleeding [facility] 2024-07-15 13:06 Solitary pulmonary nodule Pending sale to [facility] 2024-07-15 13:06 Encounter for genera l adult medical examination without abnormal findings [facility] 2024-07-15 13:06 Personal history of malignant n eoplasm of breast [facility] 2024-07-16 00:04 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) [facility] 2024-07-23 12:29 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) [facility] 2024-07-23 12:29 Iron deficiency anemia, unspeci fied [facility] 2024-07-23 12:[address] omach and duodenum without bleeding [facility] 2024-07-23 12:29 Solitary pulmonary nodule Pending sale to [facility] 2024-07-23 12:29 Encounter for genera l adult medical examination without abnormal findings [facility] 2024-07-23 12:29 Personal history of malignant n eoplasm of breast [facility] 2024-08-09 09:05 Mixed hyperlipidemia [facility] 2024-08-09 09:05 Essential (primary) hypertensio n [facility] 2024-08-09 09:05 Acute bronchiolitis due to respiratory syncytial virus [facility] 2024-08-09 09:05 Chronic obstructive pulmonary disease with (acute) exacerbation [facility] 2024-08-09 09:05 Gastro-esophageal reflux diseas e without esophagitis [facility] 2024-08-09 09:16 Mixed hyperlipidemia [facility] 2024-08-09 09:16 Essential (primary) hypertensio n [facility] 2024-08-09 09:16 Acute bronchiolitis due to respiratory syncytial virus [facility] 2024-08-09 09:16 Chronic obstructive pulmonary disease with (acute) exacerbation [facility] 2024-08-09 09:16 Gastro-esophageal reflux diseas e without esophagitis [facility] 2024-08-09 14:37 Mixed hyperlipidemia [facility] 2024-08-09 14:37 Essential (primary) hypertensio n [facility] 2024-08-09 14:37 Acute bronchiolitis due to respiratory syncytial virus [facility] 2024-08-09 14:37 Chronic obstructive pulmonary disease with (acute) exacerbation [facility] 2024-08-09 14:37 Gastro-esophageal reflux diseas e without esophagitis [facility] 2024-08-13 12:45 Mixed hyperlipidemia [facility] 2024-08-13 12:45 Essential (primary) hypertensio n [facility] 2024-08-13 12:45 Unspecified atrial fibrillation [facility] 2024-08-13 12:45 Acute bronchiolitis due to respiratory syncytial virus [facility] 2024-08-13 12:45 Chronic obstructive pulmonary disease with (acute) exacerbation [facility] 2024-08-13 12:45 Gastro-esophageal reflux diseas e without esophagitis [facility] 2024-08-13 17:06 Mixed hyperlipidemia [facility] 2024-08-13 17:06 Essential (primary) hypertensio n [facility] 2024-08-13 17:06 Unspecified atrial fibrillation [facility] 2024-08-13 17:06 Acute bronchiolitis due to respiratory syncytial virus [facility] 2024-08-13 17:06 Chronic obstructive pulmonary disease with (acute) exacerbation [facility] 2024-08-13 17:06 Gastro-esophageal reflux diseas e without esophagitis [facility] 2024-08-14 10:36 Mixed hyperlipidemia [facility] 2024-08-14 10:36 Anxiety disorder, [facility]24-08-14 10:36 Essential (primary) hypertensio n [facility] 2024-08-14 10:36 Unspecified atrial fibrillation [facility] 2024-08-14 10:36 Acute bronchiolitis due to respiratory syncytial virus [address] [facility] 2024-08-14 10:36 Chronic obstructive pulmonary disease with (acute) exacerbation [facility] 2024-08-14 10:36 Gastro-esophageal reflux diseas e without esophagitis [facility] 2024-08-14 10:36 Shortness of breath [facility] 2024-08-14 10:36 Acute respiratory distress [facility] 2024-08-14 10:48 Mixed hyperlipidemia [facility] 2024-08-14 10:48 Anxiety disorder, unspecified [facility] 2024-08-14 10:48 Essential (primary) hypertensio n [facility] 2024-08-14 10:48 Unspecified atrial fibrillation [facility] 2024-08-14 10:48 Acute bronchiolitis due to respiratory syncytial virus [facility] 2024-08-14 10:48 Chronic obstructive pulmonary disease with (acute) exacerbation [facility] 2024-08-14 10:48 Acute respiratory failure with hypoxia [facility] 2024-08-14 10:48 Gastro-esophageal reflux diseas e without esophagitis [facility] 2024-08-14 10:48 Shortness of breath [facility] 2024-08-14 10:48 Acute respiratory distress [facility] 2024-08-14 10:49 Mixed hyperlipidemia [facility] 2024-08-14 10:49 Anxiety disorder, unspecified [facility] 2024-08-14 10:49 Essential (primary) hypertensio n [facility] 2024-08-14 10:49 Unspecified atrial fibrillation [facility] 2024-08-14 10:49 Acute bronchiolitis due to respiratory syncytial virus [facility] 2024-08-14 10:49 Chronic obstructive pulmonary disease with (acute) exacerbation [facility] 2024-08-14 10:49 Acute respiratory failure with hypoxia [facility] 2024-08-14 10:49 Gastro-esophageal reflux diseas e without esophagitis [facility] 2024-08-14 10:49 Shortness of breath [facility] 2024-08-14 10:49 Acute respiratory distress [facility] 2024-08-15 13:33 Shortness of breath [facility] Results/Labs test date facility value unit notes Result panel 1 NUCLEATED RED BLOOD CELLS AUTO 2024-07-15 10:38 [facility] 0.0 /100wbc (missing) NRBC ABSOLUTE COUNT (AUTO) 2024-07-15 10:38 [facility] 0.00 x10 3/ul (missing) BASOPHILS # (AUTO) 2024-07-15 10:38 [facility] 0.1 10 3/ul (missing) EOSINOPHILS # (AUTO) 2024-07-15 10:38 [facility] 0.2 10 3/ul (missing) MONOCYTES # (AUTO) 2024-07-15 10:38 [facility] 0.5 10 3/ul (missing) LYMPHOCYTES # (AUTO) 2024-07-15 10:38 [facility] 1.6 10 3/ul (missing) RED CELL DISTRIBUTION WIDTH 2024-07-15 10:38 [facility] 13.3 % (missing) HGB - HEMOGLOBIN 2024-07-15 10:38 [facility] 14.2 g /dl (missing) % IRON SATURATION 2024-07-15 10:38 [facility] 15 % (missing) MEAN CORPUSCULAR HEMOGLOBIN 2024-07-15 10:38 [facility] 27.7 pg (missing) TRANSFERRIN 2024-07-15 10:38 [facility] 297 mg/dl As of December 2022 testing method has changed, this may include reference ranges. VITAMIN B12 2024-07-15 10:38 [facility] 298 pg/ml Social History date description facility
--- NOTE | 2024-09-27 03:28 | ED Physician Documentation ---
History of Present Illness Stated complaint Stated Complaint: SOA Chief complaint Chief Complaint: Resp History obtained from History obtained from: Patient Additonal information Additional information: 79yF with pmh dm, copd, asthma, recent hospitalization with rsv, p/w soa tonight with o2 sat 90% RA at home prior to home neb treatments. on ems arrival patient was 96% RA. she was placed on 2L nasal cannula for comfort and transported to ED. denies cp, n/v fever cough leg swelling. her soa has improved Meds/Allgy Home Medications Ambulatory Orders Medication Instructions Recorded Confirmed levothyroxine 100 mcg tablet 100 mcg ORAL DAILY 02/11/16 08/08/24 montelukast 10 mg tablet 10 mg ORAL DAILY 02/11/16 08/08/24 lisinopril 40 mg tablet 40 mg PO DAILY #30 tabs 04/09/19 08/08/24 pantoprazole 40 mg tablet,delayed 40 mg PO DAILY 30 days #30 tabs 12/14/21 08/08/24 release nebulizers (Aeroneb Go Nebulizer) 01/15/22 08/08/24 cholecalciferol (vitamin D3) 125 5,000 unit PO DAILY 04/21/22 08/08/24 mcg (5,000 unit) capsule magnesium glycinate-mag oxide 3 cap PO DAILY 04/21/22 08/08/24 acetaminophen 300 mg-codeine 30 mg 1 tab PO Q8HR PRN Pain 1-4 01/26/23 08/08/24 tablet atorvastatin 20 mg tablet 20 mg PO QPM 07/18/23 08/08/24 ipratropium bromide 0.02 % 0.5 mg (2.5 mL) inhalation QID 10 08/05/23 08/08/24 solution for inhalation days #100 mL levalbuterol tartrate 45 2 puff IH QID #15 grams 08/05/23 08/08/24 mcg/actuation aerosol inhaler atenolol 50 mg tablet 50 mg PO BID 08/08/24 08/08/24 fluoxetine 20 mg capsule 20 mg PO DAILY 08/08/24 08/08/24 hydrochlorothiazide 50 mg tablet 50 mg PO DAILY 08/08/24 08/08/24 insulin lispro 100 unit/mL 1 - 8 unit subcut .TIDAC 08/08/24 08/08/24 subcutaneous pen (Humalog KwikPen (U-100) Insulin) semaglutide 2 mg/dose (8 mg/3 mL) 2 mg subcut .WEEKLY 08/08/24 08/08/24 subcutaneous pen injector (Ozempic) umeclidinium 62.5 mcg-vilanterol 1 inh inhalation BID 08/08/24 08/08/24 25 mcg/actuation powdr for inhalation (Anoro Ellipta) prednisone 10 mg tablets in a dose 10 mg PO DIRECTED #21 ea 09/27/24 pack Allergies Allergies Allergy/AdvReac Type Severity Reaction Status Date / Time Penicillins Allergy Unknown Unknown Unverified 09/27/24 03:20 PFSH Active Problems All Active Problems (Updated 09/27/24 @ 03:31 by Mallika Simms MD) Asthma (Acute) Acute hyponatremia (Acute) Atrial fibrillation with rapid ventricular response (Acute) CHF (congestive heart failure) (Acute) Acute exacerbation of chronic obstructive pulmonary disease (Acute) RSV (acute bronchiolitis due to respiratory syncytial virus) (Acute) HTN (hypertension) (Acute) HLD (hyperlipidemia) (Acute) GERD (gastroesophageal reflux disease) (Acute) Hypoxia (Acute) History of breast cancer (Acute) Healthcare maintenance (Acute) Left lower lobe pulmonary nodule (Acute) 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 (Date/Year): 2001 Number of Years Smoked: 20 How many cigarettes a day do you smoke? (20 cigarettes=1 Pk): 20 Second hand tobacco smoke exposure: No Do you dip or chew tobacco?: No Do you vape?: No Patient requests smoking cessation consult: No Initiate information on smoking cessation: No Marital Status: Support Person: No Relationship: Level: Independent Do you feel safe in your home environment?: Yes Suffered physical, verbal, emotional, or financial abuse?: No History of Abuse: No ETOH Use: Wine Substance Use: cannabis (any form) POLST Patient has POLST: No Exam Exam Vital Signs: Vital Signs x48h Temp Pulse Resp BP Pulse Ox 09/27/24 03:21 36.4 C L 89 19 153/89 H 96 09/27/24 03:08 36.4 C L 98 167/136 H 95 Constitutional normal general appearance, no apparent distress and average body habitus HENMT normocephalic and head/scalp atraumatic Eyes PERRL Neck/C-Spine visual inspection normal Respiratory breath sounds equal bilaterally, normal respiratory effort and clear to auscultation bilaterally Cardiovascular normal heart rate noted and regular rhythm noted Results Vitals Vitals: Vital Signs - 24 hr 09/27/24 03:08 09/27/24 03:21 09/27/24 03:22 Temperature 36.4 C L 36.4 C L Temperature Source Tympanic Tympanic Pulse Rate 98 89 Respiratory Rate 19 Blood Pressure 167/136 H 153/89 H O2 Saturation 95 96 Oxygen Delivery Method Room Air O2 Source Room air Room air Pain Intensity 0 0 Oxygen O2 Source Room air PD Medical Decision Making ED course ED course: 79yF p/w soa 2/2 asthma exacerbation, improved prior to arrival with home albuterol nebs. steroid provided and return precautions given. plan to f/u with pcp. Discharge Plan Discharge Patient Disposition: Home, Self Care Condition: Stable Clinical Impression: Asthma Prescriptions: New prednisone 10 mg tablets,dose pack 10 mg PO DIRECTED Qty: 21 0RF Rx Instructions: see taper instructions Day 1: 6 tablets, Day 2: 5, Day 3: 4, Day 4: 3, Day 5: 2, Day 6: 1. No Action levothyroxine 100 MCG tablet 100 mcg ORAL DAILY montelukast 10 MG tablet 10 mg ORAL DAILY lisinopril 40 MG tablet 40 mg PO DAILY Qty: 30 0RF pantoprazole 40 MG tablet,delayed release (DR/EC) 40 mg PO DAILY 30 Days Qty: 30 1RF (DME) nebulizers [Aeroneb Go Nebulizer] 1 EACH misc 1 ea miscellaneous ONCE cholecalciferol (vitamin D3) 5,000 UNIT capsule 5,000 unit PO DAILY magnesium glycinate-mag oxide 120 MG capsule 3 cap PO DAILY acetaminophen-codeine 1 TAB tablet 1 tab PO Q8HR PRN (Reason: Pain 1-4) atorvastatin 20 MG tablet 20 mg PO QPM levalbuterol tartrate 15 GM HFA aerosol inhaler 2 puff IH QID Qty: 15 2RF ipratropium bromide 0.2 MG/ML solution 0.5 mg inhalation QID 10 Days Qty: 100 0RF hydrochlorothiazide 50 mg tablet 50 mg PO DAILY fluoxetine 20 mg capsule 20 mg PO DAILY atenolol 50 mg tablet 50 mg PO BID insulin lispro [Humalog KwikPen Insulin] 100 unit/mL insulin pen 1 - 8 unit SUBCUT .TIDAC Patient Comments: INJECT 0-8 UNITS UNDER THE SKIN THREE TIMES DAILY BEFORE MEALS. I... (REFER TO PRESCRIPTION NOTES). Anoro Ellipta 62.5-25 mcg/actuation blister with device 1 inh INHALATION BID Ozempic 2 mg/dose (8 mg/3 mL) pen injector 2 mg SUBCUT .WEEKLY Activity Restrictions/Additional Instructions: You were seen in the emergency department for medical evaluation. Please follow-up with your primary care provider and return to the emergency department if you have any new or worsening symptoms or other concerns. Print Language: Macedonian Patient Instructions: Asthma Dc Stand Alone Forms: PCP List
[2024-09-27] MEDS: predniSONE 20 MG TABLET PO STA (03:54)
--- NOTE | 2024-09-27 07:05 | ED Physician Documentation ---
ED Addendum Addendum Addendum: I received signout of this patient from Dr. Simms. She is pending admission for pneumonia. My independent review of the chest radiograph shows right-sided infiltrate. Patient continues to be mildly tachycardic. Labs show mild hyponatremia and hypokalemia. Potassium supplementation and 500 mL normal saline was ordered due to history of congestive heart failure. She has already received ceftriaxone and azithromycin. She is meeting sepsis criteria with tachycardia and tachypnea. Blood cultures have already been drawn. Initial lactic acid is 2.0. No indication for 30 cc/kg bolus. Patient to be admitted to the hospital for exertional dyspnea and pneumonia leading to sepsis. She has antibiotics on board and blood cultures sent. Discharge Plan Discharge Patient Disposition: ED Place in Observation Condition: Stable Clinical Impression: Asthma, Pneumonia involving right lung, Sepsis Prescriptions: New prednisone 10 mg tablets,dose pack 10 mg PO DIRECTED Qty: 21 0RF Rx Instructions: see taper instructions Day 1: 6 tablets, Day 2: 5, Day 3: 4, Day 4: 3, Day 5: 2, Day 6: 1. No Action levothyroxine 100 MCG tablet 100 mcg ORAL DAILY montelukast 10 MG tablet 10 mg ORAL DAILY lisinopril 40 MG tablet 40 mg PO DAILY Qty: 30 0RF pantoprazole 40 MG tablet,delayed release (DR/EC) 40 mg PO DAILY 30 Days Qty: 30 1RF (DME) nebulizers [Aeroneb Go Nebulizer] 1 EACH misc 1 ea miscellaneous ONCE cholecalciferol (vitamin D3) 5,000 UNIT capsule 5,000 unit PO DAILY magnesium glycinate-mag oxide 120 MG capsule 3 cap PO DAILY acetaminophen-codeine 1 TAB tablet 1 tab PO Q8HR PRN (Reason: Pain 1-4) atorvastatin 20 MG tablet 20 mg PO QPM levalbuterol tartrate 15 GM HFA aerosol inhaler 2 puff IH QID Qty: 15 2RF ipratropium bromide 0.2 MG/ML solution 0.5 mg inhalation QID 10 Days Qty: 100 0RF hydrochlorothiazide 50 mg tablet 50 mg PO DAILY fluoxetine 20 mg capsule 20 mg PO DAILY atenolol 50 mg tablet 50 mg PO BID insulin lispro [Humalog KwikPen Insulin] 100 unit/mL insulin pen 1 - 8 unit SUBCUT .TIDAC Patient Comments: INJECT 0-8 UNITS UNDER THE SKIN THREE TIMES DAILY BEFORE MEALS. I... (REFER TO PRESCRIPTION NOTES). Anoro Ellipta 62.5-25 mcg/actuation blister with device 1 inh INHALATION BID Ozempic 2 mg/dose (8 mg/3 mL) pen injector 2 mg SUBCUT .WEEKLY Activity Restrictions/Additional Instructions: You were seen in the emergency department for medical evaluation. Please follow-up with your primary care provider and return to the emergency department if you have any new or worsening symptoms or other concerns. Print Language: Greek Patient Instructions: Asthma Dc Stand Alone Forms: PCP List
[2024-09-27 07:14] LABS: VBG PCO2 42.7 mmHg (41-51); VBG PH 7.423 (7.31-7.41)
[2024-09-27 07:15] LABS: VBG BASE EXCESS 3.6 mmol/L (-2 - +2); VBG PO2 31.7 mmHg (25-47); VBG TOTAL CO2 29.5 mmol/L (24-29)
[2024-09-27] MEDS: IPRATROPIUM/ALBUTEROL 3 ML NEB INH STA (07:25)
[2024-09-27 07:26] LABS: BASOPHILS # (AUTO) 0.1 10^3/uL (0.0-0.1); BASOPHILS % (AUTO) 0.9 %; EOSINOPHILS % (AUTO) 0.1 %; HCT - HEMATOCRIT 37.6 % (37.0-47.0); HGB - HEMOGLOBIN 12.4 g/dL (12.0-16.0); LYMPHOCYTES # (AUTO) 0.7 10^3/uL (1.5-3.5); LYMPHOCYTES % (AUTO) 9.3 %; MEAN CORPUSCULAR HEMOGLOBIN 28.2 pg (27.0-31.0); MEAN CORPUSCULAR VOLUME 85.6 fL (81.0-99.0); MEAN PLATELET VOLUME 9.4 fL (7.9-10.8); MONOCYTES # (AUTO) 0.1 10^3/uL (0.0-1.0); MONOCYTES % (AUTO) 1.8 %; NEUTROPHILS # (AUTO) 6.7 10^3/uL (1.5-6.6); NEUTROPHILS % (AUTO) 87.2 %; PLT - PLATELET COUNT 460 10^3/uL (130-450); RED BLOOD COUNT 4.39 10^6/uL (4.20-5.40); RED CELL DISTRIBUTION WIDTH 15.4 % (12.0-15.0); WHITE BLOOD COUNT 7.7 x10^3/uL (4.8-10.8)
[2024-09-27 07:29] LABS: ALBUMIN 4.2 g/dL (3.2-5.5); ALBUMIN/GLOBULIN RATIO 1.3 (1.0-2.2); BILIRUBIN,TOTAL 1.4 mg/dL (0.2-1.0); CALCIUM 9.2 mg/dL (8.5-10.3); CREATININE 0.8 mg/dL (0.6-1.3); POTASSIUM 3.3 mmol/L (3.5-4.5); TOTAL PROTEIN 7.5 g/dL (6.4-8.9)
[2024-09-27] MEDS: SODIUM CHLORIDE 0.9% 1,000 ML IV STA (07:39)
[2024-09-27] MEDS: cefTRIAXone 1 GM in SODIUM CHLORIDE 0.9% MINIBAG 100 ML IV STA (07:59)
[2024-09-27] MEDS: POTASSIUM CHLORIDE 20 MEQ TABLET PO STA (07:59)
[2024-09-27] MEDS: SODIUM CHLORIDE 0.9% 500 ML IV ONE (08:00)
[2024-09-27] MEDS: AZITHROMYCIN INJ 500 MG in SODIUM CHLORIDE 0.9% 250 ML IV STA (09:14)
--- NOTE | 2024-09-27 11:57 | HISTORY & PHYSICAL EXAMINATION ---
Chief Complaint Chief Complaint Chief Complaint: Short of breath for several days History of Present Illness Admitted From Admitted From:: Home via private vehicle History Obtained From Records Reviewed: [facility] History obtained from: ER provider and patient Exam Limitations: none History of Present Illness HPI Comment/Other: This [place] lady was just transferred from our hospital on August 13 after suffering an acute exacerbation of COPD from RSV 08/08/2024. In spite of her supportive care to get her through that acute exacerbation she was still requiring almost continuous BiPAP. Without it she would become lethargic with increased work of breathing. CT at that time showed some left lower lobe mucous plugging. Despite steroids, DuoNebs [id number], percussive therapy the patient was unable to be removed from BiPAP. Pulmonology at [place] was consulted on the phone. They felt that she may need bronchoscopy and advanced care. Her family was at the bedside and agreed to transfer and she was transferred to [facility] on August 13. Discharge was September 16. From [facility] she went to [facility]. In [place]. She was able to progress with endurance,, off oxygen, and went home. She says that she was able to dress herself, feed herself. She was able to go up and down the tiny steps in her house. [facility] went to go assess her for PT and OT and they said that she was almost at goal. That she was as good as what they want to offer patients to achieve. The main thing that held her back was the strength and endurance to make a full meal in the kitchen. She has been using a walker at home. But more more frequently she was not using the walker and able to ambulate without any assistance. She lives alone. [place]. She managed to make herself a meal of pasta this week and she was proud of herself. She does not know when, but sometime this week she noticed that her fatigue was coming back. She started getting more short of breath. She has taught herself how to do pursed lip breathing when her asthma kicks in and her pursed lip breathing started happening more and more frequently. She has a dry cough. It is not changed. There is no phlegm, no fever, no chills. In the last couple of days she would be overcome with a wave of fatigue where she would break out in a cold sweat and have to sit down. And then she would get up and do activities until it happened again. She has chronic leg edema. But that was getting better as well. No change in bowel habits. No change in urinary habits. No urgency, frequency dysuria. No headache, sore throat, eustachian tube dysfunction. She did have a post discharge complication of a saliva gland infection on the right side when she got out of [place]. But they gave her antibiotics and she did fine. At home she uses Ellipta, ipratropium bromide, and levalbuterol, prednisone, and Singulair for her asthma. It is not working. There is no phlegm production. When her medicines were not effective and she felt like she was getting worse she came to the hospital. Blood pressure was 167/136, O2 sat was 95% on room air. Her pulse was 98. Her chest x-ray was interpreted by the ER provider. A final report has not been noted but it looks as if she has had an interval development of a moderate left effusion, left basilar atelectasis and pneumonia may be present. After antibiotics and nebulizers, she has improved somewhat but is very weak and fatigued. When they tried to get her up to walk in the ER she was noticeably tachycardic. Her initial tachypnea of 25 has gradually come down to 12. She is mildly hyponatremic at 128. Her baseline is 136. She is mildly hypokalemic at 3.3 where her baseline is 3.8. When she was discharged her BUN was 71 and creatinine 1.4. Today she is 15 and 0.8. Glucose is 231 and a diabetic. Lactic acid is normal at 2. Total bili is 1.4. White cell count is normal at 7.7. Hemoglobin stable at 12.4. She is usually 15.7 or 14.5. The emergency room provider and I discussed her illness. She is not hypoxic, no longer tachypneic, and the only vital sign parameter that is out of control is her pulse. She has low-grade tachycardia 101. She is not hypothermic but is low at 36.2. Her curb score is 1 point in the low risk group. I am hesitant about an inpatient admission and expressed that to the ER provider. I will be placing her in observation status and see if she can improve overnight with regards to her low-grade tachycardia. Will also see if family support can be provided if she needs to return to home. I then went to go meet her. This patient is markedly fatigued. Just sitting up at the side of the bed causes her to start tripoding. Speaking to me to give me her history causes her to do pursed lip breathing, tachypnea, and tripoding. She gets tachycardic to the low 100s with this. But her O2 sats maintained at 98% with activity. Her physical exam with regards to decompensating is much worse than her objective data. Meds/Allgy Home Medications Ambulatory Orders Medication Instructions Recorded Confirmed levothyroxine 100 mcg tablet 100 mcg ORAL DAILY 02/11/16 09/27/24 montelukast 10 mg tablet 10 mg ORAL DAILY 02/11/16 09/27/24 lisinopril 40 mg tablet 40 mg PO DAILY #30 tabs 04/09/19 09/27/24 pantoprazole 40 mg tablet,delayed 40 mg PO DAILY 30 days #30 tabs 12/14/21 09/27/24 release nebulizers (Aeroneb Go Nebulizer) 01/15/22 08/08/24 cholecalciferol (vitamin D3) 125 5,000 unit PO DAILY 04/21/22 09/27/24 mcg (5,000 unit) capsule acetaminophen 300 mg-codeine 30 mg 1 tab PO Q8HR PRN Pain 1-4 01/26/23 09/27/24 tablet atorvastatin 20 mg tablet 20 mg PO QPM 07/18/23 09/27/24 levalbuterol tartrate 45 2 puff IH QID #15 grams 08/05/23 09/27/24 mcg/actuation aerosol inhaler atenolol 50 mg tablet 50 mg PO BID 08/08/24 09/27/24 fluoxetine 20 mg capsule 20 mg PO DAILY 08/08/24 09/27/24 hydrochlorothiazide 50 mg tablet 50 mg PO DAILY 08/08/24 09/27/24 insulin lispro 100 unit/mL 2 - 8 unit subcut .TIDAC 08/08/24 09/27/24 subcutaneous pen (Humalog KwikPen (U-100) Insulin) umeclidinium 62.5 mcg-vilanterol 1 inh inhalation DAILY 08/08/24 09/27/24 25 mcg/actuation powdr for inhalation (Anoro Ellipta) aspirin 81 mg tablet,delayed 81 mg PO DAILY 09/27/24 09/27/24 release (Adult Aspirin Regimen) insulin glargine 100 unit/mL (3 10 unit subcut QPM 09/27/24 09/27/24 mL) subcutaneous pen (Lantus Solostar U-100 Insulin) magnesium glycinate 100 mg (as 300 mg PO DAILY 09/27/24 09/27/24 glycinate) tablet (Mag Glycinate) prednisone 10 mg tablets in a dose 10 mg PO DIRECTED #21 ea 09/27/24 pack Allergies Allergies Allergy/AdvReac Type Severity Reaction Status Date / Time magnesium oxide AdvReac Diarrhea Verified 09/27/24 13:42 PFSH Active Problems All Active Problems (Updated 09/27/24 @ 17:15 by Ale Lorenz MD) Hypokalemia, inadequate intake (Acute) Weakness generalized (Acute) Sepsis (Acute) Pneumonia involving right lung (Acute) Asthma (Acute) Acute hyponatremia (Acute) Atrial fibrillation with rapid ventricular response (Acute) CHF (congestive heart failure) (Acute) Acute exacerbation of chronic obstructive pulmonary disease (Acute) RSV (acute bronchiolitis due to respiratory syncytial virus) (Acute) Hypoxia (Acute) Healthcare maintenance (Acute) Medical History Medical History (Updated 09/27/24 @ 17:15 by Ale Lorenz MD) Former smoker 20 pack year, quit 2007 Atrial fibrillation Cannot due DOAC due to ectasias of small bowel. s/p Watchman 07/2022, on ASA plavix for 6 months, now on ASA alone Superior mesenteric artery stenosis incidental finding on CT during ER visit 06/2022. If sudden abd pain, N/V she should go to ER Breast cancer DCIS 1982. s/p b/l mastectomies, b/l breast implants, no adjuvant chemo done C. 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 last visit 07/15/24 Angiectasia of gastrointestinal tract EGD 02/27/22: erythematous antral mucosa Colonoscopy 02/27/22: R colon adenoma and hyperplastic polyp, L colon hyperplastic polyp. Colonscopy 04/22/2022: cecal angiodysplasia tx w cautery Video capsule endoscopy 09/28/2022: angioectasia in distal small bowel, no active bleeding Left lower lobe pulmonary nodule 04/10. FU due 03/2025. then if stable, due in 5 years GERD (gastroesophageal reflux disease) HLD (hyperlipidemia) HTN (hypertension) COPD (chronic obstructive pulmonary disease) Surgical History Surgical History (Updated 09/27/24 @ 11:51 by Ale Lorenz MD) History of bilateral breast implants History of bilateral mastectomy History of total abdominal hysterectomy History of History of tonsillectomy and adenoidectomy Family History Family History (Updated 09/27/24 @ 11:55 by Ale Lorenz MD) Other Adopted Social History Social History Smoking Status: Former smoker If you are a former smoker, when did you quit? (Date/Year): 20 years ago. Number of Years Smoked: 20 How many cigarettes a day do you smoke? (20 cigarettes=1 Pk): 20 Second hand tobacco smoke exposure: No Do you dip or chew tobacco?: No Do you vape?: No Patient requests smoking cessation consult: No Initiate information on smoking cessation: No Marital Status: Support Person: No Relationship: Level: Independent Do you feel safe in your home environment?: Yes Suffered physical, verbal, emotional, or financial abuse?: No History of Abuse: No ETOH Use: Wine Substance Use: denies use POLST Patient has POLST: No Review of Systems Status of ROS: 10 or more systems reviewed and unremarkable except as noted in history and below Constitutional Reports: Fatigue, Malaise, Weakness and Other (All of these became markedly worse over the last 2 days after she had impro); Denies: Fever or Chills Eyes Denies: Pain, Amaurosis, Blurry vision or Blind spots Ears, nose, mouth, and throat Denies: Ear pain, Change in hearing, Nasal pain, Nose bleeds, Nasal discharge, Nasal congestion, Mouth pain, Difficulty swallowing, Neck pain or Throat swelling Cardiovascular Reports: edema, swelling of feet/ankles, lightheadedness, shortness of breath with exertion and Decreased exercise tolerance; Denies: Irregular heart rate, chest pain, palpitations, Syncope, shortness of breath when lying down or leg pain with exertion Respiratory Reports: Shortness of breath, Cough, Pleuritic pain (When she lays on her right side it feels very uncomfortable. ), SOB at rest, SOB with exertion and other (Can take a deep breath without pain); Denies: Sputum production, Change in phlegm color or Wheezing Gastrointestinal Denies: Abdominal pain, Abdominal distention, Nausea, Vomiting, Poor appetite or Difficulty swallowing Genitourinary Denies: Painful urination, Urinary frequency, Urinary urgency, Nocturia or Urinary incontinence Musculoskeletal Reports: Extremity swelling; Denies: Back pain, Neck pain or Extremity pain Integumentary/Breast Denies: Rash, Itching, Dryness, Redness or Skin pain Neurological Reports: General weakness; Denies: Headache, Focal weakness, Weakness in extremities, Numbness in extremities, Pre-existing deficit, Abnormal gait, Lack of coordination or Memory problems Psychiatric Denies: Depression, Anxiety or Mood swings Endocrine Reports: Fatigue; Denies: Excessive urination, Excessive thirst or Polyphagia Hematologic/Lymphatic Denies: Anemia or Easy bruising Allergic/Immunologic Denies: Hives, Throat swelling or Wheezing Prior Level of Functionality: Before she came in prior to her illness August 08 she was completely independent. Lives alone. Retired. Did [employer] for [employer]. [place] after building a house with [employer]. Her son came shortly thereafter because he fell off of the [place] as well. Did not use a cane or a walker until discharge from the hospital. Is not on home oxygen. Exam Exam Vital Signs: Vital Signs x48h Temp Pulse Pulse Resp BP BP Pulse Ox 09/27/24 14:19 109 H 20 144/89 H 09/27/24 12:08 36.3 C L 20 181/98 H 96 09/27/24 11:12 67 155/129 H 94 09/27/24 09:34 36.2 C L 101 H 12 167/120 H 95 09/27/24 07:27 106 H 18 Constitutional normal general appearance Elderly female looks younger than stated age, comfortable at rest and laying down but when she starts speaking becomes noticeably tachypneic, slight rib retraction and has to sit up and do tripoding to finish her exam with me. HENMT normocephalic, head/scalp atraumatic and hearing grossly normal bilaterally Eyes PERRL and EOMs intact bilaterally Neck/C-Spine cervical full ROM noted Lymph no lymphadenopathy noted Chest Surgical changes of her previous mastectomies in breast reconstruction. Respiratory Prolonged exhalation phase, pursed lip breathing, slight rib retraction. But lungs very quiet, no wheezing but almost no air sounds as well. No egophony Cardiovascular regular rhythm noted, no rub and no murmur At rest she drops into the high 90s. When she starts talking to me and sitting up, she maintains a consistent heart rate of between 101 and 110. Gastrointestinal abdomen normal to inspection, abdomen soft to palpation, nontender to palpation and nontender to percussion Back/Pelvis spine normal to inspection Extremities no tenderness and full ROM 1+ edema with shininess to the skin of both ankles and shins Neurology smoking pipe liner II-XII intact, no movement abnormality noted, no focal motor deficit noted and no sensory deficits noted Psychiatry mental status grossly normal, oriented x3, thought process normal, cooperative and affect normal Sepsis Event Note (H) Evaluation Current Stage of Sepsis: Ruled out Conclusion/Plan Problem List (1) Acute exacerbation of chronic obstructive pulmonary disease: Plan: On objective data alone of pulse, blood pressure, hypoxemia and temperature she only shows hemodynamic instability with her pulse. I am amazed she is not more hypoxic. On physical exam she easily decompensates with tachypnea, pursed lips, and tripoding with simple exertion of just sitting up in bed. No teresa wheezing which I think actually be a more alarming sign than if she was wheezing. Her lungs appear very tight. Cause appears to be pneumonia. Plan: Observation status. IV steroids with Solu-Medrol 40 mg IV push every 8 hours x 3 doses DuoNeb 4 times a day, Singulair, Tessalon Perles, antibiotics With Rocephin and azithromycin. (2) Pneumonia involving right lung: Plan: No history of aspiration. She had actually been improving since [facility] so she has very disenheartened at this current setback. Plan: Rocephin 1 g daily Azithromycin 500 mg daily Cultures have been done, and I will adjust her antibiotics on the basis of culture results. (3) Atrial fibrillation: Plan: Currently being managed with rate control of atenolol 50 mg p.o. twice daily, and aspirin 81 mg a day. She cannot take a DOAC because of the vascular ectasia. I have resumed her medications. 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 She states she rarely takes Ozempic. Plan is for her to have a glycosylated hemoglobin in the morning. I will resume her Lantus. If I am giving her 3 doses of steroids her sugars may become decompensated. And I will also do sliding scale insulin before each meal. (5) Weakness generalized: Plan: She is shocked at how much ground she is lost in 2 days. She went from being able to walk in her home without a walker, dress herself, feed herself, to this. Just getting up to sit up for exam because decompensation and she is so weak. She is upset at the idea that she may have to return to [facility] if she cannot take care of herself. (6) Hypokalemia, inadequate intake: Plan: She takes hydrochlorothiazide, not Lasix. She is not on the potassium supplement at home. I can only deduce that she is not having enough adequate fluid intake for this. I will give her 40 mill colons p.o. one-time dose. Another dose tomorrow morning. And see how she does with repletion. I will check her levels tomorrow Lab Results Lab results reviewed: Yes 09/27/24 06:56 09/27/24 06:56 Core Measures Anticipated LOS I expect patient to be DC'd or transferred within 96 hours.: Yes DVT/VTE - Prophylaxis VTE/DVT Device ordered at admit?: Yes
[2024-09-27] MEDS ORDERED: ONDANSETRON ODT 4 MG TABLET TL PRN (12:02)
[2024-09-27] MEDS ORDERED: ACETAMINOPHEN 325 MG TABLET PO PRN (12:02)
[2024-09-27] MEDS ORDERED: oxyCODONE 5 MG TABLET PO PRN (12:02)
[2024-09-27] MEDS ORDERED: IPRATROPIUM/ALBUTEROL 3 ML NEB INH PRN (12:02)
[2024-09-27] MEDS ORDERED: ONDANSETRON 4 MG/2 ML VIAL IVP PRN (12:02)
[2024-09-27] MEDS: atenoloL 25 MG TABLET PO SCH (12:17)
[2024-09-27] MEDS: SODIUM CHLORIDE 0.9% 1,000 ML IV SCH (12:19)
[2024-09-27] MEDS: INSULIN LISPRO 300 UNIT/3 ML PEN SUBQ SCH ×2 (12:26→17:34)
--- NOTE | 2024-09-27 13:43 | PHARMACY PROGRESS NOTE ---
Best Possible Medication History Admit Date and Time: 09/27/24 1123 Home Medications Medication Instructions Recorded Confirmed Type levothyroxine 100 mcg tablet 100 mcg ORAL DAILY 02/11/16 09/27/24 History montelukast 10 mg tablet 10 mg ORAL DAILY 02/11/16 09/27/24 History lisinopril 40 mg tablet 40 mg PO DAILY #30 tabs 04/09/19 09/27/24 Rx pantoprazole 40 mg tablet,delayed 40 mg PO DAILY 30 days #30 tabs 12/14/21 09/27/24 Rx release nebulizers (Aeroneb Go Nebulizer) 01/15/22 08/08/24 History cholecalciferol (vitamin D3) 125 5,000 unit PO DAILY 04/21/22 09/27/24 History mcg (5,000 unit) capsule acetaminophen 300 mg-codeine 30 mg 1 tab PO Q8HR PRN Pain 1-4 01/26/23 09/27/24 History tablet atorvastatin 20 mg tablet 20 mg PO QPM 07/18/23 09/27/24 History levalbuterol tartrate 45 2 puff IH QID #15 grams 08/05/23 09/27/24 Rx mcg/actuation aerosol inhaler atenolol 50 mg tablet 50 mg PO BID 08/08/24 09/27/24 History fluoxetine 20 mg capsule 20 mg PO DAILY 08/08/24 09/27/24 History hydrochlorothiazide 50 mg tablet 50 mg PO DAILY 08/08/24 09/27/24 History insulin lispro 100 unit/mL 2 - 8 unit subcut .TIDAC 08/08/24 09/27/24 History subcutaneous pen (Humalog KwikPen (U-100) Insulin) umeclidinium 62.5 mcg-vilanterol 1 inh inhalation DAILY 08/08/24 09/27/24 History 25 mcg/actuation powdr for inhalation (Anoro Ellipta) aspirin 81 mg tablet,delayed 81 mg PO DAILY 09/27/24 09/27/24 History release (Adult Aspirin Regimen) insulin glargine 100 unit/mL (3 10 unit subcut QPM 09/27/24 09/27/24 History mL) subcutaneous pen (Lantus Solostar U-100 Insulin) magnesium glycinate 100 mg (as 300 mg PO DAILY 09/27/24 09/27/24 History glycinate) tablet (Mag Glycinate) prednisone 10 mg tablets in a dose 10 mg PO DIRECTED #21 ea 09/27/24 Rx pack Processed by: Pharmacy Medications reviewed in ED?: No Medication History completed: Yes Patient Interview: Completed Secondary Source(s): Insurance records [facility] Statement: As the person ultimately responsible for medication therapy, providers are able to order a medication from an existing home medication list in [facility] via the "Reconcile Routine" prior to Confirmation of that medication by senior technical support analyst. Such practice is discouraged except when the physician, in their clinical judgment, deems that a medical need exists for a medication without regard to previous use.
[2024-09-27] MEDS: SODIUM CHLORIDE FLUSH 0.9% 10 ML SYRINGE IVP SCH (17:04)
[2024-09-27] MEDS ORDERED: BENZONATATE 100 MG CAPSULE PO PRN (17:19)
[2024-09-27] MEDS: SACCHAROMYCES BOULARDII 250 MG CAPSULE PO SCH (17:35)
[2024-09-27] MEDS: SODIUM CHLORIDE FLUSH 0.9% 10 ML SYRINGE IVP PRN (17:38)
[2024-09-27] MEDS: methylPREDNISolone SUCCINATE 40 MG/ML VIAL IVP SCH (17:38)
[2024-09-27] MEDS: INSULIN GLARGINE-YFGN 300 UNIT/3 ML PEN SUBQ SCH (20:16)
[2024-09-27] MEDS: ATORVASTATIN 10 MG TABLET PO SCH (20:22)
[2024-09-27] MEDS: diphenhydrAMINE 25 MG CAPSULE PO PRN (21:20)
[2024-09-27] MEDS: lisinopriL 20 MG TABLET PO STA (22:13)
[2024-09-27] MEDS: LOPERAMIDE 2 MG CAPSULE PO PRN (22:58)
[2024-09-27] MEDS: ACETAMINOPHEN/CODEINE 300 MG/30 MG TABLET PO PRN (23:04)
[2024-09-28] MEDS: hydrALAZINE INJ 20 MG/ML VIAL IVP ONE (03:20)
[2024-09-28 05:23] LABS: BASOPHILS % (AUTO) 0.3 %; HCT - HEMATOCRIT 36.7 % (37.0-47.0); HGB - HEMOGLOBIN 12.1 g/dL (12.0-16.0); LYMPHOCYTES # (AUTO) 1.3 10^3/uL (1.5-3.5); LYMPHOCYTES % (AUTO) 19.1 %; MEAN CORPUSCULAR HEMOGLOBIN 27.8 pg (27.0-31.0); MEAN CORPUSCULAR VOLUME 84.4 fL (81.0-99.0); MEAN PLATELET VOLUME 9.4 fL (7.9-10.8); MONOCYTES # (AUTO) 0.2 10^3/uL (0.0-1.0); MONOCYTES % (AUTO) 2.6 %; NEUTROPHILS # (AUTO) 5.3 10^3/uL (1.5-6.6); PLT - PLATELET COUNT 530 10^3/uL (130-450); RED BLOOD COUNT 4.35 10^6/uL (4.20-5.40); RED CELL DISTRIBUTION WIDTH 15.4 % (12.0-15.0); WHITE BLOOD COUNT 6.9 x10^3/uL (4.8-10.8)
[2024-09-28 05:40] LABS: CALCIUM 8.9 mg/dL (8.5-10.3); CREATININE 0.8 mg/dL (0.6-1.3); POTASSIUM 4.1 mmol/L (3.5-4.5)
[2024-09-28 08:05] VITALS: BP 175/105; TEMP 97.5; O2SAT 95
[2024-09-28] MEDS: AZITHROMYCIN INJ 500 MG in SODIUM CHLORIDE 0.9% 250 ML IV SCH (08:17)
[2024-09-28] MEDS: POTASSIUM CHLORIDE 20 MEQ TABLET PO SCH (08:18)
[2024-09-28] MEDS: FLUoxetine 10 MG CAPSULE PO SCH (08:18)
[2024-09-28] MEDS: ASPIRIN EC 81 MG TABLET PO SCH (08:18)
[2024-09-28] MEDS: LEVOTHYROXINE 100 MCG TABLET PO SCH (08:18)
[2024-09-28] MEDS: lisinopriL 20 MG TABLET PO SCH (08:18)
[2024-09-28] MEDS: MONTELUKAST 10 MG TABLET PO SCH (08:19)
[2024-09-28] MEDS: PANTOPRAZOLE 40 MG TABLET PO SCH (08:23)
[2024-09-28] MEDS: CHOLECALCIFEROL 5,000 UNIT CAPSULE PO SCH (08:30)
[2024-09-28] MEDS ORDERED: cefTRIAXone 1 GM in SODIUM CHLORIDE 0.9% MINIBAG 100 ML IV SCH (09:00)
[2024-09-28 10:26] LABS: BASOPHILS % (AUTO) 0.2 %; EOSINOPHILS % (AUTO) 0.1 %; HCT - HEMATOCRIT 42.7 % (37.0-47.0); HGB - HEMOGLOBIN 12.8 g/dL (12.0-16.0); LYMPHOCYTES # (AUTO) 3.3 10^3/uL (1.5-3.5); MEAN CORPUSCULAR HEMOGLOBIN 27.7 pg (27.0-31.0); MEAN CORPUSCULAR VOLUME 92.4 fL (81.0-99.0); MEAN PLATELET VOLUME 9.6 fL (7.9-10.8); MONOCYTES # (AUTO) 0.4 10^3/uL (0.0-1.0); MONOCYTES % (AUTO) 3.8 %; NEUTROPHILS # (AUTO) 6.4 10^3/uL (1.5-6.6); NEUTROPHILS % (AUTO) 59.5 %; NRBC ABSOLUTE COUNT (AUTO) 0.03 x10^3/uL; NUCLEATED RED BLOOD CELLS AUTO 0.3 /100WBC; PLT - PLATELET COUNT 530 10^3/uL (130-450); RED BLOOD COUNT 4.62 10^6/uL (4.20-5.40); RED CELL DISTRIBUTION WIDTH 15.8 % (12.0-15.0); WHITE BLOOD COUNT 10.7 x10^3/uL (4.8-10.8)
[2024-09-28 10:29] LABS: SLIDE REVIEW? Indicated
[2024-09-28 10:30] LABS: VBG PCO2 47.3 mmHg (41-51); VBG PO2 61.4 mmHg (25-47)
[2024-09-28 10:31] LABS: VBG BASE EXCESS -18.2 mmol/L (-2 - +2); VBG TOTAL CO2 14.2 mmol/L (24-29)
[2024-09-28 10:34] LABS: VBG PH 7.033 (7.31-7.41)
[2024-09-28] MEDS ORDERED: PROPOFOL 1000 MG/100 ML 1,000 MG/100 ML BOTTLE IV SCH (10:38)
[2024-09-28] MEDS ORDERED: SODIUM BICARBONATE 100 MEQ in DEXTROSE 5% 1,000 ML IV STA (10:45)
[2024-09-28] MEDS ORDERED: PHENYLEPHRINE 20 MG in SODIUM CHLORIDE 0.9% 248 ML IV ONE (10:46)
[2024-09-28 10:49] LABS: ALBUMIN 4.2 g/dL (3.2-5.5); ALBUMIN/GLOBULIN RATIO 1.4 (1.0-2.2); BILIRUBIN,TOTAL 1.2 mg/dL (0.2-1.0); CREATININE 1.1 mg/dL (0.6-1.3); TOTAL PROTEIN 7.3 g/dL (6.4-8.9)
[2024-09-28 11:07] LABS: LACTIC ACID, VENOUS 9.3 mmol/L (0.5-2.2)
[2024-09-28 11:11] LABS: DIFFERENTIAL COMMENT MANUAL=AUTO DIFF; PLATELET ESTIMATE, MANUAL INCREASED (>450,000) (NORMAL); PLATELET MORPHOLOGY NORMAL APPEARANCE (NORMAL); RBC MORPHOLOGY (MULTIPLE) 2+ ANISOCYTOSIS (NORMAL); WBC MORPHOLOGY (MULTIPLE) NORMAL APPEARANCE (NORMAL)
[2024-09-28] MEDS ORDERED: iohexoL-300 100 ML VIAL ONE (11:25)
--- NOTE | 2024-09-28 11:44 | MISCELLANEOUS PROVIDER NOTE ---
Miscellaneous Provider Note - Note: This patient had 2 code blues called this morning. During the first code, I was asked to intubate. At that time, she was being bagged with 100% oxygen. Using the GlideScope and S3 hyperanguled blade with a rigid stylette, I was able to intubate with a 7 5 ET tube with 1 attempt. Tube was secured 22 cm at the lip. ET tube placement was confirmed with both visualization and post procedural chest radiograph. There were no complications during the intubation procedure. During the second code I was asked to place a central line. I did clean the skin with chlorhexidine and used sterile gloves and drape. I was not in a gown but was masked. Using sterile ultrasound guidance, I was able to cannulate the left femoral vein with 1 attempt. I secured a 20 cm triple-lumen CVC with no difficulty. I visualized free fluid flow and blood draw from all 3 ports. No postprocedural radiograph was needed due to femoral placement. This is not a truly sterile central line.
[2024-09-28] MEDS ORDERED: PHENYLEPHRINE 10 MG/ML VIAL ONE (12:04)
[2024-09-28] MEDS ORDERED: CONCENTRATED ALBUTEROL NEB 2.5 MG/0.5 ML INH ONE (12:04)
--- NOTE | 2024-09-28 12:04 | ED Physician Documentation ---
ED Addendum Addendum Addendum: I was called to the bedside, the inpatient team wanted a arterial line for this lady who has been undergoing recurrent arrests. Procedure note arterial line: Consent could not be obtained as the patient was obtunded. The right wrist was prepped with ChloraPrep and sterilely draped. Using real-time sterile ultrasound guidance the radial artery catheter over needle was inserted with real-time visualization of catheter entering radial artery and blood flow back into the chamber. Seldinger wire was advanced and then catheter over needle and it was sutured in place. No immediate complications. Discharge Plan Discharge Patient Disposition: ED Place in Observation Condition: Stable Clinical Impression: Asthma, Pneumonia involving right lung, Sepsis Interventions: ED Admission Assessment Last Done: 09/27/24 11:53
[2024-09-28] MEDS ORDERED: NOREPINEPHRINE/0.9 % NS 8 MG/250 ML BAG IV ONE (12:11)
[2024-09-28] MEDS: CONCENTRATED ALBUTEROL NEB 2.5 MG/0.5 ML INH ONE (12:15)
[2024-09-28 12:34] LABS: VBG PO2 33.9 mmHg (25-47)
[2024-09-28 12:36] LABS: VBG BASE EXCESS -9.7 mmol/L (-2 - +2)
[2024-09-28 12:39] LABS: VBG PH 7.021 (7.31-7.41)
[2024-09-28 12:43] LABS: ABG BASE EXCESS -18.4 mmol/L (-2.0-3.0); ABG HCO3 12.3 mmol/L (22.0-26.0); ABG OXYGEN SATURATION 100 % (95-98); ABG PCO2 44 mmHg (34-45); ABG PO2 220 mmHg (83-108); ABG TCO2 13.7 mmol/L (21.0-29.0)
[2024-09-28 12:44] LABS: ABG MODE OF VENTILATION SIMV; ABG RESPIRATORY RATE 10 b/min
[2024-09-28 12:45] LABS: ABG PH 7.05 (7.35-7.45)
[2024-09-28 12:49] LABS: CALCIUM 7.3 mg/dL (8.5-10.3); CREATININE 1.3 mg/dL (0.6-1.3); POTASSIUM 4.5 mmol/L (3.5-4.5)
--- NOTE | 2024-09-28 13:22 | Discharge Summary ---
"Discharge Summary Admit Date: 09/27/24 Discharge Date: 09/28/24 Discharging Provider: Ale Lorenz MD Primary Care Provider: Darshan Khan MD [facility] Code Status: Do Not Attempt Resuscitation DIAGNOSES Discharge Diagnoses with Status of Each Condition: 1. Pulmonary embolus with CPR x 5, ROSC x 4, then after 5th 2. Rib fractures after CPR 3. Pneumonthorax after CPR 2. Acute exacerbation of chronic obstructive pulmonary disease with asthma 3. Pneumonia involving left lung 4. Atrial fibrillation 5. 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 In spite of her supportive care to get her through that acute exacerbation she was still requiring almost continuous BiPAP. Without it she would become lethargic with increased work of breathing. CT at that time showed some left lower lobe mucous plugging. Despite steroids, DuoNebs [id number], percussive therapy the patient was unable to be removed from BiPAP. Pulmonology at [place] was consulted on the phone. They felt that she may need bronchoscopy and advanced care. Her family was at the bedside and agreed to transfer and she was transferred to [facility] on August 13. Discharge was September 16. From [place] she went to [facility]. In [place]. She was able to progress with endurance,, off oxygen, and went home. She says that she was able to dress herself, feed herself. She was able to go up and down the tiny steps in her house. [facility] went to go assess her for PT and OT and they said that she was almost at goal. That she was as good as what they want to offer patients to achieve. The main thing that held her back was the strength and endurance to make a full meal in the kitchen. She has been using a walker at home. But more more frequently she was not using the walker and able to ambulate without any assistance. She lives alone. Her son does live here on the [place] as well. She managed to make herself a meal of pasta this week and she was proud of herself. She does not know when, but sometime this week she noticed that her fatigue was coming back. She started getting more short of breath. She has taught herself how to do pursed lip breathing when her asthma kicks in and her pursed lip breathing started happening more and more frequently. She has a dry cough. It is not changed. There is no phlegm, no fever, no chills. In the last couple of days she would be overcome with a wave of fatigue where she would break out in a cold sweat and have to sit down. And then she would get up and do activities until it happened again. She has chronic leg edema. But that was getting better as well. No change in bowel habits. No change in urinary habits. No urgency, frequency dysuria. No headache, sore throat, eustachian tube dysfunction. She did have a post discharge complication of a saliva gland infection on the right side when she got out of [place]. But they gave her antibiotics and she did fine. At home she uses Ellipta, ipratropium bromide, and levalbuterol, prednisone, and Singulair for her asthma. It is not working. There is no phlegm production. When her medicines were not effective and she felt like she was getting worse she came to the hospital. Blood pressure was 167/136, O2 sat was 95% on room air. Her pulse was 98. Her chest x-ray was interpreted by the ER provider. A final report has not been noted but it looks as if she has had an interval development of a moderate left effusion, left basilar atelectasis and pneumonia may be present. After antibiotics and nebulizers, she has improved somewhat but is very weak and fatigued. When they tried to get her up to walk in the ER she was noticeably tachycardic. Her initial tachypnea of 25 has gradually come down to 12. She is mildly hyponatremic at 128. Her baseline is 136. She is mildly hypokalemic at 3.3 where her baseline is 3.8. When she was discharged her BUN was 71 and creatinine 1.4. Today she is 15 and 0.8. Glucose is 231 and a diabetic. Lactic acid is normal at 2. Total bili is 1.4. White cell count is normal at 7.7. Hemoglobin stable at 12.4. She is usually 15.7 or 14.5. The emergency room provider and I discussed her illness. She is not hypoxic, no longer tachypneic, and the only vital sign parameter that is out of control is her pulse. She has low-grade tachycardia 101. She is not hypothermic but is low at 36.2. Her curb score is 1 point in the low risk group. I am hesitant about an inpatient admission and expressed that to the ER provider. I will be placing her in observation status and see if she can improve overnight with regards to her low-grade tachycardia. Will also see if family support can be provided if she needs to return to home. I then went to go meet her. This patient is markedly fatigued. Just sitting up at the side of the bed causes her to start tripoding. Speaking to me to give me her history causes her to do pursed lip breathing, tachypnea, and tripoding. She gets tachycardic to the low 100s with this. But her O2 sats maintained at 98% with activity. Her physical exam with regards to decompensating is much worse than her objective data. CONSULTS | PROCEDURES Consultations: General Surgery for chest tube placement Procedures: Chest x-ray on admission in September 27 shows interval development of moderate left pleural effusion in comparison to chest x-ray from August 11, [address] August 11, 2024. Left basilar atelectasis and pneumonia not excluded. Heart size normal. No acute fracture. 3 more chest x-rays have been done. This was during her resuscitation attempt. 1 was for intubation and ET tube tube placement. 1 was for chest tube placement. And a third was for repositioning of the chest tube and rechecking placement. There are no wet readings or preliminary reports as of this dictation to refer to. HOSPITAL COURSE Hospital Course: Patient was placed in observation status due to the fact that her objective data for admission included normal vital signs except for mild tachycardia and mild hypertension. She did not have fever, white cell count and I felt that her problem may be cardiac and not quite pneumonia. But she was treated with empiric antibiotics, IV steroids, and nebulizers. On the morning of her she felt like she was a little bit better but still alarmed at how short of breath she was with minimal exertion. But she had an appetite to eat breakfast. Lung exam had diminished breath sounds at the left base and she had prolonged and exhalation but there is no outright wheezing. But she was still significantly short of breath with minimal exertion and with tripod at the side of the bed when she started talking animatedly. Nursing came to find me and reported that the patient had had syncope. They described her eating breakfast, getting up to the bedside commode, and suddenly feeling unwell at the bedside commode. They stood her up and they did a stand pivot transfer to the bed. They were urging her to lay down but she said it made her too short of breath. There was no chest pain. No confusion. As they were checking her vitals the patient had sudden syncope. They came to get me and as I examined the patient immediately recognized that she did not have a pulse or pressure and was cyanotic with agonal respiration. CODE BLUE was called. The patient had 5 separate resuscitative efforts. Chest compression with epinephrine and more chest compressions. When she was bradycardic she would get atropine. She was transferred to ICU. 5 separate episodes were done to resuscitate her. She was recognized as having a right pneumothorax after chest compressions with Santos device. By now she was intubated. Even with intubation the patient had its have agonal respiration. She also had right rib fractures. Chest tube was placed. Blood gas showed severe acidosis to 7.0. EKG showed continued A-fib. With bradycardia at times. Repeat labs showed sodium 134, potassium 4.5. BUN 27, creatinine 1.3. Glucose 324. Lactic acid 9.3. Calcium 7.3. Total bili 1.2, AST 83, ALT 63, alk phos 129 and troponin 20.3. CBC remained stable with regards to white cell count and hemoglobin. We did run a gamut of differential for her because of CODE BLUE. On exam she did have mottling of her abdomen exam. This is a patient who has an SMA stenosis. Hypovolemia, hypoxemia, acidosis, hypokalemia, hyperkalemia, hypothermia, tension pneumothorax, cardiac tamponade, toxins and thrombosis were all considered. We treated the acidosis with a bicarb drip. Hypotension was treated with Levophed. The patient did have excellent blood pressures in between episodes of bradycardia and agonal respiration. Pneumothorax was treated with a chest tube. She was not hypovolemic or hyperkalemic. ER provider was in the room and did a quick [id number] ultrasound and she did not have right ventricular strain or right ventricular dysfunction. Minimal pericardial effusion. After the fifth episode, the patient was stabilized enough for me to be able to call her son. He was here very quickly. He came to the bedside and I explained what had happened and what I was worried about. She then began having a 6th episode of bradycardia, hypertension. With this episode the son asked us to not perform further resuscitative effort. He was at the bedside holding her hand when her heart slowed down to be asystole. In reviewing this resuscitative effort, my suspicion is that she may have had a pulmonary embolus. She has chronic leg edema. But her episodes were not with arrhythmia, and the acidosis only developed after several resuscitations. The pneumothorax was not a tension pneumothorax and there is no tracheal deviation, mediastinal deviation and easily treated with a chest tube. was pronounced at 12:55 PM. ALLERGIES Allergies Allergy/AdvReac Type Severity Reaction Status Date / Time magnesium oxide AdvReac Diarrhea Verified 09/27/24 13:42 MEDICATIONS Ambulatory Orders Medication Instructions Recorded Confirmed levothyroxine 100 mcg tablet 100 mcg ORAL DAILY 02/11/16 09/27/24 montelukast 10 mg tablet 10 mg ORAL DAILY 02/11/16 09/27/24 lisinopril 40 mg tablet 40 mg PO DAILY #30 tabs 04/09/19 09/27/24 pantoprazole 40 mg tablet,delayed 40 mg PO DAILY 30 days #30 tabs 12/14/21 09/27/24 release nebulizers (Aeroneb Go Nebulizer) 01/15/22 08/08/24 cholecalciferol (vitamin D3) 125 5,000 unit PO DAILY 04/21/22 09/27/24 mcg (5,000 unit) capsule acetaminophen 300 mg-codeine 30 mg 1 tab PO Q8HR PRN Pain 1-4 01/26/23 09/27/24 tablet atorvastatin 20 mg tablet 20 mg PO QPM 07/18/23 09/27/24 levalbuterol tartrate 45 2 puff IH QID #15 grams 08/05/23 09/27/24 mcg/actuation aerosol inhaler atenolol 50 mg tablet 50 mg PO BID 08/08/24 09/27/24 fluoxetine 20 mg capsule 20 mg PO DAILY 08/08/24 09/27/24 hydrochlorothiazide 50 mg tablet 50 mg PO DAILY 08/08/24 09/27/24 insulin lispro 100 unit/mL 2 - 8 unit subcut .TIDAC 08/08/24 09/27/24 subcutaneous pen (Humalog KwikPen (U-100) Insulin) umeclidinium 62.5 mcg-vilanterol 1 inh inhalation DAILY 08/08/24 09/27/24 25 mcg/actuation powdr for inhalation (Anoro Ellipta) aspirin 81 mg tablet,delayed 81 mg PO DAILY 09/27/24 09/27/24 release (Adult Aspirin Regimen) insulin glargine 100 unit/mL (3 10 unit subcut QPM 09/27/24 09/27/24 mL) subcutaneous pen (Lantus Solostar U-100 Insulin) magnesium glycinate 100 mg (as 300 mg PO DAILY 09/27/24 09/27/24 glycinate) tablet (Mag Glycinate) prednisone 10 mg tablets in a dose 10 mg PO DIRECTED #21 ea 09/27/24 pack PHYSICAL EXAM AT DISCHARGE Vital Signs: Vital Signs x48h Temp Pulse Pulse Resp BP Pulse Ox 09/28/24 11:56 153 H 09/28/24 10:10 119 H 09/28/24 08:03 36.4 C L 107 H 20 175/105 H 95 LABS 09/28/24 10:23 09/28/24 13:25 SEPSIS Current Stage of Sepsis: Ruled out Discharge Plan Discharge Patient Disposition: 20 Condition: Poor Medically Cleared Date:: 09/28/24 Prescriptions: New prednisone 10 mg tablets,dose pack 10 mg PO DIRECTED Qty: 21 0RF Rx Instructions: see taper instructions Day 1: 6 tablets, Day 2: 5, Day 3: 4, Day 4: 3, Day 5: 2, Day 6: 1. Discontinued levothyroxine 100 MCG tablet 100 mcg ORAL DAILY montelukast 10 MG tablet 10 mg ORAL DAILY lisinopril 40 MG tablet 40 mg PO DAILY Qty: 30 0RF pantoprazole 40 MG tablet,delayed release (DR/EC) 40 mg PO DAILY 30 Days Qty: 30 1RF (DME) nebulizers [Aeroneb Go Nebulizer] 1 EACH misc 1 ea miscellaneous ONCE cholecalciferol (vitamin D3) 5,000 UNIT capsule 5,000 unit PO DAILY acetaminophen-codeine 1 TAB tablet 1 tab PO Q8HR PRN (Reason: Pain 1-4) atorvastatin 20 MG tablet 20 mg PO QPM levalbuterol tartrate 15 GM HFA aerosol inhaler 2 puff IH QID Qty: 15 2RF hydrochlorothiazide 50 mg tablet 50 mg PO DAILY fluoxetine 20 mg capsule 20 mg PO DAILY atenolol 50 mg tablet 50 mg PO BID insulin lispro [Humalog KwikPen Insulin] 100 unit/mL insulin pen 2 - 8 unit SUBCUT .TIDAC Patient Comments: INJECT 0-8 UNITS UNDER THE SKIN THREE TIMES DAILY BEFORE MEALS. I... (REFER TO PRESCRIPTION NOTES). Anoro Ellipta 62.5-25 mcg/actuation blister with device 1 inh INHALATION DAILY insulin glargine [Lantus Solostar U-100 Insulin] 100 unit/mL (3 mL) insulin pen 10 unit subcut QPM aspirin [Adult Aspirin Regimen] 81 mg tablet,delayed release (DR/EC) 81 mg PO DAILY Mag Glycinate 100 mg tablet 300 mg PO DAILY Activity Restrictions/Additional Instructions: You were seen in the emergency department for medical evaluation. Please follow-up with your primary care provider and return to the emergency department if you have any new or worsening symptoms or other concerns. Interventions: Belongings Inventory Last Done: 09/27/24 12:42 Print Language: Bengali Patient Instructions: Asthma Dc Stand Alone Forms: PCP List Follow-up Care: DARSHAN KHAN MD [Primary Care Provider] - Date/Time: 09/28/24 12:55"
--- NOTE | 2024-09-28 15:44 | CONSULTATION NOTE ---
[facility] Active Problems All Active Problems (Updated 09/28/24 @ 15:38 by Marjorie Cadena DO) Traumatic fracture of ribs of right side with pneumothorax (Acute) Hypokalemia, inadequate intake (Acute) Weakness generalized (Acute) Sepsis (Acute) Pneumonia involving right lung (Acute) Asthma (Acute) Acute hyponatremia (Acute) Atrial fibrillation with rapid ventricular response (Acute) CHF (congestive heart failure) (Acute) Hypoxia (Acute) RSV (acute bronchiolitis due to respiratory syncytial virus) (Acute) Acute exacerbation of chronic obstructive pulmonary disease (Acute) Healthcare maintenance (Acute) Medical History Medical History (Updated 09/28/24 @ 15:38 by Marjorie Cadena DO) Former smoker 20 pack year, quit 2007 Breast cancer DCIS 1982. s/p b/l mastectomies, b/l breast implants, no adjuvant chemo done C. 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 FU due 03/2025. then if stable, due in 5 years Angiectasia of gastrointestinal tract EGD 02/27/22: erythematous antral mucosa Colonoscopy 02/27/22: R colon adenoma and hyperplastic polyp, L colon hyperplastic polyp. Colonscopy 04/22/2022: cecal angiodysplasia tx w cautery Video capsule endoscopy 09/28/2022: angioectasia in distal small bowel, no active bleeding Iron deficiency anemia secondary to blood loss (chronic) seen by Oncology and is being monitored for iron infusion requirements. last visit 07/15/24 Superior mesenteric artery stenosis incidental finding on CT during ER visit 06/2022. If sudden abd pain, N/V she should go to ER Atrial fibrillation Cannot due DOAC due to ectasias of small bowel. s/p Watchman 07/2022, on ASA plavix for 6 months, now on ASA alone Surgical History Surgical History (Updated 09/27/24 @ 11:51 by Ale Lorenz MD) History of bilateral breast implants History of bilateral mastectomy History of total abdominal hysterectomy History of History of tonsillectomy and adenoidectomy Family History Family History (Updated 09/27/24 @ 11:55 by Ale Lorenz MD) Other Adopted Social History Social History Smoking Status: Former smoker If you are a former smoker, when did you quit? (Date/Year): 20 years ago. Number of Years Smoked: 20 How many cigarettes a day do you smoke? (20 cigarettes=1 Pk): 20 Second hand tobacco smoke exposure: No Do you dip or chew tobacco?: No Do you vape?: No Patient requests smoking cessation consult: No Initiate information on smoking cessation: No Marital Status: Support Person: No Relationship: Level: Independent Do you feel safe in your home environment?: Yes Suffered physical, verbal, emotional, or financial abuse?: No History of Abuse: No ETOH Use: Wine Substance Use: denies use POLST Patient has POLST: No Meds/Allgy Home Medications Ambulatory Orders Medication Instructions Recorded Confirmed levothyroxine 100 mcg tablet 100 mcg ORAL DAILY 02/11/16 09/27/24 montelukast 10 mg tablet 10 mg ORAL DAILY 02/11/16 09/27/24 lisinopril 40 mg tablet 40 mg PO DAILY #30 tabs 04/09/19 09/27/24 pantoprazole 40 mg tablet,delayed 40 mg PO DAILY 30 days #30 tabs 12/14/21 09/27/24 release nebulizers (Aeroneb Go Nebulizer) 01/15/22 08/08/24 cholecalciferol (vitamin D3) 125 5,000 unit PO DAILY 04/21/22 09/27/24 mcg (5,000 unit) capsule acetaminophen 300 mg-codeine 30 mg 1 tab PO Q8HR PRN Pain 1-4 01/26/23 09/27/24 tablet atorvastatin 20 mg tablet 20 mg PO QPM 07/18/23 09/27/24 levalbuterol tartrate 45 2 puff IH QID #15 grams 08/05/23 09/27/24 mcg/actuation aerosol inhaler atenolol 50 mg tablet 50 mg PO BID 08/08/24 09/27/24 fluoxetine 20 mg capsule 20 mg PO DAILY 08/08/24 09/27/24 hydrochlorothiazide 50 mg tablet 50 mg PO DAILY 08/08/24 09/27/24 insulin lispro 100 unit/mL 2 - 8 unit subcut .TIDAC 08/08/24 09/27/24 subcutaneous pen (Humalog KwikPen (U-100) Insulin) umeclidinium 62.5 mcg-vilanterol 1 inh inhalation DAILY 08/08/24 09/27/24 25 mcg/actuation powdr for inhalation (Anoro Ellipta) aspirin 81 mg tablet,delayed 81 mg PO DAILY 09/27/24 09/27/24 release (Adult Aspirin Regimen) insulin glargine 100 unit/mL (3 10 unit subcut QPM 09/27/24 09/27/24 mL) subcutaneous pen (Lantus Solostar U-100 Insulin) magnesium glycinate 100 mg (as 300 mg PO DAILY 09/27/24 09/27/24 glycinate) tablet (Mag Glycinate) prednisone 10 mg tablets in a dose 10 mg PO DIRECTED #21 ea 09/27/24 pack Allergies Allergies Allergy/AdvReac Type Severity Reaction Status Date / Time magnesium oxide AdvReac Diarrhea Verified 09/27/24 13:42 Results Lab Results Lab results reviewed: Yes 09/28/24 10:23 09/28/24 13:25 Other Lab Results: Lab Results x24hrs 09/28/24 09/28/24 09/28/24 Range/Units 13:25 12:30 10:23 WBC 10.7 (4.8-10.8) x10^3/uL RBC 4.62 (4.20-5.40) 10^6/uL Hgb 12.8 (12.0-16.0) g/dL Hct 42.7 (37.0-47.0) % MCV 92.4 (81.0-99.0) fL MCH 27.7 (27.0-31.0) pg MCHC 30.0 L (32.0-36.0) g/dL RDW 15.8 H (12.0-15.0) % Plt Count 530 H (130-450) 10^3/uL MPV 9.6 (7.9-10.8) fL Neut # (Auto) 6.4 (1.5-6.6) 10^3/uL Lymph # (Auto) 3.3 (1.5-3.5) 10^3/uL Ogle # (Auto) 0.4 (0.0-1.0) 10^3/uL Eos # (Auto) 0.0 (0.0-0.7) 10^3/uL Baso # (Auto) 0.0 (0.0-0.1) 10^3/uL Absolute Nucleated RBC 0.03 x10^3/uL Band Neuts % (Manual) Not Reportable Abnorm Lymph % (Manual) Not Reportable Nucleated RBC % 0.3 /100WBC Neutrophils # (Manual) Not Reportable Lymphocytes # (Manual) Not Reportable Monocytes # (Manual) Not Reportable Eosinophils # (Manual) Not Reportable Basophils # (Manual) Not Reportable Differential Comment MANUAL=AUTO DIFF Manual Slide Review Indicated WBC Morphology NORMAL APPEARANCE (NORMAL) Platelet Estimate INCREASED (>450,000) (NORMAL) Platelet Morphology NORMAL APPEARANCE (NORMAL) RBC Morph Micro Appear 2+ ANISOCYTOSIS (NORMAL) Bld Gas Analysis Time 1237 Sample Site A-LINE ABG pH 7.05 L* (7.35-7.45) ABG pCO2 44 (34-45) mmHg ABG pO2 220 H (83-108) mmHg ABG HCO3 12.3 L (22.0-26.0) mmol/L ABG Total CO2 13.7 L (21.0-29.0) mmol/L ABG O2 Saturation 100 H (95-98) % ABG Base Excess -18.4 L (-2.0-3.0) mmol/L Domenic Test UNKNOWN VBG pH 7.021 L* 7.033 L* (7.31-7.41) VBG pCO2 82.0 H 47.3 (41-51) mmHg VBG pO2 33.9 61.4 H (25-47) mmHg VBG HCO3 21.4 L 12.7 L (23-28) mmol/L VBG Total CO2 24.0 14.2 L (24-29) mmol/L VBG O2 Saturation 22.0 L 69.0 (60-80) % VBG Base Excess -9.7 L -18.2 L (-2 - +2) mmol/L Respiration Rate 10 b/min O2 Delivery Device VENTILATOR Vent Mode SIMV FiO2 100.00 Tidal Volume 500 mL PEEP 5 cmH2O Pressure Support Vent 10 cmH2O Sodium 134 L 129 L (135-145) mmol/L Potassium 4.5 4.0 (3.5-4.5) mmol/L Chloride 90 L 93 L (101-111) mmol/L Carbon Dioxide 24 16 L (21-32) mmol/L Anion Gap 20.0 H 20.0 H (6-13) BUN 27 H 27 H (6-20) mg/dL Creatinine 1.3 1.1 (0.6-1.3) mg/dL Estimated GFR (MDRD) 39 L 48 L (>89) Glucose 324 H 142 H (74-104) mg/dL POC Whole Bld Glucose (70-100) mg/dL Lactic Acid (0.5-2.2) mmol/L Calcium 7.3 L 9.0 (8.5-10.3) mg/dL Total Bilirubin 1.2 H (0.2-1.0) mg/dL AST 83 H (10-42) IU/L ALT 63 H (10-60) IU/L Alkaline Phosphatase 129 H (42-121) IU/L Troponin I High Sens 20.3 H* (2.3-14.8) ng/L B-Natriuretic Peptide (5-100) pg/mL Total Protein 7.3 (6.4-8.9) g/dL Albumin 4.2 (3.2-5.5) g/dL Globulin 3.1 (2.1-4.2) g/dL Albumin/Globulin Ratio 1.4 (1.0-2.2) Procalcitonin Immunoas (<0.5) ng/mL 09/28/24 09/28/24 09/28/24 Range/Units 10:09 07:56 04:50 WBC 6.9 (4.8-10.8) x10^3/uL RBC 4.35 (4.20-5.40) 10^6/uL Hgb 12.1 (12.0-16.0) g/dL Hct 36.7 L (37.0-47.0) % MCV 84.4 (81.0-99.0) fL MCH 27.8 (27.0-31.0) pg MCHC 33.0 (32.0-36.0) g/dL RDW 15.4 H (12.0-15.0) % Plt Count 530 H (130-450) 10^3/uL MPV 9.4 (7.9-10.8) fL Neut # (Auto) 5.3 (1.5-6.6) 10^3/uL Lymph # (Auto) 1.3 L (1.5-3.5) 10^3/uL Ogle # (Auto) 0.2 (0.0-1.0) 10^3/uL Eos # (Auto) 0.0 (0.0-0.7) 10^3/uL Baso # (Auto) 0.0 (0.0-0.1) 10^3/uL Absolute Nucleated RBC 0.00 x10^3/uL Band Neuts % (Manual) Abnorm Lymph % (Manual) Nucleated RBC % 0.0 /100WBC Neutrophils # (Manual) Lymphocytes # (Manual) Monocytes # (Manual) Eosinophils # (Manual) Basophils # (Manual) Differential Comment Manual Slide Review WBC Morphology (NORMAL) Platelet Estimate (NORMAL) Platelet Morphology (NORMAL) RBC Morph Micro Appear (NORMAL) Bld Gas Analysis Time Sample Site ABG pH (7.35-7.45) ABG pCO2 (34-45) mmHg ABG pO2 (83-108) mmHg ABG HCO3 (22.0-26.0) mmol/L ABG Total CO2 (21.0-29.0) mmol/L ABG O2 Saturation (95-98) % ABG Base Excess (-2.0-3.0) mmol/L Domenic Test VBG pH (7.31-7.41) VBG pCO2 (41-51) mmHg VBG pO2 (25-47) mmHg VBG HCO3 (23-28) mmol/L VBG Total CO2 (24-29) mmol/L VBG O2 Saturation (60-80) % VBG Base Excess (-2 - +2) mmol/L Respiration Rate b/min O2 Delivery Device Vent Mode FiO2 Tidal Volume mL PEEP cmH2O Pressure Support Vent cmH2O Sodium 128 L (135-145) mmol/L Potassium 4.1 (3.5-4.5) mmol/L Chloride 95 L (101-111) mmol/L Carbon Dioxide 21 (21-32) mmol/L Anion Gap 12.0 (6-13) BUN 25 H (6-20) mg/dL Creatinine 0.8 (0.6-1.3) mg/dL Estimated GFR (MDRD) 69 L (>89) Glucose 178 H (74-104) mg/dL POC Whole Bld Glucose 161 (70-100) mg/dL Lactic Acid 9.3 H* (0.5-2.2) mmol/L Calcium 8.9 (8.5-10.3) mg/dL Total Bilirubin (0.2-1.0) mg/dL AST (10-42) IU/L ALT (10-60) IU/L Alkaline Phosphatase (42-121) IU/L Troponin I High Sens (2.3-14.8) ng/L B-Natriuretic Peptide 1240 H (5-100) pg/mL Total Protein (6.4-8.9) g/dL Albumin (3.2-5.5) g/dL Globulin (2.1-4.2) g/dL Albumin/Globulin Ratio (1.0-2.2) Procalcitonin Immunoas 0.07 (<0.5) ng/mL 09/28/24 09/27/24 09/27/24 Range/Units 01:12 20:14 16:45 WBC (4.8-10.8) x10^3/uL RBC (4.20-5.40) 10^6/uL Hgb (12.0-16.0) g/dL Hct (37.0-47.0) % MCV (81.0-99.0) fL MCH (27.0-31.0) pg MCHC (32.0-36.0) g/dL RDW (12.0-15.0) % Plt Count (130-450) 10^3/uL MPV (7.9-10.8) fL Neut # (Auto) (1.5-6.6) 10^3/uL Lymph # (Auto) (1.5-3.5) 10^3/uL Ogle # (Auto) (0.0-1.0) 10^3/uL Eos # (Auto) (0.0-0.7) 10^3/uL Baso # (Auto) (0.0-0.1) 10^3/uL Absolute Nucleated RBC x10^3/uL Band Neuts % (Manual) Abnorm Lymph % (Manual) Nucleated RBC % /100WBC Neutrophils # (Manual) Lymphocytes # (Manual) Monocytes # (Manual) Eosinophils # (Manual) Basophils # (Manual) Differential Comment Manual Slide Review WBC Morphology (NORMAL) Platelet Estimate (NORMAL) Platelet Morphology (NORMAL) RBC Morph Micro Appear (NORMAL) Bld Gas Analysis Time Sample Site ABG pH (7.35-7.45) ABG pCO2 (34-45) mmHg ABG pO2 (83-108) mmHg ABG HCO3 (22.0-26.0) mmol/L ABG Total CO2 (21.0-29.0) mmol/L ABG O2 Saturation (95-98) % ABG Base Excess (-2.0-3.0) mmol/L Domenic Test VBG pH (7.31-7.41) VBG pCO2 (41-51) mmHg VBG pO2 (25-47) mmHg VBG HCO3 (23-28) mmol/L VBG Total CO2 (24-29) mmol/L VBG O2 Saturation (60-80) % VBG Base Excess (-2 - +2) mmol/L Respiration Rate b/min O2 Delivery Device Vent Mode FiO2 Tidal Volume mL PEEP cmH2O Pressure Support Vent cmH2O Sodium (135-145) mmol/L Potassium (3.5-4.5) mmol/L Chloride (101-111) mmol/L Carbon Dioxide (21-32) mmol/L Anion Gap (6-13) BUN (6-20) mg/dL Creatinine (0.6-1.3) mg/dL Estimated GFR (MDRD) (>89) Glucose (74-104) mg/dL POC Whole Bld Glucose 152 216 230 (70-100) mg/dL Lactic Acid (0.5-2.2) mmol/L Calcium (8.5-10.3) mg/dL Total Bilirubin (0.2-1.0) mg/dL AST (10-42) IU/L ALT (10-60) IU/L Alkaline Phosphatase (42-121) IU/L Troponin I High Sens (2.3-14.8) ng/L B-Natriuretic Peptide (5-100) pg/mL Total Protein (6.4-8.9) g/dL Albumin (3.2-5.5) g/dL Globulin (2.1-4.2) g/dL Albumin/Globulin Ratio (1.0-2.2) Procalcitonin Immunoas (<0.5) ng/mL Exam Exam Vital Signs: Vital Signs x48h Temp Pulse Pulse Resp BP Pulse Ox 09/28/24 11:56 153 H 09/28/24 10:10 119 H 09/28/24 08:03 36.4 C L 107 H 20 175/105 H 95 Conclusion/Plan Problem List (1) Acute exacerbation of chronic obstructive pulmonary disease: (2) Pneumonia involving right lung: (3) Atrial fibrillation: Qualifiers: Atrial fibrillation type: longstanding persistent Qualified Code(s): I 48.11 - Longstanding persistent atrial fibrillation (4) 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 During the first iteration of ACLS including chest compression, she sustained right rib fractures with right pneumothorax and subcutaneous emphysema (seen on post-code CXR), for which I was consulted to place a right sided chest tube. While the patient was intubated, I placed a 28F chest tube via the [facility] ICS, 18cm at the skin. under sterile technique. Upon entering the chest there was a boykin of air and 10-20cc blood evacuated via the tube. Proper placement into the apex of the right pleural space was confirmed with CXR, with notation of fluffy opacity within the mid right lung (air space disease vs developing pulmonary contusion from CPR). The chest tube was subsequently withdrawn approximately 6cm to 12cm at the skin, to better drain any blood that may be emanating from the area of consolidation. The chest tube was secured to the skin with suture and dressed with an occlusive dressing. A few hours later, after multiple subsequent PEA arrests, the patient's son arrived and care was withdrawn. Please see attending hospitalist Dr. Lorenz's comprehensive summary of care. Marjorie Cadena DO, [facility] General Surgeon, [facility] Lab Results Lab results reviewed: Yes 09/28/24 10:23 09/28/24 13:25
[2024-09-28] MEDS ORDERED: SODIUM CHLORIDE 0.9% 500 ML IV ONE (16:44)
--- NOTE | 2024-09-30 14:53 | XRAY Report ---
PROCEDURE: Chest 2 View INDICATIONS: SOA TECHNIQUE: 2 views of the chest were acquired. COMPARISON: 05/10/2022. Correlation is also made with chest CT, 08/11/2024 FINDINGS: Surgical changes and devices: Mammaplasty implants. A cardiac closure device is faintly seen. Lungs and pleura: There is blunting of the left costophrenic angle. Overlying mild consolidation can be seen. No pneumothorax is seen. Mediastinum: Mediastinal contours are normal. Heart size is normal. Calcification is seen of the ao rtic arch. Bones and chest wall: No suspicious bony abnormalities. Age-appropriate degenerative changes are se en. Soft tissues appear unremarkable. IMPRESSION: There is a small to moderately sized left-sided pleural effusion. Overlying mild consolidation can be seen, which is most likely related to atelectasis. Differential diagnosis includes pneumonia, yet th is is considered less likely. Postoperative and degenerative changes are seen. Note: No significant discrepancy from the preliminary report. Reviewed by: Carlos Flores MD on 09/27/2024 7:26 AM DIALLO Approved by: Carlos Flores MD on 09/27/2024 7:26 AM DIALLO Station ID: [id number]
--- NOTE | 2024-10-02 15:49 | XRAY Report ---
PROCEDURE: CHEST 1 View INDICATIONS: code blue TECHNIQUE: One view of the chest was acquired. COMPARISON: Correlation is made with the accompanying imaging. FINDINGS: Surgical changes and devices: A right-sided chest tube has been placed. An endotracheal tube is agai n seen, with the tip 6 cm above the edwin. A gastric tube is seen, with the tip coiled upon itself a nd overlying the fundus of the stomach. The sidehole is seen just below the level of the diaphragm. Lungs and pleura: There is a decreased right-sided pleural effusion. Significant right lung opacity can be seen. Mediastinum: Mediastinal contours appear normal. Heart size is mildly enlarged. Bones and chest wall: At least one right-sided rib fracture can be seen. Right-sided soft tissue gas can be seen. IMPRESSION: Interval placement of a right-sided chest tube, with decreased size of the right-sided pneumothorax. The tip of the endotracheal tube is seen 6 cm above the edwin. Significant right lung opacity is seen, which is attributed to contusion/hemorrhage. Reviewed by: Carlos Flores MD on 09/28/2024 11:51 AM DIALLO Approved by: Carlos Flores MD on 09/28/2024 11:51 AM DIALLO Station ID: [id number]
--- NOTE | 2024-10-02 15:49 | XRAY Report ---
PROCEDURE: CHEST 1 View INDICATIONS: code blue, line placementordering doc viewed image and declined repeat exam TECHNIQUE: One view of the chest was acquired. COMPARISON: 09/27/2024 FINDINGS: Surgical changes and devices: An endotracheal tube is seen, with the tip 6 cm above the edwin. A ga stric tube is seen, with the tip not visible within the [id number] of this image, although clearly below the diaphragm. Lungs and pleura: There is a small right-sided pneumothorax. Generalized interstitial prominence can be seen. Left-sided pleural effusion faintly seen. Mediastinum: Mediastinal contours appear normal. Heart size is normal. Calcification is seen of th e aortic arch. Bones and chest wall: At least one right-sided rib fracture is seen. Significant right-sided soft ti ssue gas is seen. IMPRESSION: Small right-sided pneumothorax. At least one right-sided rib fracture. Right-sided soft tissue gas seen. The tip of the endotracheal tube is seen 6 cm above the edwin. Note: Case discussed by telephone with Dr. Lorenz at 10:52 AM [place] time of 09/28/2024. Reviewed by: Carlos Flores MD on 09/28/2024 9:54 AM DIALLO Approved by: Carlos Flores MD on 09/28/2024 9:54 AM DIALLO Station ID: [id number]
--- NOTE | 2024-10-02 15:50 | XRAY Report ---
PROCEDURE: CHEST 1 View INDICATIONS: code blue, chest tube placement TECHNIQUE: One view of the chest was acquired. COMPARISON: Correlation is made with the accompanying imaging. FINDINGS: Surgical changes and devices: The tip of endotracheal tube is seen 6 cm above the edwin. There is a stable right-sided chest tube and a stable gastric tube. Lungs and pleura: There is a trace right-sided pneumothorax. Significant right midlung opacity is se en, which is shifted into hemorrhage/contusion. Mediastinum: Mediastinal contours appear normal. Heart size is moderately enlarged. Calcification i s seen of the aortic arch. Bones and chest wall: At least one right-sided rib fracture can be seen. Right-sided soft tissue gas is seen. IMPRESSION: The tip of the endotracheal tube is seen 6 cm above the edwin. Stable right-sided chest tube, with a trace right-sided pneumothorax. Significant right middle lobe opacity is seen, which is attributed to hemorrhage/contusion. Reviewed by: Carlos Flores MD on 09/28/2024 11:53 AM DIALLO Approved by: Carlos Flores MD on 09/28/2024 11:53 AM DIALLO Station ID: [id number]
== END 2024-09-28 16:27 | disposition expired ==
LOC: MS2 03:03 → ED 03:03 → MS2 11:55 → ICU 09-28 09:59
PROVIDERS: ADMIT Specialist; ATTEND Specialist